=== PATIENT | male | born 1975 | race Caucasian/White ===

== ENCOUNTER 2018-09-24 11:40 | Inpatient (IN) ==
[2018-09-24] MEDS ORDERED: Ketorolac Inj 30 MG/ML (IVP) Vial IV.PUSH ONE (11:56)
[2018-09-24] MEDS ORDERED: diazePAM 5 MG Tablet PO ONE (12:00)
--- NOTE | 2018-09-24 12:00 | ED ---
HPI General Chief complaint: Back Pain/Injury Stated complaint: Back Pain Complaint Time Seen by Provider: 09/24/18 11:49 Source: patient Mode of arrival: ambulatory Limitations: no limitations History of Present Illness HPI narrative: 42yo M with no PMH presents to the ED with c/o bilateral lower back pain for 3 days. Said he was doing yard work for 5 hours and then started having lower back pain that night. Pain feels like spasms and is nonradiating. Also pain and spasm back of thighs bilaterally. Constant and worst with movement. Moderate in severity. +Dark urine. Tactile fever. +Nausea. Denies any trauma, fall, IVDA, hematuria, chest pain, sob, vomiting, abdominal pain, focal weakness or numbness. Has had similar pain before but not this bad. Related Data Home Medications Medication Instructions Recorded Confirmed No Known Home Medications 09/24/18 09/24/18 Allergies Allergy/AdvReac Type Severity Reaction Status Date / Time penicillin G Allergy Mild Rash, Verified 09/24/18 11:50 Localized Review of Systems ROS: all other systems reviewed are negative [facility] Social History Social History Substance History: Active Abuse Second Hand Smoke Exposure: Yes Smoking Status: Current every day smoker Tobacco Type: Cigarettes How Often Do You Have a Drink Containing Alcohol: 2 to 3 times a week Recent Travel in [facility] within the Last 8 Weeks: No Recent Out of Country Travel within the Last 8 Weeks: No Immunization History Tetanus Immunization: Unsure Exam Narrative Exam Narrative: GENERAL: 42yo M in moderate distress. SKIN: Focused skin assessment warm/dry. HEAD: Atraumatic. Normocephalic. EYES: Pupils equal and round. No scleral icterus. No injection or drainage. CARDIOVASCULAR: Tachycardic at 109bpm. No murmur appreciated. RESPIRATORY: No accessory muscle use. Clear to auscultation. Breath sounds equal bilaterally. GASTROINTESTINAL: Abdomen soft, non-tender, nondistended. No rebound tenderness or guarding. BACK: No midline ttp thoracic or lumbar spine. +TTP bilateral paraspinal lumbar muscles. MUSCULOSKELETAL: No obvious deformities. No clubbing. No cyanosis. No edema. NEUROLOGICAL: Awake and alert. No obvious cranial nerve deficits. Motor grossly within normal limits. Sensation equal bilaterally. Normal speech. PSYCHIATRIC: Appropriate mood and affect; insight and judgment normal. Course Initial Documented Vital Signs Temperature 97.7 F 09/24/18 11:43 Pulse Rate 113 H 11/22/18 11:43 Respiratory Rate 20 09/24/18 11:43 Blood Pressure 137/79 09/24/18 11:43 Pulse Oximetry 99 09/24/18 11:43 Last Documented Vital Signs Temperature 100.1 F H 09/25/18 16:00 Pulse Rate 119 H 09/25/18 16:00 Respiratory Rate 16 09/25/18 16:00 Blood Pressure 155/89 H 09/25/18 16:00 Pulse Oximetry 95 09/25/18 16:00 Critical Care Time Critical Care Time: Yes Total Critical Care Time: 45 Attestation: Aggregate critical care time was 45 minutes. Time to perform other separately billable procedures was not included in the critical care time. My time did not include minutes spent treating any other patients simultaneously or on activities that did not directly contribute to the patient's treatment. The services I provided to this patient were to treat and/or prevent clinically significant deterioration that could result in: cardiovascular collpase or . I provided critical care services requiring my management, as noted below: Chart data review, documentation time, medication orders and management, vital sign assessments/reviewing monitor data, ordering and reviewing lab tests, ordering and interpreting/reviewing x-rays and diagnostic studies, care of the patient and discussion of the patient with the admitting physicians. Medical Decision Making MDM Narrative Medical decision making narrative: 42yo M with lower back pain for three days, worsening pain. +Tactile fever and sweating. Labs reviewed, leukocytosis at 23.9. H/H normal. Pt initially denied IVDA but now said he used to do it. Said he has not done it for 18 months. Mild hyponatremia at 132. Creatinine normal. CPK normal. Pt was given valium and toradol initially but was still in a lot of pain. Pt then given morphine and said pain has improved but not much. Given that he has history of IVDA, intractable pain, will do MRI LS to r/ o paraspinal abscess. MRI LS showed epidural meningeal thickening in lumbar spine. Tiny pockets of fluid within the epidural space anterior to thecal sac at L3 and just below L5/S1. Small pocket of fluid also suspected in posterior epidural space at L2/L3. Pt given more pain medication and vancomycin. Pt said while he was at MRI, his left leg started feeling numb from thigh to his toes. Can feel sensation but decreased. No sensation left medial foot. Neurosurgery paged. Discussed case with Dr. Tubbs from neurosurgery and he recommended CT guided aspiraton by IR and said small epidural abscess is not surgical. Recommend admission to medicine. Discussed with Dr. Tyler and he said he will place order for CT guided aspiration and accepted pt to his service. Medical Screen Exam Complete: Yes Emergency Medical Condition: Yes Differential Diagnosis Differential Diagnosis: Rhabdomyolysis vs. dehydration vs. nephrolithiasis vs. pyelonephritis vs. musculoskeletal pain Lab Data Result diagrams: 09/25/18 08:29 09/25/18 08:29 Lab Results 09/24/18 09/24/18 09/24/18 Range/Units 12:00 12:00 12:00 WBC 23.9 H (4.0-11.0) th/mm3 RBC 4.50 (4.50-5.90) mil/mm3 Hgb 13.9 (13.0-17.0) gm/dL Hct 39.2 (39.0-51.0) % MCV 87.3 (80.0-100.0) fL MCH 31.0 (27.0-34.0) pg MCHC 35.5 (32.0-36.0) % RDW 13.8 (11.6-17.2) % Plt Count 200 (150-450) th/mm3 MPV 8.1 (7.0-11.0) fL Prelim Diff (Auto) Neut % (Auto) 91.9 H (16.0-70.0) % Lymph % (Auto) 4.3 L (9.0-44.0) % [place] % (Auto) 3.7 (0.0-8.0) % Eos % (Auto) 0.0 (0.0-4.0) % Baso % (Auto) 0.1 (0.0-2.0) % Neut # (Auto) 22.0 H (1.8-7.7) th/mm3 Lymph # (Auto) 1.0 (1.0-4.8) th/mm3 [place] # (Auto) 0.9 (0.0-0.9) th/mm3 Eos # (Auto) 0.0 (0.0-0.4) th/mm3 Baso # (Auto) 0.0 (0.0-0.2) th/mm3 WBC Differential . Seg Neuts % (Manual) (16-70) % Band Neuts % (Manual) (0-6) % Lymphocytes % (Manual) (9-44) % Monocytes % (Manual) (0-8) % Abs Neuts (Manual) (1.8-7.7) th/mm3 Differential Comment Auto diff final Toxic Granulation (None) Platelet Estimate (Normal) Platelet Morphology (Normal) RBC Morphology (Normal) Sodium 132 L (136-145) meq/L Potassium 3.9 (3.5-5.1) meq/L Chloride 97 L (98-107) meq/L Carbon Dioxide 26.9 (21.0-32.0) meq/L Anion Gap 8 (5-15) meq/L BUN 12 (7-18) mg/dL Creatinine 1.01 (0.60-1.30) mg/dL Estimated GFR 82 L (>89) mL/min Random Glucose 183 H (74-106) mg/dL Lactic Acid (0.4-2.0) mmol/L Calcium 8.2 L (8.5-10.1) mg/dL Total Creatine Kinase 73 (39-308) U/L Urine Color Yellow (Yellw/Straw) Urine Clarity Clear (Clear) Urine pH 6.0 (5.0-8.5) Ur Specific [place] 1.024 (1.002-1.035) Urine Protein Negative (Neg-Trace) mg/dL Urine Glucose (UA) 150 H (Negative) mg/dL Urine Ketones Negative (Negative) mg/dL Urine Occult Blood Negative (Negative) Urine Nitrate Negative (Negative) Urine Bilirubin Negative (Negative) Urine Urobilinogen 4 or greater (Less than 2) mg/dL Ur Leukocyte Esterase Negative (Negative) Urine RBC 1 (0-3) /hpf Urine WBC 4 (0-5) /hpf Ur Squamous Epith Cells 2 (0-5) /hpf Urine Mucus Few H (Occasional) /lpf Micro UA Comment Culture not ind Ur Microscopic Review Not Reportable Urine Culture Comments Culture not ind 09/24/18 09/25/18 09/25/18 Range/Units 15:15 08:29 08:29 WBC 25.4 H (4.0-11.0) th/mm3 RBC 4.58 (4.50-5.90) mil/mm3 Hgb 13.7 (13.0-17.0) gm/dL Hct 40.2 (39.0-51.0) % MCV 87.7 (80.0-100.0) fL MCH 29.9 (27.0-34.0) pg MCHC 34.1 (32.0-36.0) % RDW 13.8 (11.6-17.2) % Plt Count 225 (150-450) th/mm3 MPV 8.4 (7.0-11.0) fL Prelim Diff (Auto) Slide review pending Neut % (Auto) 88.8 H (16.0-70.0) % Lymph % (Auto) 4.3 L (9.0-44.0) % [place] % (Auto) 6.5 (0.0-8.0) % Eos % (Auto) 0.1 (0.0-4.0) % Baso % (Auto) 0.3 (0.0-2.0) % Neut # (Auto) 22.5 H (1.8-7.7) th/mm3 Lymph # (Auto) 1.1 (1.0-4.8) th/mm3 [place] # (Auto) 1.6 H (0.0-0.9) th/mm3 Eos # (Auto) 0.0 (0.0-0.4) th/mm3 Baso # (Auto) 0.1 (0.0-0.2) th/mm3 WBC Differential Manual diff final Seg Neuts % (Manual) 69 (16-70) % Band Neuts % (Manual) 22 H (0-6) % Lymphocytes % (Manual) 6 L (9-44) % Monocytes % (Manual) 3 (0-8) % Abs Neuts (Manual) 23.1 H (1.8-7.7) th/mm3 Differential Comment . Toxic Granulation 2+ H (None) Platelet Estimate Normal (Normal) Platelet Morphology Normal (Normal) RBC Morphology Normal (Normal) Sodium 131 L (136-145) meq/L Potassium 4.0 (3.5-5.1) meq/L Chloride 97 L (98-107) meq/L Carbon Dioxide 26.3 (21.0-32.0) meq/L Anion Gap 8 (5-15) meq/L BUN 12 (7-18) mg/dL Creatinine 1.02 (0.60-1.30) mg/dL Estimated GFR 81 L (>89) mL/min Random Glucose 122 H (74-106) mg/dL Lactic Acid 1.6 (0.4-2.0) mmol/L Calcium 8.4 L (8.5-10.1) mg/dL Total Creatine Kinase (39-308) U/L Urine Color (Yellw/Straw) Urine Clarity (Clear) Urine pH (5.0-8.5) Ur Specific [place] (1.002-1.035) Urine Protein (Neg-Trace) mg/dL Urine Glucose (UA) (Negative) mg/dL Urine Ketones (Negative) mg/dL Urine Occult Blood (Negative) Urine Nitrate (Negative) Urine Bilirubin (Negative) Urine Urobilinogen (Less than 2) mg/dL Ur Leukocyte Esterase (Negative) Urine RBC (0-3) /hpf Urine WBC (0-5) /hpf Ur Squamous Epith Cells (0-5) /hpf Urine Mucus (Occasional) /lpf Micro UA Comment Ur Microscopic Review Urine Culture Comments Imaging Data Radiologist's impression: Lumbar Spine MRI 09/24/18 13:31 CONCLUSION: 1. Long segment thickening, induration and enhancement of the meninges and epidural space of the lumbar spine with the most pronounced involvement being from L4/L5 through S1/S2, presumably infectious. Small pockets of fluid within the epidural space as described. The paraspinous soft tissues are edematous, posteriorly most conspicuous from L3/L4 through L5/S1 and anteriorly most conspicuous in the presacral region and at L5. No findings typical of osteomyelitis or discitis. 2. Degenerative disc changes at L4/L5 and L5/S1 are also seen. Discharge Plan Discharge Disposition Patient Disposition: 30 Still Patient Discharge Details Diagnosis: Epidural abscess Physicians Team ED Provider: Elizabeth Daugherty Primary Care Provider: Primary Care Physici,No Attending Provider: Glenn Cagle Other Providers: Araceli Cantor ; Elke Oliver ; Hieu Acosta ; Jose Henderson Status ED Status: Left Department Discharge Information Discharge Date/Time: 09/24/18 16:41
[2018-09-24] MEDS: Sod Chloride 0.9% Inj 1,000 ML IV.SIG SCH ×2 (12:12→12:46)
[2018-09-24 12:28] LABS: Baso % (Auto) 0.1 % (0.0-2.0); Hematocrit 39.2 % (39.0-51.0); Hemoglobin 13.9 gm/dL (13.0-17.0); Lymph % (Auto) 4.3 % (9.0-44.0); Mean Corpuscular HGB Conc 35.5 % (32.0-36.0); Mean Corpuscular Volume 87.3 fL (80.0-100.0); Mean Platelet Volume 8.1 fL (7.0-11.0); Mono # (Auto) 0.9 th/mm3 (0.0-0.9); Mono % (Auto) 3.7 % (0.0-8.0); Neut % (Auto) 91.9 % (16.0-70.0); Platelet Count 200 th/mm3 (150-450); Red Cell Distribution Width 13.8 % (11.6-17.2); White Blood Count 23.9 th/mm3 (4.0-11.0)
[2018-09-24] MEDS ORDERED: Morphine Inj 4 MG/ML Vial IV.PUSH ONE ×2 (12:32→13:47)
[2018-09-24 12:48] LABS: Calcium 8.2 mg/dL (8.5-10.1); Carbon Dioxide 26.9 meq/L (21.0-32.0); Potassium 3.9 meq/L (3.5-5.1)
[2018-09-24 13:50] LABS: Bilirubin,Urine Negative (Negative); Clarity,Urine Clear (Clear); Color,Urine Yellow (Yellw/Straw); Glucose,Urine (UA) 150 mg/dL (Negative); Leukocyte Esterase,Urine Negative (Negative); Mucus,Urine Few /lpf (Occasional); Nitrite,Urine Negative (Negative); Specific Gravity,Urine 1.024 (1.002-1.035); Squamous Epithelial Cell,Urine 2 /hpf (0-5); Urobilinogen,Urine 4 or Greater mg/dL (Less than 2)
[2018-09-24] MEDS ORDERED: Gadobutrol PF 10 MMOL/10 ML Vial (for RAD) IV.SIG ONE (14:40)
[2018-09-24] MEDS ORDERED: Vancomycin Inj 1,350 MG in Sodium Chlor 0.9% Inj 500 ML IV.SIG ONE (15:08)
--- NOTE | 2018-09-24 15:30 | MR ---
EXAM DATE: 09/24/2018 2:58 PM EST AGE/SEX: 42 years / Male INDICATIONS: . Low back pain. CLINICAL DATA: This is the patient's initial encounter. Patient reports that signs and symptoms have been present for 4 - 6 days and indicates a pain score of 8/10. MEDICAL/SURGICAL HISTORY: None. None. COMPARISON: No prior exams available for comparison. TECHNIQUE: Multiplanar, multisequence MRI examination of the lumbar spine was performed without and with 10 ml Gadavist (gadobutrol) contrast as a single exam dose. FINDINGS: Epidural meningeal thickening seen of the lumbar spine, essentially from T12/L1 through S1/S2 but mos t pronounced at L4/L5 through S1/S2. There is associated compression of the thecal sac that is severe at L4/L5 and L5/S1 and mild from T12/L1 through L3/L4. There is edema in the paraspinous musculature . There is also edema in the prespinous soft tissues, especially presacral and at the level of L5. Ti ny pockets of fluid are seen within the epidural space anterior to the thecal sac at L3 and just belo w L5/S1. A small pocket of fluid is also suspected in the posterior epidural space at L2/L3. No large fluid collections are demonstrated. No evidence of osteomyelitis or discitis. The L4/L5 disc is desiccated and has mild loss of height. There is a small, broad posterior disc prot rusion and mild bilateral facet osteoarthritis at this level. The L5/S1 disc is desiccated and has mild loss of height. There is a small, broad posterior disc prot rusion. Also a focal central and bilateral paracentral annular fissure. CONCLUSION: 1. Long segment thickening, induration and enhancement of the meninges and epidural space of the lum bar spine with the most pronounced involvement being from L4/L5 through S1/S2, presumably infectious. Small pockets of fluid within the epidural space as described. The paraspinous soft tissues are jc atous, posteriorly most conspicuous from L3/L4 through L5/S1 and anteriorly most conspicuous in the p resacral region and at L5. No findings typical of osteomyelitis or discitis. 2. Degenerative disc changes at L4/L5 and L5/S1 are also seen. Electronically signed by: Butch Baxter MD 09/24/2018 3:28 PM EST
[2018-09-24] MEDS ORDERED: Bisacodyl 10 MG Supp RECTAL PRN (16:07)
--- NOTE | 2018-09-24 16:11 | P.HP ---
History of Present Illness Service: Hospitalist Primary Care Physician: No Primary Care Physician Chief Complaint: Lower back pain History of Present Illness: Mr. villalba is a pleasant 42-year-old male with a remote history of IV drug use who presents to the emergency department on 09/24/2018 due to lower back pain with radiation to the right leg and numbness to the left leg. His pain started on 09/21/2018 in the evening. He had subjective fever and took Tylenol 2 controlled fever. He denies any changes in bowel or bladder habits. He used to do IV drug use (Dilaudid) but quit about 18 months ago. He denies any chest pain, shortness of breath. Upon arrival, WBC 23.9K, fever of 102.0 F , tachycardic with pulse rate 110, lactic acid 1.6. Past medical history: IV drug use last use 18 months ago. Past surgical history: No major surgeries in the past. Social history: Patient denies using tobacco or alcohol. He also denies any current illicit drug use. Family history: Mother 6 years ago from pancreatic cancer, COPD, CAD. Inpatient Certification: I certify that the inpatient services were ordered in accordance with Medicare regulations governing the order. This includes certification that hospital inpatient services are reasonable and necessary and in the case of services not specified as inpatient-only under 42 CFR 419.22(n), that they are appropriately provided as inpatient services in accordance to with the 2-midnight benchmark under 43 CFR 412.3(e) Estimated Total Length of Stay (Days): 3 Plans for Post Hospital Care: Home Review of Systems All other systems reviewed negative except as [facility] - History History Provided By: Patient - Medical History Medical History: Medical History (Last Reviewed 09/24/18 @ 17:34 by Martin Tyler DO) Male circumcision Patient denies medical problems - Tobacco History Second Hand Smoke Exposure: Yes Tobacco Use In Past 30 Days: Yes Smoking Status: Current every day smoker Tobacco Type: Cigarettes - Alcohol History How Often Do You Have a Drink Containing Alcohol: 2 to 3 times a week - Substance Use History Substance History: Active Abuse - Travel History Recent Travel in the [place] Within the Last 8 Weeks: No Recent Travel Out of the Country Within the Last 8 Weeks: No - Immunization History Tetanus Immunization: Unsure Medications and Allergies Active Medications: Active Medications Acetaminophen (Tylenol) 650 mg PO Q4H PRN PRN Reason: Headache, fever, pain 1-4 Al Hydroxide/Mg Hydroxide (Milk Of Magnesia Liq) 30 ml PO Q12H PRN PRN Reason: Mild Constipation Bisacodyl (Dulcolax Supp) 10 mg RECTAL DAILY PRN PRN Reason: SEVERE CONSITIPATION Vancomycin HCl 1,350 mg/ (Sodium Chloride) 513.5 mls @ 250 mls/hr IV.SIG ONCE ONE Stop: 09/24/18 17:11 Last Admin: 09/24/18 15:37 Dose: 250 mls/hr Lactulose (Lactulose Liq) 30 ml PO DAILY PRN PRN Reason: SEVERE CONSITIPATION Ondansetron HCl (Zofran Inj) 4 mg IV.PUSH Q6H PRN PRN Reason: NAUSEA OR VOMITING Sennosides (Senokot) 17.2 mg PO Q12H PRN PRN Reason: Moderate Constipation Allergies Allergy/AdvReac Type Severity Reaction Status Date / Time penicillin G Allergy Mild Rash, Verified 09/24/18 11:50 Localized Home Medications Medication Instructions Recorded Confirmed Type No Known Home Medications 09/24/18 09/24/18 History Exam Vital signs: Vital Signs 09/24/18 11:43 09/24/18 11:50 Temperature 97.7 F Pulse Rate 113 H 109 H Respiratory Rate 20 20 Blood Pressure 137/79 132/85 Pulse Oximetry 99 99 Intake & Output 09/23/18 09/24/18 09/24/18 18:59 06:59 18:59 Intake Total 1999 Balance 1999 Weight 90.718 kg Intake: IV 1999 NS Inj 1,000 ML @ 2000 mls/hr 1999 IV.SIG Q30M [facility] Rx#:[id number] Narrative: GENERAL: This is a well-nourished, well-developed patient, in no apparent distress. Mildly uncomfortable due to low back pain. SKIN: No rashes, ecchymoses or lesions. Warm and dry. HEAD: Atraumatic. Normocephalic. No temporal or scalp tenderness. EYES: Pupils equal round and reactive. No injection or drainage. ENT: Nose without bleeding, purulent drainage or septal hematoma. Airway patent. NECK: Trachea midline. No lymphadenopathy. Supple, nontender, no meningeal signs. CARDIOVASCULAR: Regular rate and rhythm without murmurs, gallops, or rubs. No JVD. RESPIRATORY: Clear to auscultation. Breath sounds equal bilaterally. No wheezes , rales, or rhonchi. GASTROINTESTINAL: Abdomen soft, non-tender, nondistended. No guarding. MUSCULOSKELETAL: Extremities without clubbing, cyanosis, or edema. Diminished sensation in the distal left lower ext. Pain on light palpation over lower back. NEUROLOGICAL: Awake and alert. Cranial nerves II through XII intact. No focal neurological deficits. Normal speech. Results - Labs CBC & Chem 7: 09/24/18 12:00 09/24/18 12:00 Labs: Laboratory Results - last 24 hr 09/24/18 09/24/18 09/24/18 12:00 12:00 12:00 WBC 23.9 H RBC 4.50 Hgb 13.9 Hct 39.2 MCV 87.3 MCH 31.0 MCHC 35.5 RDW 13.8 Plt Count 200 MPV 8.1 Neut % (Auto) 91.9 H Lymph % (Auto) 4.3 L [place] % (Auto) 3.7 Eos % (Auto) 0.0 Baso % (Auto) 0.1 Neut # (Auto) 22.0 H Lymph # (Auto) 1.0 [place] # (Auto) 0.9 Eos # (Auto) 0.0 Baso # (Auto) 0.0 WBC Differential . Differential Comment Auto diff final Sodium 132 L Potassium 3.9 Chloride 97 L Carbon Dioxide 26.9 Anion Gap 8 BUN 12 Creatinine 1.01 Estimated GFR 82 L Random Glucose 183 H Calcium 8.2 L Total Creatine Kinase 73 Urine Color Yellow Urine Clarity Clear Urine pH 6.0 Ur Specific [place] 1.024 Urine Protein Negative Urine Glucose (UA) 150 H Urine Ketones Negative Urine Occult Blood Negative Urine Nitrate Negative Urine Bilirubin Negative Urine Urobilinogen 4 or greater Ur Leukocyte Esterase Negative Urine RBC 1 Urine WBC 4 Ur Squamous Epith Cells 2 Urine Mucus Few H Micro UA Comment Culture not ind Ur Microscopic Review Not Reportable Urine Culture Comments Culture not ind - Imaging Impressions Lumbar Spine MRI 09/24/18 13:31 CONCLUSION: 1. Long segment thickening, induration and enhancement of the meninges and epidural space of the lumbar spine with the most pronounced involvement being from L4/L5 through S1/S2, presumably infectious. Small pockets of fluid within the epidural space as described. The paraspinous soft tissues are edematous, posteriorly most conspicuous from L3/L4 through L5/S1 and anteriorly most conspicuous in the presacral region and at L5. No findings typical of osteomyelitis or discitis. 2. Degenerative disc changes at L4/L5 and L5/S1 are also seen. Caprini VTE Risk Assessment Caprini VTE Risk Assessment: No/Low Risk (score <= 1) Caprini Risk Assessment Model: Point Value = 1 Point Value = 2 Point Value = 3 Point Value = 5 Age 41-60 Minor surgery BMI > 25 kg/m2 Swollen legs Varicose veins or History of unexplained or recurrent spontaneous Oral contraceptives or hormone replacement Sepsis (< 1 month) Serious lung disease, including pneumonia (< 1 month) Abnormal pulmonary function Acute myocardial infarction Congestive heart failure (< 1 month) History of inflammatory bowel disease Medical patient at bed rest Age 61-74 Arthroscopic surgery Major open surgery (> 45 min) Laparoscopic surgery (> 45 min) Malignancy Confined to bed (> 72 hours) Immobilizing plaster cast Central venous access Age >= 75 History of VTE Family history of VTE Factor V Leiden Prothrombin [id number] Lupus anticoagulant Anticardiolipin antibodies Elevated serum homocysteine Heparin-induced thrombocytopenia Other congenital or acquired thrombophilia Stroke (< 1 month) Elective arthroplasty Hip, pelvis, or leg fracture Acute spinal cord injury (< 1 month) Prophylaxis Regimen: Total Risk Factor Score Risk Level Prophylaxis Regimen 0-1 Low Early ambulation 2 Moderate Order ONE of the following: *Sequential Compression Device (SCD) *Heparin 5000 units SQ BID 3-4 Higher Order ONE of the following medications: *Heparin 5000 units SQ TID *Enoxaparin/Lovenox 40 mg SQ daily (WT < 150 kg, CrCl > 30 mL/min) *Enoxaparin/Lovenox 30 mg SQ daily (WT < 150 kg, CrCl > 10-29 mL/min) *Enoxaparin/Lovenox 30 mg SQ BID (WT < 150 kg, CrCl > 30 mL/min) AND/OR *Sequential Compression Device (SCD) 5 or more Highest Order ONE of the following medications: *Heparin 5000 units SQ TID (Preferred with Epidurals) *Enoxaparin/Lovenox 40 mg SQ daily (WT < 150 kg, CrCl > 30 mL/min) *Enoxaparin/Lovenox 30 mg SQ daily (WT < 150 kg, CrCl > 10-29 mL/min) *Enoxaparin/Lovenox 30 mg SQ BID (WT < 150 kg, CrCl > 30 mL/min) AND *Sequential Compression Device (SCD) Assessment and Plan - Plan Mr. Villalba is a pleasant 42-year-old male with a remote history of IV drug use who presents to the emergency department on 09/24/2018 due to a 3-day duration of lower back pain with radiation of pain to the right leg and numbness to the left leg. He had fever at home. Sepsis (WBC 23.9K, Tachycardic, suspected infection Lumbar spine epidural abscess). Lumbar spine epidural abscess Blood cultures pending. MRI shows evidence including fluid collection of possible infectious process. We will start patient on cefepime 2g Q8hrs and continue vancomycin. Vancomycin dosing per pharmacy protocol. Consult infectious disease Consulted interventional radiology for aspiration ED provider discussed with on-call neurosurgeon Dr. Tubbs. ED provider did mention to neurosurgeon regarding left leg numbness and right leg pain. Neurosurgery recommended interventional radiology consultation for aspiration. We will start Acetaminophen, Percocet for pain as well as Morphine for Breakthrough pain. History of IV drug use Patient denies using any IV drugs since he quit 18 months ago. Full code. SCDs.
[2018-09-24] MEDS: Acetaminophen 325 MG Tablet PO PRN ×2 (16:32→20:28)
[2018-09-24] MEDS ORDERED: Vancomycin Consult Pharmacy OTHER PRN (17:29)
[2018-09-24] MEDS: oxyCODONE/Acetaminophen 10/325 Tablet PO PRN (18:36)
[2018-09-24] MEDS: Morphine Inj 4 MG/ML Vial IV.PUSH PRN (21:34)
[2018-09-25] MEDS: oxyCODONE/Acetaminophen 10/325 Tablet PO PRN ×4 (00:29→19:53)
[2018-09-25] MEDS: Vancomycin Inj 1,250 MG in Sodium Chlor 0.9% Inj 250 ML IV.SIG SCH ×2 (03:39→16:30)
[2018-09-25] MEDS: Morphine Inj 4 MG/ML Vial IV.PUSH PRN ×3 (03:39→22:37)
[2018-09-25] MEDS: Acetaminophen 325 MG Tablet PO PRN (04:43)
[2018-09-25 08:58] LABS: Baso # (Auto) 0.1 th/mm3 (0.0-0.2); Baso % (Auto) 0.3 % (0.0-2.0); Eos % (Auto) 0.1 % (0.0-4.0); Hematocrit 40.2 % (39.0-51.0); Hemoglobin 13.7 gm/dL (13.0-17.0); Lymph # (Auto) 1.1 th/mm3 (1.0-4.8); Lymph % (Auto) 4.3 % (9.0-44.0); Mean Corpuscular HGB Conc 34.1 % (32.0-36.0); Mean Corpuscular Hemoglobin 29.9 pg (27.0-34.0); Mean Corpuscular Volume 87.7 fL (80.0-100.0); Mean Platelet Volume 8.4 fL (7.0-11.0); Mono # (Auto) 1.6 th/mm3 (0.0-0.9); Mono % (Auto) 6.5 % (0.0-8.0); Neut # (Auto) 22.5 th/mm3 (1.8-7.7); Neut % (Auto) 88.8 % (16.0-70.0); Platelet Count 225 th/mm3 (150-450); Red Blood Count 4.58 mil/mm3 (4.50-5.90); Red Cell Distribution Width 13.8 % (11.6-17.2); White Blood Count 25.4 th/mm3 (4.0-11.0)
[2018-09-25 09:26] LABS: Calcium 8.4 mg/dL (8.5-10.1); Carbon Dioxide 26.3 meq/L (21.0-32.0)
[2018-09-25 09:53] LABS: Lymphocytes 6 % (9-44); Monocytes 3 % (0-8); Platelet Estimate Normal (Normal); Platelet Morphology Normal (Normal); RBC Morphology Normal (Normal)
[2018-09-25 09:54] LABS: Toxic Granulation 2+
--- NOTE | 2018-09-25 10:47 | P.PN ---
Subjective Interval history: This is a pleasant 42 y/o male with remote History of IVDU, who came to Emergency room 09/24/18, due to lower back pain with radiation to the right leg and Numbness to the left leg, His pain started on in the evening. He had subjective fever and took Tylenol 2 controlled fever. He denies any changes in bowel or bladder habits. He used to do IV drug use (Dilaudid) but quit about 18 months ago. He denies any chest pain, shortness of breath. Upon arrival, WBC 23.9K, fever of 102.0 F, tachycardic with pulse rate 110, lactic acid 1.6. as per Doctor Nayeli Salazar he talked to Interventional running specialist and not recommended Anterior epidural space is usually avoided by IR, Small fluid collections are located in the anterior epidural space, ID specialist consulted, if still wants a sample of tissue will need Neurosurgery specialist consult, today discussed in am with Doctor Tyler states the patient will need a follow up and Formal consult with Neurosurgery he discussed with Doctor Tubbs . 09/25: Stable in his bedroom, continue pain medicine, followed by ID specialist due to sepsis, Lumbar epidural abscess Recommended to repeat Blood cultures, not possible for Interventional Radiology to perform any procedure, continue Empiric Vancomycin and Cefepime. no nausea, vomit or diarrhea. Physical Exam Vital signs: Vital Signs 09/24/18 11:43 09/24/18 11:50 09/24/18 16:26 Temperature 97.7 F 102.0 F H Pulse Rate 113 H 109 H 110 H Respiratory Rate 20 20 18 Blood Pressure 137/79 132/85 139/83 Pulse Oximetry 99 99 09/24/18 18:15 09/24/18 20:00 09/25/18 00:00 Temperature 98.5 F 102.1 F H 100.2 F H Pulse Rate 115 H 116 H 125 H Respiratory Rate 18 22 19 Blood Pressure 132/70 139/70 132/78 Pulse Oximetry 96 97 96 09/25/18 04:00 09/25/18 08:00 Temperature 100.3 F H 98.4 F Pulse Rate 104 H 91 H Respiratory Rate 18 18 Blood Pressure 133/80 128/80 Pulse Oximetry 95 95 Intake & Output 09/24/18 09/25/18 09/25/18 18:59 06:59 18:59 Intake Total 2513.5 / 2513.5 942.5 / 942.5 100 / 100 Output Total 300 / 300 Balance 2513.5 / 2513.5 642.5 / 642.5 100 / 100 Weight 78.1 kg 80 kg Intake: IV 2513.5 / 2513.5 462.5 / 462.5 100 / 100 Maxipime Inj 2,000 MG In NS Inj 200 / 200 100 / 100 100 ML @ 200 mls/hr IV.SIG Q8H [facility] Rx#:[id number] NS Inj 1,000 ML @ 2000 mls/hr 2000 / 2000 IV.SIG Q30M [facility] Rx#:[id number] Vancomycin Inj 1,250 MG In NS 262.5 / 262.5 Inj 250 ML @ 250 mls/hr IV.SIG Q12H [facility] Rx#:[id number] Vancomycin Inj 1,350 MG In NS 513.5 / 513.5 Inj 500 ML @ 250 mls/hr IV.SIG ONCE ONE Rx#:[id number] Oral 480 / 480 Output: Urine 300 / 300 Other: Weight On Admission 78.2 kg Narrative: GENERAL: Moderate distress due to pain. SKIN: No rashes, ecchymoses or lesions. Warm and dry. HEAD: Atraumatic. Normocephalic. No temporal or scalp tenderness. EYES: Pupils equal round and reactive. No injection or drainage. ENT: Nose without bleeding, purulent drainage or septal hematoma. Airway patent. NECK: Trachea midline. No lymphadenopathy. Supple, nontender, no meningeal signs. CARDIOVASCULAR: Regular rate and rhythm without murmurs, gallops, or rubs. No JVD. RESPIRATORY: Clear to auscultation. Breath sounds equal bilaterally. No wheezes , rales, or rhonchi. GASTROINTESTINAL: Abdomen soft, non-tender, nondistended. No guarding. MUSCULOSKELETAL: Extremities without clubbing, cyanosis, or edema. Diminished sensation in the distal left lower ext. Pain on light palpation over lower back. NEUROLOGICAL: Awake and alert. - Urinary Catheter Management Indwelling Urethral Catheter Cath placed during this visit: yes Reason for continuing: Acute urinary retention Insertion date: 09/25/18 Insertion time: 18:42 Results - Labs CBC & Chem 7: 09/25/18 08:29 11/25/18 05:43 Laboratory Results - last 24 hr 09/24/18 09/24/18 09/24/18 12:00 12:00 12:00 WBC 23.9 H RBC 4.50 Hgb 13.9 Hct 39.2 MCV 87.3 MCH 31.0 MCHC 35.5 RDW 13.8 Plt Count 200 MPV 8.1 Prelim Diff (Auto) Neut % (Auto) 91.9 H Lymph % (Auto) 4.3 L [place] % (Auto) 3.7 Eos % (Auto) 0.0 Baso % (Auto) 0.1 Neut # (Auto) 22.0 H Lymph # (Auto) 1.0 [place] # (Auto) 0.9 Eos # (Auto) 0.0 Baso # (Auto) 0.0 WBC Differential . Seg Neuts % (Manual) Band Neuts % (Manual) Lymphocytes % (Manual) Monocytes % (Manual) Abs Neuts (Manual) Differential Comment Auto diff final Toxic Granulation Platelet Estimate Platelet Morphology RBC Morphology Sodium 132 L Potassium 3.9 Chloride 97 L Carbon Dioxide 26.9 Anion Gap 8 BUN 12 Creatinine 1.01 Estimated GFR 82 L Random Glucose 183 H Lactic Acid Calcium 8.2 L Total Creatine Kinase 73 Urine Color Yellow Urine Clarity Clear Urine pH 6.0 Ur Specific [place] 1.024 Urine Protein Negative Urine Glucose (UA) 150 H Urine Ketones Negative Urine Occult Blood Negative Urine Nitrate Negative Urine Bilirubin Negative Urine Urobilinogen 4 or greater Ur Leukocyte Esterase Negative Urine RBC 1 Urine WBC 4 Ur Squamous Epith Cells 2 Urine Mucus Few H Micro UA Comment Culture not ind Ur Microscopic Review Not Reportable Urine Culture Comments Culture not ind 09/24/18 09/25/18 09/25/18 15:15 08:29 08:29 WBC 25.4 H RBC 4.58 Hgb 13.7 Hct 40.2 MCV 87.7 MCH 29.9 MCHC 34.1 RDW 13.8 Plt Count 225 MPV 8.4 Prelim Diff (Auto) Slide review pending Neut % (Auto) 88.8 H Lymph % (Auto) 4.3 L [place] % (Auto) 6.5 Eos % (Auto) 0.1 Baso % (Auto) 0.3 Neut # (Auto) 22.5 H Lymph # (Auto) 1.1 [place] # (Auto) 1.6 H Eos # (Auto) 0.0 Baso # (Auto) 0.1 WBC Differential Manual diff final Seg Neuts % (Manual) 69 Band Neuts % (Manual) 22 H Lymphocytes % (Manual) 6 L Monocytes % (Manual) 3 Abs Neuts (Manual) 23.1 H Differential Comment . Toxic Granulation 2+ H Platelet Estimate Normal Platelet Morphology Normal RBC Morphology Normal Sodium 131 L Potassium 4.0 Chloride 97 L Carbon Dioxide 26.3 Anion Gap 8 BUN 12 Creatinine 1.02 Estimated GFR 81 L Random Glucose 122 H Lactic Acid 1.6 Calcium 8.4 L Total Creatine Kinase Urine Color Urine Clarity Urine pH Ur Specific [place] Urine Protein Urine Glucose (UA) Urine Ketones Urine Occult Blood Urine Nitrate Urine Bilirubin Urine Urobilinogen Ur Leukocyte Esterase Urine RBC Urine WBC Ur Squamous Epith Cells Urine Mucus Micro UA Comment Ur Microscopic Review Urine Culture Comments - Imaging Impressions Lumbar Spine MRI 09/24/18 13:31 CONCLUSION: 1. Long segment thickening, induration and enhancement of the meninges and epidural space of the lumbar spine with the most pronounced involvement being from L4/L5 through S1/S2, presumably infectious. Small pockets of fluid within the epidural space as described. The paraspinous soft tissues are edematous, posteriorly most conspicuous from L3/L4 through L5/S1 and anteriorly most conspicuous in the presacral region and at L5. No findings typical of osteomyelitis or discitis. 2. Degenerative disc changes at L4/L5 and L5/S1 are also seen. - Procedures None Assessment and Plan - Plan Mr. Cook is a pleasant 42-year-old male with a remote history of IV drug use who presents to the emergency department on 09/24/2018 due to a 3-day duration of lower back pain with radiation of pain to the right leg and numbness to the left leg. He had fever at home. Sepsis (WBC 23.9K, Tachycardic, suspected infection Lumbar spine epidural abscess). Lumbar spine epidural abscess Blood cultures pending. MRI shows evidence including fluid collection of possible infectious process. We will start patient on cefepime 2g Q8hrs and continue vancomycin. Vancomycin dosing per pharmacy protocol. Discussed with Doctor Jose Henderson not considered for any intervention, asked for Interventional radiology reconsult but was discussed with ID specialist and not considered also for any probable intervention, will continue Empiric antibiotics and follow new blood cultures. History of IV drug use Patient denies using any IV drugs since he quit 18 months ago. Full code. SCDs. Code Status: Full Code. Discussed Condition With: Patient, Nurse, Neurosurgery specialist Doctor Santiago. Discharge Planning: Once cleared by specialists.
--- NOTE | 2018-09-25 12:29 | P.CONNS ---
History of Present Illness Primary Care Provider: No Primary Care Physician Chief Complaint: Lower back pain History of Present Illness: 42yoM with back pain with presumed infection L4 to S1 by MRI L-spine. H/o remoted IVDU 18 months ago prior to going to group home, not since that time. Severe back pain but neurologically intact. IR unable to access a sample. PMFSH - History History Provided By: Patient - Medical History Medical History: Medical History (Last Reviewed 09/24/18 @ 17:34 by Martin Tyler DO) Male circumcision Patient denies medical problems - Tobacco History Second Hand Smoke Exposure: Yes Tobacco Use In Past 30 Days: Yes Smoking Status: Current every day smoker Tobacco Type: Cigarettes - Alcohol History How Often Do You Have a Drink Containing Alcohol: 2 to 3 times a week - Substance Use History Substance History: Active Abuse - Substance Use Type Other Type: Dilaudid Status: Sustained Remission Route Used: By Mouth Reason for Use: Calm Down - Travel History Recent Travel in the [place] Within the Last 8 Weeks: No Recent Travel Out of the Country Within the Last 8 Weeks: No - Immunization History Tetanus Immunization: Unsure Hx Influenza Vaccine This Season: No Medications and Allergies Active Medications: Active Medications Acetaminophen (Tylenol) 650 mg PO Q4H PRN PRN Reason: Headache, fever, pain 1-4 Last Admin: 09/25/18 04:43 Dose: 650 mg Al Hydroxide/Mg Hydroxide (Milk Of Magnesia Liq) 30 ml PO Q12H PRN PRN Reason: Mild Constipation Bisacodyl (Dulcolax Supp) 10 mg RECTAL DAILY PRN PRN Reason: SEVERE CONSITIPATION Cefepime HCl 2,000 mg/ Sodium (Chloride) 100 mls @ 200 mls/hr IV.SIG Q8H [facility] Last Infusion: 09/25/18 10:13 Dose: Infused Vancomycin HCl 1,250 mg/ (Sodium Chloride) 262.5 mls @ 250 mls/hr IV.SIG Q12H [facility] Last Infusion: 09/25/18 04:45 Dose: Infused Lactulose (Lactulose Liq) 30 ml PO DAILY PRN PRN Reason: SEVERE CONSITIPATION Miscellaneous Information ([facility] Ordered Lab Info) 0 each OTHER ONCE ONE Stop: 09/26/18 03:46 Morphine Sulfate (Morphine Inj) 4 mg IV.PUSH Q4H PRN PRN Reason: BREAKTHROUGH PAIN Last Admin: 09/25/18 09:39 Dose: 4 mg Ondansetron HCl (Zofran Inj) 4 mg IV.PUSH Q6H PRN PRN Reason: NAUSEA OR VOMITING Oxycodone/Acetaminophen (Percocet 10/325 Mg) 1 tab PO Q6H PRN PRN Reason: Pain 5-10 Last Admin: 09/25/18 06:53 Dose: 1 tab Pharmacy Profile Note (Vancomycin Consult Pharmacy) 1 each OTHER UNSCH PRN PRN Reason: Pharmacy to dose Sennosides (Senokot) 17.2 mg PO Q12H PRN PRN Reason: Moderate Constipation Allergies Allergy/AdvReac Type Severity Reaction Status Date / Time penicillin G Allergy Mild Rash, Verified 09/24/18 11:50 Localized Home Medications Medication Instructions Recorded Confirmed Type No Known Home Medications 09/24/18 09/24/18 History Exam Vital signs: Vital Signs 09/24/18 16:26 09/24/18 18:15 09/24/18 20:00 Temperature 102.0 F H 98.5 F 102.1 F H Pulse Rate 110 H 115 H 116 H Respiratory Rate 18 18 22 Blood Pressure 139/83 132/70 139/70 Pulse Oximetry 96 97 09/25/18 00:00 09/25/18 04:00 09/25/18 08:00 Temperature 100.2 F H 100.3 F H 98.4 F Pulse Rate 125 H 104 H 91 H Respiratory Rate 19 18 18 Blood Pressure 132/78 133/80 128/80 Pulse Oximetry 96 95 95 Intake & Output 09/24/18 09/25/18 09/25/18 18:59 06:59 18:59 Intake Total 2513.5 / 2513.5 942.5 / 942.5 100 / 100 Output Total 300 / 300 Balance 2513.5 / 2513.5 642.5 / 642.5 100 / 100 Weight 78.1 kg 80 kg Intake: IV 2513.5 / 2513.5 462.5 / 462.5 100 / 100 Maxipime Inj 2,000 MG In NS Inj 200 / 200 100 / 100 100 ML @ 200 mls/hr IV.SIG Q8H [facility] Rx#:[id number] NS Inj 1,000 ML @ 2000 mls/hr 1999 / 2000 IV.SIG Q30M [facility] Rx#:[id number] Vancomycin Inj 1,250 MG In NS 262.5 / 262.5 Inj 250 ML @ 250 mls/hr IV.SIG Q12H [facility] [place] Rx#:[id number] Vancomycin Inj 1,350 MG In NS 513.5 / 513.5 Inj 500 ML @ 250 mls/hr IV.SIG ONCE ONE Rx#:[id number] Oral 480 / 480 Output: Urine 300 / 300 Other: Weight On Admission 78.2 kg Narrative: Painful A&O x 3 CN II-XII intact Motor 5/5 UE/LE Results - Laboratory Findings CBC and BMP: 09/25/18 08:29 09/25/18 08:29 Abnormal lab findings: Abnormal Labs 09/24/18 09/24/18 09/24/18 12:00 12:00 12:00 WBC 23.9 H Neut % (Auto) 91.9 H Lymph % (Auto) 4.3 L Neut # (Auto) 22.[address] [place] # (Auto) Band Neuts % (Manual) Lymphocytes % (Manual) Abs Neuts (Manual) Toxic Granulation Sodium 132 L Chloride 97 L Estimated GFR 82 L Random Glucose 183 H Calcium 8.2 L Urine Glucose (UA) 150 H Urine Mucus Few H 09/25/18 09/25/18 08:29 08:29 WBC 25.4 H Neut % (Auto) 88.8 H Lymph % (Auto) 4.3 L Neut # (Auto) 22.[address] [place] # (Auto) 1.6 H Band Neuts % (Manual) 22 H Lymphocytes % (Manual) 6 L Abs Neuts (Manual) 23.1 H Toxic Granulation 2+ H Sodium 131 L Chloride 97 L Estimated GFR 81 L Random Glucose 122 H Calcium 8.4 L Urine Glucose (UA) Urine Mucus - Diagnostic Findings Additional findings: MRI L-spine enhancement posterior L2-S1 Assessment and Plan - Plan Suspected epidural abscess, neurologically intact. Would not recommend surgery Would reconsult with IR as some of these collections are posterior epidural. ID for empiric treatment after blood cultures, urine cultures Pain control
--- NOTE | 2018-09-25 12:42 | P.CONID ---
History of Present Illness Service: Infectious disease Consult date: 09/25/18 Requesting Physician: Martin Tyler Reason for Consult: Evaluate patient with epidural abscess Primary Care Provider: No Primary Care Physician Chief Complaint: Lower back pain History of Present Illness: Patient seen and examined. Records reviewed. Patient is a 42-year-old male, presented to the hospital with severe low back pain. He was apparently doing yard work the day he started having back pain. The pain came on suddenly that he had to stop working. He laid down and since has not gotten out of bed much because of the severity of the pain. He would have pain radiating to both thighs, and currently he is complaining of some numbness in his left lower extremity. He has been constipated, although he is not really been eating much because of the severe pain. He has been having problem urinating and it takes a while for him to urinate. He is also been having fevers for 2 days prior to coming into the hospital. Patient denies any skin infection or any boils. He has not had any vomiting or diarrhea or any respiratory complaint. He has not had any teeth problem requiring any dentist attention. Patient has prior history of IV drug use, but he was incarcerated for about 18 months in [facility], and then was in [facility] for at least 2 months, and has been out on the streets for the last 2 months. He denies any smoking or snorting illicit drugs as well. 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 Since admission patient has had fevers. He had an MRI and he has abnormality in the lower thoracic and lumbar region. There is a fluid collection in the anterior epidural space. I spoke with radiologist and there is no window to access that epidural space. He has had 2 blood cultures that are negative so far. Urinalysis unremarkable. His WBC is elevated at 25,000. Infectious disease consultation has been requested to assist with evaluation and treatment. Review of Systems Constitutional: Reports anorexia, Reports chills, Reports fever(s), Reports night sweats, Denies headache(s) Eyes: Denies discharge, Denies dry eyes Ears, Nose, Mouth, and Throat: Denies dental pain, Denies difficulty swallowing , Denies nasal discharge, Denies pain with swallowing, Denies sore throat Cardiovascular: Denies chest pain, Denies leg swelling, Denies shortness of breath Respiratory: Denies chest congestion, Denies cough, Denies shortness of breath Gastrointestinal: Reports constipation, Reports nausea, Denies abdominal pain, Denies pain with swallowing, Denies vomiting Genitourinary: Reports difficulty urinating, Denies painful urination Musculoskeletal: Reports back pain, Reports muscle weakness Skin/Breast: Denies rash, Denies sores, Denies wounds, Denies yellowing of the skin Neurologic: Reports radiating pain, Reports tingling/numbness/burning sensations Psychiatric: Denies confusion PMF - History History Provided By: Patient - Medical History Medical History: Medical History (Last Reviewed 09/24/18 @ 17:34 by Martin Tyler DO) Male circumcision Patient denies medical problems - Tobacco History Second Hand Smoke Exposure: Yes Tobacco Use In Past 30 Days: Yes Smoking Status: Current every day smoker Tobacco Type: Cigarettes - Alcohol History How Often Do You Have a Drink Containing Alcohol: 2 to 3 times a week - Substance Use History Substance History: Active Abuse - Substance Use Type Other Type: Dilaudid Status: Sustained Remission Route Used: By Mouth Reason for Use: Calm Down - Travel History Recent Travel in the [place] Within the Last 8 Weeks: No Recent Travel Out of the Country Within the Last 8 Weeks: No - Immunization History Tetanus Immunization: Unsure Hx Influenza Vaccine This Season: No Medications and Allergies Active Medications: Active Medications Acetaminophen (Tylenol) 650 mg PO Q4H PRN PRN Reason: Headache, fever, pain 1-4 Last Admin: 09/25/18 04:43 Dose: 650 mg Al Hydroxide/Mg Hydroxide (Milk Of Magnesia Liq) 30 ml PO Q12H PRN PRN Reason: Mild Constipation Bisacodyl (Dulcolax Supp) 10 mg RECTAL DAILY PRN PRN Reason: SEVERE CONSITIPATION Cefepime HCl 2,000 mg/ Sodium (Chloride) 100 mls @ 200 mls/hr IV.SIG Q8H [facility] Last Infusion: 09/25/18 10:13 Dose: Infused Vancomycin HCl 1,250 mg/ (Sodium Chloride) 262.5 mls @ 250 mls/hr IV.SIG Q12H [facility] Last Infusion: 09/25/18 04:45 Dose: Infused Lactulose (Lactulose Liq) 30 ml PO DAILY PRN PRN Reason: SEVERE CONSITIPATION Miscellaneous Information ([facility] Ordered Lab Info) 0 each OTHER ONCE ONE Stop: 09/26/18 03:46 Morphine Sulfate (Morphine Inj) 4 mg IV.PUSH Q4H PRN PRN Reason: BREAKTHROUGH PAIN Last Admin: 09/25/18 09:39 Dose: 4 mg Ondansetron HCl (Zofran Inj) 4 mg IV.PUSH Q6H PRN PRN Reason: NAUSEA OR VOMITING Oxycodone/Acetaminophen (Percocet 10/325 Mg) 1 tab PO Q6H PRN PRN Reason: Pain 5-10 Last Admin: 09/25/18 06:53 Dose: 1 tab Pharmacy Profile Note (Vancomycin Consult Pharmacy) 1 each OTHER UNSCH PRN PRN Reason: Pharmacy to dose Sennosides (Senokot) 17.2 mg PO Q12H PRN PRN Reason: Moderate Constipation Allergies Allergy/AdvReac Type Severity Reaction Status Date / Time penicillin G Allergy Mild Rash, Verified 09/24/18 11:50 Localized Home Medications Medication Instructions Recorded Confirmed Type No Known Home Medications 09/24/18 09/24/18 History Exam Vital signs: Vital Signs 09/24/18 16:26 09/24/18 18:15 09/24/18 20:00 Temperature 102.0 F H 98.5 F 102.1 F H Pulse Rate 110 H 115 H 116 H Respiratory Rate 18 18 22 Blood Pressure 139/83 132/70 139/70 Pulse Oximetry 96 97 09/25/18 00:00 09/25/18 04:00 09/25/18 08:00 Temperature 100.2 F H 100.3 F H 98.4 F Pulse Rate 125 H 104 H 91 H Respiratory Rate 19 18 18 Blood Pressure 132/78 133/80 128/80 Pulse Oximetry 96 95 95 09/25/18 12:00 Temperature Pulse Rate 99 H Respiratory Rate Blood Pressure Pulse Oximetry Intake & Output 09/24/18 09/25/18 09/25/18 18:59 06:59 18:59 Intake Total 2513.5 / 2513.5 942.5 / 942.5 100 / 100 Output Total 300 / 300 Balance 2513.5 / 2513.5 642.5 / 642.5 100 / 100 Weight 78.1 kg 80 kg Intake: IV 2513.5 / 2513.5 462.5 / 462.5 100 / 100 Maxipime Inj 2,000 MG In NS Inj 200 / 200 100 / 100 100 ML @ 200 mls/hr IV.SIG Q8H [facility] Rx#:[id number] NS Inj 1,000 ML @ 2000 mls/hr 2000 / 2000 IV.SIG Q30M [facility] Rx#:[id number] Vancomycin Inj 1,250 MG In NS 262.5 / 262.5 Inj 250 ML @ 250 mls/hr IV.SIG Q12H [facility] Rx#:[id number] Vancomycin Inj 1,350 MG In NS 513.5 / 513.5 Inj 500 ML @ 250 mls/hr IV.SIG ONCE ONE Rx#:[id number] Oral 480 / 480 Output: Urine 300 / 300 Other: Weight On Admission 78.2 kg Narrative: Physical examination GENERAL: Patient is a well-nourished, well-developed male, awake and alert, not in respiratory distress. C/O back pain and BLE pain SKIN: Warm and dry. No generalized rash, no ecchymoses and no evidence of embolic lesions. HEAD: Atraumatic. Normocephalic. No temporal wasting, or tenderness. EYES: [place] conjunctiva. No petechia or hemorrhage. Pupils equal, round and reactive to light. Extraocular movements full and intact. No scleral icterus. No injection or drainage. EARS, NOSE AND THROAT: Nose without bleeding or purulent nasal discharge. No sinus tenderness. Mucous membranes pink and moist. No oral lesions noted. No exudate. No oral thrush. NECK: Trachea midline. Supple and not tender, no meningeal signs CARDIOVASCULAR: Regular rate and rhythm. No murmurs, rubs or gallops heard RESPIRATORY: Clear to auscultation. Breath sounds equal bilaterally. No rales , wheezing or rhonchi ABDOMEN: Soft, non-tender, nondistended. Bowel sounds present and normoactive. No guarding. No rebound. No organomegaly. EXTREMITIES: No clubbing, cyanosis, or edema. No joint effusion, has good ROM. No calf tenderness. Well perfused and warm. NEUROLOGICAL: Awake and alert. Cranial nerves grossly intact. Did not want to move much his LE due to pain; symmetrical strength in BUE PSYCHIATRIC: In distress due to severe back pain LINE: No evidence of infection Results - Labs CBC & Chem 7: 09/25/18 08:29 11/23/18 08:29 Labs: Laboratory Results - last 24 hr 09/24/18 09/24/18 09/24/18 12:00 12:00 12:00 WBC 23.9 H RBC 4.50 Hgb 13.9 Hct 39.2 MCV 87.3 MCH 31.0 MCHC 35.5 RDW 13.8 Plt Count 200 MPV 8.1 Prelim Diff (Auto) Neut % (Auto) 91.9 H Lymph % (Auto) 4.3 L [place] % (Auto) 3.7 Eos % (Auto) 0.0 Baso % (Auto) 0.1 Neut # (Auto) 22.0 H Lymph # (Auto) 1.0 [place] # (Auto) 0.9 Eos # (Auto) 0.0 Baso # (Auto) 0.0 WBC Differential . Seg Neuts % (Manual) Band Neuts % (Manual) Lymphocytes % (Manual) Monocytes % (Manual) Abs Neuts (Manual) Differential Comment Auto diff final Toxic Granulation Platelet Estimate Platelet Morphology RBC Morphology Sodium 132 L Potassium 3.9 Chloride 97 L Carbon Dioxide 26.9 Anion Gap 8 BUN 12 Creatinine 1.01 Estimated GFR 82 L Random Glucose 183 H Lactic Acid Calcium 8.2 L Total Creatine Kinase 73 Urine Color Yellow Urine Clarity Clear Urine pH 6.0 Ur Specific [place] 1.024 Urine Protein Negative Urine Glucose (UA) 150 H Urine Ketones Negative Urine Occult Blood Negative Urine Nitrate Negative Urine Bilirubin Negative Urine Urobilinogen 4 or greater Ur Leukocyte Esterase Negative Urine RBC 1 Urine WBC 4 Ur Squamous Epith Cells 2 Urine Mucus Few H Micro UA Comment Culture not ind Ur Microscopic Review Not Reportable Urine Culture Comments Culture not ind 09/24/18 09/25/18 09/25/18 15:15 08:29 08:29 WBC 25.4 H RBC 4.58 Hgb 13.7 Hct 40.2 MCV 87.7 MCH 29.9 MCHC 34.1 RDW 13.8 Plt Count 225 MPV 8.4 Prelim Diff (Auto) Slide review pending Neut % (Auto) 88.8 H Lymph % (Auto) 4.3 L [place] % (Auto) 6.5 Eos % (Auto) 0.1 Baso % (Auto) 0.3 Neut # (Auto) 22.5 H Lymph # (Auto) 1.1 [place] # (Auto) 1.6 H Eos # (Auto) 0.0 Baso # (Auto) 0.1 WBC Differential Manual diff final Seg Neuts % (Manual) 69 Band Neuts % (Manual) 22 H Lymphocytes % (Manual) 6 L Monocytes % (Manual) 3 Abs Neuts (Manual) 23.1 H Differential Comment . Toxic Granulation 2+ H Platelet Estimate Normal Platelet Morphology Normal RBC Morphology Normal Sodium 131 L Potassium 4.0 Chloride 97 L Carbon Dioxide 26.3 Anion Gap 8 BUN 12 Creatinine 1.02 Estimated GFR 81 L Random Glucose 122 H Lactic Acid 1.6 Calcium 8.4 L Total Creatine Kinase Urine Color Urine Clarity Urine pH Ur Specific [place] Urine Protein Urine Glucose (UA) Urine Ketones Urine Occult Blood Urine Nitrate Urine Bilirubin Urine Urobilinogen Ur Leukocyte Esterase Urine RBC Urine WBC Ur Squamous Epith Cells Urine Mucus Micro UA Comment Ur Microscopic Review Urine Culture Comments - Imaging Impressions Lumbar Spine MRI 09/24/18 13:31 CONCLUSION: 1. Long segment thickening, induration and enhancement of the meninges and epidural space of the lumbar spine with the most pronounced involvement being from L4/L5 through S1/S2, presumably infectious. Small pockets of fluid within the epidural space as described. The paraspinous soft tissues are edematous, posteriorly most conspicuous from L3/L4 through L5/S1 and anteriorly most conspicuous in the presacral region and at L5. No findings typical of osteomyelitis or discitis. 2. Degenerative disc changes at L4/L5 and L5/S1 are also seen. Assessment and Plan - Plan Impression Possible sepsis due to back infection Lumbar epidural abscess Hx IVDU, last use prob 20 months ago Recommendation Repeat BC Spoke with IR - no good window to access anterior epidural fluid collection Will repeat MRI next week and see if with any change in fluid collections Echo Baseline ESR and CRP Bladder scan - he is having diffculty urinating Continue empiric Abx: vanco and Cefepime Follow temps Monitor progress I will follow along with you Thank you for this consultation
--- NOTE | 2018-09-25 15:51 | ECHRPT ---
Indication: SEPSIS POSS ENDOCARDITIS CONCLUSIONS Normal left ventricular size. Wall thickness is normal. The left ventricular systolic function is normal with an estimated ejection fraction in the range of 55-60%. Trace mitral valve regurgitation. There is trace tricuspid valve regurgitation. The estimated pulmonary arterial pressure is 16mmHg. There is a small pericardial effusion present. The pericardial effusion is primarily located anteriorly. BP: / HR: Rhythm: Sinus MEASUREMENTS (Male / Female) Normal Values Technical Quality:Fair 2D ECHO LV Diastolic Diameter PLAX 5.3 cm 4.2 - 5.9 / 3.9 - 5.3 cm LV Systolic Diameter PLAX 3.9 cm IVS Diastolic Thickness 0.8 cm 0.6 - 1.0 / 0.6 - 0.9 cm LVPW Diastolic Thickness 0.8 cm 0.6 - 1.0 / 0.6 - 0.9 cm LV Relative Wall Thickness 0.3 RV Internal Dim ED PLAX 3.1 cm LVOT Diameter 2.0 cm Aortic Root Diameter 3.1 cm LA Systolic Diameter LX 3.3 cm 3.0 - 4.0 / 2.7 - 3.8 cm DOPPLER AV Peak Velocity 163.0 cm/s AV Peak Gradient 10.6 mmHg LVOT Peak Velocity 130.5 cm/s LVOT Peak Gradient 6.8 mmHg AV Area Cont Eq pk 2.5 cm Mitral E Point Velocity 93.2 cm/s Mitral A Point Velocity 85.7 cm/s Mitral E to A Ratio 1.1 LV E' Lateral Velocity 23.1 cm/s Mitral E to LV E' Lateral Ratio 4.0 LV E' Septal Velocity 10.9 cm/s Mitral E to LV E' Septal Ratio 8.6 TR Peak Velocity 124.0 cm/s TR Peak Gradient 6.2 mmHg Right Atrial Pressure 10.0 mmHg Pulmonary Artery Systolic Pressu 16.2 mmHg Right Ventricular Systolic Press 16.2 mmHg PV Peak Velocity 144.0 cm/s PV Peak Gradient 8.3 mmHg FINDINGS LEFT VENTRICLE Normal left ventricular size. Wall thickness is normal. The left ventricular systolic function is normal with an estimated ejection fraction in the range of 55-60%. RIGHT VENTRICLE Normal right ventricular size and systolic function. LEFT ATRIUM The left atrial size is normal. RIGHT ATRIUM The right atrial size is normal. ATRIAL SEPTUM Normal atrial septal thickness without atrial level shunting by limited color doppler interrogation. AORTA The aortic root and proximal ascending aorta are normal in size on limited imaging. MITRAL VALVE Trace mitral valve regurgitation. AORTIC VALVE Trileaflet aortic valve. No aortic valve stenosis or regurgitation. TRICUSPID VALVE There is trace tricuspid valve regurgitation. The estimated pulmonary arterial pressure is 16mmHg. PULMONARY VALVE No pulmonary valve regurgitation or stenosis. VESSELS The inferior vena cava is normal in size. PERICARDIUM There is a small pericardial effusion present. The pericardial effusion is primarily located anteriorly. Jaydon Lugo MD, FACC, [facility] (Electronically Signed) Final Date:25 September 2018 15:50
[2018-09-26] MEDS: oxyCODONE/Acetaminophen 10/325 Tablet PO PRN ×4 (01:27→21:17)
[2018-09-26] MEDS ORDERED: Pharmacy Ordered Lab Info OTHER ONE (03:45)
[2018-09-26 04:12] LABS: Vancomycin,Trough 4.1 mcg/mL (5.0-10.0)
[2018-09-26] MEDS: Morphine Inj 4 MG/ML Vial IV.PUSH PRN ×4 (04:23→23:44)
[2018-09-26] MEDS: Vancomycin Inj 1,250 MG in Sodium Chlor 0.9% Inj 250 ML IV.SIG SCH (04:24)
[2018-09-26] MEDS: Acetaminophen 325 MG Tablet PO PRN ×2 (05:12→16:44)
[2018-09-26] MEDS: Vancomycin Inj 1,500 MG in Sodium Chlor 0.9% Inj 500 ML IV.SIG SCH (16:36)
--- NOTE | 2018-09-26 17:13 | P.PN ---
Subjective Interval history: This is a pleasant 42 y/o male with remote History of IVDU, who came to Emergency room 09/24/18, due to lower back pain with radiation to the right leg and Numbness to the left leg, His pain started on in the evening. He had subjective fever and took Tylenol 2 controlled fever. He denies any changes in bowel or bladder habits. He used to do IV drug use (Dilaudid) but quit about 18 months ago. He denies any chest pain, shortness of breath. Upon arrival, WBC 23.9K, fever of 102.0 F, tachycardic with pulse rate 110, lactic acid 1.6. as per Doctor Nayeli Salazar he talked to Interventional aerotriangulation specialist and not recommended Anterior epidural space is usually avoided by IR, Small fluid collections are located in the anterior epidural space, ID specialist consulted, if still wants a sample of tissue will need Neurosurgery specialist consult, today discussed in am with Doctor Tyler states the patient will need a follow up and Formal consult with Neurosurgery he discussed with Doctor Tubbs . 09/25: Stable in his bedroom, continue pain medicine, followed by ID specialist due to sepsis, Lumbar epidural abscess Recommended to repeat Blood cultures, not possible for Interventional Radiology to perform any procedure, continue Empiric Vancomycin and Cefepime. 09/26: Seen in his bedroom, no new complaint, ID specialist removed Cefepime his blood culture growing MRSA probable Sepsis and Bacteremia secondary to MRSA, continue Vancomycin, No nausea vomit or diarrhea. Physical Exam Vital signs: Vital Signs 09/25/18 20:00 09/26/18 00:00 09/26/18 04:00 Temperature 99.3 F 99.5 F 100.7 F H Pulse Rate 96 H 101 H 102 H Respiratory Rate 22 20 20 Blood Pressure 121/74 155/95 H 125/78 Pulse Oximetry 95 98 98 09/26/18 08:00 09/26/18 12:00 09/26/18 16:00 Temperature 98.4 F 98.2 F 99.8 F H Pulse Rate 123 H 105 H 102 H Respiratory Rate 20 20 20 Blood Pressure 123/68 139/77 135/73 Pulse Oximetry 96 97 96 Intake & Output 09/25/18 09/26/18 09/26/18 18:59 06:59 18:59 Intake Total 362.5 / 362.5 1162.5 / 1162.5 100 / 100 Output Total 3000 / 3000 Balance 362.5 / 362.5 -1837.5 / -1837.5 100 / 100 Weight 79.8 kg Intake: IV 362.5 / 362.5 462.5 / 462.5 100 / 100 Maxipime Inj 2,000 MG In NS Inj 100 / 100 200 / 200 100 / 100 100 ML @ 200 mls/hr IV.SIG Q8H [facility] Rx#:[id number] Vancomycin Inj 1,250 MG In NS 262.5 / 262.5 262.5 / 262.5 Inj 250 ML @ 250 mls/hr IV.SIG Q12H [facility] Rx#:[id number] Oral 700 / 700 Output: Urine Amount (Catheter) 3000 / 3000 Indwelling Urethral Catheter 3000 / 3000 Other: Date of Last Bowel Movement 09/25/18 09/25/18 Narrative: GENERAL: Moderate distress due to pain. SKIN: No rashes, ecchymoses or lesions. Warm and dry. HEAD: Atraumatic. Normocephalic. No temporal or scalp tenderness. EYES: Pupils equal round and reactive. No injection or drainage. ENT: Nose without bleeding, purulent drainage or septal hematoma. Airway patent. NECK: Trachea midline. No lymphadenopathy. Supple, nontender, no meningeal signs. CARDIOVASCULAR: Regular rate and rhythm without murmurs, gallops, or rubs. No JVD. RESPIRATORY: Clear to auscultation. Breath sounds equal bilaterally. No wheezes , rales, or rhonchi. GASTROINTESTINAL: Abdomen soft, non-tender, nondistended. No guarding. MUSCULOSKELETAL: Extremities without clubbing, cyanosis, or edema. Diminished sensation in the distal left lower extremity. NEUROLOGICAL: Awake and alert. - Urinary Catheter Management Indwelling Urethral Catheter Cath placed during this visit: yes Reason for continuing: Acute urinary retention Insertion date: 09/25/18 Insertion time: 18:42 Results - Labs CBC & Chem 7: 09/25/18 08:29 09/27/18 05:43 Laboratory Results - last 24 hr 09/26/18 09/26/18 03:29 03:29 ESR 85 H Creatinine 0.80 C-Reactive Protein 24.40 H Vancomycin Trough 4.1 L Microbiology 09/24/18 15:10 Blood - Peripheral Aerobic Blood Culture - Preliminary S. aureus MRSA 09/24/18 15:10 Blood - Peripheral Anaerobic Blood Culture - Preliminary S. aureus MRSA 09/24/18 15:15 Blood - Peripheral Aerobic Blood Culture - Preliminary S. aureus MRSA 09/24/18 15:15 Blood - Peripheral Anaerobic Blood Culture - Preliminary S. aureus MRSA 09/25/18 13:10 Blood - Peripheral Aerobic Blood Culture - Preliminary gram positive cocci 09/25/18 13:10 Blood - Peripheral Anaerobic Blood Culture - Preliminary gram positive cocci 09/25/18 13:15 Blood - Peripheral Aerobic Blood Culture - Preliminary gram positive cocci 09/25/18 13:15 Blood - Peripheral Anaerobic Blood Culture - Preliminary gram positive cocci - Imaging Lumbar Spine MRI 09/24/18 13:31 CONCLUSION: 1. Long segment thickening, induration and enhancement of the meninges and epidural space of the lumbar spine with the most pronounced involvement being from L4/L5 through S1/S2, presumably infectious. Small pockets of fluid within the epidural space as described. The paraspinous soft tissues are edematous, posteriorly most conspicuous from L3/L4 through L5/S1 and anteriorly most conspicuous in the presacral region and at L5. No findings typical of osteomyelitis or discitis. 2. Degenerative disc changes at L4/L5 and L5/S1 are also seen. - Procedures None Assessment and Plan - Plan Mr. Cook is a pleasant 42-year-old male with a remote history of IV drug use who presents to the emergency department on 09/24/2018 due to a 3-day duration of lower back pain with radiation of pain to the right leg and numbness to the left leg. He had fever at home. Sepsis (WBC 23.9K, Tachycardic, suspected infection Lumbar spine epidural abscess). Lumbar spine epidural abscess Blood cultures pending. MRI shows evidence including fluid collection of possible infectious process. We will start patient on cefepime 2g Q8hrs and continue vancomycin. Vancomycin dosing per pharmacy protocol. 09/25: Discussed with Doctor Jose Henderson not considered for any intervention, asked for Interventional radiology reconsult but was discussed with ID specialist and not considered also for any probable intervention, will continue Empiric antibiotics and follow new blood cultures. -- 09/26: found positive Bacteremia secondary to MRSA on Vancomycin removed Cefepime, to repeat blood cultures tomorrow History of IV drug use Patient denies using any IV drugs since he quit 18 months ago. Full code. SCDs. Code Status: Full code. Discussed Condition With: patient and Nurse. Discharge Planning: Once cleared by specialists
--- NOTE | 2018-09-26 18:52 | P.PNID ---
Subjective Remarks: ID COVERAGE. Patient is complaining of pain going down the back of his legs. He notes chills. He notes sweats. All blood culture bottles 09/06/22 and 09/06/23 have MRSA. Afebrile. Patient is a 42-year-old male, presented to the hospital with severe low back pain. Infectious disease consultation has been requested to assist with evaluation and treatment. Allergies/Adverse Reactions: Allergies penicillin G Allergy (Mild, Verified 09/24/18 11:50) Rash, Localized pt states he doesnt know but has always been told that as a kid Objective Vital Signs 09/25/18 20:00 09/26/18 00:00 09/26/18 04:00 Temperature 99.3 F 99.5 F 100.7 F H Pulse Rate 96 H 101 H 102 H Respiratory Rate 22 20 20 Blood Pressure 121/74 155/95 H 125/78 Pulse Oximetry 95 98 98 09/26/18 08:00 09/26/18 12:00 09/26/18 16:00 Temperature 98.4 F 98.2 F 99.8 F H Pulse Rate 123 H 102 H 96 H Respiratory Rate 20 20 20 Blood Pressure 123/68 139/77 135/73 Pulse Oximetry 96 97 96 Intake & Output 09/25/18 09/26/18 09/26/18 18:59 06:59 18:59 Intake Total 362.5 / 362.5 1162.5 / 1162.5 1275 / 1275 Output Total 3000 / 3000 1999 / 1999 Balance 362.5 / 362.5 -1837.5 / -1837.5 -725 / -725 Weight 79.8 kg Intake: IV 362.5 / 362.5 462.5 / 462.5 715 / 715 Maxipime Inj 2,000 MG In NS Inj 100 / 100 200 / 200 200 / 200 100 ML @ 200 mls/hr IV.SIG Q8H [facility] Rx#:[id number] Vancomycin Inj 1,250 MG In NS 262.5 / 262.5 262.5 / 262.5 Inj 250 ML @ 250 mls/hr IV.SIG Q12H [facility] Rx#:[id number] Vancomycin Inj 1,500 MG In NS 515 / 515 Inj 500 ML @ 250 mls/hr IV.SIG Q12H [facility] Rx#:[id number] Oral 700 / 700 560 / 560 Output: Urine 1999 / 1999 Urine Amount (Catheter) 3000 / 3000 Indwelling Urethral Catheter 3000 / 3000 Other: Date of Last Bowel Movement 09/25/18 09/25/18 # Bowel Movements 1 09/24/18 15:10 Blood - Peripheral Aerobic Blood Culture - Preliminary S. aureus MRSA 09/24/18 15:10 Blood - Peripheral Anaerobic Blood Culture - Preliminary S. aureus MRSA 09/24/18 15:15 Blood - Peripheral Aerobic Blood Culture - Preliminary S. aureus MRSA 09/24/18 15:15 Blood - Peripheral Anaerobic Blood Culture - Preliminary S. aureus MRSA 09/25/18 13:10 Blood - Peripheral Aerobic Blood Culture - Preliminary gram positive cocci 09/25/18 13:10 Blood - Peripheral Anaerobic Blood Culture - Preliminary gram positive cocci 09/25/18 13:15 Blood - Peripheral Aerobic Blood Culture - Preliminary gram positive cocci 09/25/18 13:15 Blood - Peripheral Anaerobic Blood Culture - Preliminary gram positive cocci Lab - Hematology Results 09/25/18 09/26/18 08:29 03:29 WBC 25.4 H RBC 4.58 Hgb 13.7 Hct 40.2 MCV 87.7 MCH 29.9 MCHC 34.1 RDW 13.8 Plt Count 225 MPV 8.4 Prelim Diff (Auto) Slide review pending Neut % (Auto) 88.8 H Lymph % (Auto) 4.3 L Walsh % (Auto) 6.5 Eos % (Auto) 0.1 Baso % (Auto) 0.3 Neut # (Auto) 22.5 H Lymph # (Auto) 1.1 Walsh # (Auto) 1.6 H Eos # (Auto) 0.0 Baso # (Auto) 0.1 WBC Differential Manual diff final Seg Neuts % (Manual) 69 Band Neuts % (Manual) 22 H Lymphocytes % (Manual) 6 L Monocytes % (Manual) 3 Abs Neuts (Manual) 23.1 H Differential Comment . Toxic Granulation 2+ H Platelet Estimate Normal Platelet Morphology Normal RBC Morphology Normal ESR 85 H Lab - Chemistry Results 09/25/18 09/26/18 08:29 03:29 Sodium 131 L Potassium 4.0 Chloride 97 L Carbon Dioxide 26.3 Anion Gap 8 BUN 12 Creatinine 1.02 0.80 Estimated GFR 81 L Random Glucose 122 H Calcium 8.4 L C-Reactive Protein 24.40 H Imaging: ITS Impressions Lumbar Spine MRI 09/24/18 13:31 CONCLUSION: 1. Long segment thickening, induration and enhancement of the meninges and epidural space of the lumbar spine with the most pronounced involvement being from L4/L5 through S1/S2, presumably infectious. Small pockets of fluid within the epidural space as described. The paraspinous soft tissues are edematous, posteriorly most conspicuous from L3/L4 through L5/S1 and anteriorly most conspicuous in the presacral region and at L5. No findings typical of osteomyelitis or discitis. 2. Degenerative disc changes at L4/L5 and L5/S1 are also seen. Physical Exam: GENERAL: Alert and oriented, no acute distress. HEENT: Pupils reactive to light. Extraocular movements intact. No icterus. NECK: Supple without adenopathy. No swelling. LUNGS: Clear to auscultation. HEART: Regular S1 and S2. No murmurs. ABDOMEN: Bowel sounds present, soft, nontender. EXTREMITIES: No clubbing or cyanosis or edema. SKIN: No rash. NEUROLOGIC: Nonfocal. PSYCH: Calm and cooperative. Assessment and Plan - Plan Impression Possible sepsis due to back infection. MRSA. Lumbar epidural abscess Hx IVDU, last use prob 20 months ago Recommendation Continue vancomycin. Repeat blood cultures tomorrow. Discontinue cefepime. Follow temps Monitor progress
[2018-09-27] MEDS: Vancomycin Inj 1,500 MG in Sodium Chlor 0.9% Inj 500 ML IV.SIG SCH ×2 (03:07→15:04)
[2018-09-27] MEDS: oxyCODONE/Acetaminophen 10/325 Tablet PO PRN ×4 (03:07→21:15)
[2018-09-27] MEDS: Morphine Inj 4 MG/ML Vial IV.PUSH PRN ×4 (05:47→18:05)
[2018-09-27 06:45] LABS: Glomerular Filtration Rate Greater Than 89 mL/min (>89)
[2018-09-27] MEDS: Gabapentin 100 MG Capsule PO SCH ×2 (13:58→18:05)
--- NOTE | 2018-09-27 17:10 | P.PN ---
Subjective Interval history: This is a pleasant 42 y/o male with remote History of IVDU, who came to Emergency room 09/24/18, due to lower back pain with radiation to the right leg and Numbness to the left leg, His pain started on in the evening. He had subjective fever and took Tylenol 2 controlled fever. He denies any changes in bowel or bladder habits. He used to do IV drug use (Dilaudid) but quit about 18 months ago. He denies any chest pain, shortness of breath. Upon arrival, WBC 23.9K, fever of 102.0 F, tachycardic with pulse rate 110, lactic acid 1.6. as per Doctor Nayeli Salazar he talked to Interventional collective bargaining specialist and not recommended Anterior epidural space is usually avoided by IR, Small fluid collections are located in the anterior epidural space, ID specialist consulted, if still wants a sample of tissue will need Neurosurgery specialist consult, today discussed in am with Doctor Tyler states the patient will need a follow up and Formal consult with Neurosurgery he discussed with Doctor Tubbs . 09/25: Stable in his bedroom, continue pain medicine, followed by ID specialist due to sepsis, Lumbar epidural abscess Recommended to repeat Blood cultures, not possible for Interventional Radiology to perform any procedure, continue Empiric Vancomycin and Cefepime. 09/26: Seen in his bedroom, no new complaint, ID specialist removed Cefepime his blood culture growing MRSA probable Sepsis and Bacteremia secondary to MRSA, continue Vancomycin. 09/27: Discussed with nurse, no new issues, no nausea, vomit or diarrhea, continue present care. Physical Exam Vital signs: Vital Signs 09/26/18 20:00 09/27/18 00:00 09/27/18 04:00 Temperature 99.4 F 100.2 F H 99.9 F H Pulse Rate 93 H 105 H 94 H Respiratory Rate 18 18 18 Blood Pressure 148/84 H 188/87 H 133/66 Pulse Oximetry 96 96 92 L 09/27/18 08:00 09/27/18 10:18 09/27/18 10:32 Temperature 98.6 F Pulse Rate 86 Respiratory Rate 18 18 18 Blood Pressure 144/80 H Pulse Oximetry 98 09/27/18 12:00 09/27/18 14:10 Temperature 98.7 F Pulse Rate 109 H Respiratory Rate 18 18 Blood Pressure 141/73 H Pulse Oximetry 96 Intake & Output 09/26/18 09/27/18 09/27/18 18:59 06:59 18:59 Intake Total 1275 / 1275 1315 / 1315 Output Total 1999 / 2199 Balance -725 / -725 -885 / -885 Intake: IV 715 / 715 515 / 515 Maxipime Inj 2,000 MG In NS Inj 200 / 200 100 ML @ 200 mls/hr IV.SIG Q8H [facility] Rx#:[id number] Vancomycin Inj 1,500 MG In NS 515 / 515 515 / 515 Inj 500 ML @ 250 mls/hr IV.SIG Q12H [facility] Rx#:[id number] Oral 560 / 560 800 / 800 Output: Urine 1999 / 2199 Other: # Voids 3 Date of Last Bowel Movement 09/25/18 09/26/18 09/25/18 # Bowel Movements 1 Narrative: GENERAL: No acute distress. SKIN: No rashes, ecchymoses or lesions. Warm and dry. HEAD: Atraumatic. Normocephalic. No temporal or scalp tenderness. EYES: Pupils equal round and reactive. No injection or drainage. NECK: Trachea midline. No lymphadenopathy. Supple, nontender, no meningeal signs. CARDIOVASCULAR: Regular rate and rhythm without murmurs, gallops, or rubs. No JVD. RESPIRATORY: Clear to auscultation. Breath sounds equal bilaterally. No wheezes , rales, or rhonchi. GASTROINTESTINAL: Abdomen soft, non-tender, nondistended. No guarding. MUSCULOSKELETAL: Extremities without clubbing, cyanosis, or edema. NEUROLOGICAL: Awake and alert. - Urinary Catheter Management Indwelling Urethral Catheter Cath placed during this visit: yes Reason for continuing: Acute urinary retention Insertion date: 09/25/18 Insertion time: 18:42 Results - Labs CBC & Chem 7: 09/25/18 08:29 09/27/18 05:43 Laboratory Results - last 24 hr 09/27/18 05:43 Creatinine 0.73 Estimated GFR Greater than 89 Microbiology 09/25/18 13:10 Blood - Peripheral Aerobic Blood Culture - Final S. aureus MRSA 09/25/18 13:10 Blood - Peripheral Anaerobic Blood Culture - Final S. aureus MRSA 09/25/18 13:15 Blood - Peripheral Aerobic Blood Culture - Final S. aureus MRSA 09/25/18 13:15 Blood - Peripheral Anaerobic Blood Culture - Final S. aureus MRSA 09/24/18 15:10 Blood - Peripheral Aerobic Blood Culture - Final S. aureus MRSA 09/24/18 15:10 Blood - Peripheral Anaerobic Blood Culture - Final S. aureus MRSA 09/24/18 15:15 Blood - Peripheral Aerobic Blood Culture - Final S. aureus MRSA 09/24/18 15:15 Blood - Peripheral Anaerobic Blood Culture - Final S. aureus MRSA - Imaging Lumbar Spine MRI 09/24/18 13:31 CONCLUSION: 1. Long segment thickening, induration and enhancement of the meninges and epidural space of the lumbar spine with the most pronounced involvement being from L4/L5 through S1/S2, presumably infectious. Small pockets of fluid within the epidural space as described. The paraspinous soft tissues are edematous, posteriorly most conspicuous from L3/L4 through L5/S1 and anteriorly most conspicuous in the presacral region and at L5. No findings typical of osteomyelitis or discitis. 2. Degenerative disc changes at L4/L5 and L5/S1 are also seen. - Procedures None Assessment and Plan - Plan Mr. Cook is a pleasant 42-year-old male with a remote history of IV drug use who presents to the emergency department on 09/24/2018 due to a 3-day duration of lower back pain with radiation of pain to the right leg and numbness to the left leg. He had fever at home. Sepsis (WBC 23.9K, Tachycardic, suspected infection Lumbar spine epidural abscess). Lumbar spine epidural abscess Blood cultures pending. MRI shows evidence including fluid collection of possible infectious process. We will start patient on cefepime 2g Q8hrs and continue vancomycin. Vancomycin dosing per pharmacy protocol. 09/25: Discussed with Doctor Jose Henderson not considered for any intervention, asked for Interventional radiology reconsult but was discussed with ID specialist and not considered also for any probable intervention, will continue Empiric antibiotics and follow new blood cultures. -- 09/26: found positive Bacteremia secondary to MRSA on Vancomycin removed Cefepime, to repeat blood cultures tomorrow History of IV drug use Patient denies using any IV drugs since he quit 18 months ago. Full code. SCDs. No changes to anterior assessment. Code Status: Full code. Discussed Condition With: Patient and Nurse. Discharge Planning: Once cleared by specialist
[2018-09-28] MEDS: Morphine Inj 4 MG/ML Vial IV.PUSH PRN ×4 (00:15→18:35)
[2018-09-28] MEDS ORDERED: Pharmacy Ordered Lab Info OTHER ONE (03:45)
[2018-09-28] MEDS: oxyCODONE/Acetaminophen 10/325 Tablet PO PRN ×4 (03:46→22:04)
[2018-09-28 04:56] LABS: Glomerular Filtration Rate Greater Than 89 mL/min (>89); Vancomycin,Trough 4.4 mcg/mL (5.0-10.0)
[2018-09-28] MEDS: Vancomycin Inj 1,500 MG in Sodium Chlor 0.9% Inj 500 ML IV.SIG SCH (05:06)
[2018-09-28] MEDS: Gabapentin 100 MG Capsule PO SCH ×3 (08:04→17:13)
[2018-09-28 08:13] LABS: Anion Gap 9 meq/L (5-15); Blood Urea Nitrogen 9 mg/dL (7-18); Calcium 7.9 mg/dL (8.5-10.1); Carbon Dioxide 27.3 meq/L (21.0-32.0); Chloride 98 meq/L (98-107); Glomerular Filtration Rate Greater Than 89 mL/min (>89); Glucose,Random 109 mg/dL (74-106); Potassium 3.5 meq/L (3.5-5.1); Sodium 134 meq/L (136-145)
[2018-09-28] MEDS ORDERED: Vancomycin Inj 1,250 MG in Sodium Chlor 0.9% Inj 250 ML IV.SIG SCH (13:00)
--- NOTE | 2018-09-28 13:42 | P.PNID ---
Subjective Remarks: Patient is a 42-year-old male, presented to the hospital with severe low back pain. He was apparently doing yard work the day he started having back pain. The pain came on suddenly that he had to stop working. He laid down and since has not gotten out of bed much because of the severity of the pain. He would have pain radiating to both thighs, and currently he is complaining of some numbness in his left lower extremity. He has been constipated, although he is not really been eating much because of the severe pain. He has been having problem urinating and it takes a while for him to urinate. He is also been having fevers for 2 days prior to coming into the hospital. Patient denies any skin infection or any boils. He has not had any vomiting or diarrhea or any respiratory complaint. He has not had any teeth problem requiring any dentist attention. Patient has prior history of IV drug use, but he was incarcerated for about 18 months in long term, and then was in senior care for at least 2 months, and has been out on the streets for the last 2 months. He denies any smoking or snorting illicit drugs as well. 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 Since admission patient has had fevers. He had an MRI and he has abnormality in the lower thoracic and lumbar region. There is a fluid collection in the anterior epidural space. I spoke with radiologist and there is no window to access that epidural space. He has had 2 blood cultures that are negative so far. Urinalysis unremarkable. His WBC is elevated at 25,000. Infectious disease consultation has been requested to assist with evaluation and treatment. Notes reviewed Still with fevers All BC with MRSA Had urinary retention - has ortiz - patient states he has had retention after he had circumcision about 6 months ago; he was told that he has a narrow urethra C/O back pain and numbness in BLE - no change ABle to stand up short periods, not long due to pain in back Antibiotics: Vancomycin Allergies/Adverse Reactions: Allergies penicillin G Allergy (Mild, Verified 09/24/18 11:50) Rash, Localized pt states he doesnt know but has always been told that as a kid Objective Vital Signs 09/27/18 14:10 09/27/18 16:00 09/27/18 20:00 Temperature 101.6 F H 100.2 F H Pulse Rate 98 H 95 H Respiratory Rate 18 18 18 Blood Pressure 137/77 145/82 H Pulse Oximetry 97 100 09/28/18 00:00 09/28/18 04:00 09/28/18 08:00 Temperature 98.9 F 98.1 F 99.6 F Pulse Rate 96 H 102 H 86 Respiratory Rate 17 18 17 Blood Pressure 143/80 H 146/84 H 141/70 H Pulse Oximetry 96 94 L 94 L 09/28/18 11:59 09/28/18 12:00 Temperature 98.7 F Pulse Rate 78 Respiratory Rate 17 Blood Pressure 135/75 Pulse Oximetry 94 L 98 Intake & Output 09/27/18 09/28/18 09/28/18 18:59 06:59 18:59 Intake Total 515 / 515 1300 / 1300 515 / 515 Output Total 1500 / 1500 400 / 400 Balance -985 / -985 900 / 900 515 / 515 Weight 81.2 kg Intake: IV 515 / 515 515 / 515 Vancomycin Inj 1,500 MG In NS 515 / 515 515 / 515 Inj 500 ML @ 250 mls/hr IV.SIG Q12H [facility] Rx#:[id number] Oral 1300 / 1300 Output: Urine 1500 / 1500 400 / 400 Other: Date of Last Bowel Movement 09/25/18 09/27/18 05:43 Blood - Peripheral Aerobic Blood Culture - Preliminary gram positive cocci 09/27/18 05:43 Blood - Peripheral Anaerobic Blood Culture - Preliminary No growth in 1 day 09/27/18 05:48 Blood - Peripheral Aerobic Blood Culture - Preliminary gram positive cocci 09/27/18 05:48 Blood - Peripheral Anaerobic Blood Culture - Preliminary No growth in 1 day 09/25/18 13:10 Blood - Peripheral Aerobic Blood Culture - Final S. aureus MRSA 09/25/18 13:10 Blood - Peripheral Anaerobic Blood Culture - Final S. aureus MRSA 09/25/18 13:15 Blood - Peripheral Aerobic Blood Culture - Final S. aureus MRSA 09/25/18 13:15 Blood - Peripheral Anaerobic Blood Culture - Final S. aureus MRSA 09/24/18 15:10 Blood - Peripheral Aerobic Blood Culture - Final S. aureus MRSA 09/24/18 15:10 Blood - Peripheral Anaerobic Blood Culture - Final S. aureus MRSA 09/24/18 15:15 Blood - Peripheral Aerobic Blood Culture - Final S. aureus MRSA 09/24/18 15:15 Blood - Peripheral Anaerobic Blood Culture - Final S. aureus MRSA Lab - Chemistry Results 09/27/18 09/28/18 09/28/18 05:43 04:18 06:45 Sodium 134 L Potassium 3.5 Chloride 98 Carbon Dioxide 27.3 Anion Gap 9 BUN 9 Creatinine 0.73 0.61 0.64 Estimated GFR Greater than 89 Greater than 89 Greater than 89 Random Glucose 109 H Calcium 7.9 L Imaging: ITS Impressions Lumbar Spine MRI 09/24/18 13:31 CONCLUSION: 1. Long segment thickening, induration and enhancement of the meninges and epidural space of the lumbar spine with the most pronounced involvement being from L4/L5 through S1/S2, presumably infectious. Small pockets of fluid within the epidural space as described. The paraspinous soft tissues are edematous, posteriorly most conspicuous from L3/L4 through L5/S1 and anteriorly most conspicuous in the presacral region and at L5. No findings typical of osteomyelitis or discitis. 2. Degenerative disc changes at L4/L5 and L5/S1 are also seen. Physical Exam: GENERAL: awake and alert, not in respiratory distress. SKIN: Warm and dry. No generalized rash, no ecchymoses and no evidence of embolic lesions. HEAD: Atraumatic. Normocephalic. No temporal wasting, or tenderness. EYES: [place] conjunctiva. No petechia or hemorrhage. Pupils equal, round and reactive to light. Extraocular movements full and intact. No scleral icterus. No injection or drainage. EARS, NOSE AND THROAT: Nose without bleeding or purulent nasal discharge. No sinus tenderness. Mucous membranes pink and moist. No oral lesions noted. No exudate. No oral thrush. NECK: Trachea midline. Supple and not tender, no meningeal signs CARDIOVASCULAR: Regular rate and rhythm. No murmurs, rubs or gallops heard RESPIRATORY: Clear to auscultation. Breath sounds equal bilaterally. No rales , wheezing or rhonchi ABDOMEN: Soft, non-tender, nondistended. Bowel sounds present and normoactive. No guarding. No rebound. No organomegaly. EXTREMITIES: No clubbing, cyanosis, or edema. No joint effusion, has good ROM. No calf tenderness. Well perfused and warm. NEUROLOGICAL: Awake and alert. Cranial nerves grossly intact. Able to move both LE, symmetrical PSYCHIATRIC: In distress due to severe back pain LINE: No evidence of infection Assessment and Plan - Plan Impression Possible sepsis due to back infection. MRSA. High grade MRSA sepsis - Vanco CLAUDINE 2 Lumbar epidural abscess Hx IVDU, last use prob 20 months ago Recommendation Repeat BC Will change to Cubicin to help sterilize blood CT A/P May need repeat lumbar spine MRI Consult cardiology for MAT Follow temps Follow C/S Monitor progress Explained plan to the patient
[2018-09-28] MEDS ORDERED: Diatrizoate Meglum/Diatrizoate Sod Liq 9 ML UDC PO ONE (14:00)
[2018-09-28] MEDS ORDERED: DAPTOmycin Inj 650 MG in Sodium Chlor 0.9% Inj 100 ML IV.SIG SCH (14:00)
[2018-09-28] MEDS: DAPTOmycin Inj 650 MG in Sodium Chlor 0.9% Inj 100 ML IV.SIG SCH (15:56)
[2018-09-28] MEDS: Acetaminophen 325 MG Tablet PO PRN (15:57)
[2018-09-28] MEDS ORDERED: Glycerin Adult 2 GM Supp RECTAL ONE ×2 (16:35→20:00)
--- NOTE | 2018-09-28 16:35 | P.PN ---
Subjective Interval history: This is a pleasant 42 y/o male with remote History of IVDU, who came to Emergency room 09/24/18, due to lower back pain with radiation to the right leg and Numbness to the left leg, His pain started on in the evening. He had subjective fever and took Tylenol 2 controlled fever. He denies any changes in bowel or bladder habits. He used to do IV drug use (Dilaudid) but quit about 18 months ago. He denies any chest pain, shortness of breath. Upon arrival, WBC 23.9K, fever of 102.0 F, tachycardic with pulse rate 110, lactic acid 1.6. as per Doctor Nayeli Salazar he talked to Interventional sales development specialist and not recommended Anterior epidural space is usually avoided by IR, Small fluid collections are located in the anterior epidural space, ID specialist consulted, if still wants a sample of tissue will need Neurosurgery specialist consult, today discussed in am with Doctor Tyler states the patient will need a follow up and Formal consult with Neurosurgery he discussed with Doctor Tubbs . 09/25: Stable in his bedroom, continue pain medicine, followed by ID specialist due to sepsis, Lumbar epidural abscess Recommended to repeat Blood cultures, not possible for Interventional Radiology to perform any procedure, continue Empiric Vancomycin and Cefepime. 09/26: Seen in his bedroom, no new complaint, ID specialist removed Cefepime his blood culture growing MRSA probable Sepsis and Bacteremia secondary to MRSA, continue Vancomycin. 09/27: Discussed with nurse, no new issues, no nausea, vomit or diarrhea, continue present care. Possible sepsis due to back infection. MRSA. 09/28: Discussed with nurse Miss Bazzi, no nausea, vomit or diarrhea but has Constipation, will give lactulose and glycerine suppository, also Fleet enema as needed, he has High grade MRSA sepsis, to repeat Blood cultures, changed to Cubicin to help sterilize blood, may need to repeat Lumbar MRI, consult Cardiology for MAT. Physical Exam Vital signs: Vital Signs 09/27/18 20:00 09/28/18 00:00 09/28/18 04:00 Temperature 100.2 F H 98.9 F 98.1 F Pulse Rate 95 H 96 H 102 H Respiratory Rate 18 17 18 Blood Pressure 145/82 H 143/80 H 146/84 H Pulse Oximetry 100 96 94 L 09/28/18 08:00 09/28/18 11:59 09/28/18 12:00 Temperature 99.6 F 98.7 F Pulse Rate 86 78 Respiratory Rate 17 17 Blood Pressure 141/70 H 135/75 Pulse Oximetry 94 L 94 L 98 09/28/18 15:11 Temperature Pulse Rate Respiratory Rate Blood Pressure Pulse Oximetry 97 Intake & Output 09/27/18 09/28/18 09/28/18 18:59 06:59 18:59 Intake Total 515 / 515 1300 / 1300 777.5 / 777.5 Output Total 1500 / 1500 400 / 400 Balance -985 / -985 900 / 900 777.5 / 777.5 Weight 81.2 kg Intake: IV 515 / 515 777.5 / 777.5 Vancomycin Inj 1,250 MG In NS 262.5 / 262.5 Inj 250 ML @ 250 mls/hr IV.SIG Q8H [facility] Rx#:[id number] Vancomycin Inj 1,500 MG In NS 515 / 515 515 / 515 Inj 500 ML @ 250 mls/hr IV.SIG Q12H [facility] Rx#:[id number] Oral 1300 / 1300 Output: Urine 1500 / 1500 400 / 400 Other: Date of Last Bowel Movement 09/25/18 Narrative: GENERAL: No acute distress. SKIN: No rashes, ecchymoses or lesions. Warm and dry. HEAD: Atraumatic. Normocephalic. No temporal or scalp tenderness. EYES: Pupils equal round and reactive. No injection or drainage. NECK: Trachea midline. No lymphadenopathy. Supple, nontender, no meningeal signs. CARDIOVASCULAR: Regular rate and rhythm without murmurs, gallops, or rubs. No JVD. RESPIRATORY: Clear to auscultation. Breath sounds equal bilaterally. No wheezes , rales, or rhonchi. GASTROINTESTINAL: Abdomen soft, non-tender, nondistended. No guarding. MUSCULOSKELETAL: Extremities without clubbing, cyanosis, or edema. NEUROLOGICAL: Awake and alert. - Urinary Catheter Management Indwelling Urethral Catheter Cath placed during this visit: yes Reason for continuing: Chronic Urinary Retention Insertion date: 09/25/18 Insertion time: 18:42 Results - Labs CBC & Chem 7: 09/25/18 08:29 09/28/18 06:45 Laboratory Results - last 24 hr 09/28/18 09/28/18 09/28/18 04:18 06:45 14:57 Sodium 134 L Potassium 3.5 Chloride 98 Carbon Dioxide 27.3 Anion Gap 9 BUN 9 Creatinine 0.61 0.64 Estimated GFR Greater than 89 Greater than 89 Random Glucose 109 H Calcium 7.9 L Total Creatine Kinase 32 L Vancomycin Trough 4.4 L Microbiology 09/27/18 05:43 Blood - Peripheral Aerobic Blood Culture - Preliminary gram positive cocci 09/27/18 05:43 Blood - Peripheral Anaerobic Blood Culture - Preliminary No growth in 1 day 09/27/18 05:48 Blood - Peripheral Aerobic Blood Culture - Preliminary gram positive cocci 09/27/18 05:48 Blood - Peripheral Anaerobic Blood Culture - Preliminary No growth in 1 day - Imaging Lumbar Spine MRI 09/24/18 13:31 CONCLUSION: 1. Long segment thickening, induration and enhancement of the meninges and epidural space of the lumbar spine with the most pronounced involvement being from L4/L5 through S1/S2, presumably infectious. Small pockets of fluid within the epidural space as described. The paraspinous soft tissues are edematous, posteriorly most conspicuous from L3/L4 through L5/S1 and anteriorly most conspicuous in the presacral region and at L5. No findings typical of osteomyelitis or discitis. 2. Degenerative disc changes at L4/L5 and L5/S1 are also seen. - Procedures None Assessment and Plan - Plan Mr. Cook is a pleasant 42-year-old male with a remote history of IV drug use who presents to the emergency department on 09/24/2018 due to a 3-day duration of lower back pain with radiation of pain to the right leg and numbness to the left leg. He had fever at home. Sepsis (WBC 23.9K, Tachycardic, suspected infection Lumbar spine epidural abscess). Lumbar spine epidural abscess Blood cultures pending. MRI shows evidence including fluid collection of possible infectious process. We will start patient on cefepime 2g Q8hrs and continue vancomycin. Vancomycin dosing per pharmacy protocol. 09/25: Discussed with Doctor Jose Henderson not considered for any intervention, asked for Interventional radiology reconsult but was discussed with ID specialist and not considered also for any probable intervention, will continue Empiric antibiotics and follow new blood cultures. -- 09/26: found positive Bacteremia secondary to MRSA on Vancomycin removed Cefepime, to repeat blood cultures tomorrow --09/28: Has Constipation, will give lactulose and glycerine suppository, also Fleet enema as needed, he has High grade MRSA sepsis, to repeat Blood cultures, changed to Cubicin to help sterilize blood , may need to repeat Lumbar MRI, consult Cardiology for MAT. History of IV drug use Patient denies using any IV drugs since he quit 18 months ago. Full code. SCDs. Code Status: Full code. Discussed Condition With: Patient and Nurse Miss Bazzi Discharge Planning: Once cleared by specialist
[2018-09-28] MEDS ORDERED: Sod Phosphate/Sod Biphosphate (Adult) Enema 133 ML Bottle RECTAL ONE ×2 (19:00→20:00)
--- NOTE | 2018-09-28 20:02 | CT ---
EXAM DATE: 09/28/2018 6:31 PM EST AGE/SEX: 42 years / Male INDICATIONS: Diffuse abdomen pain. Evalaute for abscess. CLINICAL DATA: This is the patient's initial encounter. Patient reports that signs and symptoms have been present for 1 day and indicates a pain score of 8/10. MEDICAL/SURGICAL HISTORY: None. None. ORAL CONTRAST: Prescribed oral contrast ingested. RADIATION DOSE: 11.56 CTDI (mGy) COMPARISON: No prior exams available for comparison. TECHNIQUE: Multiple contiguous axial images were obtained through the abdomen and pelvis following b olus infusion of 96 ml Omnipaque 350 (iohexol) nonionic water-soluble contrast as a single exam dos e. Prescribed oral contrast ingested. Using automated exposure control and adjustment of the mA and/ or kV according to patient size, radiation dose was kept as low as reasonably achievable to obtain op timal diagnostic quality images. DICOM format image data is available electronically for review and comparison. FINDINGS: Lower Lungs: The visualized lower lungs are clear. Liver: The liver has a homogeneous density without space-occupying lesion. There is no dilation of th e biliary tree. Minimal fluid in the abdomen. Spleen: Homogeneous density with enlargement. There are some varices in the left upper quadrant. Pancreas: Unremarkable without mass or calcification. Kidneys: Normal in size and shape. No evidence of mass or hydronephrosis. Adrenal Glands: Unremarkable. Aorta: The aorta and proximal iliac vessels are grossly unremarkable without aneurysmal dilation. Bowel/Mesentery: Mild wall thickening involving small bowel loops. The cecum and sigmoid colon have a normal configuration. Appendix appears normal. Abdominal Wall: Intact. Retroperitoneum: No evidence of adenopathy in the retrocrural, para-aortic, or deep pelvic regions. Bladder: There does appear to be wall thickening with adjacent inflammatory changes. Reproductive Organs: No abnormal masses or calcifications seen. Prominent inflammatory changes with stranding of the fat/musculature within the pelvis Inguinal: The inguinal region is unremarkable without evidence of adenopathy. Bony Structures: Unremarkable. CONCLUSION: 1. Extensive stranding within the pelvis noted within the peritoneal fat and adjacent structures inc luding musculature could be anasarca or other inflammatory/infectious etiology. No abnormal fluid col lection or abscess. 2. There does appear to be wall thickening and inflammation surrounding the urinary bladder. Cystiti s should be excluded. 3. Splenomegaly. 4. Trace ascites. Electronically signed by: Lux Mcdonald MD 09/28/2018 8:01 PM EST
--- NOTE | 2018-09-29 00:16 | MB ---
cc: Samuel Rushing DO DATE: 09/28/2018 REASON FOR CONSULTATION: Bacteremia, consideration of MAT. HISTORY OF PRESENT ILLNESS: Aleks Villalba is a pleasant 42-year-old male who presented to [facility] Emergency Room due to low back pain. He was out doing yard work and he started having back pain. The pain came on suddenly and he had to stop working. Since the pain started, he was not getting out of bed due to the severity of pain. The pain radiates into both thighs and questionable numbness of his left lower extremity. Because of this, he came into the emergency room. Apparently, he has been having fevers for 2 days prior to coming into the hospital. While here, he was seen by infectious disease and multiple blood cultures have come back as MRSA. Echocardiogram was done and showed no significant lesions and a normal ejection fraction. I was asked to see him for consideration of transesophageal echocardiogram. He has not had any teeth problem requiring dentist attention. He does have a history of IV drug abuse, but he was incarcerated for about 18 months and so at that time, he had since stopped using drugs as well as tobacco. Before this, he was using Dilaudid as his primary drug and sharing needles with others. He states that while in [facility], he believes he was tested for HIV and hepatitis and these were negative. PAST MEDICAL HISTORY: 1. Tobacco abuse. 2. History of IV drug abuse with the last time being 18 months ago. Previously used Dilaudid and shared needles. PAST SURGICAL HISTORY: Denies. ALLERGIES: PENICILLIN. MEDICATIONS: Denies. FAMILY HISTORY: Mother 6 years ago from pancreatic cancer. SOCIAL HISTORY: Previous IV drug abuse with the last time being 18 months ago for which he used Dilaudid and shared needles with others. He quit smoking and drinking 18 months ago. REVIEW OF SYSTEMS: Fourteen systems were reviewed including osteopathic. Pertinent positives and negatives above, otherwise negative. PHYSICAL EXAMINATION: VITAL SIGNS: Temperature 98.7, heart rate 78, blood pressure 135/75, respirations 17, pulse oximetry 98% on room air. GENERAL: The patient appears well, no acute distress. Alert, awake and oriented x3. HEENT: Extraocular muscles intact. Mucous membranes moist. NECK: Supple. No JVD at 45 degrees. No carotid bruits heard bilaterally. Carotid upstroke is brisk in nature. HEART: Regular rate and rhythm. Positive first and second heart sounds with no noted murmurs, gallops or rubs. LUNGS: Clear to auscultation bilaterally. No wheezes, rales or rhonchi. ABDOMEN: Soft, nontender, nondistended. No organomegaly noted. EXTREMITIES: Show no clubbing, cyanosis or edema. He does have pain with moving of his left lower extremity. SKIN: Warm, dry and intact. OSTEOPATHIC: No kyphoscoliosis or lordosis. LABORATORY DATA: Hemoglobin 13.7, hematocrit 40.2, platelets 225. Potassium 3.5, BUN 9, creatinine 0.64. IMPRESSIONS: 1. Sepsis. 2. Bacteremia with methicillin-resistant Staphylococcus aureus. 3. Possible lumbar epidural abscess. 4. History of IV drug abuse, for which he quit 18 months ago. Previously used Dilaudid and shared needles with others. RECOMMENDATIONS: 1. Mr. Villalba has multiple blood cultures positive for MRSA, as well as a lumbar epidural abscess. 2. He is high risk for endocarditis. Review of echocardiogram shows no vegetations noted. 3. Overall, I agree that he should undergo a transesophageal echocardiogram to rule out possible endocarditis. 4. Risks, benefits, and alternatives were explained to him and he consented to such. 5. He will be n.p.o. after midnight with a plan for tomorrow morning. 6. Further recommendations will be made after transesophageal echocardiogram. Thank you for allowing me to see Aleks villalba. If there are any questions, please do not hesitate to call. DO CHRISTINE Shell/vita , 11:52 PM , 12:03 AM
[2018-09-29] MEDS: Morphine Inj 4 MG/ML Vial IV.PUSH PRN ×5 (00:39→20:32)
[2018-09-29] MEDS: Acetaminophen 325 MG Tablet PO PRN ×2 (00:45→20:32)
[2018-09-29] MEDS: oxyCODONE/Acetaminophen 10/325 Tablet PO PRN ×5 (04:00→22:26)
[2018-09-29 07:41] LABS: Glomerular Filtration Rate Greater Than 89 mL/min (>89)
[2018-09-29] MEDS ORDERED: fentaNYL Citrate Inj 100 MCG/2 ML Ampul ONE (08:36)
[2018-09-29] MEDS: Gabapentin 100 MG Capsule PO SCH (09:57)
--- NOTE | 2018-09-29 11:39 | P.PNIM ---
Subjective Interval history: The patient was saying that his pain was very positional. He has been trying to ambulate but it hurts too much at times. He has been having bowel movements. He said the Neurontin was not helping. He had his procedure done earlier today. Discussed with nursing. Physical Exam Vital signs: Vital Signs 09/28/18 11:59 09/28/18 12:00 09/28/18 15:11 Temperature 98.7 F Pulse Rate 78 Respiratory Rate 17 Blood Pressure 135/75 Pulse Oximetry 94 L 98 97 09/28/18 16:00 09/28/18 17:37 09/28/18 20:00 Temperature 100.8 F H 99.8 F H Pulse Rate 93 H 100 H 93 H Respiratory Rate 18 18 Blood Pressure 147/81 H 141/86 H Pulse Oximetry 98 98 09/29/18 00:00 09/29/18 04:00 09/29/18 08:00 Temperature 100.2 F H 99.2 F 98.5 F Pulse Rate 92 H 86 81 Respiratory Rate 20 18 16 Blood Pressure 131/82 136/84 130/84 Pulse Oximetry 98 96 94 L Intake & Output 09/28/18 09/29/18 09/29/18 18:59 06:59 18:59 Intake Total 1837.5 / 1837.5 1040 / 1040 Output Total 850 / 850 1250 / 1250 Balance 987.5 / 987.5 -210 / -210 Weight 81.9 kg Intake: IV 877.5 / 877.5 Cubicin Inj 650 MG In NS Inj 100 / 100 100 ML @ 200 mls/hr IV.SIG Q24H [facility] Rx#:[id number] Vancomycin Inj 1,250 MG In NS 262.5 / 262.5 Inj 250 ML @ 250 mls/hr IV.SIG Q8H [facility] Rx#:[id number] Vancomycin Inj 1,500 MG In NS 515 / 515 Inj 500 ML @ 250 mls/hr IV.SIG Q12H [facility] Rx#:[id number] Oral 960 / 960 1040 / 1040 Output: Urine 850 / 850 1250 / 1250 Other: Date of Last Bowel Movement 09/28/18 09/28/18 # Bowel Movements 0 1 Narrative: GENERAL: No acute distress. SKIN: No rashes, ecchymoses or lesions. Warm and dry. HEAD: Atraumatic. Normocephalic. No temporal or scalp tenderness. EYES: Pupils equal round and reactive. No injection or drainage. NECK: Trachea midline. No lymphadenopathy. Supple, nontender, no meningeal signs. CARDIOVASCULAR: Regular rate and rhythm without murmurs, gallops, or rubs. No JVD. RESPIRATORY: Clear to auscultation. Breath sounds equal bilaterally. No wheezes , rales, or rhonchi. GASTROINTESTINAL: Abdomen soft, non-tender, nondistended. No guarding. MUSCULOSKELETAL: Extremities without clubbing, cyanosis, or edema. NEUROLOGICAL: Awake and alert. - Urinary Catheter Management Indwelling Urethral Catheter Cath placed during this visit: yes Reason for continuing: Chronic Urinary Retention Insertion date: 09/25/18 Insertion time: 18:42 Results - Labs CBC & Chem 7: 09/25/18 08:29 09/29/18 05:36 Laboratory Results - last 24 hr 09/28/18 09/29/18 14:57 05:36 Creatinine 0.64 Estimated GFR Greater than 89 Total Creatine Kinase 32 L Microbiology 09/28/18 14:57 Blood - Peripheral Aerobic Blood Culture - Preliminary No growth in 1 day 09/28/18 14:57 Blood - Peripheral Anaerobic Blood Culture - Preliminary No growth in 1 day 09/27/18 05:43 Blood - Peripheral Aerobic Blood Culture - Preliminary gram positive cocci 09/27/18 05:43 Blood - Peripheral Anaerobic Blood Culture - Preliminary No growth in 2 days 09/27/18 05:48 Blood - Peripheral Aerobic Blood Culture - Preliminary gram positive cocci 09/27/18 05:48 Blood - Peripheral Anaerobic Blood Culture - Preliminary No growth in 2 days - Imaging Impressions Abdomen/Pelvis CT 09/28/18 00:00 CONCLUSION: 1. Extensive stranding within the pelvis noted within the peritoneal fat and adjacent structures including musculature could be anasarca or other inflammatory/infectious etiology. No abnormal fluid collection or abscess. 2. There does appear to be wall thickening and inflammation surrounding the urinary bladder. Cystitis should be excluded. 3. Splenomegaly. 4. Trace ascites. - Procedures None Assessment and Plan - Plan Sepsis (WBC 23.9K, tachycardic, suspected infection lumbar spine epidural abscess) Mr. Cook is a pleasant 42-year-old male with a remote history of IV drug use who presents to the emergency department on 09/24/2018 due to a 3-day duration of lower back pain with radiation of pain to the right leg and numbness to the left leg. He had fever at home. MRI shows evidence including fluid collection of possible infectious process. Discussed with NS, IR and ID, no intervention recommended. Found positive bacteremia secondary to MRSA. S/p MAT 09/29, negative for vegetation. -antibiotics changed to Cubicin per ID. -pain control with a bowel regimen. -PT eval. History of IV drug use Patient denies using any IV drugs since he quit 18 months ago. -cessation instruction. PPx: SCDs
[2018-09-29] MEDS: Gabapentin 300 MG Capsule PO SCH ×2 (12:16→18:24)
[2018-09-29] MEDS: Senna/Docusate Sodium 8.6/50 MG Tablet PO SCH ×2 (12:16→20:32)
[2018-09-29] MEDS ORDERED: Pharmacy Ordered Lab Info OTHER ONE (12:45)
[2018-09-29] MEDS: DAPTOmycin Inj 650 MG in Sodium Chlor 0.9% Inj 100 ML IV.SIG SCH (16:29)
[2018-09-29] MEDS: Petrolatum 49%/Zinc Oxide 15% Barrier Oint 120 GM Tube TOPICAL SCH (18:23)
--- NOTE | 2018-09-29 22:17 | P.PNCA ---
Subjective Interval history: No events overnight MAT done today, no vegetation noted Medications and Allergies Active Medications: Active Medications Acetaminophen (Tylenol) 650 mg PO Q4H PRN PRN Reason: Headache, fever, pain 1-4 Last Admin: 09/29/18 20:32 Dose: 650 mg Al Hydroxide/Mg Hydroxide (Milk Of Magnesia Liq) 30 ml PO Q12H PRN PRN Reason: Mild Constipation Bisacodyl (Dulcolax Supp) 10 mg RECTAL DAILY PRN PRN Reason: SEVERE CONSITIPATION Last Admin: 09/26/18 11:40 Dose: 10 mg Gabapentin (Neurontin) 300 mg PO TID [facility] Last Admin: 09/29/18 18:24 Dose: 300 mg Daptomycin 650 mg/ Sodium (Chloride) 100 mls @ 200 mls/hr IV.SIG Q24H [facility] Last Infusion: 09/29/18 17:00 Dose: Infused Lactulose (Lactulose Liq) 30 ml PO DAILY PRN PRN Reason: SEVERE CONSITIPATION Last Admin: 09/26/18 01:27 Dose: 30 ml Morphine Sulfate (Morphine Inj) 4 mg IV.PUSH Q4H PRN PRN Reason: BREAKTHROUGH PAIN Last Admin: 09/29/18 20:32 Dose: 4 mg Ondansetron HCl (Zofran Inj) 4 mg IV.PUSH Q6H PRN PRN Reason: NAUSEA OR VOMITING Oxycodone/Acetaminophen (Percocet 10/325 Mg) 1 tab PO Q4H PRN PRN Reason: Pain 5-10 Last Admin: 09/29/18 18:24 Dose: 1 tab Petrolatum/Zinc Oxide (Sensi-Care Protective Barrier Oint) 1 applicatio TOPICAL DAILY [facility] Last Admin: 09/29/18 18:23 Dose: 1 applicatio Senna/Docusate Sodium (Jacqui-Colace) 1 tab PO BID [facility] Last Admin: 09/29/18 20:32 Dose: 1 tab Sennosides (Senokot) 17.2 mg PO Q12H PRN PRN Reason: Moderate Constipation Allergies Allergy/AdvReac Type Severity Reaction Status Date / Time penicillin G Allergy Mild Rash, Verified 09/24/18 11:50 Localized Home Medications Medication Instructions Recorded Confirmed Type No Known Home Medications 09/24/18 09/24/18 History Physical Exam Vital signs: Vital Signs 09/29/18 00:00 11/27/18 04:00 09/29/18 08:00 Temperature 100.2 F H 99.2 F 98.5 F Pulse Rate 92 H 86 81 Respiratory Rate 20 18 16 Blood Pressure 131/82 136/84 130/84 Pulse Oximetry 98 96 94 L 09/29/18 12:00 09/29/18 16:00 09/29/18 20:00 Temperature 98.9 F 99.1 F 100.3 F H Pulse Rate 82 80 96 H Respiratory Rate 18 18 17 Blood Pressure 144/82 H 141/75 H 146/80 H Pulse Oximetry 96 97 93 L Intake & Output 09/29/18 09/29/18 09/30/18 06:59 18:59 06:59 Intake Total 1040 / 1040 1060 / 1060 Output Total 1250 / 1250 1900 / 1900 Balance -210 / -210 -840 / -840 Weight 81.9 kg Intake: IV 100 / 100 Cubicin Inj 650 MG In NS Inj 100 / 100 100 ML @ 200 mls/hr IV.SIG Q24H [facility] Rx#:[id number] Oral 1040 / 1040 960 / 960 Output: Urine 1250 / 1250 1900 / 1900 Other: Date of Last Bowel Movement 09/28/18 09/28/18 # Bowel Movements 1 0 Narrative: GENERAL: No acute distress. SKIN: No rashes, ecchymoses or lesions. Warm and dry. HEAD: Atraumatic. Normocephalic. No temporal or scalp tenderness. EYES: Pupils equal round and reactive. No injection or drainage. NECK: Trachea midline. No lymphadenopathy. Supple, nontender, no meningeal signs. CARDIOVASCULAR: Regular rate and rhythm without murmurs, gallops, or rubs. No JVD. RESPIRATORY: Clear to auscultation. Breath sounds equal bilaterally. No wheezes , rales, or rhonchi. GASTROINTESTINAL: Abdomen soft, non-tender, nondistended. No guarding. MUSCULOSKELETAL: Extremities without clubbing, cyanosis, or edema. NEUROLOGICAL: Awake and alert. - Urinary Catheter Management Indwelling Urethral Catheter Cath placed during this visit: yes Reason for continuing: Chronic Urinary Retention Insertion date: 09/25/18 Insertion time: 18:42 Results 09/25/18 08:29 09/29/18 05:36 Comprehensive Metabolic Panel 11/26/18 11/26/18 11/27/18 Range/Units 04:18 06:45 05:36 Sodium 134 L (136-145) meq/L Potassium 3.5 (3.5-5.1) meq/L Chloride 98 (98-107) meq/L Carbon Dioxide 27.3 (21.0-32.0) meq/L BUN 9 (7-18) mg/dL Creatinine 0.61 0.64 0.64 (0.60-1.30) mg/dL Calcium 7.9 L (8.5-10.1) mg/dL Intake and Output 09/29/18 09/29/18 09/29/18 06:59 14:59 22:59 Intake Total 1040 / 1040 1060 / 1060 Output Total 1250 / 1250 1900 / 1900 Balance -210 / -210 -840 / -840 Intake: IV 100 / 100 Cubicin Inj 650 MG In NS Inj 100 / 100 100 ML @ 200 mls/hr IV.SIG Q24H [facility] Rx#:[id number] Oral 1040 / 1040 960 / 960 Output: Urine 1250 / 1250 1900 / 1900 Other: Date of Last Bowel Movement 09/28/18 09/28/18 # Bowel Movements 1 0 Weight 81.9 kg - Imaging and Cardiology Imaging: Impressions Abdomen/Pelvis CT 09/28/18 00:00 CONCLUSION: 1. Extensive stranding within the pelvis noted within the peritoneal fat and adjacent structures including musculature could be anasarca or other inflammatory/infectious etiology. No abnormal fluid collection or abscess. 2. There does appear to be wall thickening and inflammation surrounding the urinary bladder. Cystitis should be excluded. 3. Splenomegaly. 4. Trace ascites. Assessment and Plan - Assessment (1) Bacteremia Code(s): R78.81 - Bacteremia Status: Acute (2) History of intravenous drug use in remission Code(s): Z87.898 - Personal history of other specified conditions Status: Acute (3) Epidural abscess Code(s): G06.2 - Extradural and subdural abscess, unspecified Status: Acute - Plan 1) Epidural abscess 2) MAT showing no vegetation 3) No further cardiovascular work up Will see PRN, call with questions
[2018-09-30] MEDS: Morphine Inj 4 MG/ML Vial IV.PUSH PRN ×4 (00:32→12:39)
[2018-09-30] MEDS: oxyCODONE/Acetaminophen 10/325 Tablet PO PRN ×6 (02:28→23:51)
[2018-09-30 08:08] LABS: Baso % (Auto) 0.1 % (0.0-2.0); Eos # (Auto) 0.3 th/mm3 (0.0-0.4); Eos % (Auto) 1.1 % (0.0-4.0); Hematocrit 36.4 % (39.0-51.0); Hemoglobin 12.1 gm/dL (13.0-17.0); Lymph # (Auto) 2.7 th/mm3 (1.0-4.8); Lymph % (Auto) 9.9 % (9.0-44.0); Mean Corpuscular HGB Conc 33.3 % (32.0-36.0); Mean Corpuscular Volume 87.1 fL (80.0-100.0); Mono % (Auto) 7.2 % (0.0-8.0); Neut # (Auto) 22.1 th/mm3 (1.8-7.7); Neut % (Auto) 81.7 % (16.0-70.0); Platelet Count 338 th/mm3 (150-450); Red Blood Count 4.17 mil/mm3 (4.50-5.90); Red Cell Distribution Width 14.2 % (11.6-17.2); White Blood Count 27.1 th/mm3 (4.0-11.0)
[2018-09-30] MEDS: Senna/Docusate Sodium 8.6/50 MG Tablet PO SCH ×2 (08:34→20:57)
[2018-09-30] MEDS: Gabapentin 300 MG Capsule PO SCH ×3 (08:34→18:42)
[2018-09-30 08:38] LABS: Anion Gap 6 meq/L (5-15); Blood Urea Nitrogen 12 mg/dL (7-18); Carbon Dioxide 27.6 meq/L (21.0-32.0); Chloride 96 meq/L (98-107); Glomerular Filtration Rate Greater Than 89 mL/min (>89); Glucose,Random 112 mg/dL (74-106); Potassium 4.2 meq/L (3.5-5.1); Sodium 130 meq/L (136-145)
[2018-09-30] MEDS: Petrolatum 49%/Zinc Oxide 15% Barrier Oint 120 GM Tube TOPICAL SCH (08:54)
[2018-09-30 08:57] LABS: Eosinophils 4 % (0-4); Metamyelocytes 3 % (0-1); Monocytes 9 % (0-8); Myelocytes 4 % (0-0)
[2018-09-30 08:58] LABS: Lymphocytes 11 % (9-44); Platelet Estimate Normal (Normal); Platelet Morphology Normal (Normal); Toxic Granulation 1+; Toxic Vacuolation Present
[2018-09-30] MEDS: Hydrocortisone Acetate 25 MG Supp RECTAL SCH ×2 (13:12→20:58)
--- NOTE | 2018-09-30 13:44 | P.PNIM ---
Subjective Interval history: The patient was resting in bed. He said he has been constipated. He says he has been passing gas. He is complaining of a large hemorrhoid. He says he is going to try the suppository soon. He says he was able to work with physical therapy. Discussed with nursing and infectious disease. Physical Exam Vital signs: Vital Signs 09/29/18 16:00 09/29/18 20:00 09/30/18 00:00 Temperature 99.1 F 100.3 F H 99.0 F Pulse Rate 80 96 H 98 H Respiratory Rate 18 17 19 Blood Pressure 141/75 H 146/80 H 147/79 H Pulse Oximetry 97 93 L 95 09/30/18 04:00 09/30/18 08:00 09/30/18 12:00 Temperature 98.7 F 98.5 F 98.7 F Pulse Rate 79 90 89 Respiratory Rate 18 18 18 Blood Pressure 134/81 120/75 129/77 Pulse Oximetry 97 98 99 Intake & Output 09/29/18 09/30/18 09/30/18 18:59 06:59 18:59 Intake Total 1060 / 1060 1200 / 1200 Output Total 1900 / 1900 1800 / 1800 250 / 250 Balance -840 / -840 -600 / -600 -250 / -250 Weight 89.4 kg Intake: IV 100 / 100 Cubicin Inj 650 MG In NS Inj 100 / 100 100 ML @ 200 mls/hr IV.SIG Q24H [facility] Rx#:[id number] Oral 960 / 960 1200 / 1200 Output: Urine 1900 / 1900 1800 / 1800 250 / 250 Other: # Voids 3 1 Date of Last Bowel Movement 09/28/18 09/28/18 09/28/18 # Bowel Movements 0 Narrative: GENERAL: No acute distress. SKIN: No rashes, ecchymoses or lesions. Warm and dry. HEAD: Atraumatic. Normocephalic. No temporal or scalp tenderness. EYES: Pupils equal round and reactive. No injection or drainage. NECK: Trachea midline. No lymphadenopathy. Supple, nontender, no meningeal signs. CARDIOVASCULAR: Regular rate and rhythm without murmurs, gallops, or rubs. No JVD. RESPIRATORY: Clear to auscultation. Breath sounds equal bilaterally. No wheezes , rales, or rhonchi. GASTROINTESTINAL: Abdomen soft, non-tender, nondistended. No guarding. Decreased bowel sounds. MUSCULOSKELETAL: Extremities without clubbing, cyanosis, or edema. NEUROLOGICAL: Awake and alert. - Urinary Catheter Management Indwelling Urethral Catheter Cath placed during this visit: yes, but has since been removed by the nurse Reason for continuing: Acute urinary retention Insertion date: 09/25/18 Insertion time: 18:42 Removal date: 09/29/18 Removal time: 22:30 Results - Labs CBC & Chem 7: 09/30/18 07:39 09/30/18 07:39 Laboratory Results - last 24 hr 09/30/18 09/30/18 07:39 07:39 WBC 27.1 H RBC 4.17 L Hgb 12.1 L Hct 36.4 L MCV 87.1 MCH 29.0 MCHC 33.3 RDW 14.2 Plt Count 338 D MPV 7.0 Prelim Diff (Auto) Slide review pending Neut % (Auto) 81.7 H Lymph % (Auto) 9.9 [place] % (Auto) 7.2 Eos % (Auto) 1.1 Baso % (Auto) 0.1 Neut # (Auto) 22.1 H Lymph # (Auto) 2.7 [place] # (Auto) 2.0 H Eos # (Auto) 0.3 Baso # (Auto) 0.0 WBC Differential Manual diff final Seg Neuts % (Manual) 58 Band Neuts % (Manual) 11 H Lymphocytes % (Manual) 11 Monocytes % (Manual) 9 H Eosinophils % (Manual) 4 Metamyelocytes % (Man) 3 H Myelocytes % (Man) 4 H Abs Neuts (Manual) 20.6 H Differential Comment . Toxic Granulation 1+ H Toxic Vacuolation Present H Platelet Estimate Normal Platelet Morphology Normal Sodium 130 L Potassium 4.2 Chloride 96 L Carbon Dioxide 27.6 Anion Gap 6 BUN 12 Creatinine 0.68 Estimated GFR Greater than 89 Random Glucose 112 H Calcium 8.0 L Magnesium 2.0 Microbiology 09/29/18 05:36 Blood - Peripheral Aerobic Blood Culture - Preliminary No growth in 1 day 09/29/18 05:36 Blood - Peripheral Anaerobic Blood Culture - Preliminary No growth in 1 day 09/28/18 14:57 Blood - Peripheral Aerobic Blood Culture - Preliminary No growth in 2 days 09/28/18 14:57 Blood - Peripheral Anaerobic Blood Culture - Preliminary No growth in 2 days 09/27/18 05:43 Blood - Peripheral Aerobic Blood Culture - Final S. aureus MRSA 09/27/18 05:43 Blood - Peripheral Anaerobic Blood Culture - Preliminary No growth in 3 days 09/27/18 05:48 Blood - Peripheral Aerobic Blood Culture - Final S. aureus MRSA 09/27/18 05:48 Blood - Peripheral Anaerobic Blood Culture - Preliminary No growth in 3 days - Procedures None Assessment and Plan - Plan Sepsis (WBC 23.9K, tachycardic, suspected infection lumbar spine epidural abscess) Mr. Cook is a pleasant 42-year-old male with a remote history of IV drug use who presents to the emergency department on 09/24/2018 due to a 3-day duration of lower back pain with radiation of pain to the right leg and numbness to the left leg. He had fever at home. MRI shows evidence including fluid collection of possible infectious process. Discussed with NS, IR and ID, no intervention recommended. Found positive bacteremia secondary to MRSA. S/p MTA 09/29, negative for vegetation. -antibiotics changed to Cubicin per ID. Consider repeat imaging. -pain control with a bowel regimen. -PT working with pt. Constipation On a bowel regimen. -Fleets enema ordered. Hemorrhoids Acute. -hydrocortisone supp ordered. History of IV drug use Patient denies using any IV drugs since he quit 18 months ago. -cessation instruction. Dysuria The pt had his Vogel removed and has been straining while urinating. -check a UA. PPx: Agnes
[2018-09-30 15:28] LABS: Clarity,Urine Clear (Clear); Color,Urine Yellow (Yellw/Straw); Glucose,Urine (UA) Negative (Negative); Specific Gravity,Urine 1.009 (1.002-1.035)
[2018-09-30 15:29] LABS: Amorphous Sediment,Urine Rare /hpf; Bilirubin,Urine Negative (Negative); Leukocyte Esterase,Urine Negative (Negative); Nitrite,Urine Negative (Negative); Squamous Epithelial Cell,Urine <1 /hpf (0-5); Urobilinogen,Urine 4 or Greater mg/dL (Less than 2)
[2018-09-30] MEDS: DAPTOmycin Inj 650 MG in Sodium Chlor 0.9% Inj 100 ML IV.SIG SCH (16:12)
--- NOTE | 2018-09-30 16:44 | P.PNCA ---
Subjective Interval history: No events overnight No complications from MAT Medications and Allergies Active Medications: Active Medications Acetaminophen (Tylenol) 650 mg PO Q4H PRN PRN Reason: Headache, fever, pain 1-4 Last Admin: 09/29/18 20:32 Dose: 650 mg Al Hydroxide/Mg Hydroxide (Milk Of Magnesia Liq) 30 ml PO Q12H PRN PRN Reason: Mild Constipation Bisacodyl (Dulcolax Supp) 10 mg RECTAL DAILY PRN PRN Reason: SEVERE CONSITIPATION Last Admin: 09/26/18 11:40 Dose: 10 mg Gabapentin (Neurontin) 300 mg PO TID [facility] Last Admin: 09/30/18 12:39 Dose: 300 mg Hydrocortisone Acetate (Hemorrhoidal Hc Supp) 25 mg RECTAL BID [facility] Last Admin: 09/30/18 13:12 Dose: 25 mg Daptomycin 650 mg/ Sodium (Chloride) 100 mls @ 200 mls/hr IV.SIG Q24H [facility] Last Admin: 09/30/18 16:12 Dose: 100 mls/hr Lactulose (Lactulose Liq) 30 ml PO DAILY PRN PRN Reason: SEVERE CONSITIPATION Last Admin: 09/26/18 01:27 Dose: 30 ml Morphine Sulfate (Morphine Inj) 2 mg IV.PUSH Q6H PRN PRN Reason: BREAKTHROUGH PAIN Ondansetron HCl (Zofran Inj) 4 mg IV.PUSH Q6H PRN PRN Reason: NAUSEA OR VOMITING Oxycodone/Acetaminophen (Percocet 10/325 Mg) 1 tab PO Q4H PRN PRN Reason: Pain 5-10 Last Admin: 09/30/18 14:39 Dose: 1 tab Petrolatum/Zinc Oxide (Sensi-Care Protective Barrier Oint) 1 applicatio TOPICAL DAILY [facility] Last Admin: 09/30/18 08:54 Dose: 1 applicatio Senna/Docusate Sodium (Jacqui-Colace) 1 tab PO BID [facility] Last Admin: 09/30/18 08:34 Dose: 1 tab Sennosides (Senokot) 17.2 mg PO Q12H PRN PRN Reason: Moderate Constipation Allergies Allergy/AdvReac Type Severity Reaction Status Date / Time penicillin G Allergy Mild Rash, Verified 09/24/18 11:50 Localized Home Medications Medication Instructions Recorded Confirmed Type No Known Home Medications 09/24/18 09/24/18 History Physical Exam Vital signs: Vital Signs 09/29/18 20:00 09/30/18 00:00 09/30/18 04:00 Temperature 100.3 F H 99.0 F 98.7 F Pulse Rate 96 H 98 H 79 Respiratory Rate 17 19 18 Blood Pressure 146/80 H 147/79 H 134/81 Pulse Oximetry 93 L 95 97 09/30/18 08:00 09/30/18 12:00 09/30/18 16:00 Temperature 98.5 F 98.7 F Pulse Rate 90 89 Respiratory Rate 18 18 Blood Pressure 120/75 129/77 Pulse Oximetry 98 99 98 Intake & Output 09/29/18 09/30/18 09/30/18 18:59 06:59 18:59 Intake Total 1060 / 1060 1200 / 1200 Output Total 1900 / 1900 1800 / 1800 250 / 250 Balance -840 / -840 -600 / -600 -250 / -250 Weight 89.4 kg Intake: IV 100 / 100 Cubicin Inj 650 MG In NS Inj 100 / 100 100 ML @ 200 mls/hr IV.SIG Q24H [facility] Rx#:[id number] Oral 960 / 960 1200 / 1200 Output: Urine 1900 / 1900 1800 / 1800 250 / 250 Other: # Voids 3 1 Date of Last Bowel Movement 09/28/18 09/28/18 09/28/18 # Bowel Movements 0 Narrative: GENERAL: No acute distress. SKIN: No rashes, ecchymoses or lesions. Warm and dry. HEAD: Atraumatic. Normocephalic. No temporal or scalp tenderness. EYES: Pupils equal round and reactive. No injection or drainage. NECK: Trachea midline. No lymphadenopathy. Supple, nontender, no meningeal signs. CARDIOVASCULAR: Regular rate and rhythm without murmurs, gallops, or rubs. No JVD. RESPIRATORY: Clear to auscultation. Breath sounds equal bilaterally. No wheezes , rales, or rhonchi. GASTROINTESTINAL: Abdomen soft, non-tender, nondistended. No guarding. Decreased bowel sounds. MUSCULOSKELETAL: Extremities without clubbing, cyanosis, or edema. NEUROLOGICAL: Awake and alert. - Urinary Catheter Management Indwelling Urethral Catheter Cath placed during this visit: yes, but has since been removed by the nurse Reason for continuing: Acute urinary retention Insertion date: 09/25/18 Insertion time: 18:42 Removal date: 09/29/18 Removal time: 22:30 Results 09/30/18 07:39 09/30/18 07:39 CBC 09/30/18 Range/Units 07:39 WBC 27.1 H (4.0-11.0) th/mm3 RBC 4.17 L (4.50-5.90) mil/mm3 Hgb 12.1 L (13.0-17.0) gm/dL Hct 36.4 L (39.0-51.0) % Plt Count 338 D (150-450) th/mm3 Neut # (Auto) 22.1 H (1.8-7.7) th/mm3 Lymph # (Auto) 2.7 (1.0-4.8) th/mm3 [place] # (Auto) 2.0 H (0.0-0.9) th/mm3 Eos # (Auto) 0.3 (0.0-0.4) th/mm3 Baso # (Auto) 0.0 (0.0-0.2) th/mm3 Comprehensive Metabolic Panel 09/29/18 09/30/18 Range/Units 05:36 07:39 Sodium 130 L (136-145) meq/L Potassium 4.2 (3.5-5.1) meq/L Chloride 96 L (98-107) meq/L Carbon Dioxide 27.6 (21.0-32.0) meq/L BUN 12 (7-18) mg/dL Creatinine 0.64 0.68 (0.60-1.30) mg/dL Calcium 8.0 L (8.5-10.1) mg/dL Intake and Output 09/30/18 09/30/18 09/30/18 06:59 14:59 22:59 Intake Total 1200 / 1200 Output Total 1800 / 1800 250 / 250 Balance -600 / -600 -250 / -250 Intake: Oral 1200 / 1200 Output: Urine 1800 / 1800 250 / 250 Other: # Voids 3 1 Date of Last Bowel Movement 09/28/18 Weight 89.4 kg - Imaging and Cardiology Imaging: Impressions Abdomen/Pelvis CT 09/28/18 00:00 CONCLUSION: 1. Extensive stranding within the pelvis noted within the peritoneal fat and adjacent structures including musculature could be anasarca or other inflammatory/infectious etiology. No abnormal fluid collection or abscess. 2. There does appear to be wall thickening and inflammation surrounding the urinary bladder. Cystitis should be excluded. 3. Splenomegaly. 4. Trace ascites. Assessment and Plan - Assessment (1) Bacteremia Code(s): R78.81 - Bacteremia Status: Acute (2) History of intravenous drug use in remission Code(s): Z87.898 - Personal history of other specified conditions Status: Acute (3) Epidural abscess Code(s): G06.2 - Extradural and subdural abscess, unspecified Status: Acute - Plan 1) Epidural abscess 2) MAT showing no vegetation Reviewed again, concern for area along tricuspid valve, but does not appear to independent movement, most likely not vegetation 3) No further cardiovascular work up Will see PRN, call with questions
[2018-09-30] MEDS: Morphine Sulfate Inj 2 MG/ML Vial IV.PUSH PRN ×2 (16:45→21:46)
[2018-09-30] MEDS: Acetaminophen 325 MG Tablet PO PRN (20:57)
[2018-10-01] MEDS: Morphine Sulfate Inj 2 MG/ML Vial IV.PUSH PRN ×4 (03:27→21:30)
[2018-10-01] MEDS: oxyCODONE/Acetaminophen 10/325 Tablet PO PRN ×5 (05:14→22:38)
[2018-10-01] MEDS: Senna/Docusate Sodium 8.6/50 MG Tablet PO SCH ×2 (09:17→20:12)
[2018-10-01] MEDS: Gabapentin 300 MG Capsule PO SCH ×3 (09:17→17:51)
[2018-10-01] MEDS: Petrolatum 49%/Zinc Oxide 15% Barrier Oint 120 GM Tube TOPICAL SCH (09:20)
[2018-10-01] MEDS: Hydrocortisone Acetate 25 MG Supp RECTAL SCH ×2 (09:20→20:13)
[2018-10-01] MEDS: DAPTOmycin Inj 650 MG in Sodium Chlor 0.9% Inj 100 ML IV.SIG SCH (15:38)
--- NOTE | 2018-10-01 15:54 | P.PNIM ---
Subjective Interval history: The patient said that he has been constipated before. He is very concerned that he might have a process going on and would like to have a further workup. He states his hemorrhoid is still bothersome. He says that he has some discomfort when he urinates but he is urinating well. Discussed with nursing. Physical Exam Vital signs: Vital Signs 09/30/18 16:00 09/30/18 20:00 10/01/18 00:00 Temperature 99 F 100 F H 98.1 F Pulse Rate 107 H 100 H 82 Respiratory Rate 18 17 16 Blood Pressure 119/70 143/77 H 129/68 Pulse Oximetry 97 96 95 10/01/18 03:11 10/01/18 04:00 10/01/18 08:00 Temperature 99.2 F 97.8 F Pulse Rate 100 H 86 81 Respiratory Rate 18 18 Blood Pressure 117/74 144/91 H Pulse Oximetry 98 97 10/01/18 12:00 Temperature 98.2 F Pulse Rate 98 H Respiratory Rate 18 Blood Pressure 140/87 Pulse Oximetry 97 Intake & Output 09/30/18 10/01/18 10/01/18 18:59 06:59 18:59 Intake Total 300 / 300 2059 Output Total 1100 / 1100 2440 / 2440 Balance -800 / -800 -380 / -380 Weight 89.1 kg Intake: IV 100 / 100 Cubicin Inj 650 MG In NS Inj 100 / 100 100 ML @ 200 mls/hr IV.SIG Q24H [facility] Rx#:[id number] Oral 200 / 200 2059 Output: Urine 1100 / 1100 2440 / 2440 Other: # Voids 1 3 Date of Last Bowel Movement 09/28/18 # Bowel Movements 1 Narrative: GENERAL: No acute distress. SKIN: No rashes, ecchymoses or lesions. Warm and dry. HEAD: Atraumatic. Normocephalic. No temporal or scalp tenderness. EYES: Pupils equal round and reactive. No injection or drainage. NECK: Trachea midline. No lymphadenopathy. Supple, nontender, no meningeal signs. CARDIOVASCULAR: Regular rate and rhythm without murmurs, gallops, or rubs. No JVD. RESPIRATORY: Clear to auscultation. Breath sounds equal bilaterally. No wheezes , rales, or rhonchi. GASTROINTESTINAL: Abdomen soft, non-tender, nondistended. No guarding. Decreased bowel sounds. MUSCULOSKELETAL: Extremities without clubbing, cyanosis, or edema. NEUROLOGICAL: Awake and alert. - Urinary Catheter Management Indwelling Urethral Catheter Cath placed during this visit: yes, but has since been removed by the nurse Reason for continuing: Acute urinary retention Insertion date: 09/25/18 Insertion time: 18:42 Removal date: 09/29/18 Removal time: 22:30 Results - Labs CBC & Chem 7: 09/30/18 07:39 09/30/18 07:39 Microbiology 09/29/18 05:36 Blood - Peripheral Aerobic Blood Culture - Preliminary No growth in 2 days 09/29/18 05:36 Blood - Peripheral Anaerobic Blood Culture - Preliminary No growth in 2 days 09/28/18 14:57 Blood - Peripheral Aerobic Blood Culture - Preliminary gram positive cocci 09/28/18 14:57 Blood - Peripheral Anaerobic Blood Culture - Preliminary No growth in 3 days 09/27/18 05:43 Blood - Peripheral Aerobic Blood Culture - Final S. aureus MRSA 09/27/18 05:43 Blood - Peripheral Anaerobic Blood Culture - Preliminary No growth in 4 days 09/27/18 05:48 Blood - Peripheral Aerobic Blood Culture - Final S. aureus MRSA 09/27/18 05:48 Blood - Peripheral Anaerobic Blood Culture - Preliminary No growth in 4 days - Procedures None Assessment and Plan - Plan Sepsis (WBC 23.9K, tachycardic, suspected infection lumbar spine epidural abscess) Mr. Cook is a pleasant 42-year-old male with a remote history of IV drug use who presents to the emergency department on 09/24/2018 due to a 3-day duration of lower back pain with radiation of pain to the right leg and numbness to the left leg. He had fever at home. MRI shows evidence including fluid collection of possible infectious process. Discussed with NS, IR and ID, no intervention recommended. Found positive bacteremia secondary to MRSA. S/p MAT 09/29, negative for vegetation. Repeat blood culture positive. -antibiotics changed to Cubicin per ID. Consider repeat imaging. -pain control with a bowel regimen. -PT working with pt. -follow CBC and culture data. Constipation/Hemorrhoids Ongoing. CT with small bowel thickening. -continue bowel regimen. -hydrocortisone suppositories. -GI consult requested. History of IV drug use Patient denies using any IV drugs since he quit 18 months ago. -cessation instruction. Dysuria The pt had his Vogel removed and has been straining while urinating. CT indicative of possible cystitis. UA negative. -monitor. PPx: SCDs
[2018-10-02] MEDS: oxyCODONE/Acetaminophen 10/325 Tablet PO PRN ×5 (02:44→19:22)
[2018-10-02] MEDS: Morphine Sulfate Inj 2 MG/ML Vial IV.PUSH PRN ×5 (04:01→23:40)
--- NOTE | 2018-10-02 07:58 | P.PNID ---
Subjective Remarks: Patient is a 42-year-old male, presented to the hospital with severe low back pain. He was apparently doing yard work the day he started having back pain. The pain came on suddenly that he had to stop working. He laid down and since has not gotten out of bed much because of the severity of the pain. He would have pain radiating to both thighs, and currently he is complaining of some numbness in his left lower extremity. He has been constipated, although he is not really been eating much because of the severe pain. He has been having problem urinating and it takes a while for him to urinate. He is also been having fevers for 2 days prior to coming into the hospital. Patient denies any skin infection or any boils. He has not had any vomiting or diarrhea or any respiratory complaint. He has not had any teeth problem requiring any dentist attention. Patient has prior history of IV drug use, but he was incarcerated for about 18 months in intermediate, and then was in nursing home for at least 2 months, and has been out on the streets for the last 2 months. He denies any smoking or snorting illicit drugs as well. 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 Since admission patient has had fevers. He had an MRI and he has abnormality in the lower thoracic and lumbar region. There is a fluid collection in the anterior epidural space. I spoke with radiologist and there is no window to access that epidural space. He has had 2 blood cultures that are negative so far. Urinalysis unremarkable. His WBC is elevated at 25,000. Infectious disease consultation has been requested to assist with evaluation and treatment. Notes reviewed Temsp better D/W RN Good UO overnight States he still has to push Doing some PT Still with numbness BLE All BC with MRSA, last (+) BC 09/28 C/O back pain and numbness in BLE - no change Constipated WBC remains elevated MAT negative Antibiotics: Cubicin Allergies/Adverse Reactions: Allergies penicillin G Allergy (Mild, Verified 09/24/18 11:50) Rash, Localized pt states he doesnt know but has always been told that as a kid Objective Vital Signs 10/01/18 08:00 10/01/18 12:00 10/01/18 16:00 Temperature 97.8 F 98.2 F 98 F Pulse Rate 81 82 80 Respiratory Rate 18 18 18 Blood Pressure 144/91 H 140/87 129/88 Pulse Oximetry 97 97 99 10/01/18 20:00 10/02/18 00:00 10/02/18 04:00 Temperature 98.5 F 98 F 98 F Pulse Rate 93 H 99 H 92 H Respiratory Rate 18 16 15 Blood Pressure 121/79 118/82 134/90 Pulse Oximetry 99 99 99 Intake & Output 10/01/18 10/02/18 10/02/18 18:59 06:59 18:59 Intake Total 1060 / 1060 480 / 480 Output Total 3000 / 3000 Balance -1940 / -1940 480 / 480 Weight 87.4 kg Intake: IV 100 / 100 Cubicin Inj 650 MG In NS Inj 100 / 100 100 ML @ 200 mls/hr IV.SIG Q24H [facility] Rx#:[id number] Oral 960 / 960 480 / 480 Output: Urine 3000 / 3000 Other: # Voids 2 # Bowel Movements 0 09/29/18 05:36 Blood - Peripheral Aerobic Blood Culture - Preliminary No growth in 2 days 09/29/18 05:36 Blood - Peripheral Anaerobic Blood Culture - Preliminary No growth in 2 days 09/28/18 14:57 Blood - Peripheral Aerobic Blood Culture - Preliminary gram positive cocci 09/28/18 14:57 Blood - Peripheral Anaerobic Blood Culture - Preliminary No growth in 3 days 09/27/18 05:43 Blood - Peripheral Aerobic Blood Culture - Final S. aureus MRSA 09/27/18 05:43 Blood - Peripheral Anaerobic Blood Culture - Preliminary No growth in 4 days 09/27/18 05:48 Blood - Peripheral Aerobic Blood Culture - Final S. aureus MRSA 09/27/18 05:48 Blood - Peripheral Anaerobic Blood Culture - Preliminary No growth in 4 days Lab - Hematology Results 09/30/18 07:39 WBC 27.1 H RBC 4.17 L Hgb 12.1 L Hct 36.4 L MCV 87.1 MCH 29.0 MCHC 33.3 RDW 14.2 Plt Count 338 D MPV 7.0 Prelim Diff (Auto) Slide review pending Neut % (Auto) 81.7 H Lymph % (Auto) 9.9 [place] % (Auto) 7.2 Eos % (Auto) 1.1 Baso % (Auto) 0.1 Neut # (Auto) 22.1 H Lymph # (Auto) 2.7 [place] # (Auto) 2.0 H Eos # (Auto) 0.3 Baso # (Auto) 0.0 WBC Differential Manual diff final Seg Neuts % (Manual) 58 Band Neuts % (Manual) 11 H Lymphocytes % (Manual) 11 Monocytes % (Manual) 9 H Eosinophils % (Manual) 4 Metamyelocytes % (Man) 3 H Myelocytes % (Man) 4 H Abs Neuts (Manual) 20.6 H Differential Comment . Toxic Granulation 1+ H Toxic Vacuolation Present H Platelet Estimate Normal Platelet Morphology Normal Lab - Chemistry Results 09/30/18 07:39 Sodium 130 L Potassium 4.2 Chloride 96 L Carbon Dioxide 27.6 Anion Gap 6 BUN 12 Creatinine 0.68 Estimated GFR Greater than 89 Random Glucose 112 H Calcium 8.0 L Magnesium 2.0 Imaging: ITS Impressions Lumbar Spine MRI 09/24/18 13:31 CONCLUSION: 1. Long segment thickening, induration and enhancement of the meninges and epidural space of the lumbar spine with the most pronounced involvement being from L4/L5 through S1/S2, presumably infectious. Small pockets of fluid within the epidural space as described. The paraspinous soft tissues are edematous, posteriorly most conspicuous from L3/L4 through L5/S1 and anteriorly most conspicuous in the presacral region and at L5. No findings typical of osteomyelitis or discitis. 2. Degenerative disc changes at L4/L5 and L5/S1 are also seen. Abdomen/Pelvis CT 09/28/18 00:00 CONCLUSION: 1. Extensive stranding within the pelvis noted within the peritoneal fat and adjacent structures including musculature could be anasarca or other inflammatory/infectious etiology. No abnormal fluid collection or abscess. 2. There does appear to be wall thickening and inflammation surrounding the urinary bladder. Cystitis should be excluded. 3. Splenomegaly. 4. Trace ascites. Physical Exam: GENERAL: awake and alert, NAD SKIN: Warm and dry. No generalized rash, no ecchymoses and no evidence of embolic lesions. HEAD: Atraumatic. Normocephalic. No temporal wasting, or tenderness. EYES: [place] conjunctiva. No petechia or hemorrhage. No scleral icterus. No injection or drainage. EARS, NOSE AND THROAT: Mucous membranes pink and moist. No oral lesions noted. No exudate. No oral thrush. NECK: Trachea midline. Supple and not tender, no meningeal signs CARDIOVASCULAR: Regular rate and rhythm. No murmurs, rubs or gallops heard RESPIRATORY: Clear to auscultation. Breath sounds equal bilaterally. No rales , wheezing or rhonchi ABDOMEN: Soft, non-tender, nondistended. Bowel sounds present and normoactive. No guarding. No rebound. No organomegaly. EXTREMITIES: No clubbing, cyanosis, or edema. No joint effusion, has good ROM. No calf tenderness. NEUROLOGICAL: Awake and alert. Cranial nerves grossly intact. Able to move both LE, symmetrical PSYCHIATRIC: In distress due to severe back pain LINE: No evidence of infection Assessment and Plan - Plan Impression Possible sepsis due to back infection. MRSA. High grade MRSA sepsis - Vanco CLAUDINE 2 Lumbar epidural abscess Hx IVDU, last use prob 20 months ago Recommendation Repeat BC Continue Cubicin to help sterilize blood - follow CPK Repeat CBC Repeat lumbar MRI Follow temps Follow C/S Monitor progress Check PVR Explained plan to the patient D/W RAZ
[2018-10-02] MEDS: Hydrocortisone Acetate 25 MG Supp RECTAL SCH ×2 (10:07→21:07)
[2018-10-02] MEDS: Senna/Docusate Sodium 8.6/50 MG Tablet PO SCH ×2 (10:07→21:07)
[2018-10-02] MEDS: Gabapentin 300 MG Capsule PO SCH ×3 (10:07→18:18)
[2018-10-02] MEDS: Petrolatum 49%/Zinc Oxide 15% Barrier Oint 120 GM Tube TOPICAL SCH (10:25)
--- NOTE | 2018-10-02 11:11 | P.CONGI ---
History of Present Illness Consult date: 10/02/18 Consult reason: Bowel loop thickening with severe constipation Family history of colon cancer Patient requesting GI workup Chief complaint: Epidural abcess History of Present Illness: Patient is a 42-year-old male who presented to [facility] with complaint of lower back pain for 1 week. Patient also endorses generalized weakness. Diagnosed with abscess on spine with positive MRSA. Our service has been consulted to evaluate patient for chronic constipation-family history of colon cancer. Patient denies ever having had EGD or colonoscopy in the past. States he has not had a bowel movement for 8 days. Prior to admission patient states that he experiences chronic constipation. At times he states he tries to disimpact self. States while he was in senior living in 2017 he experienced duration of 14 days with no bowel movement. He was given 3 bottles of mag citrate which were it was effective. Patient currently says that he is passing gas, denies any abdominal pain or nausea vomiting. Patient denies any difficulty swallowing or heartburn. He does endorse a 20 pound weight loss over the last 4-5 months. Patient denies any use of tobacco or alcohol products. Only past surgery includes circumcision and patient denies any relevant medical history. Patient requesting both EGD and colonoscopy for evaluation. <Suzette Pepe - Last Filed: 10/02/18 11:11> PMFSH - History History Provided By: Patient - Medical History Medical History: Medical History (Last Reviewed 10/01/18 @ 08:41 by Maris Paez) History of MRSA infection Onset Date: ~09/24/18 Male circumcision Patient denies medical problems - Tobacco History Second Hand Smoke Exposure: Yes Tobacco Use In Past 30 Days: Yes Smoking Status: Current every day smoker Tobacco Type: Cigarettes - Alcohol History How Often Do You Have a Drink Containing Alcohol: 2 to 3 times a week - Substance Use History Substance History: Active Abuse - Substance Use Type Other Type: Dilaudid Status: Sustained Remission Route Used: By Mouth Reason for Use: Calm Down - Travel History Recent Travel in the [place] Within the Last 8 Weeks: No Recent Travel Out of the Country Within the Last 8 Weeks: No - Immunization History Tetanus Immunization: Unsure Hx Influenza Vaccine This Season: No <Suzette Pepe - Last Filed: 10/02/18 11:11> - Medical History Medical History: Medical History (Last Reviewed 10/01/18 @ 08:41 by Maris Paez) History of MRSA infection Onset Date: ~09/24/18 Male circumcision Patient denies medical problems <Hari Marin - Last Filed: 10/02/18 12:12> Medications and Allergies Active Medications: Active Medications Acetaminophen (Tylenol) 650 mg PO Q4H PRN PRN Reason: Headache, fever, pain 1-4 Last Admin: 09/30/18 20:57 Dose: 650 mg Al Hydroxide/Mg Hydroxide (Milk Of Magnesia Liq) 30 ml PO Q12H PRN PRN Reason: Mild Constipation Bisacodyl (Dulcolax Supp) 10 mg RECTAL DAILY PRN PRN Reason: SEVERE CONSITIPATION Last Admin: 09/26/18 11:40 Dose: 10 mg Gabapentin (Neurontin) 300 mg PO TID [facility] Last Admin: 10/02/18 10:07 Dose: 300 mg Hydrocortisone Acetate (Hemorrhoidal Hc Supp) 25 mg RECTAL BID [facility] Last Admin: 10/02/18 10:07 Dose: 25 mg Daptomycin 650 mg/ Sodium (Chloride) 100 mls @ 200 mls/hr IV.SIG Q24H [facility] Last Infusion: 10/01/18 17:01 Dose: Infused Lactulose (Lactulose Liq) 30 ml PO DAILY PRN PRN Reason: SEVERE CONSITIPATION Last Admin: 09/26/18 01:27 Dose: 30 ml Morphine Sulfate (Morphine Inj) 2 mg IV.PUSH Q6H PRN PRN Reason: BREAKTHROUGH PAIN Last Admin: 10/02/18 10:07 Dose: 2 mg Ondansetron HCl (Zofran Inj) 4 mg IV.PUSH Q6H PRN PRN Reason: NAUSEA OR VOMITING Oxycodone/Acetaminophen (Percocet 10/325 Mg) 1 tab PO Q4H PRN PRN Reason: Pain 5-10 Last Admin: 10/02/18 06:39 Dose: 1 tab Petrolatum/Zinc Oxide (Sensi-Care Protective Barrier Oint) 1 applicatio TOPICAL DAILY [facility] Last Admin: 10/02/18 10:25 Dose: 1 applicatio Senna/Docusate Sodium (Jacqui-Colace) 1 tab PO BID [facility] Last Admin: 10/02/18 10:07 Dose: 1 tab Sennosides (Senokot) 17.2 mg PO Q12H PRN PRN Reason: Moderate Constipation <PepeSuzette - Last Filed: 10/02/18 11:11> Active Medications: Active Medications Acetaminophen (Tylenol) 650 mg PO Q4H PRN PRN Reason: Headache, fever, pain 1-4 Last Admin: 09/30/18 20:57 Dose: 650 mg Al Hydroxide/Mg Hydroxide (Milk Of Magnesia Liq) 30 ml PO Q12H PRN PRN Reason: Mild Constipation Bisacodyl (Dulcolax Supp) 10 mg RECTAL DAILY PRN PRN Reason: SEVERE CONSITIPATION Last Admin: 09/26/18 11:40 Dose: 10 mg Gabapentin (Neurontin) 300 mg PO TID [facility] Last Admin: 10/02/18 10:07 Dose: 300 mg Hydrocortisone Acetate (Hemorrhoidal Hc Supp) 25 mg RECTAL BID [facility] Last Admin: 10/02/18 10:07 Dose: 25 mg Daptomycin 650 mg/ Sodium (Chloride) 100 mls @ 200 mls/hr IV.SIG Q24H [facility] Last Infusion: 10/01/18 17:01 Dose: Infused Lactulose (Lactulose Liq) 30 ml PO DAILY PRN PRN Reason: SEVERE CONSITIPATION Last Admin: 09/26/18 01:27 Dose: 30 ml Morphine Sulfate (Morphine Inj) 2 mg IV.PUSH Q6H PRN PRN Reason: BREAKTHROUGH PAIN Last Admin: 10/02/18 10:07 Dose: 2 mg Ondansetron HCl (Zofran Inj) 4 mg IV.PUSH Q6H PRN PRN Reason: NAUSEA OR VOMITING Oxycodone/Acetaminophen (Percocet 10/325 Mg) 1 tab PO Q4H PRN PRN Reason: Pain 5-10 Last Admin: 10/02/18 10:54 Dose: 1 tab Petrolatum/Zinc Oxide (Sensi-Care Protective Barrier Oint) 1 applicatio TOPICAL DAILY [facility] Last Admin: 10/02/18 10:25 Dose: 1 applicatio Polyethylene Glycol/Electrolytes (Colyte Liq) 4,000 ml PO ONCE ONE Stop: 10/02/18 16:01 Senna/Docusate Sodium (Jacqui-Colace) 1 tab PO BID [facility] Last Admin: 10/02/18 10:07 Dose: 1 tab Sennosides (Senokot) 17.2 mg PO Q12H PRN PRN Reason: Moderate Constipation <Hari Marin A - Last Filed: 10/02/18 12:12> Allergies Allergy/AdvReac Type Severity Reaction Status Date / Time penicillin G Allergy Mild Rash, Verified 09/24/18 11:50 Localized Home Medications Medication Instructions Recorded Confirmed Type No Known Home Medications 09/24/18 09/24/18 History Exam Vital signs: Vital Signs 10/01/18 12:00 10/01/18 16:00 10/01/18 20:00 Temperature 98.2 F 98 F 98.5 F Pulse Rate 82 80 93 H Respiratory Rate 18 18 18 Blood Pressure 140/87 129/88 121/79 Pulse Oximetry 97 99 99 10/02/18 00:00 10/02/18 04:00 10/02/18 08:00 Temperature 98 F 98 F 97.5 F L Pulse Rate 99 H 92 H 80 Respiratory Rate 16 15 14 Blood Pressure 118/82 134/90 140/80 Pulse Oximetry 99 99 96 Intake & Output 10/01/18 10/02/18 10/02/18 18:59 06:59 18:59 Intake Total 1060 / 1060 480 / 480 Output Total 3000 / 3000 400 / 400 Balance -1940 / -1940 480 / 480 -400 / -400 Weight 87.4 kg Intake: IV 100 / 100 Cubicin Inj 650 MG In NS Inj 100 / 100 100 ML @ 200 mls/hr IV.SIG Q24H [facility] Rx#:[id number] Oral 960 / 960 480 / 480 Output: Urine 3000 / 3000 400 / 400 Other: # Voids 2 # Bowel Movements 0 - Constitutional no acute distress - Routine HEENT Exam Head: Present: normocephalic - Routine Respiratory Exam Present: CTA bilaterally. Absent: accessory muscle use - Routine Cardiovascular Exam Present: RRR - Routine Abdominal Exam Present: soft, normoactive bowel sounds. Absent: tenderness, distended, guarding, firm - Routine Extremities Exam Present: pulses intact. Absent: edema - Routine Skin Exam Present: dry, warm - Routine Neurological Exam Present: alert <Pepe,Suzette - Last Filed: 10/02/18 11:11> Vital signs: Vital Signs 10/01/18 16:00 10/01/18 20:00 10/02/18 00:00 Temperature 98 F 98.5 F 98 F Pulse Rate 80 93 H 99 H Respiratory Rate 18 18 16 Blood Pressure 129/88 121/79 118/82 Pulse Oximetry 99 99 99 10/02/18 04:00 10/02/18 08:00 10/02/18 11:07 Temperature 98 F 97.5 F L 98.2 F Pulse Rate 92 H 80 99 H Respiratory Rate 15 14 14 Blood Pressure 134/90 140/80 133/83 Pulse Oximetry 99 96 Intake & Output 10/01/18 10/02/18 10/02/18 18:59 06:59 18:59 Intake Total 1060 / 1060 480 / 480 Output Total 3000 / 3000 600 / 600 Balance -1940 / -1940 480 / 480 -600 / -600 Weight 87.4 kg Intake: IV 100 / 100 Cubicin Inj 650 MG In NS Inj 100 / 100 100 ML @ 200 mls/hr IV.SIG Q24H [facility] Rx#:[id number] Oral 960 / 960 480 / 480 Output: Urine 3000 / 3000 600 / 600 Other: # Voids 2 # Bowel Movements 0 <Hari Marin - Last Filed: 10/02/18 12:12> Results - Labs CBC & Chem 7: 09/30/18 07:39 09/30/18 07:39 <Suzette Pepe - Last Filed: 10/02/18 11:11> - Labs CBC & Chem 7: 09/30/18 07:39 09/30/18 07:39 <Hari Marin A - Last Filed: 10/02/18 12:12> Assessment and Plan (1) Constipation Status: Acute Code(s): K59.00 - Constipation, unspecified - Plan Patient is a 42-year-old male who presented to [facility] with complaint of lower back pain for 1 week. Patient also endorses generalized weakness. Diagnosed with abscess on spine with positive MRSA. Our service has been consulted to evaluate patient for chronic constipation-family history of colon cancer. Patient denies ever having had EGD or colonoscopy in the past. States he has not had a bowel movement for 8 days. Prior to admission patient states that he experiences chronic constipation. At times he states he tries to disimpact self. States while he was in senior living in 2017 he experienced duration of 14 days with no bowel movement. He was given 3 bottles of mag citrate which were it was effective. Patient currently says that he is passing gas, denies any abdominal pain or nausea vomiting. Patient denies any difficulty swallowing or heartburn. He does endorse a 20 pound weight loss over the last 4-5 months. Patient denies any use of tobacco or alcohol products. Only past surgery includes circumcision and patient denies any relevant medical history. Patient requesting both EGD and colonoscopy for evaluation. Constipation Patient endorses family history of colon cancer with unintended 20 pound weight loss over the last 4-5 months. 09/30/2018 hemoglobin 12.1 hematocrit 36.4 platelet count 338 09/28/2018 CT abdomen and pelvis-- 1. Extensive stranding within the pelvis noted within the peritoneal fat and adjacent structures including musculature could be anasarca or other inflammatory/infectious etiology. No abnormal fluid collection or abscess. 2. There does appear to be wall thickening and inflammation surrounding the urinary bladder. Cystitis should be excluded. 3. Splenomegaly. 4. Trace ascites. Plan -Clear liquid diet today -N.p.o. after midnight -Obtain consent for EGD colonoscopy -BinhYTELY prep -Continue bowel regimen -Supportive care -Further recommendations to follow based on patient status and findings This patient has been seen by myself and Dr. Marin and this note is written on his behalf - Attending Attestation Dr. Marin <Suzette Pepe - Last Filed: 10/02/18 11:11> (1) Constipation Status: Acute Code(s): K59.00 - Constipation, unspecified - Attending Attestation Seen and examined, plan as above. Will proceed with EGD and Colonoscopy in AM. Further recommendations to follow. Thank you for the consult. <Hari Marin - Last Filed: 10/02/18 12:12>
--- NOTE | 2018-10-02 12:56 | P.PNIM ---
Subjective Interval history: The patient said he is going for a colonoscopy tomorrow. He said he still has not had a bowel movement. He requested increased frequency of pain medication. He said he has a history of addiction to opiates but he is in control at this time. He says he thinks his hemorrhoid is better. Physical Exam Vital signs: Vital Signs 10/01/18 16:00 10/01/18 20:00 10/02/18 00:00 Temperature 98 F 98.5 F 98 F Pulse Rate 80 93 H 99 H Respiratory Rate 18 18 16 Blood Pressure 129/88 121/79 118/82 Pulse Oximetry 99 99 99 10/02/18 04:00 10/02/18 08:00 10/02/18 11:07 Temperature 98 F 97.5 F L 98.2 F Pulse Rate 92 H 80 99 H Respiratory Rate 15 14 14 Blood Pressure 134/90 140/80 133/83 Pulse Oximetry 99 96 10/02/18 12:00 Temperature Pulse Rate 82 Respiratory Rate Blood Pressure Pulse Oximetry Intake & Output 10/01/18 10/02/18 10/02/18 18:59 06:59 18:59 Intake Total 1060 / 1060 480 / 480 Output Total 3000 / 3000 600 / 600 Balance -1940 / -1940 480 / 480 -600 / -600 Weight 87.4 kg Intake: IV 100 / 100 Cubicin Inj 650 MG In NS Inj 100 / 100 100 ML @ 200 mls/hr IV.SIG Q24H [facility] Rx#:[id number] Oral 960 / 960 480 / 480 Output: Urine 3000 / 3000 600 / 600 Other: # Voids 2 # Bowel Movements 0 Narrative: GENERAL: No acute distress. SKIN: No rashes, ecchymoses or lesions. Warm and dry. HEAD: Atraumatic. Normocephalic. No temporal or scalp tenderness. EYES: Pupils equal round and reactive. No injection or drainage. NECK: Trachea midline. No lymphadenopathy. Supple, nontender, no meningeal signs. CARDIOVASCULAR: Regular rate and rhythm without murmurs, gallops, or rubs. No JVD. RESPIRATORY: Clear to auscultation. Breath sounds equal bilaterally. No wheezes , rales, or rhonchi. GASTROINTESTINAL: Abdomen soft, non-tender, nondistended. No guarding. Decreased bowel sounds. MUSCULOSKELETAL: Extremities without clubbing, cyanosis, or edema. NEUROLOGICAL: Awake and alert. - Urinary Catheter Management Indwelling Urethral Catheter Cath placed during this visit: yes, but has since been removed by the nurse Reason for continuing: Acute urinary retention Insertion date: 09/25/18 Insertion time: 18:42 Removal date: 09/29/18 Removal time: 22:30 Results - Labs CBC & Chem 7: 09/30/18 07:39 09/30/18 07:39 Microbiology 09/29/18 05:36 Blood - Peripheral Aerobic Blood Culture - Preliminary No growth in 3 days 09/29/18 05:36 Blood - Peripheral Anaerobic Blood Culture - Preliminary No growth in 3 days 09/28/18 14:57 Blood - Peripheral Aerobic Blood Culture - Final S. aureus MRSA 09/28/18 14:57 Blood - Peripheral Anaerobic Blood Culture - Preliminary No growth in 4 days 09/27/18 05:43 Blood - Peripheral Aerobic Blood Culture - Final S. aureus MRSA 09/27/18 05:43 Blood - Peripheral Anaerobic Blood Culture - Final No growth in 5 days 09/27/18 05:48 Blood - Peripheral Aerobic Blood Culture - Final S. aureus MRSA 09/27/18 05:48 Blood - Peripheral Anaerobic Blood Culture - Final No growth in 5 days - Procedures None Assessment and Plan - Plan Sepsis (WBC 23.9K, tachycardic, suspected infection lumbar spine epidural abscess) Mr. Cook is a pleasant 42-year-old male with a remote history of IV drug use who presents to the emergency department on 09/24/2018 due to a 3-day duration of lower back pain with radiation of pain to the right leg and numbness to the left leg. He had fever at home. MRI shows evidence including fluid collection of possible infectious process. Discussed with NS, IR and ID, no intervention recommended. Found positive bacteremia secondary to MRSA. S/p MAT 09/29, negative for vegetation. Repeat blood culture positive. -antibiotics changed to Cubicin per ID. -Repeat MRI of the lumbar spine is pending. -pain control with a bowel regimen. -PT working with pt. -follow CBC and culture data. Constipation/Hemorrhoids/Weight loss Ongoing. CT with small bowel thickening. Has had weight loss. GI consult appreciated. -continue bowel regimen. -hydrocortisone suppositories. -EGD/colonoscopy 10/03. History of IV drug use Patient denies using any IV drugs since he quit 18 months ago. -cessation instruction. Dysuria The pt had his Vogel removed and has been straining while urinating. CT indicative of possible cystitis. UA negative. -monitor. PPx: SCDs Discharge Planning: Needs IV antibiotics, GI work-up.
[2018-10-02] MEDS ORDERED: Gadobutrol PF 10 MMOL/10 ML Vial (for RAD) IV.SIG ONE (15:16)
--- NOTE | 2018-10-02 15:41 | MR ---
EXAM DATE: 10/02/2018 3:18 PM EST AGE/SEX: 42 years / Male INDICATIONS: Abscess. Back pain. CLINICAL DATA: This is the patient's subsequent encounter. Patient reports that signs and symptoms h ave been present for 1 week and indicates a pain score of 4/10. MEDICAL/SURGICAL HISTORY: None. None. COMPARISON: [facility] [place] W & W/O CONTRAST, 09/24/2018. . TECHNIQUE: Multiplanar, multisequence MRI examination of the lumbar spine was performed without and with 8 ml Gadavist (gadobutrol) contrast as a single exam dose. FINDINGS: The most caudal-appearing lumbar vertebra is numbered as L5. There is induration, edema, a nd enhancement seen in the posterior left paraspinous region extending from the L4-S1 level. There do es appear to be multiple small abscesses in the soft tissues and the left paraspinous region. Area of induration and inflammatory change with increased enhancement extends over a 5.5 cm length and measu res 2.8 cm in AP dimension 2.4 cm in transverse dimension. There are spurs be prominent epidural enhancement at the L5 level. There appears to be a area of foca l fluid/abscess in the anterior epidural space extending over 1.8 cm in length, measuring 0.6 cm in t ransverse dimension and 0.3 cm in AP dimension. Vertebra: Homogeneous signal. Normal alignment. Conus: Normal level and configuration. Post Contrast: No abnormal areas of contrast enhancement are seen. T12-L1: The thecal sac has a normal diameter. No evidence of disc bulge or protrusion. The neural foramina are patent bilaterally. L1-L2: The thecal sac has a normal diameter. No evidence of disc bulge or protrusion. The neural foramina are patent bilaterally. L2-L3: The thecal sac has a normal diameter. No evidence of disc bulge or protrusion. The neural foramina are patent bilaterally. L3-L4: The thecal sac has a normal diameter. No evidence of disc bulge or protrusion. The neural foramina are patent bilaterally. L4-L5: There is decreased height and decreased signal at the disc. There is a mild central disc pro trusion. There is focal increased signal posterior disc margin likely related to an annular tear. The se changes cause a minimal impression on the anterior aspect of the thecal sac. These be CSF around t he nerve roots. The neural foramina are patent. L5-S1: There is increased signal and enhancement at the inferior aspect of L5 and the superior aspe ct of the sacrum. This consistent with inflammatory change. Infection could be contributing to this a ppearance. There is a central disc protrusion. The posterior left lateral disc margin at the lateral recess region is not seen likely from an aortic tear. Infection causing a defect at the posterior dis c margin could've this appearance. The patient does have increased signal and enhancement in the epid ural space at the L5 and S1 levels. These changes cause severe stenosis at the L4-5 and S1 levels. Th e epidural enhancement does extend to the neural foraminal regions being more prominent on the left. Again noted is the suspected abscess within the posterior lateral left paraspinous region in the erec tor spinae muscles. CONCLUSION: 1. Increased signal and enhancement within the epidural space at the L4-L5 through the upper sacrum level concerning for inflammatory change. There is a focal fluid collection the anterior epidural spa ce at the L5 level concerning for an epidural abscess. There is also abnormal signal in the posterior inferior aspect of the L5 vertebral body and the superior aspect of the sacrum concerning for inflam matory/infectious change. There is a defect in the posterior left lateral aspect of the disc at the L 5-S1 level which could be secondary to infection. There is severe narrowing of the thecal sac at this level. 2. Left paraspinous inflammatory change and small abscesses in the left erector spinae musculature e xtending from the L4-S1 levels. 3. Mild central disc protrusion at the L4-L5 level. Electronically signed by: Butch Gallardo MD 10/02/2018 3:40 PM EST
[2018-10-02] MEDS ORDERED: PEG 3350/E-Lyte Soln 4000 ML Bottle PO ONE (16:00)
[2018-10-02] MEDS: DAPTOmycin Inj 650 MG in Sodium Chlor 0.9% Inj 100 ML IV.SIG SCH (16:10)
--- NOTE | 2018-10-02 16:54 | P.CONNS ---
History of Present Illness Primary Care Provider: No Primary Care Physician Chief Complaint: Lower back pain History of Present Illness: f/u after repeat MRI 42yoM admitted one week ago with MRSA blood cultures, back pain, and leg numbness. Has been ambulatory but describes numbness down his legs. Voiding with PVR <120. Working with PT but painful. Repeat MRI today showing spinal stenosis L4/5/S1 with epidural abscess. Due for colonoscopy tomorrow. PMFSH - History History Provided By: Patient - Medical History Medical History: Medical History (Last Reviewed 10/01/18 @ 08:41 by Maris Paez) History of MRSA infection Onset Date: ~09/24/18 Male circumcision Patient denies medical problems - Tobacco History Second Hand Smoke Exposure: Yes Tobacco Use In Past 30 Days: Yes Smoking Status: Current every day smoker Tobacco Type: Cigarettes - Alcohol History How Often Do You Have a Drink Containing Alcohol: 2 to 3 times a week - Substance Use History Substance History: Active Abuse - Substance Use Type Other Type: Dilaudid Status: Sustained Remission Route Used: By Mouth Reason for Use: Calm Down - Travel History Recent Travel in the [place] Within the Last 8 Weeks: No Recent Travel Out of the Country Within the Last 8 Weeks: No - Immunization History Tetanus Immunization: Unsure Hx Influenza Vaccine This Season: No Medications and Allergies Active Medications: Active Medications Acetaminophen (Tylenol) 650 mg PO Q4H PRN PRN Reason: Headache, fever, pain 1-4 Last Admin: 09/30/18 20:57 Dose: 650 mg Al Hydroxide/Mg Hydroxide (Milk Of Magnesia Liq) 30 ml PO Q12H PRN PRN Reason: Mild Constipation Bisacodyl (Dulcolax Supp) 10 mg RECTAL DAILY PRN PRN Reason: SEVERE CONSITIPATION Last Admin: 09/26/18 11:40 Dose: 10 mg Gabapentin (Neurontin) 300 mg PO TID [facility] Last Admin: 10/02/18 12:50 Dose: 300 mg Hydrocortisone Acetate (Hemorrhoidal Hc Supp) 25 mg RECTAL BID [facility] Last Admin: 10/02/18 10:07 Dose: 25 mg Daptomycin 650 mg/ Sodium (Chloride) 100 mls @ 200 mls/hr IV.SIG Q24H [facility] Last Admin: 10/02/18 16:10 Dose: 100 mls/hr Lactulose (Lactulose Liq) 30 ml PO DAILY PRN PRN Reason: SEVERE CONSITIPATION Last Admin: 09/26/18 01:27 Dose: 30 ml Morphine Sulfate (Morphine Inj) 2 mg IV.PUSH Q4H PRN PRN Reason: BREAKTHROUGH PAIN Last Admin: 10/02/18 14:21 Dose: 2 mg Ondansetron HCl (Zofran Inj) 4 mg IV.PUSH Q6H PRN PRN Reason: NAUSEA OR VOMITING Oxycodone/Acetaminophen (Percocet 10/325 Mg) 1 tab PO Q4H PRN PRN Reason: Pain 5-10 Last Admin: 10/02/18 15:34 Dose: 1 tab Petrolatum/Zinc Oxide (Sensi-Care Protective Barrier Oint) 1 applicatio TOPICAL DAILY [facility] Last Admin: 10/02/18 10:25 Dose: 1 applicatio Senna/Docusate Sodium (Jacqui-Colace) 1 tab PO BID [facility] Last Admin: 10/02/18 10:07 Dose: 1 tab Sennosides (Senokot) 17.2 mg PO Q12H PRN PRN Reason: Moderate Constipation Allergies Allergy/AdvReac Type Severity Reaction Status Date / Time penicillin G Allergy Mild Rash, Verified 09/24/18 11:50 Localized Home Medications Medication Instructions Recorded Confirmed Type No Known Home Medications 09/24/18 09/24/18 History Exam Vital signs: Vital Signs 10/01/18 20:00 10/02/18 00:00 10/02/18 04:00 Temperature 98.5 F 98 F 98 F Pulse Rate 93 H 99 H 92 H Respiratory Rate 18 16 15 Blood Pressure 121/79 118/82 134/90 Pulse Oximetry 99 99 99 10/02/18 08:00 10/02/18 11:07 10/02/18 12:00 Temperature 97.5 F L 98.2 F 98.6 F Pulse Rate 80 99 H 105 H Respiratory Rate 14 14 20 Blood Pressure 140/80 133/83 120/88 Pulse Oximetry 96 97 10/02/18 16:00 Temperature Pulse Rate 86 Respiratory Rate Blood Pressure Pulse Oximetry Intake & Output 10/01/18 10/02/18 10/02/18 18:59 06:59 18:59 Intake Total 1060 / 1060 480 / 480 Output Total 3000 / 3000 600 / 600 Balance -1940 / -1940 480 / 480 -600 / -600 Weight 87.4 kg Intake: IV 100 / 100 Cubicin Inj 650 MG In NS Inj 100 / 100 100 ML @ 200 mls/hr IV.SIG Q24H [facility] Rx#:[id number] Oral 960 / 960 480 / 480 Output: Urine 3000 / 3000 600 / 600 Other: # Voids 2 # Bowel Movements 0 Narrative: Painful A&O x 3 CN II-XII intact Motor 5/5 UE/LE. Tests again to full strength today. Patchy altered sensation stable Results - Laboratory Findings CBC and BMP: 09/30/18 07:39 09/30/18 07:39 Abnormal lab findings: Abnormal Labs 09/24/18 09/24/18 09/24/18 12:00 12:00 12:00 WBC 23.9 H RBC Hgb Hct Neut % (Auto) 91.9 H Lymph % (Auto) 4.3 L Neut # (Auto) 22.0 H Mclean # (Auto) Band Neuts % (Manual) Lymphocytes % (Manual) Monocytes % (Manual) Metamyelocytes % (Man) Myelocytes % (Man) Abs Neuts (Manual) Toxic Granulation Toxic Vacuolation ESR Sodium 132 L Chloride 97 L Estimated GFR 82 L Random Glucose 183 H Calcium 8.2 L Total Creatine Kinase C-Reactive Protein Urine Glucose (UA) 150 H Amorphous Sediment Urine Mucus Few H Vancomycin Trough 09/25/18 09/25/18 09/26/18 08:29 08:29 03:29 WBC 25.4 H RBC Hgb Hct Neut % (Auto) 88.8 H Lymph % (Auto) 4.3 L Neut # (Auto) 22.5 H Mclean # (Auto) 1.6 H Band Neuts % (Manual) 22 H Lymphocytes % (Manual) 6 L Monocytes % (Manual) Metamyelocytes % (Man) Myelocytes % (Man) Abs Neuts (Manual) 23.1 H Toxic Granulation 2+ H Toxic Vacuolation ESR Sodium 131 L Chloride 97 L Estimated GFR 81 L Random Glucose 122 H Calcium 8.4 L Total Creatine Kinase C-Reactive Protein 24.40 H Urine Glucose (UA) Amorphous Sediment Urine Mucus Vancomycin Trough 4.1 L 09/26/18 09/28/18 09/28/18 03:29 04:18 06:45 WBC RBC Hgb Hct Neut % (Auto) Lymph % (Auto) Neut # (Auto) Mclean # (Auto) Band Neuts % (Manual) Lymphocytes % (Manual) Monocytes % (Manual) Metamyelocytes % (Man) Myelocytes % (Man) Abs Neuts (Manual) Toxic Granulation Toxic Vacuolation ESR 85 H Sodium 134 L Chloride Estimated GFR Random Glucose 109 H Calcium 7.9 L Total Creatine Kinase C-Reactive Protein Urine Glucose (UA) Amorphous Sediment Urine Mucus Vancomycin Trough 4.4 L 09/28/18 09/30/18 09/30/18 14:57 07:39 07:39 WBC 27.1 H RBC 4.17 L Hgb 12.1 L Hct 36.4 L Neut % (Auto) 81.7 H Lymph % (Auto) Neut # (Auto) 22.1 H Mclean # (Auto) 2.0 H Band Neuts % (Manual) 11 H Lymphocytes % (Manual) Monocytes % (Manual) 9 H Metamyelocytes % (Man) 3 H Myelocytes % (Man) 4 H Abs Neuts (Manual) 20.6 H Toxic Granulation 1+ H Toxic Vacuolation Present H ESR Sodium 130 L Chloride 96 L Estimated GFR Random Glucose 112 H Calcium 8.0 L Total Creatine Kinase 32 L C-Reactive Protein Urine Glucose (UA) Amorphous Sediment Urine Mucus Vancomycin Trough 09/30/18 14:40 WBC RBC Hgb Hct Neut % (Auto) Lymph % (Auto) Neut # (Auto) Mclean # (Auto) Band Neuts % (Manual) Lymphocytes % (Manual) Monocytes % (Manual) Metamyelocytes % (Man) Myelocytes % (Man) Abs Neuts (Manual) Toxic Granulation Toxic Vacuolation ESR Sodium Chloride Estimated GFR Random Glucose Calcium Total Creatine Kinase C-Reactive Protein Urine Glucose (UA) Amorphous Sediment Rare H Urine Mucus Vancomycin Trough Assessment and Plan - Plan Suspected epidural abscess, neurologically intact. 10/02 D/w previously w/ ID and IR. He has positive blood cultures and is being treated for MRSA sepsis. He has good neurologic strength and is able to ambulate and void. I discussed the role and purpose of surgery with him and it appears to me he is clinically stable to slightly improved since admission. Will continue to follow.
[2018-10-03] MEDS: oxyCODONE/Acetaminophen 10/325 Tablet PO PRN ×5 (01:45→20:40)
[2018-10-03] MEDS: Morphine Sulfate Inj 2 MG/ML Vial IV.PUSH PRN ×5 (03:38→22:29)
[2018-10-03] MEDS: Gabapentin 300 MG Capsule PO SCH ×3 (08:26→18:35)
[2018-10-03] MEDS: Senna/Docusate Sodium 8.6/50 MG Tablet PO SCH ×2 (08:26→20:40)
[2018-10-03] MEDS: Petrolatum 49%/Zinc Oxide 15% Barrier Oint 120 GM Tube TOPICAL SCH (08:27)
[2018-10-03] MEDS: Hydrocortisone Acetate 25 MG Supp RECTAL SCH ×2 (08:28→20:41)
[2018-10-03 10:41] LABS: Baso % (Auto) 0.2 % (0.0-2.0); Eos # (Auto) 0.2 th/mm3 (0.0-0.4); Eos % (Auto) 0.8 % (0.0-4.0); Hematocrit 39.5 % (39.0-51.0); Hemoglobin 13.6 gm/dL (13.0-17.0); Lymph % (Auto) 15.1 % (9.0-44.0); Mean Corpuscular HGB Conc 34.3 % (32.0-36.0); Mean Corpuscular Hemoglobin 29.8 pg (27.0-34.0); Mean Corpuscular Volume 86.8 fL (80.0-100.0); Mean Platelet Volume 6.8 fL (7.0-11.0); Mono # (Auto) 1.2 th/mm3 (0.0-0.9); Mono % (Auto) 6.2 % (0.0-8.0); Neut # (Auto) 15.5 th/mm3 (1.8-7.7); Neut % (Auto) 77.7 % (16.0-70.0); Platelet Count 468 th/mm3 (150-450); Red Blood Count 4.55 mil/mm3 (4.50-5.90); Red Cell Distribution Width 14.3 % (11.6-17.2)
[2018-10-03 11:03] LABS: Alanine Aminotransferase 113 U/L (12-78); Albumin 2.3 g/dL (3.4-5.0); Anion Gap 6 meq/L (5-15); Aspartate Aminotransferase 65 U/L (15-37); Blood Urea Nitrogen 15 mg/dL (7-18); Calcium 8.5 mg/dL (8.5-10.1); Carbon Dioxide 29.2 meq/L (21.0-32.0); Chloride 97 meq/L (98-107); Glomerular Filtration Rate Greater Than 89 mL/min (>89); Glucose,Random 84 mg/dL (74-106); Sodium 132 meq/L (136-145)
[2018-10-03 11:06] LABS: Alkaline Phosphatase 127 U/L (45-117); Total Protein 8.7 g/dL (6.4-8.2)
[2018-10-03 11:18] LABS: Eosinophils 1 % (0-4); Lymphocytes 10 % (9-44); Metamyelocytes 3 % (0-1); Monocytes 2 % (0-8); Toxic Granulation 2+
[2018-10-03 11:19] LABS: Platelet Morphology Normal (Normal)
[2018-10-03 11:26] LABS: Creatine Kinase 18 U/L (39-308)
[2018-10-03] MEDS ORDERED: Lidocaine PF 1% Inj 5 ML Syringe OTHER ONE (12:14)
--- NOTE | 2018-10-03 12:49 | GIPROC ---
[facility] [address] [facility]. [facility] [place], [address] COLONOSCOPY PROCEDURE REPORT EXAM DATE: 10/03/2018 PATIENT NAME: Aleks Cook MR #: [id number] BIRTHDATE: 1975 ENDOSCOPIST: Hari Marin MD ORDER #: [id number] MACHINE SPRING FORMER: Yoly Abdi and Mendy Mendez STATUS: inpatient INDICATIONS: The patient is a 42 yr old male here for a colonoscopy due to constipation PROCEDURE PERFORMED: Sigmoidoscopy, diagnostic MEDICATIONS: Per Anesthesia and None. PREP QUALITY: inadequate PREP TYPE:Magnesium Citrate ESTIMATED BLOOD LOSS: None CONSENT: The patient understands the risks and benefits of the procedure and understands that these risks include, but are not limited to: sedation, allergic reaction, infection, perforation and/or bleeding. Alternative means of evaluation and treatment include, among others: physical exam, x-rays, and/or surgical intervention. The patient elects to proceed with this endoscopic procedure. medical equipment was checked for proper function. Hand hygiene and appropriate measures for infection prevention was taken. After the risks, benefits and alternatives of the procedure were thoroughly explained, Informed consent was verified, confirmed and timeout was successfully executed by the treatment team. A digital exam revealed no abnormalities of the rectum The Pentax EC-3490Li endoscope was introduced through the anus and advanced to the sigmoid colon. The instrument was then slowly withdrawn as the colon was fully examined. COLON FINDINGS: A significant amount of stool was present in the sigmoid colon. Large external hemorrhoids were found. Retroflexion was not performed The scope was then completely withdrawn from the patient and the procedure terminated. PROCEDURE WITHDRAWAL TIME:8minutes ADVERSE EVENTS: There were no complications. IMPRESSIONS: 1. Significant amount of stool was present in the sigmoid colon 2. Large external hemorrhoids 3. Retroflexion was not performed 4. Revealed no abnormalities of the rectum RECOMMENDATIONS: Repaet Colonoscopy with better bowel prep. RECALL: Return 2 days Colonoscopy Hari Marin MD eSigned: Hari Marin MD 10/03/2018 12:49 PM cc:
[2018-10-03] MEDS ORDERED: fentaNYL Citrate Inj 100 MCG/2 ML Ampul ONE (12:50)
--- NOTE | 2018-10-03 12:52 | GIPROC ---
[facility] [address] [facility]. [facility], [address] EGD PROCEDURE REPORT EXAM DATE: 10/03/2018 PATIENT NAME: Aleks Cook MR #: [id number] BIRTHDATE: 1975 ATTENDING: Hari Marin MD ORDER #: [id number] FIELD CHECKER: Yoly Abdi and Mendy Mendez STATUS: inpatient INDICATIONS: The patient is a 42 yr old male here for an EGD due to epigastric abdominal pain PROCEDURE PERFORMED: EGD w/ biopsy MEDICATIONS: Per Anesthesia and None. TOPICAL ANESTHETIC: CONSENT: The patient understands the risks and benefits of the procedure and understands that these risks include, but are not limited to: sedation, allergic reaction, infection, perforation and/or bleeding. Alternative means of evaluation and treatment include, among others: physical exam, x-rays, and/or surgical intervention. The patient elects to proceed with this endoscopic procedure. medical equipment was checked for proper function. Hand hygiene and appropriate measures for infection prevention was taken. After the risks, benefits and alternatives of the procedure were thoroughly explained, Informed consent was verified, confirmed and timeout was successfully executed by the treatment team. The patient was anesthetized with topical anesthesia and the EC-3490Li (Pedi C) endoscope was introduced through the mouth and advanced to the second portion of the duodenum. Retroflexion was performed and was normal The gastroscope was then slowly withdrawn and removed. ESOPHAGUS: A medium sized hiatal hernia was noted. STOMACH: There was mild gastritis in the gastric antrum. Multiple biopsies were performed using cold forceps. Sample sent for histology. DUODENUM: A large non-bleeding non-bleeding, round, deep and clean-based ulcer was found in the duodenal bulb. ADVERSE EVENTS: There were no complications. IMPRESSIONS: 1. Medium sized hiatal hernia 2. There was mild gastritis in the gastric antrum; multiple biopsies were performed 3. Large non-bleeding ulcer was found in the duodenal bulb 4. Retroflexion was performed and was normal RECOMMENDATIONS: 1. Await biopsy results. Biopsy results will not be ready for 7-10 days. If you don't hear from us in two weeks, call our office for biopsy results. 2. Continue PPI PATIENT CONDITION: stable DISPOSITION: Observation REPEAT EXAM: NONE Hari Marin MD eSigned: Hari Marin MD 10/03/2018 12:52 PM cc: PATIENT NAME: Aleks Cook MR#: [id number]
--- NOTE | 2018-10-03 15:08 | P.PNIM ---
Subjective Interval history: Follow-up sepsis, suspected infection of lumbar spine with epidural abscess, MRSA with blood cultures, constipation, hemorrhoids, IVDU, dysuria. Patient seen and examined laying in bed, just came back from EGD/colonoscopy discussed preparation for procedure and to comply with medication treatment. Discussed repeat procedure on Friday for colonoscopy due to incomplete preparation. Patient denies any abdominal pain at this time, denies any nausea or vomiting. Patient denies any headache or dizziness, denies any chest pain or shortness of breath, denies any fever or chills. Nurse denies any acute concerns overnight. Physical Exam Vital signs: Vital Signs 10/02/18 16:00 10/02/18 20:00 10/03/18 00:00 Temperature 98.3 F 98.4 F 98 F Pulse Rate 99 H 100 H 98 H Respiratory Rate 20 16 15 Blood Pressure 133/88 122/79 135/75 Pulse Oximetry 96 100 96 10/03/18 04:00 10/03/18 08:00 10/03/18 12:05 Temperature 98.9 F 98 F 98.5 F Pulse Rate 89 85 84 Respiratory Rate 15 18 16 Blood Pressure 135/78 131/80 102/64 Pulse Oximetry 94 L 98 96 10/03/18 12:45 10/03/18 13:00 10/03/18 13:05 Temperature 97.7 F 98.5 F Pulse Rate 91 H 85 84 Respiratory Rate 16 16 16 Blood Pressure 103/60 104/58 L 102/64 Pulse Oximetry 100 98 96 10/03/18 13:10 Temperature Pulse Rate Respiratory Rate Blood Pressure Pulse Oximetry 96 Intake & Output 10/02/18 10/03/18 10/03/18 18:59 06:59 18:59 Intake Total 1060 / 1060 240 / 240 500 / 500 Output Total 2300 / 2300 900 / 900 Balance -1240 / -1240 -660 / -660 500 / 500 Weight 87.1 kg Intake: IV 100 / 100 Cubicin Inj 650 MG In NS Inj 100 / 100 100 ML @ 200 mls/hr IV.SIG Q24H [facility] Rx#:[id number] Oral 960 / 960 240 / 240 Anesthesia Amount 500 / 500 Output: Urine 2300 / 2300 900 / 900 Other: Date of Last Bowel Movement 09/28/18 10/03/18 Narrative: GENERAL: Well-developed, well-nourished, male in no apparent distress SKIN: Warm and dry. HEAD: Atraumatic. Normocephalic. EYES: Pupils equal and round. No scleral icterus. No injection or drainage. ENT: No nasal bleeding or discharge. Mucous membranes pink and moist. NECK: Trachea midline. No JVD. CARDIOVASCULAR: Regular rate and rhythm. RESPIRATORY: No accessory muscle use. Clear to auscultation. Breath sounds equal bilaterally. GASTROINTESTINAL: Abdomen soft, non-tender, nondistended. Hepatic and splenic margins not palpable. MUSCULOSKELETAL: Extremities without clubbing, cyanosis, or edema. No obvious deformities. NEUROLOGICAL: Awake and alert. No obvious cranial nerve deficits. Motor grossly within normal limits. Generalized weakness moving all 4 extremities normal speech. PSYCHIATRIC: Appropriate mood and affect; insight and judgment normal. - Urinary Catheter Management Indwelling Urethral Catheter Cath placed during this visit: yes, but has since been removed by the nurse Reason for continuing: Acute urinary retention Insertion date: 09/25/18 Insertion time: 18:42 Removal date: 09/29/18 Removal time: 22:30 Results - Labs CBC & Chem 7: 10/03/18 10:05 10/03/18 10:05 Laboratory Results - last 24 hr 10/03/18 10/03/18 10:05 10:05 WBC 20.0 H RBC 4.55 Hgb 13.6 Hct 39.5 MCV 86.8 MCH 29.8 MCHC 34.3 RDW 14.3 Plt Count 468 H D MPV 6.8 L Prelim Diff (Auto) Slide review pending Neut % (Auto) 77.7 H Lymph % (Auto) 15.1 Barnes % (Auto) 6.2 Eos % (Auto) 0.8 Baso % (Auto) 0.2 Neut # (Auto) 15.5 H Lymph # (Auto) 3.0 Barnes # (Auto) 1.2 H Eos # (Auto) 0.2 Baso # (Auto) 0.0 WBC Differential Manual diff final Seg Neuts % (Manual) 74 H Band Neuts % (Manual) 10 H Lymphocytes % (Manual) 10 Monocytes % (Manual) 2 Eosinophils % (Manual) 1 Metamyelocytes % (Man) 3 H Abs Neuts (Manual) 17.4 H Differential Comment . Toxic Granulation 2+ H Platelet Estimate High H Platelet Morphology Normal Sodium 132 L Potassium 4.0 Chloride 97 L Carbon Dioxide 29.2 Anion Gap 6 BUN 15 Creatinine 0.69 Estimated GFR Greater than 89 Random Glucose 84 Calcium 8.5 Total Bilirubin 0.5 Direct Bilirubin 0.1 Indirect Bilirubin 0.4 AST 65 H ALT 113 H Alkaline Phosphatase 127 H Total Creatine Kinase 18 L Total Protein 8.7 H Albumin 2.3 L Microbiology 10/02/18 10:54 Blood - Peripheral Aerobic Blood Culture - Preliminary No growth in 1 day 10/02/18 10:54 Blood - Peripheral Anaerobic Blood Culture - Preliminary No growth in 1 day 09/29/18 05:36 Blood - Peripheral Aerobic Blood Culture - Preliminary No growth in 4 days 09/29/18 05:36 Blood - Peripheral Anaerobic Blood Culture - Preliminary No growth in 4 days 09/28/18 14:57 Blood - Peripheral Aerobic Blood Culture - Final S. aureus MRSA 09/28/18 14:57 Blood - Peripheral Anaerobic Blood Culture - Final No growth in 5 days 09/27/18 05:43 Blood - Peripheral Aerobic Blood Culture - Final S. aureus MRSA 09/27/18 05:43 Blood - Peripheral Anaerobic Blood Culture - Final No growth in 5 days 09/27/18 05:48 Blood - Peripheral Aerobic Blood Culture - Final S. aureus MRSA 09/27/18 05:48 Blood - Peripheral Anaerobic Blood Culture - Final No growth in 5 days - Imaging Impressions Lumbar Spine MRI 10/02/18 00:00 CONCLUSION: 1. Increased signal and enhancement within the epidural space at the L4-L5 through the upper sacrum level concerning for inflammatory change. There is a focal fluid collection the anterior epidural space at the L5 level concerning for an epidural abscess. There is also abnormal signal in the posterior inferior aspect of the L5 vertebral body and the superior aspect of the sacrum concerning for inflammatory/infectious change. There is a defect in the posterior left lateral aspect of the disc at the L5-S1 level which could be secondary to infection. There is severe narrowing of the thecal sac at this level. 2. Left paraspinous inflammatory change and small abscesses in the left erector spinae musculature extending from the L4-S1 levels. 3. Mild central disc protrusion at the L4-L5 level. - Procedures None Assessment and Plan - Plan Mr. Cook is a pleasant 42-year-old male with a remote history of IV drug use who presents to the emergency department on 09/24/2018 due to a 3-day duration of lower back pain with radiation of pain to the right leg and numbness to the left leg. He had fever at home. MRI shows evidence including fluid collection of possible infectious process. Discussed with NS, IR and ID, no intervention recommended. Found positive bacteremia secondary to MRSA. S/p MAT 09/29, negative for vegetation. Repeat blood culture positive. Sepsis Bacteremia with MRSA Suspected lumbar epidural abscess, MRSA History of IVDU -antibiotics changed to Cubicin per ID. -Repeat MRI of the lumbar spine is pending. -pain control with a bowel regimen. -PT working with pt. -follow CBC and culture and sensitivity -MAT: No vegetation Constipation/Hemorrhoids/Weight loss Bowel loop with thickening, with severe constipation Family history of colon cancer Ongoing. CT with small bowel thickening. Has had weight loss. GI consult appreciated. -continue bowel regimen. -hydrocortisone suppositories. -EGD:gastritis -Colonoscopy: Will be due on Friday unable to visualize due to poor prep History of IV drug use Patient denies using any IV drugs since he quit 18 months ago. -Counsed patient on IV drug use cessation cessation Dysuria The pt had his Vogel removed and has been straining while urinating. -CT indicative of possible cystitis - UA negative -monitor signs and symptoms PPx: SCDs Code Status: Full code Discussed Condition With: Patient and nurse, MDR Discharge Planning: Plan for colonoscopy on Friday
[2018-10-03] MEDS: DAPTOmycin Inj 650 MG in Sodium Chlor 0.9% Inj 100 ML IV.SIG SCH (15:49)
[2018-10-04] MEDS: oxyCODONE/Acetaminophen 10/325 Tablet PO PRN ×6 (00:49→20:28)
[2018-10-04] MEDS: Morphine Sulfate Inj 2 MG/ML Vial IV.PUSH PRN ×6 (02:41→22:11)
[2018-10-04] MEDS: Gabapentin 300 MG Capsule PO SCH ×3 (08:37→18:19)
[2018-10-04] MEDS: Hydrocortisone Acetate 25 MG Supp RECTAL SCH ×2 (08:37→20:29)
[2018-10-04] MEDS: Senna/Docusate Sodium 8.6/50 MG Tablet PO SCH ×2 (08:37→20:28)
[2018-10-04] MEDS: Petrolatum 49%/Zinc Oxide 15% Barrier Oint 120 GM Tube TOPICAL SCH (08:38)
--- NOTE | 2018-10-04 12:02 | P.PNNS ---
Subjective Interval history: ambulating, voiding, pain manageable Physical Exam Vital signs: Vital Signs 10/03/18 12:05 10/03/18 12:45 10/03/18 13:00 Temperature 98.5 F 97.7 F Pulse Rate 84 91 H 85 Respiratory Rate 16 16 16 Blood Pressure 102/64 103/60 104/58 L Pulse Oximetry 96 100 98 10/03/18 13:05 10/03/18 13:10 10/03/18 16:00 Temperature 98.5 F 98.5 F Pulse Rate 84 108 H Respiratory Rate 16 18 Blood Pressure 102/64 144/81 H Pulse Oximetry 96 96 96 10/03/18 20:00 10/04/18 00:00 10/04/18 04:00 Temperature 98.4 F 98.9 F 98.8 F Pulse Rate 108 H 106 H 100 H Respiratory Rate 16 16 16 Blood Pressure 134/76 112/60 129/85 Pulse Oximetry 97 97 98 10/04/18 08:00 Temperature 97.7 F Pulse Rate 93 H Respiratory Rate 16 Blood Pressure 127/79 Pulse Oximetry 96 Intake & Output 10/03/18 10/04/18 10/04/18 18:59 06:59 18:59 Intake Total 1880 / 1880 Output Total 1300 / 1300 600 / 600 Balance 580 / 580 -600 / -600 Weight 83.2 kg Intake: IV 100 / 100 Cubicin Inj 650 MG In NS Inj 100 / 100 100 ML @ 200 mls/hr IV.SIG Q24H [facility] Rx#:[id number] Oral 1280 / 1280 Anesthesia Amount 500 / 500 Output: Urine 1300 / 1300 600 / 600 Other: Date of Last Bowel Movement 10/03/18 10/03/18 - Urinary Catheter Management Indwelling Urethral Catheter Cath placed during this visit: yes, but has since been removed by the nurse Reason for continuing: Acute urinary retention Insertion date: 09/25/18 Insertion time: 18:42 Removal date: 09/29/18 Removal time: 22:30 Assessment and Plan - Plan Suspected epidural abscess, neurologically intact. 10/02 D/w previously w/ ID and IR. He has positive blood cultures and is being treated for MRSA sepsis. He has good neurologic strength and is able to ambulate and void. I discussed the role and purpose of surgery with him and it appears to me he is clinically stable to slightly improved since admission. Will continue to follow. 10/04 continues to ambulate and void-- gi planning colonoscopy tomorrow-- not surgical candidate at this time and it appears abx are working
[2018-10-04] MEDS ORDERED: Magnesium Citrate Liq 300 ML Bottle PO ONE (12:43)
--- NOTE | 2018-10-04 15:29 | P.PNIM ---
Subjective Interval history: Follow-up sepsis, suspected infection of lumbar spine with epidural abscess, MRSA with blood cultures, constipation, hemorrhoids, IVDU, dysuria. Patient seen and examined, laying in bed, stated feeling better, eating/ drinking her meals, on liquid diet. Patient stated sleeping better last night. Patient denies any headache or dizziness, denies any chest pain or shortness of breath, denies any abdominal pain, nausea, vomiting, diarrhea or constipation. Patient denies any fever or chills. Discussed colonoscopy for tomorrow. Discussed compliance in taking the preparation for procedure to be able to view the colon. Patient agreed and verbalized understanding. Nurse denies any acute concern overnight Physical Exam Vital signs: Vital Signs 10/03/18 16:00 10/03/18 20:00 10/04/18 00:00 Temperature 98.5 F 98.4 F 98.9 F Pulse Rate 108 H 108 H 106 H Respiratory Rate 18 16 16 Blood Pressure 144/81 H 134/76 112/60 Pulse Oximetry 96 97 97 10/04/18 04:00 10/04/18 08:00 10/04/18 12:00 Temperature 98.8 F 97.7 F 97.8 F Pulse Rate 100 H 93 H 86 Respiratory Rate 16 16 18 Blood Pressure 129/85 127/79 129/79 Pulse Oximetry 98 96 96 Intake & Output 10/03/18 10/04/18 10/04/18 18:59 06:59 18:59 Intake Total 1880 / 1880 Output Total 1300 / 1300 600 / 600 Balance 580 / 580 -600 / -600 Weight 83.2 kg Intake: IV 100 / 100 Cubicin Inj 650 MG In NS Inj 100 / 100 100 ML @ 200 mls/hr IV.SIG Q24H [facility] Rx#:[id number] Oral 1280 / 1280 Anesthesia Amount 500 / 500 Output: Urine 1300 / 1300 600 / 600 Other: Date of Last Bowel Movement 10/03/18 10/03/18 Narrative: GENERAL: Well-developed, well-nourished, male in no apparent distress SKIN: Warm and dry. HEAD: Atraumatic. Normocephalic. EYES: Pupils equal and round. No scleral icterus. No injection or drainage. ENT: No nasal bleeding or discharge. Mucous membranes pink and moist. NECK: Trachea midline. No JVD. CARDIOVASCULAR: Regular rate and rhythm. RESPIRATORY: No accessory muscle use. Clear to auscultation. Breath sounds equal bilaterally. GASTROINTESTINAL: Abdomen soft, non-tender, nondistended. Hepatic and splenic margins not palpable. MUSCULOSKELETAL: Extremities without clubbing, cyanosis, or edema. No obvious deformities. NEUROLOGICAL: Awake and alert. No obvious cranial nerve deficits. Motor grossly within normal limits. Generalized weakness moving all 4 extremities normal speech. PSYCHIATRIC: Appropriate mood and affect; insight and judgment normal. - Urinary Catheter Management Indwelling Urethral Catheter Cath placed during this visit: yes, but has since been removed by the nurse Reason for continuing: Acute urinary retention Insertion date: 09/25/18 Insertion time: 18:42 Removal date: 09/29/18 Removal time: 22:30 Results - Labs CBC & Chem 7: 10/03/18 10:05 10/03/18 10:05 Microbiology 10/03/18 10:05 Blood - Peripheral Aerobic Blood Culture - Preliminary No growth in 1 day 10/03/18 10:05 Blood - Peripheral Anaerobic Blood Culture - Preliminary No growth in 1 day 10/02/18 10:54 Blood - Peripheral Aerobic Blood Culture - Preliminary No growth in 2 days 10/02/18 10:54 Blood - Peripheral Anaerobic Blood Culture - Preliminary No growth in 2 days 09/29/18 05:36 Blood - Peripheral Aerobic Blood Culture - Final No growth in 5 days 09/29/18 05:36 Blood - Peripheral Anaerobic Blood Culture - Final No growth in 5 days 09/28/18 14:57 Blood - Peripheral Aerobic Blood Culture - Final S. aureus MRSA 09/28/18 14:57 Blood - Peripheral Anaerobic Blood Culture - Final No growth in 5 days - Procedures None Assessment and Plan - Assessment (1) Epidural abscess Code(s): G06.2 - Extradural and subdural abscess, unspecified Status: Acute (2) Bacteremia Code(s): R78.81 - Bacteremia Status: Acute (3) History of intravenous drug use in remission Code(s): Z87.898 - Personal history of other specified conditions Status: Acute (4) Constipation Code(s): K59.00 - Constipation, unspecified Status: Acute - Plan Mr. Cook is a pleasant 42-year-old male with a remote history of IV drug use who presents to the emergency department on 09/24/2018 due to a 3-day duration of lower back pain with radiation of pain to the right leg and numbness to the left leg. He had fever at home. MRI shows evidence including fluid collection of possible infectious process. Discussed with NS, IR and ID, no intervention recommended. Found positive bacteremia secondary to MRSA. S/p MAT 09/29, negative for vegetation. Repeat blood culture positive. Sepsis Bacteremia with MRSA Suspected lumbar epidural abscess, MRSA History of IVDU -antibiotics changed to Cubicin per ID. -Repeat MRI of the lumbar spine is pending. -pain control with a bowel regimen. -PT working with pt. -WBC trending down, 20.0 on 10/03/18, follow CBC -Blood culture no growth in 1 day 10/03/18, S aureus MRSA on 09/28/18 -MAT: No vegetation -No fever or chills Constipation/Hemorrhoids/Weight loss Bowel loop with thickening, with severe constipation Family history of colon cancer Ongoing. CT with small bowel thickening. Has had weight loss. GI consult appreciated. -continue bowel regimen. -hydrocortisone suppositories. -s/p EGD:gastritis -Colonoscopy on Friday unable to visualize due to poor prep, n.p.o. after midnight Friday night History of IV drug use Patient denies using any IV drugs since he quit 18 months ago. -Counseled patient on IV drug use cessation cessation Dysuria The pt had his Vogel removed and has been straining while urinating. -CT indicative of possible cystitis - UA negative, culture not indicated -monitor signs and symptoms, improving Transaminitis -Likely related to IVDU, alcohol use -Check for hepatitis profile -Monitor liver function PPx: SCDs Code Status: Full code Discussed Condition With: Patient and nurse Discharge Planning: Plan for colonoscopy on Friday
[2018-10-04] MEDS: DAPTOmycin Inj 650 MG in Sodium Chlor 0.9% Inj 100 ML IV.SIG SCH (16:48)
[2018-10-05] MEDS: oxyCODONE/Acetaminophen 10/325 Tablet PO PRN ×6 (00:28→23:56)
[2018-10-05] MEDS: Morphine Sulfate Inj 2 MG/ML Vial IV.PUSH PRN ×5 (02:34→22:00)
[2018-10-05 07:33] LABS: Baso % (Auto) 0.4 % (0.0-2.0); Eos # (Auto) 0.1 th/mm3 (0.0-0.4); Eos % (Auto) 1.2 % (0.0-4.0); Hematocrit 37.2 % (39.0-51.0); Hemoglobin 12.8 gm/dL (13.0-17.0); Lymph # (Auto) 2.5 th/mm3 (1.0-4.8); Lymph % (Auto) 20.4 % (9.0-44.0); Mean Corpuscular HGB Conc 34.3 % (32.0-36.0); Mean Corpuscular Hemoglobin 29.8 pg (27.0-34.0); Mean Platelet Volume 6.8 fL (7.0-11.0); Mono % (Auto) 8.4 % (0.0-8.0); Neut # (Auto) 8.5 th/mm3 (1.8-7.7); Neut % (Auto) 69.6 % (16.0-70.0); Platelet Count 459 th/mm3 (150-450); Red Blood Count 4.28 mil/mm3 (4.50-5.90); Red Cell Distribution Width 13.7 % (11.6-17.2); White Blood Count 12.2 th/mm3 (4.0-11.0)
[2018-10-05 08:03] LABS: Alanine Aminotransferase 125 U/L (12-78); Albumin 2.3 g/dL (3.4-5.0); Anion Gap 5 meq/L (5-15); Aspartate Aminotransferase 80 U/L (15-37); Blood Urea Nitrogen 10 mg/dL (7-18); Calcium 8.4 mg/dL (8.5-10.1); Carbon Dioxide 27.7 meq/L (21.0-32.0); Chloride 102 meq/L (98-107); Glomerular Filtration Rate Greater Than 89 mL/min (>89); Glucose,Random 89 mg/dL (74-106); Potassium 3.9 meq/L (3.5-5.1); Sodium 135 meq/L (136-145)
[2018-10-05 08:05] LABS: Alkaline Phosphatase 113 U/L (45-117)
[2018-10-05] MEDS: Gabapentin 300 MG Capsule PO SCH ×3 (08:29→18:00)
[2018-10-05] MEDS: Hydrocortisone Acetate 25 MG Supp RECTAL SCH ×2 (08:29→19:59)
[2018-10-05] MEDS: Petrolatum 49%/Zinc Oxide 15% Barrier Oint 120 GM Tube TOPICAL SCH (08:29)
[2018-10-05] MEDS: Senna/Docusate Sodium 8.6/50 MG Tablet PO SCH ×2 (08:29→20:00)
[2018-10-05 08:50] LABS: Hepatitits B Surface Antigen Nonreactive (Nonreactive)
[2018-10-05 09:18] LABS: Hepatitis A IgM Antibody Nonreactive (Nonreactive)
[2018-10-05] MEDS ORDERED: Chlorhexidine Gluconate 2% 1 Pack (2 Cloths) TOPICAL SCH (12:34)
[2018-10-05] MEDS ORDERED: Metoprolol Tartrate 25 MG Tablet PO SCH (12:34)
[2018-10-05] MEDS ORDERED: Sodium Chlor 0.9% Inj 500 ML IV.SIG SCH (13:00)
[2018-10-05] MEDS ORDERED: fentaNYL Citrate Inj 100 MCG/2 ML Ampul ONE (15:39)
--- NOTE | 2018-10-05 15:44 | GIPROC ---
[facility] [address] [facility], [id number] COLONOSCOPY PROCEDURE REPORT EXAM DATE: 10/05/2018 PATIENT NAME: Aleks Cook MR #: [id number] BIRTHDATE: 1975 ENDOSCOPIST: Ervin Hi MD ORDER #: [id number] OUTREACH EDUCATOR: Kit English and Eliza Cameron STATUS: inpatient INDICATIONS: The patient is a 42 yr old male here for a colonoscopy due to change in bowel habits and patient's immediate family history of colon cancer PROCEDURE PERFORMED: Colonoscopy, diagnostic MEDICATIONS: Per Anesthesia and None. PREP QUALITY: poor ESTIMATED BLOOD LOSS: None CONSENT: The patient understands the risks and benefits of the procedure and understands that these risks include, but are not limited to: sedation, allergic reaction, infection, perforation and/or bleeding. Alternative means of evaluation and treatment include, among others: physical exam, x-rays, and/or surgical intervention. The patient elects to proceed with this endoscopic procedure. medical equipment was checked for proper function. Hand hygiene and appropriate measures for infection prevention was taken. After the risks, benefits and alternatives of the procedure were thoroughly explained, Informed consent was verified, confirmed and timeout was successfully executed by the treatment team. A digital exam was performed and revealed no abnormalities of the rectum The New [id number] (Std Gastro) endoscope was introduced through the anus and advanced to the cecum, which was identified by both the appendix and ileocecal valve. The instrument was then slowly withdrawn as the colon was fully examined. COLON FINDINGS: Solid stools in left colon. The colon mucosa was otherwise normal. Retroflexion was not performed The scope was then completely withdrawn from the patient and the procedure terminated. PROCEDURE WITHDRAWAL TIME:5minutes ADVERSE EVENTS: There were no complications. IMPRESSIONS: 1. Solid stools in left colon 2. The colon mucosa was otherwise normal 3. Retroflexion was not performed 4. Was performed 5. Revealed no abnormalities of the rectum RECOMMENDATIONS: Repat colonoscopy in AM with reprep RECALL: Return 1 day Colonoscopy Ervin Hi MD eSigned: Ervin Hi MD 10/05/2018 3:44 PM cc:
[2018-10-05] MEDS: DAPTOmycin Inj 650 MG in Sodium Chlor 0.9% Inj 100 ML IV.SIG SCH (16:11)
--- NOTE | 2018-10-05 16:48 | P.PNIM ---
Subjective Interval history: Follow-up sepsis, suspected infection of lumbar spine with epidural abscess, MRSA with blood cultures, constipation, hemorrhoids, IVDU, dysuria. Patient seen and examined laying in bed, just came back from colonoscopy complaining states that he is so hungry and wants regular food. Discussed patient stable another colonoscopy in the morning due to failed preparation patient stated if they want to do a colonoscopy then they have to wait. She he said he wants to eat and he wants real food. Stated that he did not have food for 3 days. Patient denies any headache or dizziness, denies any chest pain or shortness of breath, denies any abdominal pain, nausea, vomiting, diarrhea or constipation. Patient denies any fever or chills. Nurse requested diet for patient, complaint patient hungry coming back from procedure. Physical Exam Vital signs: Vital Signs 10/04/18 20:00 10/05/18 00:00 10/05/18 04:00 Temperature 98 F 97.9 F 98.6 F Pulse Rate 87 87 94 H Respiratory Rate 17 17 17 Blood Pressure 115/68 118/71 113/62 Pulse Oximetry 96 98 98 10/05/18 08:00 10/05/18 12:00 10/05/18 16:05 Temperature 98.4 F 98.4 F 98.2 F Pulse Rate 82 91 H 95 H Respiratory Rate 18 18 18 Blood Pressure 136/81 147/89 H 107/63 Pulse Oximetry 98 98 98 Intake & Output 10/04/18 10/05/18 10/05/18 18:59 06:59 18:59 Intake Total 2059 / 2059 300 / 300 Output Total 1900 / 1900 Balance 160 / 160 300 / 300 Intake: IV 100 / 100 Cubicin Inj 650 MG In NS Inj 100 / 100 100 ML @ 200 mls/hr IV.SIG Q24H [facility] Rx#:[id number] Oral 1959 Anesthesia Amount 300 / 300 Output: Urine 1900 / 1900 Other: Date of Last Bowel Movement 10/03/18 # Bowel Movements 1 Narrative: GENERAL: Well-developed, well-nourished, male in no apparent distress SKIN: Warm and dry. HEAD: Atraumatic. Normocephalic. EYES: Pupils equal and round. No scleral icterus. No injection or drainage. ENT: No nasal bleeding or discharge. Mucous membranes pink and moist. NECK: Trachea midline. No JVD. CARDIOVASCULAR: Regular rate and rhythm. RESPIRATORY: No accessory muscle use. Clear to auscultation. Breath sounds equal bilaterally. GASTROINTESTINAL: Abdomen soft, non-tender, nondistended. Hepatic and splenic margins not palpable. MUSCULOSKELETAL: Extremities without clubbing, cyanosis, or edema. No obvious deformities. NEUROLOGICAL: Awake and alert. No obvious cranial nerve deficits. Motor grossly within normal limits. Generalized weakness moving all 4 extremities normal speech. PSYCHIATRIC: Appropriate mood and affect; insight and judgment normal. - Urinary Catheter Management Indwelling Urethral Catheter Cath placed during this visit: yes, but has since been removed by the nurse Reason for continuing: Acute urinary retention Insertion date: 09/25/18 Insertion time: 18:42 Removal date: 09/29/18 Removal time: 22:30 Results - Labs CBC & Chem 7: 10/05/18 06:50 10/05/18 06:50 Laboratory Results - last 24 hr 10/05/18 10/05/18 10/05/18 06:50 06:50 06:50 WBC 12.2 H RBC 4.28 L Hgb 12.8 L Hct 37.2 L MCV 87.0 MCH 29.8 MCHC 34.3 RDW 13.7 Plt Count 459 H MPV 6.8 L Neut % (Auto) 69.6 Lymph % (Auto) 20.4 [place] % (Auto) 8.4 H Eos % (Auto) 1.2 Baso % (Auto) 0.4 Neut # (Auto) 8.5 H Lymph # (Auto) 2.5 [place] # (Auto) 1.0 H Eos # (Auto) 0.1 Baso # (Auto) 0.0 WBC Differential . Differential Comment Auto diff final Sodium 135 L Potassium 3.9 Chloride 102 Carbon Dioxide 27.7 Anion Gap 5 BUN 10 Creatinine 0.68 Estimated GFR Greater than 89 Random Glucose 89 Calcium 8.4 L Total Bilirubin 0.5 AST 80 H ALT 125 H Alkaline Phosphatase 113 Total Protein 8.0 D Albumin 2.3 L Hepatitis A IgM Ab Nonreactive Hep Bs Antigen Nonreactive Hep B Core IgM Ab Nonreactive Hep C IgG Ab Reactive H Microbiology 10/03/18 10:05 Blood - Peripheral Aerobic Blood Culture - Preliminary No growth in 2 days 10/03/18 10:05 Blood - Peripheral Anaerobic Blood Culture - Preliminary No growth in 2 days 10/02/18 10:54 Blood - Peripheral Aerobic Blood Culture - Preliminary No growth in 3 days 10/02/18 10:54 Blood - Peripheral Anaerobic Blood Culture - Preliminary No growth in 3 days - Procedures None Assessment and Plan - Assessment (1) Epidural abscess Code(s): G06.2 - Extradural and subdural abscess, unspecified Status: Acute (2) Bacteremia Code(s): R78.81 - Bacteremia Status: Acute (3) History of intravenous drug use in remission Code(s): Z87.898 - Personal history of other specified conditions Status: Acute (4) Constipation Code(s): K59.00 - Constipation, unspecified Status: Acute - Plan Mr. Cook is a pleasant 42-year-old male with a remote history of IV drug use who presents to the emergency department on 09/24/2018 due to a 3-day duration of lower back pain with radiation of pain to the right leg and numbness to the left leg. He had fever at home. MRI shows evidence including fluid collection of possible infectious process. Discussed with NS, IR and ID, no intervention recommended. Found positive bacteremia secondary to MRSA. S/p MAT 09/29, negative for vegetation. Repeat blood culture positive. Sepsis Bacteremia with MRSA Suspected lumbar epidural abscess, MRSA History of IVDU -ID following, appreciate recommendation -Continue Cubicin per ID recommendation -Repeat MRI of the lumbar spine is pending. -pain control with a bowel regimen. -PT working with pt. -WBC trending down, 20.0 on 10/03/18, follow CBC -Blood culture 10/03/18-no growth in 2 days , S aureus MRSA on 09/28/18 -MAT: No vegetation -No fever or chills Constipation/Hemorrhoids/Weight loss Bowel loop with thickening, with severe constipation Family history of colon cancer Ongoing. CT with small bowel thickening. Has had weight loss. GI consult appreciated. -continue bowel regimen. -hydrocortisone suppositories. -s/p EGD:gastritis -Colonoscopy failed again due to solid stools in the left colon. GI recommended to repeat colonoscopy in a.m. with re-prep. Patient did refuse to have liquid diet tonight for another procedure patient stated wants regular food and in if needs to have another procedure will need to wait another day. History of IV drug use Patient denies using any IV drugs since he quit 18 months ago. -Counseled patient on IV drug use cessation cessation Dysuria The pt had his Vogel removed and has been straining while urinating. -CT indicative of possible cystitis - UA negative, culture not indicated -monitor signs and symptoms, improving Transaminitis -Likely related to IVDU, alcohol use -Check for hepatitis profile -Monitor liver function PPx: SCDs Code Status: Full code Discussed Condition With: Patient and nurse Discharge Planning: Plan for colonoscopy on Friday
[2018-10-06] MEDS: Morphine Sulfate Inj 2 MG/ML Vial IV.PUSH PRN ×6 (01:56→22:03)
[2018-10-06] MEDS: oxyCODONE/Acetaminophen 10/325 Tablet PO PRN ×5 (03:53→20:33)
[2018-10-06] MEDS: Senna/Docusate Sodium 8.6/50 MG Tablet PO SCH ×2 (08:02→20:19)
[2018-10-06] MEDS: Gabapentin 300 MG Capsule PO SCH ×3 (08:03→17:56)
[2018-10-06] MEDS: Petrolatum 49%/Zinc Oxide 15% Barrier Oint 120 GM Tube TOPICAL SCH (08:03)
[2018-10-06] MEDS: Hydrocortisone Acetate 25 MG Supp RECTAL SCH ×2 (08:03→20:19)
--- NOTE | 2018-10-06 12:55 | P.PNID ---
Subjective Remarks: Patient is a 42-year-old male, presented to the hospital with severe low back pain. He was apparently doing yard work the day he started having back pain. The pain came on suddenly that he had to stop working. He laid down and since has not gotten out of bed much because of the severity of the pain. He would have pain radiating to both thighs, and currently he is complaining of some numbness in his left lower extremity. He has been constipated, although he is not really been eating much because of the severe pain. He has been having problem urinating and it takes a while for him to urinate. He is also been having fevers for 2 days prior to coming into the hospital. Patient denies any skin infection or any boils. He has not had any vomiting or diarrhea or any respiratory complaint. He has not had any teeth problem requiring any dentist attention. Patient has prior history of IV drug use, but he was incarcerated for about 18 months in care home, and then was in [facility] for at least 2 months, and has been out on the streets for the last 2 months. He denies any smoking or snorting illicit drugs as well. 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 Since admission patient has had fevers. He had an MRI and he has abnormality in the lower thoracic and lumbar region. There is a fluid collection in the anterior epidural space. I spoke with radiologist and there is no window to access that epidural space. He has had 2 blood cultures that are negative so far. Urinalysis unremarkable. His WBC is elevated at 25,000. Infectious disease consultation has been requested to assist with evaluation and treatment. Notes reviewed Temps ok Last (+) BC 09/28 Had colonoscopy yesterday - not a good prep Good UO overnight Neurosurgery notes reviewed - medical Rx - felt patient clinically better Doing some PT WBC remains elevated MAT negative Antibiotics: Cubicin Allergies/Adverse Reactions: Allergies penicillin G Allergy (Mild, Verified 09/24/18 11:50) Rash, Localized pt states he doesnt know but has always been told that as a kid Objective Vital Signs 10/05/18 16:00 10/05/18 16:05 10/05/18 20:00 Temperature 97.9 F 98.2 F 98.2 F Pulse Rate 94 H 95 H 106 H Respiratory Rate 18 Blood Pressure 134/83 107/63 126/65 Pulse Oximetry 94 L 98 95 10/06/18 00:00 10/06/18 04:00 10/06/18 08:00 Temperature 98.3 F 97.7 F 97.9 F Pulse Rate 112 H 90 90 Respiratory Rate 19 16 16 Blood Pressure 119/59 L 134/67 126/77 Pulse Oximetry 93 L 95 97 10/06/18 11:48 Temperature Pulse Rate 98 H Respiratory Rate Blood Pressure Pulse Oximetry Intake & Output 10/05/18 10/06/18 10/06/18 18:59 06:59 18:59 Intake Total 880 / 880 400 / 400 Output Total 1000 / 1000 Balance -120 / -120 400 / 400 Weight 82.3 kg Intake: IV 100 / 100 Cubicin Inj 650 MG In NS Inj 100 / 100 100 ML @ 200 mls/hr IV.SIG Q24H [facility] Rx#:[id number] Oral 480 / 480 400 / 400 Anesthesia Amount 300 / 300 Output: Urine 1000 / 1000 Other: # Voids 3 Date of Last Bowel Movement 10/04/18 10/03/18 10:05 Blood - Peripheral Aerobic Blood Culture - Preliminary No growth in 3 days 10/03/18 10:05 Blood - Peripheral Anaerobic Blood Culture - Preliminary No growth in 3 days 10/02/18 10:54 Blood - Peripheral Aerobic Blood Culture - Preliminary No growth in 4 days 10/02/18 10:54 Blood - Peripheral Anaerobic Blood Culture - Preliminary No growth in 4 days 09/29/18 05:36 Blood - Peripheral Aerobic Blood Culture - Final No growth in 5 days 09/29/18 05:36 Blood - Peripheral Anaerobic Blood Culture - Final No growth in 5 days 09/28/18 14:57 Blood - Peripheral Aerobic Blood Culture - Final S. aureus MRSA 09/28/18 14:57 Blood - Peripheral Anaerobic Blood Culture - Final No growth in 5 days Lab - Hematology Results 10/05/18 06:50 WBC 12.2 H RBC 4.28 L Hgb 12.8 L Hct 37.2 L MCV 87.0 MCH 29.8 MCHC 34.3 RDW 13.7 Plt Count 459 H MPV 6.8 L Neut % (Auto) 69.6 Lymph % (Auto) 20.4 [place] % (Auto) 8.4 H Eos % (Auto) 1.2 Baso % (Auto) 0.4 Neut # (Auto) 8.5 H Lymph # (Auto) 2.5 [place] # (Auto) 1.0 H Eos # (Auto) 0.1 Baso # (Auto) 0.0 WBC Differential . Differential Comment Auto diff final Lab - Chemistry Results 10/05/18 06:50 Sodium 135 L Potassium 3.9 Chloride 102 Carbon Dioxide 27.7 Anion Gap 5 BUN 10 Creatinine 0.68 Estimated GFR Greater than 89 Random Glucose 89 Calcium 8.4 L Total Bilirubin 0.5 AST 80 H ALT 125 H Alkaline Phosphatase 113 Total Protein 8.0 D Albumin 2.3 L Imaging: ITS Impressions Abdomen/Pelvis CT 09/28/18 00:00 CONCLUSION: 1. Extensive stranding within the pelvis noted within the peritoneal fat and adjacent structures including musculature could be anasarca or other inflammatory/infectious etiology. No abnormal fluid collection or abscess. 2. There does appear to be wall thickening and inflammation surrounding the urinary bladder. Cystitis should be excluded. 3. Splenomegaly. 4. Trace ascites. Lumbar Spine MRI 10/02/18 00:00 CONCLUSION: 1. Increased signal and enhancement within the epidural space at the L4-L5 through the upper sacrum level concerning for inflammatory change. There is a focal fluid collection the anterior epidural space at the L5 level concerning for an epidural abscess. There is also abnormal signal in the posterior inferior aspect of the L5 vertebral body and the superior aspect of the sacrum concerning for inflammatory/infectious change. There is a defect in the posterior left lateral aspect of the disc at the L5-S1 level which could be secondary to infection. There is severe narrowing of the thecal sac at this level. 2. Left paraspinous inflammatory change and small abscesses in the left erector spinae musculature extending from the L4-S1 levels. 3. Mild central disc protrusion at the L4-L5 level. Physical Exam: GENERAL: awake and alert, NAD SKIN: Warm and dry. No generalized rash, no ecchymoses and no evidence of embolic lesions.. EYES: [place] conjunctiva. No petechia or hemorrhage. No scleral icterus. No injection or drainage. EARS, NOSE AND THROAT: Mucous membranes pink and moist. No oral lesions noted. No exudate. No oral thrush. NECK: Trachea midline. Supple and not tender, no meningeal signs CARDIOVASCULAR: Regular rate and rhythm. No murmurs, rubs or gallops heard RESPIRATORY: Clear to auscultation. Breath sounds equal bilaterally. No rales , wheezing or rhonchi ABDOMEN: Soft, non-tender, nondistended. Bowel sounds present and normoactive. No guarding. No rebound. No organomegaly. EXTREMITIES: No clubbing, cyanosis, or edema. No joint effusion, has good ROM. No calf tenderness. NEUROLOGICAL: Awake and alert. Cranial nerves grossly intact. Able to move both LE, symmetrical PSYCHIATRIC: In distress due to severe back pain LINE: No evidence of infection Assessment and Plan - Plan Impression MRSA sepsis due to back infection. MRSA. High grade MRSA sepsis - Vanco CALUDINE 2 Lumbar epidural abscess Hx IVDU, last use prob 20 months ago Recommendation Follow repeat BC Continue Cubicin to help sterilize blood - follow CPK Follow CBC Follow temps Monitor progress
[2018-10-06] MEDS: DAPTOmycin Inj 650 MG in Sodium Chlor 0.9% Inj 100 ML IV.SIG SCH (16:04)
--- NOTE | 2018-10-06 18:48 | P.PNIM ---
Subjective Interval history: c/o lower back pain. also concerned about whether he will be able to go back to work, his work involves heavy lifting. Physical Exam Vital signs: Last Vital Signs Temp 98.1 F 10/06/18 16:00 Pulse 96 H 10/06/18 16:00 Resp 20 10/06/18 16:00 BP 122/75 10/06/18 16:00 Pulse Ox 98 10/06/18 16:00 Intake & Output 10/04/18 10/05/18 10/06/18 10/07/18 06:59 06:59 06:59 06:59 Intake Total 1880 / 1880 2060 / 2060 1280 / 1280 820 / 820 Output Total 1900 / 1900 1900 / 1900 1000 / 1000 Balance -20 / -20 160 / 160 280 / 280 820 / 820 Weight 83.2 kg 82.3 kg Narrative: GENERAL: Well-developed, well-nourished, male in no apparent distress SKIN: Warm and dry. HEAD: Atraumatic. Normocephalic. EYES: Pupils equal and round. No scleral icterus. No injection or drainage. ENT: No nasal bleeding or discharge. Mucous membranes pink and moist. NECK: Trachea midline. No JVD. CARDIOVASCULAR: Regular rate and rhythm. RESPIRATORY: No accessory muscle use. Clear to auscultation. Breath sounds equal bilaterally. GASTROINTESTINAL: Abdomen soft, non-tender, nondistended. Hepatic and splenic margins not palpable. MUSCULOSKELETAL: Extremities without clubbing, cyanosis, or edema. No obvious deformities. NEUROLOGICAL: Awake and alert. No obvious cranial nerve deficits. Motor grossly within normal limits. Generalized weakness moving all 4 extremities normal speech. PSYCHIATRIC: Appropriate mood and affect; insight and judgment normal. Urinary Catheter Management Indwelling Urethral Catheter: Cath placed during this visit: yes, but has since been removed by the nurse Insertion date: 09/25/18 Insertion time: 18:42 Removal date: 09/29/18 Removal time: 22:30 Results Labs CBC & Chem 7: 10/05/18 06:50 10/05/18 06:50 Labs: Microbiology 10/03/18 10:05 Blood - Peripheral Aerobic Blood Culture - Preliminary No growth in 3 days 10/03/18 10:05 Blood - Peripheral Anaerobic Blood Culture - Preliminary No growth in 3 days 10/02/18 10:54 Blood - Peripheral Aerobic Blood Culture - Preliminary No growth in 4 days 10/02/18 10:54 Blood - Peripheral Anaerobic Blood Culture - Preliminary No growth in 4 days Procedures Procedures: None Assessment and Plan (1) Epidural abscess: Code(s): G06.2 - Extradural and subdural abscess, unspecified Status: Acute (2) Bacteremia: Code(s): R78.81 - Bacteremia Status: Acute (3) History of intravenous drug use in remission: Code(s): Z87.898 - Personal history of other specified conditions Status: Acute (4) Constipation: Code(s): K59.00 - Constipation, unspecified Status: Acute Plan 42-year-old male with a remote history of IV drug use who presents to the emergency department on 09/24/2018 due to a 3-day duration of lower back pain with radiation of pain to the right leg and numbness to the left leg. He had fever at home. MRI shows evidence including fluid collection of possible infectious process. Discussed with NS, IR and ID, no intervention recommended. Found positive bacteremia secondary to MRSA. S/p MAT 09/29, negative for vegetation. 1.Sepsis secondary to MRSA Bacteremia with suspected lumbar epidural abscess blood culture +ve for MRSA on 09/28/18,Blood culture 10/03/18-no growth to date. MAT: No vegetation -Repeat MRI of the lumbar spine is pending. leucocytosis trending down 20-->12 -- continue on IV Daptomycin(Cubicin) -pain control with a bowel regimen. -PT working with pt. 2. Constipation/Hemorrhoids/Weight loss Family history of colon cancer CT with small bowel thickening.with severe constipation -continue bowel regimen. -hydrocortisone suppositories. -s/p EGD:gastritis -Colonoscopy failed again due to solid stools in the left colon. GI recommended to repeat colonoscopy 3.History of IV drug use Patient denies using any IV drugs since he quit 18 months ago. -Counseled patient on IV drug use cessation cessation 4.Dysuria The pt had his Vogel removed and has been straining while urinating. -CT indicative of possible cystitis - UA negative, culture not indicated -monitor signs and symptoms, improving Transaminitis -Likely related to IVDU, alcohol use - hepatitis profile--A/B negative, HEP C antibody +ve, can check RNA. -Monitor LFTs. PPx: SCDs Code Status: Full code Progress Note: Quality VTE Deep Vein Thrombosis/Pulmonary Embolism Present on Admission: No _ (1) Constipation Qualifiers: Constipation type:
[2018-10-07] MEDS: oxyCODONE/Acetaminophen 10/325 Tablet PO PRN ×6 (01:57→22:26)
[2018-10-07] MEDS: Morphine Sulfate Inj 2 MG/ML Vial IV.PUSH PRN ×5 (04:30→21:21)
[2018-10-07 04:57] LABS: Baso # (Auto) 0.1 th/mm3 (0.0-0.2); Baso % (Auto) 0.8 % (0.0-2.0); Eos # (Auto) 0.1 th/mm3 (0.0-0.4); Eos % (Auto) 0.9 % (0.0-4.0); Hematocrit 38.2 % (39.0-51.0); Hemoglobin 13.1 gm/dL (13.0-17.0); Lymph # (Auto) 2.9 th/mm3 (1.0-4.8); Lymph % (Auto) 25.2 % (9.0-44.0); Mean Corpuscular HGB Conc 34.3 % (32.0-36.0); Mean Corpuscular Hemoglobin 29.6 pg (27.0-34.0); Mean Corpuscular Volume 86.2 fL (80.0-100.0); Mean Platelet Volume 6.6 fL (7.0-11.0); Mono % (Auto) 8.5 % (0.0-8.0); Neut # (Auto) 7.4 th/mm3 (1.8-7.7); Neut % (Auto) 64.6 % (16.0-70.0); Platelet Count 519 th/mm3 (150-450); Red Blood Count 4.43 mil/mm3 (4.50-5.90); Red Cell Distribution Width 13.6 % (11.6-17.2); White Blood Count 11.5 th/mm3 (4.0-11.0)
[2018-10-07] MEDS: Gabapentin 300 MG Capsule PO SCH ×3 (09:01→17:14)
[2018-10-07] MEDS: Hydrocortisone Acetate 25 MG Supp RECTAL SCH ×2 (09:01→21:21)
[2018-10-07] MEDS: Senna/Docusate Sodium 8.6/50 MG Tablet PO SCH ×2 (09:01→21:20)
[2018-10-07] MEDS: Petrolatum 49%/Zinc Oxide 15% Barrier Oint 120 GM Tube TOPICAL SCH (11:31)
--- NOTE | 2018-10-07 11:58 | P.PNIM ---
Subjective Interval history: no new complaints. concerned that he is on a cardiac diet. also asking about when he will be discharged. Physical Exam Vital signs: Last Vital Signs Temp 98.5 F 10/07/18 08:00 Pulse 101 H 10/07/18 08:00 Resp 16 10/07/18 08:00 BP 128/70 10/07/18 08:00 Pulse Ox 97 10/07/18 08:00 Intake & Output 10/05/18 10/06/18 10/07/18 10/08/18 06:59 06:59 06:59 06:59 Intake Total 2060 / 2060 1280 / 1280 2540 / 2540 Output Total 1900 / 1900 1000 / 1000 400 / 400 Balance 160 / 160 280 / 280 2140 / 2140 Weight 82.3 kg 82.3 kg Narrative: GENERAL: Well-developed, well-nourished, male in no apparent distress SKIN: Warm and dry. HEENT: not pale,anicteric. NECK: No JVD. CARDIOVASCULAR: Regular rate and rhythm. RESPIRATORY: No accessory muscle use. Clear to auscultation. Breath sounds equal bilaterally. GASTROINTESTINAL: Abdomen soft, non-tender, nondistended. no organomegaly. MUSCULOSKELETAL: Extremities without clubbing, cyanosis, or edema. No obvious deformities. NEUROLOGICAL: Awake and alert. No obvious cranial nerve deficits. Motor grossly within normal limits. Generalized weakness moving all 4 extremities normal speech. PSYCHIATRIC: Appropriate mood and affect; insight and judgment normal. Urinary Catheter Management Indwelling Urethral Catheter: Cath placed during this visit: yes, but has since been removed by the nurse Insertion date: 09/25/18 Insertion time: 18:42 Removal date: 09/29/18 Removal time: 22:30 Results Labs CBC & Chem 7: 10/08/18 10:54 10/05/18 06:50 Labs: Microbiology 10/03/18 10:05 Blood - Peripheral Aerobic Blood Culture - Preliminary No growth in 4 days 10/03/18 10:05 Blood - Peripheral Anaerobic Blood Culture - Preliminary No growth in 4 days 10/02/18 10:54 Blood - Peripheral Aerobic Blood Culture - Final No growth in 5 days 10/02/18 10:54 Blood - Peripheral Anaerobic Blood Culture - Final No growth in 5 days Procedures Procedures: None Assessment and Plan (1) Epidural abscess: Code(s): G06.2 - Extradural and subdural abscess, unspecified Status: Acute (2) Bacteremia: Code(s): R78.81 - Bacteremia Status: Acute (3) History of intravenous drug use in remission: Code(s): Z87.898 - Personal history of other specified conditions Status: Acute (4) Constipation: Code(s): K59.00 - Constipation, unspecified Status: Acute Plan 42-year-old male with a remote history of IV drug use who presents to the emergency department on 09/24/2018 due to a 3-day duration of lower back pain with radiation of pain to the right leg and numbness to the left leg. He had fever at home. MRI shows evidence including fluid collection of possible infectious process. Discussed with NS, IR and ID, no intervention recommended. Found positive bacteremia secondary to MRSA. S/p MAT 09/29, negative for vegetation. 1.Sepsis secondary to MRSA Bacteremia with suspected lumbar epidural abscess blood culture +ve for MRSA on 09/28/18,Blood culture 10/03/18-no growth to date. MAT: No vegetation -Repeat MRI of the lumbar spine is pending. leucocytosis trending down 20-->11.5 -- continue on IV Daptomycin(Cubicin) -pain control with a bowel regimen. -PT working with pt. 2. Constipation/Hemorrhoids/Weight loss Family history of colon cancer CT with small bowel thickening.with severe constipation -continue bowel regimen. -hydrocortisone suppositories. -s/p EGD:gastritis -Colonoscopy failed again due to solid stools in the left colon. GI recommended to repeat colonoscopy 3.History of IV drug use Patient denies using any IV drugs since he quit 18 months ago. -Counseled patient on IV drug use cessation cessation 4.Dysuria The pt had his Vogel removed and has been straining while urinating. -CT indicative of possible cystitis - UA negative, culture not indicated -monitor signs and symptoms, improving Transaminitis - hepatitis profile--A/B negative, HEP C antibody +ve, can check RNA. -Monitor LFTs. PPx: SCDs Code Status: Full code regular diet. Progress Note: Quality VTE Deep Vein Thrombosis/Pulmonary Embolism Present on Admission: No _ (1) Constipation Qualifiers: Constipation type:
[2018-10-07] MEDS: DAPTOmycin Inj 650 MG in Sodium Chlor 0.9% Inj 100 ML IV.SIG SCH (17:14)
[2018-10-08] MEDS: Ibuprofen 600 MG Tablet PO PRN ×2 (01:35→22:19)
[2018-10-08] MEDS: Morphine Sulfate Inj 2 MG/ML Vial IV.PUSH PRN ×6 (01:36→22:19)
[2018-10-08] MEDS: oxyCODONE/Acetaminophen 10/325 Tablet PO PRN ×5 (03:17→19:37)
[2018-10-08] MEDS: Hydrocortisone Acetate 25 MG Supp RECTAL SCH ×2 (09:50→20:31)
[2018-10-08] MEDS: Gabapentin 300 MG Capsule PO SCH ×3 (09:50→17:36)
[2018-10-08] MEDS: Senna/Docusate Sodium 8.6/50 MG Tablet PO SCH ×2 (09:50→20:31)
[2018-10-08] MEDS: Petrolatum 49%/Zinc Oxide 15% Barrier Oint 120 GM Tube TOPICAL SCH (11:00)
[2018-10-08 11:06] LABS: Baso # (Auto) 0.1 th/mm3 (0.0-0.2); Eos # (Auto) 0.1 th/mm3 (0.0-0.4); Eos % (Auto) 1.1 % (0.0-4.0); Hematocrit 37.1 % (39.0-51.0); Hemoglobin 12.8 gm/dL (13.0-17.0); Lymph # (Auto) 2.4 th/mm3 (1.0-4.8); Lymph % (Auto) 29.6 % (9.0-44.0); Mean Corpuscular HGB Conc 34.7 % (32.0-36.0); Mean Corpuscular Volume 86.5 fL (80.0-100.0); Mean Platelet Volume 6.5 fL (7.0-11.0); Mono # (Auto) 0.8 th/mm3 (0.0-0.9); Mono % (Auto) 9.8 % (0.0-8.0); Neut # (Auto) 4.8 th/mm3 (1.8-7.7); Neut % (Auto) 58.5 % (16.0-70.0); Platelet Count 536 th/mm3 (150-450); Red Blood Count 4.29 mil/mm3 (4.50-5.90); Red Cell Distribution Width 13.6 % (11.6-17.2); White Blood Count 8.1 th/mm3 (4.0-11.0)
[2018-10-08] MEDS: DAPTOmycin Inj 650 MG in Sodium Chlor 0.9% Inj 100 ML IV.SIG SCH (16:44)
--- NOTE | 2018-10-08 17:16 | P.PNIM ---
Subjective Interval history: no new complaints Physical Exam Vital signs: Last Vital Signs Temp 97.9 F 10/08/18 12:00 Pulse 104 H 10/08/18 12:00 Resp 18 10/08/18 12:00 BP 125/83 10/08/18 12:00 Pulse Ox 98 10/08/18 12:00 Intake & Output 10/06/18 10/07/18 10/08/18 10/09/18 06:59 06:59 06:59 06:59 Intake Total 1280 / 1280 2540 / 2540 3700 / 3700 Output Total 1000 / 1000 400 / 400 Balance 280 / 280 2140 / 2140 3700 / 3700 Weight 82.3 kg 82.3 kg 82.9 kg Narrative: GENERAL: Well-developed, well-nourished, male in no apparent distress SKIN: Warm and dry. HEENT: not pale,anicteric. NECK: No JVD. CARDIOVASCULAR: Regular rate and rhythm. RESPIRATORY: No accessory muscle use. Clear to auscultation. Breath sounds equal bilaterally. GASTROINTESTINAL: Abdomen soft, non-tender, nondistended. no organomegaly. MUSCULOSKELETAL: Extremities without clubbing, cyanosis, or edema. No obvious deformities. NEUROLOGICAL: Awake and alert. No obvious cranial nerve deficits. Motor grossly within normal limits. Generalized weakness moving all 4 extremities normal speech. PSYCHIATRIC: Appropriate mood and affect; insight and judgment normal. Urinary Catheter Management Indwelling Urethral Catheter: Cath placed during this visit: yes, but has since been removed by the nurse Insertion date: 09/25/18 Insertion time: 18:42 Removal date: 09/29/18 Removal time: 22:30 Results Labs CBC & Chem 7: 10/09/18 10:14 10/09/18 04:15 Labs: Microbiology 10/03/18 10:05 Blood - Peripheral Aerobic Blood Culture - Final No growth in 5 days 10/03/18 10:05 Blood - Peripheral Anaerobic Blood Culture - Final No growth in 5 days Procedures Procedures: None Assessment and Plan (1) Epidural abscess: Code(s): G06.2 - Extradural and subdural abscess, unspecified Status: Acute (2) Bacteremia: Code(s): R78.81 - Bacteremia Status: Acute (3) History of intravenous drug use in remission: Code(s): Z87.898 - Personal history of other specified conditions Status: Acute (4) Constipation: Code(s): K59.00 - Constipation, unspecified Status: Acute Plan 42-year-old male with a remote history of IV drug use who presents to the emergency department on 09/24/2018 due to a 3-day duration of lower back pain with radiation of pain to the right leg and numbness to the left leg. He had fever at home. MRI shows evidence including fluid collection of possible infectious process. Discussed with NS, IR and ID, no intervention recommended. Found positive bacteremia secondary to MRSA. S/p MAT 09/29, negative for vegetation. 1.Sepsis secondary to MRSA Bacteremia with suspected lumbar epidural abscess blood culture +ve for MRSA on 09/28/18,Blood culture 10/03/18-no growth to date. MAT: No vegetation -Repeat MRI of the lumbar spine is pending. leucocytosis trending down 20-->11.5 -- continue on IV Daptomycin(Cubicin) -pain control with a bowel regimen. -PT working with pt. 2. Constipation/Hemorrhoids/Weight loss Family history of colon cancer CT with small bowel thickening.with severe constipation -continue bowel regimen. -hydrocortisone suppositories. -s/p EGD:gastritis -Colonoscopy failed again due to solid stools in the left colon. GI recommended to repeat colonoscopy 3.History of IV drug use Patient denies using any IV drugs since he quit 18 months ago. -Counseled patient on IV drug use cessation cessation 4.Dysuria The pt had his Vogel removed and has been straining while urinating. -CT indicative of possible cystitis - UA negative, culture not indicated -monitor signs and symptoms, improving Transaminitis - hepatitis profile--A/B negative, HEP C antibody +ve, can check RNA. -Monitor LFTs. PPx: SCDs Code Status: Full code regular diet. Progress Note: Quality VTE Deep Vein Thrombosis/Pulmonary Embolism Present on Admission: No _ (1) Constipation Qualifiers: Constipation type:
[2018-10-08] MEDS ORDERED: Metoprolol Tartrate 25 MG Tablet PO ONE (20:14)
[2018-10-09] MEDS: oxyCODONE/Acetaminophen 10/325 Tablet PO PRN ×6 (00:42→21:53)
[2018-10-09] MEDS: Morphine Sulfate Inj 2 MG/ML Vial IV.PUSH PRN ×5 (02:45→19:39)
[2018-10-09 07:34] LABS: Anion Gap 7 meq/L (5-15); Blood Urea Nitrogen 21 mg/dL (7-18); Carbon Dioxide 30.3 meq/L (21.0-32.0); Chloride 96 meq/L (98-107); Glomerular Filtration Rate Greater Than 89 mL/min (>89); Glucose,Random 87 mg/dL (74-106); Potassium 4.1 meq/L (3.5-5.1); Sodium 133 meq/L (136-145)
[2018-10-09] MEDS: Senna/Docusate Sodium 8.6/50 MG Tablet PO SCH ×2 (09:04→21:53)
[2018-10-09] MEDS: Hydrocortisone Acetate 25 MG Supp RECTAL SCH ×2 (09:04→21:54)
[2018-10-09] MEDS: Gabapentin 300 MG Capsule PO SCH ×3 (09:04→17:37)
[2018-10-09] MEDS: Petrolatum 49%/Zinc Oxide 15% Barrier Oint 120 GM Tube TOPICAL SCH (09:05)
[2018-10-09 10:45] LABS: Baso # (Auto) 0.1 th/mm3 (0.0-0.2); Baso % (Auto) 0.7 % (0.0-2.0); Eos # (Auto) 0.1 th/mm3 (0.0-0.4); Eos % (Auto) 0.8 % (0.0-4.0); Hematocrit 40.1 % (39.0-51.0); Hemoglobin 13.9 gm/dL (13.0-17.0); Lymph # (Auto) 2.3 th/mm3 (1.0-4.8); Lymph % (Auto) 28.1 % (9.0-44.0); Mean Corpuscular HGB Conc 34.6 % (32.0-36.0); Mean Corpuscular Hemoglobin 30.3 pg (27.0-34.0); Mean Corpuscular Volume 87.6 fL (80.0-100.0); Mean Platelet Volume 6.5 fL (7.0-11.0); Mono # (Auto) 0.7 th/mm3 (0.0-0.9); Mono % (Auto) 8.9 % (0.0-8.0); Neut # (Auto) 5.1 th/mm3 (1.8-7.7); Neut % (Auto) 61.5 % (16.0-70.0); Platelet Count 549 th/mm3 (150-450); Red Blood Count 4.57 mil/mm3 (4.50-5.90); Red Cell Distribution Width 14.4 % (11.6-17.2); White Blood Count 8.4 th/mm3 (4.0-11.0)
--- NOTE | 2018-10-09 14:22 | P.PNID ---
Subjective Remarks: Patient is a 42-year-old male, presented to the hospital with severe low back pain. He was apparently doing yard work the day he started having back pain. The pain came on suddenly that he had to stop working. He laid down and since has not gotten out of bed much because of the severity of the pain. He would have pain radiating to both thighs, and currently he is complaining of some numbness in his left lower extremity. He has been constipated, although he is not really been eating much because of the severe pain. He has been having problem urinating and it takes a while for him to urinate. He is also been having fevers for 2 days prior to coming into the hospital. Patient denies any skin infection or any boils. He has not had any vomiting or diarrhea or any respiratory complaint. He has not had any teeth problem requiring any dentist attention. Patient has prior history of IV drug use, but he was incarcerated for about 18 months in detention, and then was in [facility] for at least 2 months, and has been out on the streets for the last 2 months. He denies any smoking or snorting illicit drugs as well. 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 Since admission patient has had fevers. He had an MRI and he has abnormality in the lower thoracic and lumbar region. There is a fluid collection in the anterior epidural space. I spoke with radiologist and there is no window to access that epidural space. He has had 2 blood cultures that are negative so far. Urinalysis unremarkable. His WBC is elevated at 25,000. Infectious disease consultation has been requested to assist with evaluation and treatment. Notes reviewed Temps ok Last (+) BC 09/28 Clinically seems stable WBC down to normal Antibiotics: Cubicin Allergies/Adverse Reactions: Allergies penicillin G Allergy (Mild, Verified 09/24/18 11:50) Rash, Localized pt states he doesnt know but has always been told that as a kid Objective Vital Signs 10/08/18 16:00 10/08/18 19:00 10/08/18 20:00 Temperature 98.3 F 98.5 F Pulse Rate 103 H 181 H 137 H Respiratory Rate 18 20 Blood Pressure 114/63 139/81 Pulse Oximetry 98 97 10/08/18 23:55 10/09/18 00:00 10/09/18 04:00 Temperature 98.2 F 98.1 F Pulse Rate 105 H 91 H 100 H Respiratory Rate 20 20 Blood Pressure 124/80 121/70 Pulse Oximetry 97 10/09/18 08:00 10/09/18 12:00 Temperature 98 F 98 F Pulse Rate 99 H 110 H Respiratory Rate 18 20 Blood Pressure 126/79 127/82 Pulse Oximetry 98 98 Intake & Output 10/08/18 10/09/18 10/09/18 18:59 06:59 18:59 Intake Total 1540 / 1540 380 / 380 Balance 1540 / 1540 380 / 380 Weight 77.9 kg Intake: IV 100 / 100 Cubicin Inj 650 MG In NS Inj 100 / 100 100 ML @ 200 mls/hr IV.SIG Q24H [facility] Rx#:[id number] Oral 1440 / 1440 380 / 380 Other: # Voids 6 Date of Last Bowel Movement 10/08/18 # Bowel Movements 2 1 10/03/18 10:05 Blood - Peripheral Aerobic Blood Culture - Final No growth in 5 days 10/03/18 10:05 Blood - Peripheral Anaerobic Blood Culture - Final No growth in 5 days 10/02/18 10:54 Blood - Peripheral Aerobic Blood Culture - Final No growth in 5 days 10/02/18 10:54 Blood - Peripheral Anaerobic Blood Culture - Final No growth in 5 days Lab - Hematology Results 10/08/18 10/09/18 10:54 10:14 WBC 8.1 8.4 RBC 4.29 L 4.57 Hgb 12.8 L 13.9 Hct 37.1 L 40.1 MCV 86.5 87.6 MCH 30.0 30.3 MCHC 34.7 34.6 RDW 13.6 14.4 Plt Count 536 H 549 H MPV 6.5 L 6.5 L Neut % (Auto) 58.5 61.5 Lymph % (Auto) 29.6 28.1 [place] % (Auto) 9.8 H 8.9 H Eos % (Auto) 1.1 0.8 Baso % (Auto) 1.0 0.7 Neut # (Auto) 4.8 5.1 Lymph # (Auto) 2.4 2.3 [place] # (Auto) 0.8 0.7 Eos # (Auto) 0.1 0.1 Baso # (Auto) 0.1 0.1 WBC Differential . . Differential Comment Auto diff final Auto diff final Lab - Chemistry Results 10/09/18 04:15 Sodium 133 L Potassium 4.1 Chloride 96 L Carbon Dioxide 30.3 Anion Gap 7 BUN 21 H Creatinine 0.89 Estimated GFR Greater than 89 Random Glucose 87 Calcium 9.0 Imaging: ITS Impressions Abdomen/Pelvis CT 09/28/18 00:00 CONCLUSION: 1. Extensive stranding within the pelvis noted within the peritoneal fat and adjacent structures including musculature could be anasarca or other inflammatory/infectious etiology. No abnormal fluid collection or abscess. 2. There does appear to be wall thickening and inflammation surrounding the urinary bladder. Cystitis should be excluded. 3. Splenomegaly. 4. Trace ascites. Lumbar Spine MRI 10/02/18 00:00 CONCLUSION: 1. Increased signal and enhancement within the epidural space at the L4-L5 through the upper sacrum level concerning for inflammatory change. There is a focal fluid collection the anterior epidural space at the L5 level concerning for an epidural abscess. There is also abnormal signal in the posterior inferior aspect of the L5 vertebral body and the superior aspect of the sacrum concerning for inflammatory/infectious change. There is a defect in the posterior left lateral aspect of the disc at the L5-S1 level which could be secondary to infection. There is severe narrowing of the thecal sac at this level. 2. Left paraspinous inflammatory change and small abscesses in the left erector spinae musculature extending from the L4-S1 levels. 3. Mild central disc protrusion at the L4-L5 level. Physical Exam: GENERAL: awake and alert, NAD SKIN: Warm and dry. No generalized rash, no ecchymoses and no evidence of embolic lesions.. EYES: [place] conjunctiva. No petechia or hemorrhage. No scleral icterus. No injection or drainage. EARS, NOSE AND THROAT: Mucous membranes pink and moist. No oral lesions noted. No exudate. No oral thrush. NECK: Trachea midline. Supple and not tender, no meningeal signs CARDIOVASCULAR: Regular rate and rhythm. No murmurs, rubs or gallops heard RESPIRATORY: Clear to auscultation. Breath sounds equal bilaterally. No rales , wheezing or rhonchi ABDOMEN: Soft, non-tender, nondistended. Bowel sounds present and normoactive. No guarding. No rebound. No organomegaly. EXTREMITIES: No clubbing, cyanosis, or edema. No joint effusion, has good ROM. No calf tenderness. NEUROLOGICAL: Awake and alert. Cranial nerves grossly intact. Able to move both LE, symmetrical PSYCHIATRIC: In distress due to severe back pain LINE: No evidence of infection Assessment and Plan - Plan Impression MRSA sepsis due to back infection. MRSA. High grade MRSA sepsis - Vanco CLAUDINE 2 Lumbar epidural abscess Hx IVDU, last use prob 20 months ago Recommendation Follow repeat BC Continue Cubicin to help sterilize blood - follow CPK Follow CPK Follow temps Monitor progress
[2018-10-09] MEDS: DAPTOmycin Inj 650 MG in Sodium Chlor 0.9% Inj 100 ML IV.SIG SCH (15:32)
--- NOTE | 2018-10-09 17:15 | P.PNIM ---
Subjective Interval history: feeling better,pain is better controlled. Physical Exam Vital signs: Last Vital Signs Temp 98 F 10/09/18 16:00 Pulse 74 10/09/18 16:00 Resp 18 10/09/18 16:00 BP 127/79 10/09/18 16:00 Pulse Ox 98 10/09/18 16:00 Intake & Output 10/07/18 10/08/18 10/09/18 10/10/18 06:59 06:59 06:59 06:59 Intake Total 2540 / 2540 3700 / 3700 1920 / 1920 100 / 100 Output Total 400 / 400 Balance 2140 / 2140 3700 / 3700 1920 / 1920 100 / 100 Weight 82.3 kg 82.9 kg 77.9 kg Narrative: GENERAL: Well-developed, well-nourished, male in no apparent distress SKIN: Warm and dry. HEENT: not pale,anicteric. NECK: No JVD. CARDIOVASCULAR: Regular rate and rhythm. RESPIRATORY: No accessory muscle use. Clear to auscultation. Breath sounds equal bilaterally. GASTROINTESTINAL: Abdomen soft, non-tender, nondistended. no organomegaly. MUSCULOSKELETAL: Extremities without clubbing, cyanosis, or edema. No obvious deformities. NEUROLOGICAL: Awake and alert. No obvious cranial nerve deficits. Motor grossly within normal limits. Generalized weakness moving all 4 extremities normal speech. PSYCHIATRIC: Appropriate mood and affect; insight and judgment normal. Urinary Catheter Management Indwelling Urethral Catheter: Cath placed during this visit: yes, but has since been removed by the nurse Insertion date: 09/25/18 Insertion time: 18:42 Removal date: 09/29/18 Removal time: 22:30 Results Labs CBC & Chem 7: 10/09/18 10:14 10/09/18 04:15 Procedures Procedures: None Assessment and Plan (1) Epidural abscess: Code(s): G06.2 - Extradural and subdural abscess, unspecified Status: Acute (2) Bacteremia: Code(s): R78.81 - Bacteremia Status: Acute (3) History of intravenous drug use in remission: Code(s): Z87.898 - Personal history of other specified conditions Status: Acute (4) Constipation: Code(s): K59.00 - Constipation, unspecified Status: Acute Plan 42-year-old male with a remote history of IV drug use who presents to the emergency department on 09/24/2018 due to a 3-day duration of lower back pain with radiation of pain to the right leg and numbness to the left leg. He had fever at home. MRI shows evidence including fluid collection of possible infectious process. Discussed with NS, IR and ID, no intervention recommended. Found positive bacteremia secondary to MRSA. S/p MAT 09/29, negative for vegetation. 1.Sepsis secondary to MRSA Bacteremia with suspected lumbar epidural abscess blood culture +ve for MRSA on 09/28/18,Blood culture 10/03/18-no growth to date. MAT: No vegetation leucocytosis trending down 20-->8.4 -- continue on IV Daptomycin(Cubicin) -pain control with a bowel regimen. -PT working with pt. 2. Constipation/Hemorrhoids/Weight loss Family history of colon cancer CT with small bowel thickening.with severe constipation -continue bowel regimen. -hydrocortisone suppositories. -s/p EGD:gastritis -Colonoscopy failed again due to solid stools in the left colon. GI recommended to repeat colonoscopy 3.History of IV drug use Patient denies using any IV drugs since he quit 18 months ago. -Counseled patient on IV drug use cessation cessation 4.Dysuria The pt had his Vogel removed and has been straining while urinating. -CT indicative of possible cystitis - UA negative, culture not indicated -monitor signs and symptoms, improving Transaminitis - hepatitis profile--A/B negative, HEP C antibody +ve, can check RNA. -Monitor LFTs. PPx: SCDs Code Status: Full code regular diet. Progress Note: Quality VTE Deep Vein Thrombosis/Pulmonary Embolism Present on Admission: No _ (1) Constipation Qualifiers: Constipation type:
[2018-10-10] MEDS: Morphine Sulfate Inj 2 MG/ML Vial IV.PUSH PRN ×5 (00:34→22:27)
[2018-10-10] MEDS: oxyCODONE/Acetaminophen 10/325 Tablet PO PRN ×4 (06:02→20:21)
[2018-10-10] MEDS: Gabapentin 300 MG Capsule PO SCH ×4 (08:38→22:29)
[2018-10-10] MEDS: Senna/Docusate Sodium 8.6/50 MG Tablet PO SCH ×2 (08:39→20:21)
[2018-10-10] MEDS: Hydrocortisone Acetate 25 MG Supp RECTAL SCH ×2 (08:40→20:21)
[2018-10-10] MEDS: Petrolatum 49%/Zinc Oxide 15% Barrier Oint 120 GM Tube TOPICAL SCH (08:41)
[2018-10-10] MEDS: Ibuprofen 600 MG Tablet PO PRN (08:55)
--- NOTE | 2018-10-10 14:39 | P.PNIM ---
Subjective Interval history: c/o back pain and stiffness. yesterday he walked in the hallway for the first time. Physical Exam Vital signs: Last Vital Signs Temp 98.0 F 10/10/18 12:00 Pulse 129 H 10/10/18 12:00 Resp 16 10/10/18 12:00 BP 135/86 10/10/18 12:00 Pulse Ox 99 10/10/18 12:00 Intake & Output 10/08/18 10/09/18 10/10/18 10/11/18 06:59 06:59 06:59 06:59 Intake Total 3700 / 3700 1920 / 1920 3000 / 3000 Output Total 1200 / 1200 Balance 3700 / 3700 1920 / 1920 1800 / 1800 Weight 82.9 kg 77.9 kg 77.7 kg Narrative: GENERAL: Well-developed, well-nourished, male in no apparent distress SKIN: Warm and dry. HEENT: not pale,anicteric. NECK: No JVD. CARDIOVASCULAR: Regular rate and rhythm. RESPIRATORY: No accessory muscle use. Clear to auscultation. Breath sounds equal bilaterally. GASTROINTESTINAL: Abdomen soft, non-tender, nondistended. no organomegaly. MUSCULOSKELETAL: Extremities without clubbing, cyanosis, or edema. No obvious deformities. NEUROLOGICAL: Awake and alert. No obvious cranial nerve deficits. Motor grossly within normal limits. Generalized weakness moving all 4 extremities normal speech. PSYCHIATRIC: Appropriate mood and affect; insight and judgment normal. Urinary Catheter Management Indwelling Urethral Catheter: Cath placed during this visit: yes, but has since been removed by the nurse Insertion date: 09/25/18 Insertion time: 18:42 Removal date: 09/29/18 Removal time: 22:30 Results Labs CBC & Chem 7: 10/09/18 10:14 10/09/18 04:15 Procedures Procedures: None Assessment and Plan (1) Epidural abscess: Code(s): G06.2 - Extradural and subdural abscess, unspecified Status: Acute (2) Bacteremia: Code(s): R78.81 - Bacteremia Status: Acute (3) History of intravenous drug use in remission: Code(s): Z87.898 - Personal history of other specified conditions Status: Acute (4) Constipation: Code(s): K59.00 - Constipation, unspecified Status: Acute Plan 42-year-old male with a remote history of IV drug use who presents to the emergency department on 09/24/2018 due to a 3-day duration of lower back pain with radiation of pain to the right leg and numbness to the left leg. He had fever at home. MRI shows evidence including fluid collection of possible infectious process. Discussed with NS, IR and ID, no intervention recommended. Found positive bacteremia secondary to MRSA. S/p MAT 09/29, negative for vegetation. 1.Sepsis secondary to MRSA Bacteremia with suspected lumbar epidural abscess blood culture +ve for MRSA on 09/28/18,Blood culture 10/03/18-no growth to date. MAT: No vegetation leucocytosis trending down 20-->8.4 -continue on IV Daptomycin(Cubicin) -pain control with a bowel regimen. Add Flexeril for muscle spasm. -PT working with pt.He ambulated on the hallway yesterday. 2. Constipation/Hemorrhoids/Weight loss Family history of colon cancer CT with small bowel thickening.with severe constipation -continue bowel regimen. -hydrocortisone suppositories. -s/p EGD:gastritis -Colonoscopy failed again due to solid stools in the left colon. GI recommended to repeat colonoscopy 3.History of IV drug use Patient denies using any IV drugs since he quit 18 months ago. -Counseled patient on IV drug use cessation cessation 4.Dysuria The pt had his Vogel removed and has been straining while urinating.--resolved. -CT indicative of possible cystitis - UA negative, culture not indicated -monitor signs and symptoms, improving Transaminitis - hepatitis profile--A/B negative, HEP C antibody +ve, can check RNA. -Monitor LFTs. PPx: SCDs Code Status: Full code regular diet. Progress Note: Quality VTE Deep Vein Thrombosis/Pulmonary Embolism Present on Admission: No _ (1) Constipation Qualifiers: Constipation type:
[2018-10-10] MEDS: DAPTOmycin Inj 650 MG in Sodium Chlor 0.9% Inj 100 ML IV.SIG SCH (16:01)
[2018-10-10] MEDS: Acetaminophen 325 MG Tablet PO PRN (22:31)
[2018-10-11] MEDS: oxyCODONE/Acetaminophen 10/325 Tablet PO PRN ×3 (04:15→13:30)
[2018-10-11] MEDS: Morphine Sulfate Inj 2 MG/ML Vial IV.PUSH PRN ×4 (06:33→20:12)
[2018-10-11] MEDS: Gabapentin 300 MG Capsule PO SCH ×3 (06:34→22:47)
[2018-10-11] MEDS: Senna/Docusate Sodium 8.6/50 MG Tablet PO SCH ×2 (08:45→20:13)
[2018-10-11] MEDS: Petrolatum 49%/Zinc Oxide 15% Barrier Oint 120 GM Tube TOPICAL SCH (08:46)
[2018-10-11] MEDS: Hydrocortisone Acetate 25 MG Supp RECTAL SCH ×2 (08:46→20:13)
--- NOTE | 2018-10-11 13:28 | P.PNIM ---
Subjective Interval history: says his pain has worsened since he walked with PT/OT 2 days ago. Now it increases when he walks. he feels constipated. Physical Exam Vital signs: Last Vital Signs Temp 98.1 F 10/11/18 08:00 Pulse 86 10/11/18 08:00 Resp 16 10/11/18 08:00 BP 116/74 10/11/18 08:00 Pulse Ox 99 10/11/18 08:00 Intake & Output 10/09/18 10/10/18 10/11/18 10/12/18 06:59 06:59 06:59 06:59 Intake Total 1920 / 1920 3000 / 3000 1420 / 1420 Output Total 1200 / 1200 Balance 1920 / 1920 1800 / 1800 1420 / 1420 Weight 77.9 kg 77.7 kg 81.3 kg Narrative: GENERAL: Well-developed, well-nourished, male in no apparent distress SKIN: Warm and dry. HEENT: not pale,anicteric. NECK: No JVD. CARDIOVASCULAR: Regular rate and rhythm. RESPIRATORY: No accessory muscle use. Clear to auscultation. Breath sounds equal bilaterally. GASTROINTESTINAL: Abdomen soft, non-tender, nondistended. no organomegaly. MUSCULOSKELETAL: Extremities without clubbing, cyanosis, or edema. No obvious deformities. NEUROLOGICAL: Awake and alert. No obvious cranial nerve deficits. Motor grossly within normal limits. Generalized weakness moving all 4 extremities normal speech. PSYCHIATRIC: Appropriate mood and affect; insight and judgment normal. Urinary Catheter Management Indwelling Urethral Catheter: Cath placed during this visit: yes, but has since been removed by the nurse Insertion date: 09/25/18 Insertion time: 18:42 Removal date: 09/29/18 Removal time: 22:30 Results Labs CBC & Chem 7: 10/09/18 10:14 10/09/18 04:15 Procedures Procedures: None Assessment and Plan (1) Epidural abscess: Code(s): G06.2 - Extradural and subdural abscess, unspecified Status: Acute (2) Bacteremia: Code(s): R78.81 - Bacteremia Status: Acute (3) History of intravenous drug use in remission: Code(s): Z87.898 - Personal history of other specified conditions Status: Acute (4) Constipation: Code(s): K59.00 - Constipation, unspecified Status: Acute Plan 42-year-old male with a remote history of IV drug use who presents to the emergency department on 09/24/2018 due to a 3-day duration of lower back pain with radiation of pain to the right leg and numbness to the left leg. He had fever at home. MRI shows evidence including fluid collection of possible infectious process. Discussed with NS, IR and ID, no intervention recommended. Found positive bacteremia secondary to MRSA. S/p MAT 09/29, negative for vegetation. 1.Sepsis secondary to MRSA Bacteremia with suspected lumbar epidural abscess blood culture +ve for MRSA on 09/28/18,Blood culture 10/03/18-no growth to date. MAT: No vegetation leucocytosis trending down 20-->8.4 -continue on IV Daptomycin(Cubicin) -pain control currently Percocet 10/325 q4h, IV Morphine increased to 4mg for breakthrough pain -- with a bowel regimen. -continue Flexeril for muscle spasm. -ordered LSO brace. -PT working with pt. 2. Constipation/Hemorrhoids/Weight loss Family history of colon cancer CT with small bowel thickening.with severe constipation -continue bowel regimen. -hydrocortisone suppositories. -s/p EGD:gastritis -Colonoscopy failed again due to solid stools in the left colon. GI recommended to repeat colonoscopy 3.History of IV drug use Patient denies using any IV drugs since he quit 18 months ago. -Counseled patient on IV drug use cessation cessation 4.Dysuria The pt had his Vogel removed and has been straining while urinating.--resolved. -CT indicative of possible cystitis - UA negative, culture not indicated -monitor signs and symptoms, improving Transaminitis - hepatitis profile--A/B negative, HEP C antibody +ve, can check RNA. -Monitor LFTs. PPx: SCDs Code Status: Full code regular diet. Progress Note: Quality VTE Deep Vein Thrombosis/Pulmonary Embolism Present on Admission: No _ (1) Constipation Qualifiers: Constipation type:
[2018-10-11] MEDS: oxyCODONE/Acetaminophen 10/325 Tablet PO SCH ×3 (13:45→22:47)
[2018-10-11] MEDS: DAPTOmycin Inj 650 MG in Sodium Chlor 0.9% Inj 100 ML IV.SIG SCH (16:05)
[2018-10-11] MEDS: Ibuprofen 600 MG Tablet PO PRN (22:46)
[2018-10-12] MEDS: Morphine Sulfate Inj 2 MG/ML Vial IV.PUSH PRN ×6 (00:39→23:55)
[2018-10-12] MEDS: oxyCODONE/Acetaminophen 10/325 Tablet PO SCH ×6 (02:51→22:23)
[2018-10-12] MEDS: Gabapentin 300 MG Capsule PO SCH ×3 (06:51→22:25)
[2018-10-12] MEDS: Senna/Docusate Sodium 8.6/50 MG Tablet PO SCH ×2 (09:32→22:24)
[2018-10-12] MEDS: Petrolatum 49%/Zinc Oxide 15% Barrier Oint 120 GM Tube TOPICAL SCH (09:32)
[2018-10-12] MEDS: Hydrocortisone Acetate 25 MG Supp RECTAL SCH ×2 (09:32→22:24)
--- NOTE | 2018-10-12 15:36 | P.PNIM ---
Physical Exam Vital signs: Last Vital Signs Temp 97.8 F 10/12/18 12:00 Pulse 106 H 10/12/18 12:00 Resp 16 10/12/18 12:00 BP 118/71 10/12/18 12:00 Pulse Ox 99 10/12/18 12:00 Intake & Output 10/10/18 10/11/18 10/12/18 10/13/18 06:59 06:59 06:59 06:59 Intake Total 3000 / 3000 1420 / 1420 1440 / 1440 Output Total 1200 / 1200 1500 / 1500 Balance 1800 / 1800 1420 / 1420 -60 / -60 Weight 77.7 kg 81.3 kg 81.8 kg Narrative: GENERAL: Well-developed, well-nourished, male in no apparent distress SKIN: Warm and dry. HEENT: not pale,anicteric. NECK: No JVD. CARDIOVASCULAR: Regular rate and rhythm. RESPIRATORY: No accessory muscle use. Clear to auscultation. Breath sounds equal bilaterally. GASTROINTESTINAL: Abdomen soft, non-tender, nondistended. no organomegaly. MUSCULOSKELETAL: Extremities without clubbing, cyanosis, or edema. No obvious deformities. NEUROLOGICAL: Awake and alert. No obvious cranial nerve deficits. Motor grossly within normal limits. Generalized weakness moving all 4 extremities normal speech. PSYCHIATRIC: Appropriate mood and affect; insight and judgment normal. Urinary Catheter Management Indwelling Urethral Catheter: Cath placed during this visit: yes, but has since been removed by the nurse Insertion date: 09/25/18 Insertion time: 18:42 Removal date: 09/29/18 Removal time: 22:30 Results Labs CBC & Chem 7: 10/09/18 10:14 10/09/18 04:15 Procedures Procedures: None Assessment and Plan (1) Epidural abscess: Code(s): G06.2 - Extradural and subdural abscess, unspecified Status: Acute (2) Bacteremia: Code(s): R78.81 - Bacteremia Status: Acute (3) History of intravenous drug use in remission: Code(s): Z87.898 - Personal history of other specified conditions Status: Acute (4) Constipation: Code(s): K59.00 - Constipation, unspecified Status: Acute Plan 42-year-old male with a remote history of IV drug use who presents to the emergency department on 09/24/2018 due to a 3-day duration of lower back pain with radiation of pain to the right leg and numbness to the left leg. He had fever at home. MRI shows evidence including fluid collection of possible infectious process. Discussed with NS, IR and ID, no intervention recommended. Found positive bacteremia secondary to MRSA. S/p MAT 09/29, negative for vegetation. 1.Sepsis secondary to MRSA Bacteremia with suspected lumbar epidural abscess blood culture +ve for MRSA on 09/28/18,Blood culture 10/03/18-no growth to date. MAT: No vegetation leucocytosis trending down 20-->8.4 -continue on IV Daptomycin(Cubicin) -pain control currently Percocet 10/325 q4h, IV Morphine increased to 4mg for breakthrough pain -- with a bowel regimen. -continue Flexeril for muscle spasm. -ordered LSO brace. -PT working with pt. 2. Constipation/Hemorrhoids/Weight loss Family history of colon cancer CT with small bowel thickening.with severe constipation -continue bowel regimen. -hydrocortisone suppositories. -s/p EGD:gastritis -Colonoscopy failed again due to solid stools in the left colon. GI recommended to repeat colonoscopy 3.History of IV drug use Patient denies using any IV drugs since he quit 18 months ago. -Counseled patient on IV drug use cessation cessation 4.Dysuria The pt had his Vogel removed and has been straining while urinating.--resolved. -CT indicative of possible cystitis - UA negative, culture not indicated -monitor signs and symptoms, improving Transaminitis - hepatitis profile--A/B negative, HEP C antibody +ve, can check RNA. -Monitor LFTs. PPx: SCDs Code Status: Full code regular diet. Progress Note: Quality VTE Deep Vein Thrombosis/Pulmonary Embolism Present on Admission: No _ (1) Constipation Qualifiers: Constipation type:
[2018-10-12] MEDS: DAPTOmycin Inj 650 MG in Sodium Chlor 0.9% Inj 100 ML IV.SIG SCH (16:27)
[2018-10-12] MEDS: Ibuprofen 600 MG Tablet PO PRN (23:54)
[2018-10-13] MEDS: oxyCODONE/Acetaminophen 10/325 Tablet PO SCH ×6 (02:01→22:25)
[2018-10-13] MEDS: Morphine Sulfate Inj 2 MG/ML Vial IV.PUSH PRN ×5 (04:10→20:36)
[2018-10-13] MEDS: Gabapentin 300 MG Capsule PO SCH ×3 (06:19→22:25)
[2018-10-13] MEDS: Senna/Docusate Sodium 8.6/50 MG Tablet PO SCH ×2 (08:04→20:35)
[2018-10-13] MEDS: Hydrocortisone Acetate 25 MG Supp RECTAL SCH ×2 (08:05→20:35)
[2018-10-13] MEDS: Petrolatum 49%/Zinc Oxide 15% Barrier Oint 120 GM Tube TOPICAL SCH (08:06)
[2018-10-13] MEDS: DAPTOmycin Inj 650 MG in Sodium Chlor 0.9% Inj 100 ML IV.SIG SCH (15:29)
--- NOTE | 2018-10-13 19:02 | P.PNIM ---
Subjective Interval history: Patient laying down in bed. He complains of some lower back pain. Otherwise no other complaints. Physical Exam Vital signs: Vital Signs 10/12/18 20:00 10/13/18 00:00 10/13/18 04:00 Temperature 98.2 F 98.5 F 97.4 F L Pulse Rate 106 H 109 H 83 Respiratory Rate 18 18 18 Blood Pressure 109/63 117/64 103/64 Pulse Oximetry 97 98 98 10/13/18 08:00 10/13/18 12:00 Temperature 97.4 F L 97.8 F Pulse Rate 77 100 H Respiratory Rate 16 16 Blood Pressure 111/61 110/61 Pulse Oximetry 96 97 Intake & Output 10/12/18 10/13/18 10/13/18 18:59 06:59 18:59 Intake Total 1060 / 1060 0 / 0 100 / 100 Output Total 600 / 600 Balance 460 / 460 0 / 0 100 / 100 Weight 82 kg Intake: IV 100 / 100 100 / 100 Cubicin Inj 650 MG In NS Inj 100 / 100 100 / 100 100 ML @ 200 mls/hr IV.SIG Q24H [facility] Rx#:[id number] Oral 960 / 960 0 / 0 Output: Urine 600 / 600 Other: # Voids 4 # Bowel Movements 0 0 Narrative: General patient complains of lower back pain. HEENT extraocular movements are intact, clear oropharyngeal mucosa, no JVD Cardiovascular S1-S2 audible, RRR, no murmurs rubs or gallops Respiratory clear to auscultation bilaterally Abdomen soft, nontender, nondistended, normal bowel sounds Extremities no edema. Neuro cranial nerves II through XII intact - Urinary Catheter Management Indwelling Urethral Catheter Cath placed during this visit: yes, but has since been removed by the nurse Reason for continuing: Acute urinary retention Insertion date: 09/25/18 Insertion time: 18:42 Removal date: 09/29/18 Removal time: 22:30 Results - Labs CBC & Chem 7: 10/09/18 10:14 10/09/18 04:15 - Procedures None Assessment and Plan - Assessment (1) Epidural abscess Code(s): G06.2 - Extradural and subdural abscess, unspecified Status: Acute (2) Bacteremia Code(s): R78.81 - Bacteremia Status: Acute (3) History of intravenous drug use in remission Code(s): Z87.898 - Personal history of other specified conditions Status: Acute (4) Constipation Code(s): K59.00 - Constipation, unspecified Status: Acute - Plan This patient is a 42-year-old male with a history of IV drug use who presented to the emergency department on 09/24/2018 due to a 3-day duration of lower back pain with radiation to the right lower extremity and numbness of the left leg. He was found to be febrile during the hospitalization. MRI of the spine showed fluid collection in the lumbar spine. Patient was also found to have MRSA bacteremia. MAT on 09/29/2018 was done which did not show any evidence of vegetations. 1. Sepsis secondary to MRSA bacteremia with suspected lumbar epidural abscess. Patient was febrile on admission. Blood cultures positive for MRSA. MAT showed no vegetation. Infectious disease following the patient. Neurosurgery, interventional radiology did not recommend any surgical intervention. Patient is on IV daptomycin. Continue pain control with Percocet, IV morphine for breakthrough pain. Flexeril for muscle spasm. Continue physical therapy. We will follow up the recommendations from infectious disease. 2. History of IV drug use Patient denies any recent history of IV drug use. Patient was counseled on the dangers of IV drug use. 3. Constipation/hemorrhoids/weight loss Patient with family history significant for colon cancer Status post EGD which showed gastritis. Colonoscopy was failed due to poor prep and stool in the left colon. GI recommended repeat colonoscopy. DVT prophylaxis, patient is currently on SCDs. Patient is ambulatory.
[2018-10-14] MEDS: Morphine Sulfate Inj 2 MG/ML Vial IV.PUSH PRN ×5 (01:09→21:44)
[2018-10-14] MEDS: oxyCODONE/Acetaminophen 10/325 Tablet PO SCH ×6 (02:13→23:56)
[2018-10-14] MEDS: Gabapentin 300 MG Capsule PO SCH ×3 (06:21→22:50)
[2018-10-14] MEDS: Hydrocortisone Acetate 25 MG Supp RECTAL SCH ×2 (08:29→21:48)
[2018-10-14] MEDS: Senna/Docusate Sodium 8.6/50 MG Tablet PO SCH ×2 (08:29→21:48)
[2018-10-14] MEDS: Petrolatum 49%/Zinc Oxide 15% Barrier Oint 120 GM Tube TOPICAL SCH (08:33)
--- NOTE | 2018-10-14 11:27 | P.PNIM ---
Subjective Interval history: Patient complains of lower back pain. Otherwise he does not have any other complaints. Physical Exam Vital signs: Vital Signs 10/13/18 12:00 10/13/18 16:00 10/13/18 20:00 Temperature 97.8 F 98.2 F 98 F Pulse Rate 100 H 97 H 125 H Respiratory Rate 16 18 19 Blood Pressure 110/61 125/75 136/79 Pulse Oximetry 97 97 97 10/14/18 00:00 10/14/18 04:00 10/14/18 08:00 Temperature 99.4 F 98.4 F 97.8 F Pulse Rate 112 H 110 H 93 H Respiratory Rate 18 19 14 Blood Pressure 123/64 122/58 L 112/62 Pulse Oximetry 96 94 L 94 L Intake & Output 10/13/18 10/14/18 10/14/18 18:59 06:59 18:59 Intake Total 1060 / 1060 600 / 600 Balance 1060 / 1060 600 / 600 Weight 80.3 kg Intake: IV 100 / 100 Cubicin Inj 650 MG In NS Inj 100 / 100 100 ML @ 200 mls/hr IV.SIG Q24H [facility] Rx#:[id number] Oral 960 / 960 600 / 600 Other: # Voids 4 # Urine Diapers 7 # Bowel Movements 0 Narrative: General patient complains of lower back pain on and off throughout the day. HEENT extraocular movements are intact, clear oropharyngeal mucosa, no JVD Cardiovascular S1-S2 audible, RRR, no murmurs rubs or gallops Respiratory clear to auscultation bilaterally Abdomen soft, nontender, nondistended, normal bowel sounds Extremities no edema. Neuro cranial nerves II through XII intact - Urinary Catheter Management Indwelling Urethral Catheter Cath placed during this visit: yes, but has since been removed by the nurse Reason for continuing: Acute urinary retention Insertion date: 09/25/18 Insertion time: 18:42 Removal date: 09/29/18 Removal time: 22:30 Results - Labs CBC & Chem 7: 10/09/18 10:14 10/09/18 04:15 - Procedures None Assessment and Plan - Assessment (1) Epidural abscess Code(s): G06.2 - Extradural and subdural abscess, unspecified Status: Acute (2) Bacteremia Code(s): R78.81 - Bacteremia Status: Acute (3) History of intravenous drug use in remission Code(s): Z87.898 - Personal history of other specified conditions Status: Acute (4) Constipation Code(s): K59.00 - Constipation, unspecified Status: Acute - Plan This patient is a 42-year-old male with a history of IV drug use who presented to the emergency department on 09/24/2018 due to a 3-day duration of lower back pain with radiation to the right lower extremity and numbness of the left leg. He was found to be febrile during the hospitalization. MRI of the spine showed fluid collection in the lumbar spine. Patient was also found to have MRSA bacteremia. MAT on 09/29/2018 was done which did not show any evidence of vegetations. 1. Sepsis secondary to MRSA bacteremia with suspected lumbar epidural abscess. No change in the patient's current care of plan. Continue IV daptomycin. Patient afebrile overnight. Blood cultures positive for MRSA. MAT showed no vegetation. Infectious disease following the patient. Neurosurgery, interventional radiology did not recommend any surgical intervention. Patient is on IV daptomycin. Continue pain control with Percocet, IV morphine for breakthrough pain. Flexeril for muscle spasm. Continue physical therapy. We will follow up the recommendations from infectious disease. 2. History of IV drug use Patient denies any recent history of IV drug use. Patient was counseled on the dangers of IV drug use. 3. Constipation/hemorrhoids/weight loss Patient with family history significant for colon cancer Status post EGD which showed gastritis. Colonoscopy was failed due to poor prep and stool in the left colon. GI recommended repeat colonoscopy. DVT prophylaxis, patient is currently on SCDs. Patient is ambulatory.
[2018-10-14] MEDS: DAPTOmycin Inj 650 MG in Sodium Chlor 0.9% Inj 100 ML IV.SIG SCH (15:37)
[2018-10-15] MEDS: oxyCODONE/Acetaminophen 10/325 Tablet PO SCH ×6 (03:47→22:26)
[2018-10-15] MEDS: Morphine Sulfate Inj 2 MG/ML Vial IV.PUSH PRN ×3 (05:28→19:52)
[2018-10-15] MEDS: Gabapentin 300 MG Capsule PO SCH ×3 (06:55→22:26)
[2018-10-15] MEDS: Hydrocortisone Acetate 25 MG Supp RECTAL SCH ×2 (09:57→20:00)
[2018-10-15] MEDS: Senna/Docusate Sodium 8.6/50 MG Tablet PO SCH ×2 (09:57→20:00)
[2018-10-15] MEDS: Petrolatum 49%/Zinc Oxide 15% Barrier Oint 120 GM Tube TOPICAL SCH (09:58)
--- NOTE | 2018-10-15 15:52 | P.PNIM ---
Subjective Interval history: Patient complains of lower back pain. He says the pain is well tolerated with current pain medication regimen. Physical Exam Vital signs: Vital Signs 10/14/18 16:00 10/14/18 20:00 10/15/18 00:00 Temperature 98.2 F 99.5 F 98.6 F Pulse Rate 113 H 120 H 109 H Respiratory Rate 20 17 18 Blood Pressure 134/82 131/77 111/65 Pulse Oximetry 97 98 95 10/15/18 04:00 10/15/18 08:00 Temperature 98.2 F 98 F Pulse Rate 98 H 96 H Respiratory Rate 19 16 Blood Pressure 111/70 102/67 Pulse Oximetry 98 95 Intake & Output 10/14/18 10/15/18 10/15/18 18:59 06:59 18:59 Intake Total 100 / 100 620 / 620 Output Total 1000 / 1000 Balance 100 / 100 -380 / -380 Weight 81.1 kg Intake: IV 100 / 100 Cubicin Inj 650 MG In NS Inj 100 / 100 100 ML @ 200 mls/hr IV.SIG Q24H [facility] Rx#:[id number] Oral 620 / 620 Output: Urine 1000 / 1000 Other: # Voids 2 Narrative: General patient complains of lower back pain on and off throughout the day. Pain is well controlled with current pain medication regimen. HEENT extraocular movements are intact, clear oropharyngeal mucosa, no JVD Cardiovascular S1-S2 audible, RRR, no murmurs rubs or gallops Respiratory clear to auscultation bilaterally Abdomen soft, nontender, nondistended, normal bowel sounds Extremities no edema. Neuro cranial nerves II through XII intact - Urinary Catheter Management Indwelling Urethral Catheter Cath placed during this visit: yes, but has since been removed by the nurse Reason for continuing: Acute urinary retention Insertion date: 09/25/18 Insertion time: 18:42 Removal date: 09/29/18 Removal time: 22:30 Results - Labs CBC & Chem 7: 10/09/18 10:14 10/09/18 04:15 - Procedures None Assessment and Plan - Assessment (1) Epidural abscess Code(s): G06.2 - Extradural and subdural abscess, unspecified Status: Acute (2) Bacteremia Code(s): R78.81 - Bacteremia Status: Acute (3) History of intravenous drug use in remission Code(s): Z87.898 - Personal history of other specified conditions Status: Acute (4) Constipation Code(s): K59.00 - Constipation, unspecified Status: Acute - Plan This patient is a 42-year-old male with a history of IV drug use who presented to the emergency department on 09/24/2018 due to a 3-day duration of lower back pain with radiation to the right lower extremity and numbness of the left leg. He was found to be febrile during the hospitalization. MRI of the spine showed fluid collection in the lumbar spine. Patient was also found to have MRSA bacteremia. MAT on 09/29/2018 was done which did not show any evidence of vegetations. 1. Sepsis secondary to MRSA bacteremia with suspected lumbar epidural abscess. No change in the patient's current care of plan. Continue IV daptomycin. CPK ordered. We will follow-up with infectious disease regarding the recommendations. Patient afebrile overnight. Blood cultures positive for MRSA. MAT showed no vegetation. Neurosurgery, interventional radiology did not recommend any surgical intervention. Patient is on IV daptomycin. Continue pain control with Percocet, IV morphine for breakthrough pain. Flexeril for muscle spasm. Continue physical therapy. We will follow up the recommendations from infectious disease. 2. History of IV drug use Patient denies any recent history of IV drug use. Patient was counseled on the dangers of IV drug use. 3. Constipation/hemorrhoids/weight loss Patient with family history significant for colon cancer Status post EGD which showed gastritis. Colonoscopy was failed due to poor prep and stool in the left colon. GI recommended repeat colonoscopy. DVT prophylaxis, patient is currently on SCDs. Patient is ambulatory.
[2018-10-15] MEDS: DAPTOmycin Inj 650 MG in Sodium Chlor 0.9% Inj 100 ML IV.SIG SCH (17:07)
[2018-10-16] MEDS: oxyCODONE/Acetaminophen 10/325 Tablet PO SCH ×6 (02:40→21:14)
[2018-10-16] MEDS: Morphine Sulfate Inj 2 MG/ML Vial IV.PUSH PRN ×3 (04:07→19:53)
[2018-10-16] MEDS: Gabapentin 300 MG Capsule PO SCH ×3 (06:26→23:09)
[2018-10-16] MEDS: Petrolatum 49%/Zinc Oxide 15% Barrier Oint 120 GM Tube TOPICAL SCH (08:44)
[2018-10-16] MEDS: Hydrocortisone Acetate 25 MG Supp RECTAL SCH ×2 (08:44→23:04)
[2018-10-16] MEDS: Senna/Docusate Sodium 8.6/50 MG Tablet PO SCH ×2 (08:44→23:04)
--- NOTE | 2018-10-16 15:32 | P.PNIM ---
Subjective Interval history: Patient complains of lower back pain. He says he is now having difficulty with ambulating. Physical Exam Vital signs: Vital Signs 10/15/18 16:00 10/15/18 20:00 10/16/18 00:00 Temperature 99.8 F H 98.1 F 98.6 F Pulse Rate 114 H 113 H 102 H Respiratory Rate 18 18 18 Blood Pressure 103/56 L 125/78 117/69 Pulse Oximetry 97 97 97 10/16/18 04:00 10/16/18 08:00 10/16/18 12:00 Temperature 98.4 F 97.7 F 98.1 F Pulse Rate 110 H 93 H 103 H Respiratory Rate 17 16 17 Blood Pressure 118/72 102/72 107/75 Pulse Oximetry 98 97 98 Intake & Output 10/15/18 10/16/18 10/16/18 18:59 06:59 18:59 Intake Total 820 / 820 960 / 960 Output Total 1400 / 1400 Balance 820 / 820 -440 / -440 Weight 83 kg Intake: IV 100 / 100 Cubicin Inj 650 MG In NS Inj 100 / 100 100 ML @ 200 mls/hr IV.SIG Q24H [facility] Rx#:[id number] Oral 720 / 720 960 / 960 Output: Urine 1400 / 1400 Other: # Voids 3 # Bowel Movements 0 Narrative: General patient complains of lower back pain on and off throughout the day. Pain is well controlled with current pain medication regimen. HEENT extraocular movements are intact, clear oropharyngeal mucosa, no JVD Cardiovascular S1-S2 audible, RRR, no murmurs rubs or gallops Respiratory clear to auscultation bilaterally Abdomen soft, nontender, nondistended, normal bowel sounds Extremities no edema. Neuro cranial nerves II through XII intact - Urinary Catheter Management Indwelling Urethral Catheter Cath placed during this visit: yes, but has since been removed by the nurse Reason for continuing: Acute urinary retention Insertion date: 09/25/18 Insertion time: 18:42 Removal date: 09/29/18 Removal time: 22:30 Results - Labs CBC & Chem 7: 10/09/18 10:14 10/09/18 04:15 Laboratory Results - last 24 hr 10/15/18 16:36 Total Creatine Kinase 35 L - Procedures None Assessment and Plan - Assessment (1) Epidural abscess Code(s): G06.2 - Extradural and subdural abscess, unspecified Status: Acute (2) Bacteremia Code(s): R78.81 - Bacteremia Status: Acute (3) History of intravenous drug use in remission Code(s): Z87.898 - Personal history of other specified conditions Status: Acute (4) Constipation Code(s): K59.00 - Constipation, unspecified Status: Acute - Plan This patient is a 42-year-old male with a history of IV drug use who presented to the emergency department on 09/24/2018 due to a 3-day duration of lower back pain with radiation to the right lower extremity and numbness of the left leg. He was found to be febrile during the hospitalization. MRI of the spine showed fluid collection in the lumbar spine. Patient was also found to have MRSA bacteremia. MAT on 09/29/2018 was done which did not show any evidence of vegetations. 1. Sepsis secondary to MRSA bacteremia 09/28/18 with suspected lumbar epidural abscess. Afebrile overnight. Patient complains of lower back pain and is now having difficulty ambulating due to the pain. He says he still has some shooting pains going down to his lower extremities. No bladder or stool incontinence. Will have neurosurgery and infectious disease reevaluate the patient. Continue IV daptomycin. We will follow-up with the recommendations. Patient afebrile overnight. Blood cultures positive for MRSA. MAT showed no vegetation. Neurosurgery, interventional radiology did not recommend any surgical intervention. Patient is on IV daptomycin. Continue pain control with Percocet, IV morphine for breakthrough pain. Flexeril for muscle spasm. Continue physical therapy. We will follow up the recommendations from infectious disease. 2. History of IV drug use Patient denies any recent history of IV drug use. Patient was counseled on the dangers of IV drug use. 3. Constipation/hemorrhoids/weight loss Patient with family history significant for colon cancer Status post EGD which showed gastritis. Colonoscopy was failed due to poor prep and stool in the left colon. GI recommended repeat colonoscopy. DVT prophylaxis, patient is currently on SCDs. Patient is ambulatory.
[2018-10-16] MEDS: Sod Chloride 0.9% Inj 1,000 ML IV.CONT SCH (16:15)
[2018-10-16] MEDS: DAPTOmycin Inj 650 MG in Sodium Chlor 0.9% Inj 100 ML IV.SIG SCH (16:15)
--- NOTE | 2018-10-16 18:49 | P.CONNS ---
History of Present Illness Service: Neurosurgery Consult date: 10/16/18 Requesting Physician: Anu Coates Reason for Consult: Low back pain, epidural abscess Primary Care Provider: No Primary Care Physician Chief Complaint: Lower back pain History of Present Illness: Re-evaluate for low back pain I was asked by Dr. Coates to see and evaluate this pleasant 42-year-old male with a remote history of IV drug use who presents to the emergency department on 09/24/2018 due to low back pain with radiation to the right leg and numbness to the left leg. His pain started on 09/21/2018 . He had subjective fever and took Tylenol 2 controlled fever. He denies any changes in bowel or bladder habits. He used to do IV drug use (Dilaudid) but quit about 18 months ago. The patient has been ambulatory but describes numbness down his legs. Working with PT but painful. He has been followed by my partner Dr. Jose Henderson in Neurosurgical consultation until 10/04/18. Repeat MRI on 10/02, showed spinal stenosis L4/5/S1 with increased enhancement of the epidural abscess as well as a component in the paraspinal muscles when compared to L-spine MRI of 09/24.He has been on Daptomycin with pain well- controlled until today. As such, we have been re-consulted to worsening LBP with radicular symptoms. Review of Systems All other systems reviewed negative except as stated in HPI PMFSH - History History Provided By: Patient - Medical History Medical History: Medical History (Last Reviewed 10/09/18 @ 08:29 by [employer]) History of MRSA infection Onset Date: ~09/24/18 Male circumcision Patient denies medical problems - Tobacco History Second Hand Smoke Exposure: Yes Tobacco Use In Past 30 Days: Yes Smoking Status: Current every day smoker Tobacco Type: Cigarettes - Alcohol History How Often Do You Have a Drink Containing Alcohol: 2 to 3 times a week - Substance Use History Substance History: Active Abuse - Substance Use Type Other Type: Dilaudid Status: Sustained Remission Route Used: By Mouth Reason for Use: Calm Down - Travel History Recent Travel in the [place] Within the Last 8 Weeks: No Recent Travel Out of the Country Within the Last 8 Weeks: No - Immunization History Tetanus Immunization: Unsure Hx Influenza Vaccine This Season: No Medications and Allergies Active Medications: Active Medications Acetaminophen (Tylenol) 650 mg PO Q4H PRN PRN Reason: Headache, fever, pain 1-4 Last Admin: 10/10/18 22:31 Dose: 650 mg Al Hydroxide/Mg Hydroxide (Milk Of Magnesia Liq) 30 ml PO Q12H PRN PRN Reason: Mild Constipation Last Admin: 10/11/18 10:55 Dose: 30 ml Bisacodyl (Dulcolax Supp) 10 mg RECTAL DAILY PRN PRN Reason: SEVERE CONSITIPATION Last Admin: 09/26/18 11:40 Dose: 10 mg Cyclobenzaprine HCl (Flexeril) 10 mg PO Q8HR [facility] Last Admin: 10/16/18 14:17 Dose: 10 mg Gabapentin (Neurontin) 300 mg PO Q8H [facility] Last Admin: 10/16/18 14:20 Dose: 300 mg Hydrocortisone Acetate (Hemorrhoidal Hc Supp) 25 mg RECTAL BID [facility] Last Admin: 10/16/18 08:44 Dose: 25 mg Daptomycin 650 mg/ Sodium (Chloride) 100 mls @ 200 mls/hr IV.SIG Q24H [facility] Last Admin: 10/16/18 16:15 Dose: 200 mls/hr Sodium Chloride (Ns Inj) 1,000 mls @ 100 mls/hr IV.CONT .Q10H [facility] Last Admin: 10/16/18 16:15 Dose: 100 mls/hr Ibuprofen (Motrin) 600 mg PO Q8H PRN PRN Reason: Acute Pain Last Admin: 10/12/18 23:54 Dose: 600 mg Lactulose (Lactulose Liq) 30 ml PO DAILY PRN PRN Reason: SEVERE CONSITIPATION Last Admin: 10/10/18 22:29 Dose: 30 ml Miscellaneous (Pill Splitter) 1 each OTHER [facility] Morphine Sulfate (Morphine Inj) 4 mg IV.PUSH Q6H PRN PRN Reason: BREAKTHROUGH PAIN Last Admin: 10/16/18 12:05 Dose: 4 mg Ondansetron HCl (Zofran Inj) 4 mg IV.PUSH Q6H PRN PRN Reason: NAUSEA OR VOMITING Oxycodone/Acetaminophen (Percocet 10/325 Mg) 1 tab PO Q4H [facility] Last Admin: 10/16/18 17:52 Dose: 1 tab Petrolatum/Zinc Oxide (Sensi-Care Protective Barrier Oint) 1 applicatio TOPICAL DAILY [facility] Last Admin: 10/16/18 08:44 Dose: Not Given Senna/Docusate Sodium (Jacqui-Colace) 2 tab PO BID [facility] Last Admin: 10/16/18 08:44 Dose: 2 tab Sennosides (Senokot) 17.2 mg PO Q12H PRN PRN Reason: Moderate Constipation Allergies Allergy/AdvReac Type Severity Reaction Status Date / Time penicillin G Allergy Mild Rash, Verified 09/24/18 11:50 Localized Home Medications Medication Instructions Recorded Confirmed Type No Known Home Medications 09/24/18 09/24/18 History Exam Vital signs: Vital Signs 10/15/18 20:00 10/16/18 00:00 10/16/18 04:00 Temperature 98.1 F 98.6 F 98.4 F Pulse Rate 113 H 102 H 110 H Respiratory Rate 18 18 17 Blood Pressure 125/78 117/69 118/72 Pulse Oximetry 97 97 98 10/16/18 08:00 10/16/18 12:00 10/16/18 16:00 Temperature 97.7 F 98.1 F 99.2 F Pulse Rate 93 H 103 H 105 H Respiratory Rate 16 17 17 Blood Pressure 102/72 107/75 125/73 Pulse Oximetry 97 98 96 Intake & Output 10/15/18 10/16/18 10/16/18 18:59 06:59 18:59 Intake Total 820 / 820 960 / 960 Output Total 1400 / 1400 Balance 820 / 820 -440 / -440 Weight 83 kg Intake: IV 100 / 100 Cubicin Inj 650 MG In NS Inj 100 / 100 100 ML @ 200 mls/hr IV.SIG Q24H [facility] Rx#:[id number] Oral 720 / 720 960 / 960 Output: Urine 1400 / 1400 Other: # Voids 3 # Bowel Movements 0 - Constitutional no acute distress, thin, cooperative - Routine HEENT Exam Head: Present: normocephalic, atraumatic Eye: Present: EOMI, PERRL, normal accommodation ENT: Present: mucous membranes moist, oropharynx clear - Routine Neck Exam Present: supple, full ROM, trachea midline - Routine Respiratory Exam Present: CTA bilaterally - Routine Cardiovascular Exam Present: RRR - Routine Abdominal Exam Present: soft, normoactive bowel sounds - Routine Extremities Exam Comments: Negative clubbing, cyanosis or edema - Routine Neurological Exam MS: AAOx3 Speech: fluent CNII-XII intact Motor: 5/5, R=L, negative drift Sensory: decreased LT, decreased PP along left 4/5distribution Cerebellum: WNL Gait:Not tested DTR's 2+ bilateral and symmetric + SLR on the left to 20 degrees - Routine Psychiatric Exam Present: normal affect, cooperative, good judgment Results - Laboratory Findings CBC and BMP: 10/09/18 10:14 10/09/18 04:15 Abnormal lab findings: Abnormal Labs 09/24/18 09/24/18 09/24/18 12:00 12:00 12:00 WBC 23.9 H RBC Hgb Hct Plt Count MPV Neut % (Auto) 91.9 H Lymph % (Auto) 4.3 L Orange % (Auto) Neut # (Auto) 22.0 H Orange # (Auto) Seg Neuts % (Manual) Band Neuts % (Manual) Lymphocytes % (Manual) Monocytes % (Manual) Metamyelocytes % (Man) Myelocytes % (Man) Abs Neuts (Manual) Toxic Granulation Toxic Vacuolation Platelet Estimate ESR Sodium 132 L Chloride 97 L BUN Estimated GFR 82 L Random Glucose 183 H Calcium 8.2 L AST ALT Alkaline Phosphatase Total Creatine Kinase C-Reactive Protein Total Protein Albumin Urine Glucose (UA) 150 H Amorphous Sediment Urine Mucus Few H Vancomycin Trough Hep C IgG Ab 09/25/18 09/25/18 09/26/18 08:29 08:29 03:29 WBC 25.4 H RBC Hgb Hct Plt Count MPV Neut % (Auto) 88.8 H Lymph % (Auto) 4.3 L Orange % (Auto) Neut # (Auto) 22.5 H Orange # (Auto) 1.6 H Seg Neuts % (Manual) Band Neuts % (Manual) 22 H Lymphocytes % (Manual) 6 L Monocytes % (Manual) Metamyelocytes % (Man) Myelocytes % (Man) Abs Neuts (Manual) 23.1 H Toxic Granulation 2+ H Toxic Vacuolation Platelet Estimate ESR Sodium 131 L Chloride 97 L BUN Estimated GFR 81 L Random Glucose 122 H Calcium 8.4 L AST ALT Alkaline Phosphatase Total Creatine Kinase C-Reactive Protein 24.40 H Total Protein Albumin Urine Glucose (UA) Amorphous Sediment Urine Mucus Vancomycin Trough 4.1 L Hep C IgG Ab 09/26/18 09/28/18 09/28/18 03:29 04:18 06:45 WBC RBC Hgb Hct Plt Count MPV Neut % (Auto) Lymph % (Auto) Orange % (Auto) Neut # (Auto) Orange # (Auto) Seg Neuts % (Manual) Band Neuts % (Manual) Lymphocytes % (Manual) Monocytes % (Manual) Metamyelocytes % (Man) Myelocytes % (Man) Abs Neuts (Manual) Toxic Granulation Toxic Vacuolation Platelet Estimate ESR 85 H Sodium 134 L Chloride BUN Estimated GFR Random Glucose 109 H Calcium 7.9 L AST ALT Alkaline Phosphatase Total Creatine Kinase C-Reactive Protein Total Protein Albumin Urine Glucose (UA) Amorphous Sediment Urine Mucus Vancomycin Trough 4.4 L Hep C IgG Ab 09/28/18 09/30/18 09/30/18 14:57 07:39 07:39 WBC 27.1 H RBC 4.17 L Hgb 12.1 L Hct 36.4 L Plt Count MPV Neut % (Auto) 81.7 H Lymph % (Auto) Orange % (Auto) Neut # (Auto) 22.1 H Orange # (Auto) 2.0 H Seg Neuts % (Manual) Band Neuts % (Manual) 11 H Lymphocytes % (Manual) Monocytes % (Manual) 9 H Metamyelocytes % (Man) 3 H Myelocytes % (Man) 4 H Abs Neuts (Manual) 20.6 H Toxic Granulation 1+ H Toxic Vacuolation Present H Platelet Estimate ESR Sodium 130 L Chloride 96 L BUN Estimated GFR Random Glucose 112 H Calcium 8.0 L AST ALT Alkaline Phosphatase Total Creatine Kinase 32 L C-Reactive Protein Total Protein Albumin Urine Glucose (UA) Amorphous Sediment Urine Mucus Vancomycin Trough Hep C IgG Ab 09/30/18 10/03/18 10/03/18 14:40 10:05 10:05 WBC 20.0 H RBC Hgb Hct Plt Count 468 H D MPV 6.8 L Neut % (Auto) 77.7 H Lymph % (Auto) Orange % (Auto) Neut # (Auto) 15.5 H Orange # (Auto) 1.2 H Seg Neuts % (Manual) 74 H Band Neuts % (Manual) 10 H Lymphocytes % (Manual) Monocytes % (Manual) Metamyelocytes % (Man) 3 H Myelocytes % (Man) Abs Neuts (Manual) 17.4 H Toxic Granulation 2+ H Toxic Vacuolation Platelet Estimate High H ESR Sodium 132 L Chloride 97 L BUN Estimated GFR Random Glucose Calcium AST 65 H ALT 113 H Alkaline Phosphatase 127 H Total Creatine Kinase 18 L C-Reactive Protein Total Protein 8.7 H Albumin 2.3 L Urine Glucose (UA) Amorphous Sediment Rare H Urine Mucus Vancomycin Trough Hep C IgG Ab 10/05/18 10/05/18 10/05/18 06:50 06:50 06:50 WBC 12.2 H RBC 4.28 L Hgb 12.8 L Hct 37.2 L Plt Count 459 H MPV 6.8 L Neut % (Auto) Lymph % (Auto) Orange % (Auto) 8.4 H Neut # (Auto) 8.5 H Orange # (Auto) 1.0 H Seg Neuts % (Manual) Band Neuts % (Manual) Lymphocytes % (Manual) Monocytes % (Manual) Metamyelocytes % (Man) Myelocytes % (Man) Abs Neuts (Manual) Toxic Granulation Toxic Vacuolation Platelet Estimate ESR Sodium 135 L Chloride BUN Estimated GFR Random Glucose Calcium 8.4 L AST 80 H ALT 125 H Alkaline Phosphatase Total Creatine Kinase C-Reactive Protein Total Protein Albumin 2.3 L Urine Glucose (UA) Amorphous Sediment Urine Mucus Vancomycin Trough Hep C IgG Ab Reactive H 10/07/18 10/08/18 10/09/18 04:45 10:54 04:15 WBC 11.5 H RBC 4.43 L 4.29 L Hgb 12.8 L Hct 38.2 L 37.1 L Plt Count 519 H 536 H MPV 6.6 L 6.5 L Neut % (Auto) Lymph % (Auto) Orange % (Auto) 8.5 H 9.8 H Neut # (Auto) Orange # (Auto) 1.0 H Seg Neuts % (Manual) Band Neuts % (Manual) Lymphocytes % (Manual) Monocytes % (Manual) Metamyelocytes % (Man) Myelocytes % (Man) Abs Neuts (Manual) Toxic Granulation Toxic Vacuolation Platelet Estimate ESR Sodium 133 L Chloride 96 L BUN 21 H Estimated GFR Random Glucose Calcium AST ALT Alkaline Phosphatase Total Creatine Kinase C-Reactive Protein Total Protein Albumin Urine Glucose (UA) Amorphous Sediment Urine Mucus Vancomycin Trough Hep C IgG Ab 10/09/18 10/10/18 10/15/18 10:14 06:17 16:36 WBC RBC Hgb Hct Plt Count 549 H MPV 6.5 L Neut % (Auto) Lymph % (Auto) Orange % (Auto) 8.9 H Neut # (Auto) Orange # (Auto) Seg Neuts % (Manual) Band Neuts % (Manual) Lymphocytes % (Manual) Monocytes % (Manual) Metamyelocytes % (Man) Myelocytes % (Man) Abs Neuts (Manual) Toxic Granulation Toxic Vacuolation Platelet Estimate ESR Sodium Chloride BUN Estimated GFR Random Glucose Calcium AST ALT Alkaline Phosphatase Total Creatine Kinase 25 L 35 L C-Reactive Protein Total Protein Albumin Urine Glucose (UA) Amorphous Sediment Urine Mucus Vancomycin Trough Hep C IgG Ab 10/15/18 16:36 WBC RBC Hgb Hct Plt Count MPV Neut % (Auto) Lymph % (Auto) Orange % (Auto) Neut # (Auto) Orange # (Auto) Seg Neuts % (Manual) Band Neuts % (Manual) Lymphocytes % (Manual) Monocytes % (Manual) Metamyelocytes % (Man) Myelocytes % (Man) Abs Neuts (Manual) Toxic Granulation Toxic Vacuolation Platelet Estimate ESR Sodium Chloride BUN Estimated GFR Random Glucose Calcium AST ALT Alkaline Phosphatase Total Creatine Kinase C-Reactive Protein 7.70 H Total Protein Albumin Urine Glucose (UA) Amorphous Sediment Urine Mucus Vancomycin Trough Hep C IgG Ab Assessment and Plan - Plan 42 yo male with new onset of increased LBP with radiation to right buttocks and numbness on the left along L4/5. Last seen by my partner Dr. Henderson on: 10/04 continues to ambulate and void-- gi planning colonoscopy tomorrow-- not surgical candidate at this time and it appears abx are working 10/16 Patient relates that over the past two days he has a worsening back pain associated with radiation to the right buttocks. Would obtain a new L-spine MRI as it has been several weeks since his last one and he has new symptoms. Would also follow with ESR and CRP to evaluate progress of Abx. cont. Abx., cont. present management Will follow
[2018-10-16] MEDS ORDERED: Gadobutrol PF 10 MMOL/10 ML Vial (for RAD) IV.SIG ONE (21:51)
--- NOTE | 2018-10-16 22:10 | MR ---
EXAM DATE: 10/16/2018 9:56 PM EST AGE/SEX: 42 years / Male INDICATIONS: Abscess. CLINICAL DATA: This is the patient's initial encounter. Patient reports that signs and symptoms have been present for 2 weeks and indicates a pain score of 5/10. MEDICAL/SURGICAL HISTORY: None. None. COMPARISON: [facility] [place], MR LUMBAR SPINE W & W/O CONTRAST, 10/02/2018. . TECHNIQUE: Multiplanar, multisequence MRI examination of the lumbar spine was performed without and with 8 ml Gadavist (gadobutrol) contrast as a single exam dose. FINDINGS: The most caudal-appearing lumbar vertebra is numbered as L5. . No significant compression deformitie s, spondylolisis, or spondylolesthesis is seen. There is focal fluid collection somewhat septated and lobular on the left side at the level of L5-S1 extends for approximately 3 cm in clinical dimension, smaller since the prior study at which time it measured 5.5 cm. L1-L2: No appreciable compromise to the thecal sac, or the exiting nerve roots is seen. The neural foramina and lateral recesses are patent bilaterally. L2-L3: No appreciable compromise to the thecal sac, or the exiting nerve roots is seen. The neural foramina and lateral recesses are patent bilaterally. L3-L4: No appreciable compromise to the thecal sac, or the exiting nerve roots is seen. The neural foramina and lateral recesses are patent bilaterally. Slight facet arthrosis is seen bilaterally. L4-L5: There is slight overall thecal sac stenosis due to central disc/osteophyte complex and hypert rophic changes. Slight to moderate facet hypertrophy is seen bilaterally. L5-S1: There are degenerative changes in the discs and facets. There is an area of fluid collection in the anterior epidural space at this site with collapsed nerve roots dorsally. There is diffuse en hancement of the epidural space projections from the superior margins of L5 superior endplate althoug h it down to mid body of S1 extending for 4.7 cm in cranial caudal dimension. Possibility of epidural abscess at this site causing mass effect and significant thecal sac stenosis particularly towards th e upper S1 endplate should be entertained.There is slight area of nondescript edema involving L5 and S1 with enhancement of parts of the disc at this level. The enhancement of the disc was not present o n the prior examination findings are highly suspicious for discitis with irregularity of the endplate L5-S1 and early osteomyelitis of the adjacent L5 and S1 vertebrae possibly extending down all the wa y to S2. . CONCLUSION: 1. Findings are characteristic of discitis with epidural abscess epicentered at L5-S1 which has prog ressed since the prior examination and size of the epidural abscess is larger causing significant the abdulkadir sac stenosis and compromise to the nerve roots which are clumped and compressed dorsally.The para spinous fluid collection on the left side within the soft tissues however appears smaller. There is a lso osteomyelitis of the adjacent L5 and S1 vertebrae extending all the way down to mid body of S2. 2. Slight overall thecal sac stenosis L4-5. Electronically signed by: Tyler Ho MD Board Certified Radiologist 10/16/2018 10:09 PM EST
[2018-10-17] MEDS: Morphine Sulfate Inj 2 MG/ML Vial IV.PUSH PRN ×2 (01:31→08:20)
[2018-10-17] MEDS: oxyCODONE/Acetaminophen 10/325 Tablet PO SCH ×6 (03:04→22:07)
[2018-10-17] MEDS: Gabapentin 300 MG Capsule PO SCH ×3 (06:35→22:07)
[2018-10-17] MEDS: Sod Chloride 0.9% Inj 1,000 ML IV.CONT SCH ×3 (06:37→17:27)
--- NOTE | 2018-10-17 08:13 | P.PNID ---
Subjective Remarks: Patient is a 42-year-old male, presented to the hospital with severe low back pain. He was apparently doing yard work the day he started having back pain. The pain came on suddenly that he had to stop working. He laid down and since has not gotten out of bed much because of the severity of the pain. He would have pain radiating to both thighs, and currently he is complaining of some numbness in his left lower extremity. He has been constipated, although he is not really been eating much because of the severe pain. He has been having problem urinating and it takes a while for him to urinate. He is also been having fevers for 2 days prior to coming into the hospital. Patient denies any skin infection or any boils. He has not had any vomiting or diarrhea or any respiratory complaint. He has not had any teeth problem requiring any dentist attention. Patient has prior history of IV drug use, but he was incarcerated for about 18 months in [facility], and then was in [facility] for at least 2 months, and has been out on the streets for the last 2 months. He denies any smoking or snorting illicit drugs as well. 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 Since admission patient has had fevers. He had an MRI and he has abnormality in the lower thoracic and lumbar region. There is a fluid collection in the anterior epidural space. I spoke with radiologist and there is no window to access that epidural space. He has had 2 blood cultures that are negative so far. Urinalysis unremarkable. His WBC is elevated at 25,000. Infectious disease consultation has been requested to assist with evaluation and treatment. Notes reviewed Spoke with Dr Coates yesterday Patient has been doing well up until several days, he started having increased back pain, increased numbness whole LLE and crampy pain L buttocks Repeat lumbar spine showed progression of epidural abscess Temps ok Last (+) BC 09/28 Clinically seems stable WBC down to normal Antibiotics: Cubicin Allergies/Adverse Reactions: Allergies penicillin G Allergy (Mild, Verified 09/24/18 11:50) Rash, Localized pt states he doesnt know but has always been told that as a kid Objective Vital Signs 10/16/18 12:00 10/16/18 16:00 10/16/18 20:00 Temperature 98.1 F 99.2 F 97.8 F Pulse Rate 103 H 105 H 98 H Respiratory Rate 17 17 16 Blood Pressure 107/75 125/73 118/74 Pulse Oximetry 98 96 97 10/17/18 00:00 10/17/18 01:35 10/17/18 04:00 Temperature 98 F 98 F Pulse Rate 94 H 96 H Respiratory Rate 16 18 16 Blood Pressure 122/72 119/74 Pulse Oximetry 96 97 10/17/18 06:42 Temperature Pulse Rate 99 H Respiratory Rate 20 Blood Pressure 113/65 Pulse Oximetry 94 L Intake & Output 10/16/18 10/17/18 10/17/18 18:59 06:59 18:59 Intake Total 1060 / 1060 1500 / 1500 Output Total 1250 / 1250 1500 / 1500 Balance -190 / -190 0 / 0 Weight 83.1 kg Intake: IV 100 / 100 1500 / 1500 NS Inj 1,000 ML @ 100 mls/hr IV 1500 / 1500 .CONT .Q10H [facility] Rx#:[id number] Cubicin Inj 650 MG In NS Inj 100 / 100 100 ML @ 200 mls/hr IV.SIG Q24H [facility] Rx#:[id number] Oral 960 / 960 Output: Urine 1250 / 1250 1500 / 1500 Other: # Bowel Movements 0 Lab - Chemistry Results 10/15/18 10/15/18 16:36 16:36 Total Creatine Kinase 35 L C-Reactive Protein 7.70 H Imaging: ITS Impressions Abdomen/Pelvis CT 09/28/18 00:00 CONCLUSION: 1. Extensive stranding within the pelvis noted within the peritoneal fat and adjacent structures including musculature could be anasarca or other inflammatory/infectious etiology. No abnormal fluid collection or abscess. 2. There does appear to be wall thickening and inflammation surrounding the urinary bladder. Cystitis should be excluded. 3. Splenomegaly. 4. Trace ascites. Lumbar Spine MRI 10/16/18 00:00 CONCLUSION: 1. Findings are characteristic of discitis with epidural abscess epicentered at L5-S1 which has progressed since the prior examination and size of the epidural abscess is larger causing significant thecal sac stenosis and compromise to the nerve roots which are clumped and compressed dorsally.The paraspinous fluid collection on the left side within the soft tissues however appears smaller. There is also osteomyelitis of the adjacent L5 and S1 vertebrae extending all the way down to mid body of S2. 2. Slight overall thecal sac stenosis L4-5. Physical Exam: GENERAL: awake and alert, NAD SKIN: Warm and dry. No generalized rash.. EYES: [place] conjunctiva. No petechia or hemorrhage. No scleral icterus. No injection or drainage. EARS, NOSE AND THROAT: Mucous membranes pink and moist. No oral lesions noted. No exudate. No oral thrush. NECK: Trachea midline. Supple and not tender, no meningeal signs CARDIOVASCULAR: Regular rate and rhythm. No murmurs, rubs or gallops heard RESPIRATORY: Clear to auscultation. Breath sounds equal bilaterally. No rales , wheezing or rhonchi ABDOMEN: Soft, non-tender, nondistended. Bowel sounds present and normoactive. No guarding. No rebound. No organomegaly. EXTREMITIES: No clubbing, cyanosis, or edema. No joint effusion, has good ROM. No calf tenderness. NEUROLOGICAL: Awake and alert. Cranial nerves grossly intact. Able to move both LE, symmetrical. Tenderness in lower back PSYCHIATRIC: Cooperative LINE: No evidence of infection Assessment and Plan - Plan Impression MRSA sepsis due to back infection. MRSA. High grade MRSA sepsis - Vanco CLAUDINE 2 Lumbar epidural abscess Hx IVDU, last use prob 20 months ago Recommendation Continue Cubicin to help sterilize blood - follow CPK Repeat labs today - CBC, CMP Add Rifampin Neurosurgery following Follow temps Monitor progress
[2018-10-17] MEDS: Senna/Docusate Sodium 8.6/50 MG Tablet PO SCH ×2 (08:19→20:17)
[2018-10-17] MEDS: Petrolatum 49%/Zinc Oxide 15% Barrier Oint 120 GM Tube TOPICAL SCH (08:20)
[2018-10-17] MEDS: Hydrocortisone Acetate 25 MG Supp RECTAL SCH ×2 (08:20→20:17)
[2018-10-17 10:29] LABS: Baso % (Auto) 0.6 % (0.0-2.0); Eos # (Auto) 0.2 th/mm3 (0.0-0.4); Hematocrit 37.6 % (39.0-51.0); Hemoglobin 12.6 gm/dL (13.0-17.0); Lymph # (Auto) 2.8 th/mm3 (1.0-4.8); Lymph % (Auto) 35.6 % (9.0-44.0); Mean Corpuscular HGB Conc 33.5 % (32.0-36.0); Mean Corpuscular Hemoglobin 29.4 pg (27.0-34.0); Mean Corpuscular Volume 87.8 fL (80.0-100.0); Mean Platelet Volume 6.9 fL (7.0-11.0); Mono # (Auto) 0.8 th/mm3 (0.0-0.9); Mono % (Auto) 10.2 % (0.0-8.0); Neut # (Auto) 4.1 th/mm3 (1.8-7.7); Neut % (Auto) 51.6 % (16.0-70.0); Platelet Count 356 th/mm3 (150-450); Red Blood Count 4.28 mil/mm3 (4.50-5.90); Red Cell Distribution Width 13.9 % (11.6-17.2); White Blood Count 7.9 th/mm3 (4.0-11.0)
[2018-10-17 11:00] LABS: Anion Gap 5 meq/L (5-15); Blood Urea Nitrogen 14 mg/dL (7-18); Carbon Dioxide 32.1 meq/L (21.0-32.0); Chloride 98 meq/L (98-107); Glomerular Filtration Rate Greater Than 89 mL/min (>89); Glucose,Random 92 mg/dL (74-106); Magnesium 2.2 mg/dL (1.5-2.5); Potassium 3.9 meq/L (3.5-5.1); Sodium 135 meq/L (136-145)
[2018-10-17 11:01] LABS: Albumin 2.5 g/dL (3.4-5.0); Anion Gap 5 meq/L (5-15); Aspartate Aminotransferase 162 U/L (15-37); Blood Urea Nitrogen 14 mg/dL (7-18); Calcium 9.1 mg/dL (8.5-10.1); Carbon Dioxide 31.7 meq/L (21.0-32.0); Chloride 98 meq/L (98-107); Glomerular Filtration Rate Greater Than 89 mL/min (>89); Glucose,Random 91 mg/dL (74-106); Sodium 135 meq/L (136-145)
[2018-10-17 11:02] LABS: Alanine Aminotransferase 323 U/L (12-78)
[2018-10-17 11:04] LABS: Alkaline Phosphatase 184 U/L (45-117); Creatine Kinase 33 U/L (39-308); Total Protein 9.3 g/dL (6.4-8.2)
--- NOTE | 2018-10-17 11:52 | P.PNNS ---
Subjective Interval history: 10/16 I was asked by Dr. Coates to see and evaluate this pleasant 42-year-old male with a remote history of IV drug use who presents to the emergency department on 09/24/2018 due to low back pain with radiation to the left leg and numbness to the left leg. His pain started on 09/21/2018 . He had subjective fever and took Tylenol 2 controlled fever. He denies any changes in bowel or bladder habits. He used to do IV drug use (Dilaudid) but quit about 18 months ago. The patient has been ambulatory but describes numbness down his legs. Working with PT but painful. He has been followed by my partner Dr. Jose Henderson in Neurosurgical consultation until 10/04/18. Repeat MRI on 10/02, showed spinal stenosis L4/5/S1 with increased enhancement of the epidural abscess as well as a component in the paraspinal muscles when compared to L-spine MRI of 09/24.He has been on Daptomycin with pain well- controlled until today. As such, we have been re-consulted to worsening LBP with radicular symptoms. A repeat CT from yesterday shows increased enhancement of soft tissue as well as the actual epidural abscess. Physical Exam Vital signs: Vital Signs 10/16/18 12:00 10/16/18 16:00 10/16/18 20:00 Temperature 98.1 F 99.2 F 97.8 F Pulse Rate 103 H 105 H 98 H Respiratory Rate 17 17 16 Blood Pressure 107/75 125/73 118/74 Pulse Oximetry 98 96 97 10/17/18 00:00 10/17/18 01:35 10/17/18 04:00 Temperature 98 F 98 F Pulse Rate 94 H 96 H Respiratory Rate 16 18 16 Blood Pressure 122/72 119/74 Pulse Oximetry 96 97 10/17/18 06:42 10/17/18 08:00 Temperature 98.1 F Pulse Rate 99 H 97 H Respiratory Rate 20 20 Blood Pressure 113/65 110/68 Pulse Oximetry 94 L 98 Intake & Output 10/16/18 10/17/18 10/17/18 18:59 06:59 18:59 Intake Total 1060 / 1060 1500 / 1500 Output Total 1250 / 1250 1500 / 1500 Balance -190 / -190 0 / 0 Weight 83.1 kg Intake: IV 100 / 100 1500 / 1500 NS Inj 1,000 ML @ 100 mls/hr IV 1500 / 1500 .CONT .Q10H [facility] Rx#:[id number] Cubicin Inj 650 MG In NS Inj 100 / 100 100 ML @ 200 mls/hr IV.SIG Q24H [facility] Rx#:[id number] Oral 960 / 960 Output: Urine 1250 / 1250 1500 / 1500 Other: Date of Last Bowel Movement 10/11/18 # Bowel Movements 0 - Constitutional mild distress Comments: Discomfort due to low back and left leg pain - Routine HEENT Exam Head: Present: normocephalic, atraumatic Eye: Present: EOMI, PERRL ENT: Present: mucous membranes moist, oropharynx clear, external ear normal, TM' s clear bilaterally - Routine Neck Exam Present: supple, full ROM, normal carotid upstroke, trachea midline - Routine Respiratory Exam Present: CTA bilaterally - Routine Cardiovascular Exam Present: RRR - Routine Abdominal Exam Present: soft, normoactive bowel sounds - Routine Back/Spine/Pelvis Exam Back/Spine: Present: paraspinal tenderness, abnormal straight leg raise Comments: + SLR on the left to 30 degrees. - Routine Skin Exam Present: intact - Routine Neurological Exam MS: AAOx3 Speech: fluent CNII-XII intact Motor: 5/5, R=L, negative drift Sensory: decreased LT, decreased PP along left 4/5distribution Cerebellum: WNL Gait:Not tested DTR's 2+ bilateral and symmetric + SLR on the left to 30 degrees - Detailed Neurological Exam: Coma Scale Eye Opening: Spontaneous Verbal Response: Oriented Motor Response: Obey commands [place] Coma Scale Total: 15 - Routine Psychiatric Exam Present: normal affect, cooperative - Urinary Catheter Management Indwelling Urethral Catheter Cath placed during this visit: yes, but has since been removed by the nurse Reason for continuing: Acute urinary retention Insertion date: 09/25/18 Insertion time: 18:42 Removal date: 09/29/18 Removal time: 22:30 Assessment and Plan - Plan 42 yo male with new onset of increased LBP with radiation to right buttocks and numbness on the left along L4/5. Last seen by my partner Dr. Henderson on: 10/04 continues to ambulate and void-- gi planning colonoscopy tomorrow-- not surgical candidate at this time and it appears abx are working 10/16 Patient relates that over the past two days he has a worsening back pain associated with radiation to the left buttocks. 10/17 L-spine MRI shows some slight progressionm of the epidural abscess but significant pocket in the paraspinal muscles.. ESR and CRP remain elevated. Consider repeat cultures, off of ABx x 24 hrs as well as a CT-guided needle biopsy of the epidural abscess. No indication for Neurosurgical intervention at this time Will follow
--- NOTE | 2018-10-17 13:22 | P.PNIM ---
Subjective Interval history: Patient complains of lower back pain. He says he is now having difficulty with ambulating due to the pain. Physical Exam Vital signs: Vital Signs 10/16/18 16:00 10/16/18 20:00 10/17/18 00:00 Temperature 99.2 F 97.8 F 98 F Pulse Rate 105 H 98 H 94 H Respiratory Rate 17 16 16 Blood Pressure 125/73 118/74 122/72 Pulse Oximetry 96 97 96 10/17/18 01:35 10/17/18 04:00 10/17/18 06:42 Temperature 98 F Pulse Rate 96 H 99 H Respiratory Rate 18 16 20 Blood Pressure 119/74 113/65 Pulse Oximetry 97 94 L 10/17/18 08:00 Temperature 98.1 F Pulse Rate 97 H Respiratory Rate 20 Blood Pressure 110/68 Pulse Oximetry 98 Intake & Output 10/16/18 10/17/18 10/17/18 18:59 06:59 18:59 Intake Total 1060 / 1060 1500 / 1500 Output Total 1250 / 1250 1500 / 1500 Balance -190 / -190 0 / 0 Weight 83.1 kg Intake: IV 100 / 100 1500 / 1500 NS Inj 1,000 ML @ 100 mls/hr IV 1500 / 1500 .CONT .Q10H [facility] Rx#:[id number] Cubicin Inj 650 MG In NS Inj 100 / 100 100 ML @ 200 mls/hr IV.SIG Q24H [facility] Rx#:[id number] Oral 960 / 960 Output: Urine 1250 / 1250 1500 / 1500 Other: Date of Last Bowel Movement 10/11/18 # Bowel Movements 0 Narrative: General patient complains of lower back pain on and off throughout the day. He says that he is not having difficulty ambulating due to pain. HEENT extraocular movements are intact, clear oropharyngeal mucosa, no JVD Cardiovascular S1-S2 audible, RRR, no murmurs rubs or gallops Respiratory clear to auscultation bilaterally Abdomen soft, nontender, nondistended, normal bowel sounds Extremities no edema. Neuro cranial nerves II through XII intact - Urinary Catheter Management Indwelling Urethral Catheter Cath placed during this visit: yes, but has since been removed by the nurse Reason for continuing: Acute urinary retention Insertion date: 09/25/18 Insertion time: 18:42 Removal date: 09/29/18 Removal time: 22:30 Results - Labs CBC & Chem 7: 10/17/18 09:57 10/17/18 09:57 Laboratory Results - last 24 hr 10/15/18 10/17/18 10/17/18 16:36 09:51 09:57 WBC 7.9 RBC 4.28 L Hgb 12.6 L Hct 37.6 L MCV 87.8 MCH 29.4 MCHC 33.5 RDW 13.9 Plt Count 356 D MPV 6.9 L Neut % (Auto) 51.6 Lymph % (Auto) 35.6 [place] % (Auto) 10.2 H Eos % (Auto) 2.0 Baso % (Auto) 0.6 Neut # (Auto) 4.1 Lymph # (Auto) 2.8 [place] # (Auto) 0.8 Eos # (Auto) 0.2 Baso # (Auto) 0.0 WBC Differential . Differential Comment Auto diff final Sodium 135 L Potassium 3.9 Chloride 98 Carbon Dioxide 32.1 H Anion Gap 5 BUN 14 Creatinine 0.81 Estimated GFR Greater than 89 Random Glucose 92 Calcium 9.0 Magnesium 2.2 Total Bilirubin AST ALT Alkaline Phosphatase Total Creatine Kinase C-Reactive Protein 7.70 H Total Protein Albumin 10/17/18 09:57 WBC RBC Hgb Hct MCV MCH MCHC RDW Plt Count MPV Neut % (Auto) Lymph % (Auto) [place] % (Auto) Eos % (Auto) Baso % (Auto) Neut # (Auto) Lymph # (Auto) [place] # (Auto) Eos # (Auto) Baso # (Auto) WBC Differential Differential Comment Sodium 135 L Potassium 4.0 Chloride 98 Carbon Dioxide 31.7 Anion Gap 5 BUN 14 Creatinine 0.85 Estimated GFR Greater than 89 Random Glucose 91 Calcium 9.1 Magnesium Total Bilirubin 0.5 AST 162 H ALT 323 H Alkaline Phosphatase 184 H Total Creatine Kinase 33 L C-Reactive Protein Total Protein 9.3 H Albumin 2.5 L - Imaging Impressions Lumbar Spine MRI 10/16/18 00:00 CONCLUSION: 1. Findings are characteristic of discitis with epidural abscess epicentered at L5-S1 which has progressed since the prior examination and size of the epidural abscess is larger causing significant thecal sac stenosis and compromise to the nerve roots which are clumped and compressed dorsally.The paraspinous fluid collection on the left side within the soft tissues however appears smaller. There is also osteomyelitis of the adjacent L5 and S1 vertebrae extending all the way down to mid body of S2. 2. Slight overall thecal sac stenosis L4-5. - Procedures None Assessment and Plan - Assessment (1) Epidural abscess Code(s): G06.2 - Extradural and subdural abscess, unspecified Status: Acute (2) Bacteremia Code(s): R78.81 - Bacteremia Status: Acute (3) History of intravenous drug use in remission Code(s): Z87.898 - Personal history of other specified conditions Status: Acute (4) Constipation Code(s): K59.00 - Constipation, unspecified Status: Acute - Plan This patient is a 42-year-old male with a history of IV drug use who presented to the emergency department on 09/24/2018 due to a 3-day duration of lower back pain with radiation to the right lower extremity and numbness of the left leg. He was found to be febrile during the hospitalization. MRI of the spine showed fluid collection in the lumbar spine. Patient was also found to have MRSA bacteremia. MAT on 09/29/2018 was done which did not show any evidence of vegetations. 1. Sepsis secondary to MRSA bacteremia 09/28/18 with lumbar epidural abscess. Afebrile overnight. Patient was complaining of lower back pain yesterday with some radiation down his right lower extremity. He said he was having difficulty ambulating. No difficulty voiding. Repeat lumbar MRI shows that the epidural abscess has increased in size. Neurosurgery was consulted however they not recommended neurosurgical intervention at this point. Interventional radiology will be consulted to evaluate the patient for possible drainage of the epidural abscess. Continue IV antibiotics. Rifampin was added to the patient's medication regimen by infectious disease.] Continue pain control. CRP does show improvement over the past few weeks. Blood cultures positive for MRSA, repeat blood cultures are negative. MAT showed no vegetation. Continue pain control with Percocet, IV morphine for breakthrough pain. Flexeril for muscle spasm. Continue physical therapy. 2. History of IV drug use Patient denies any recent history of IV drug use. Patient was counseled on the dangers of IV drug use. 3. Constipation/hemorrhoids/weight loss Patient with family history significant for colon cancer Status post EGD which showed gastritis. Colonoscopy was failed due to poor prep and stool in the left colon. GI recommended repeat colonoscopy. DVT prophylaxis, patient is currently on SCDs. Patient is ambulatory.
[2018-10-17] MEDS: DAPTOmycin Inj 650 MG in Sodium Chlor 0.9% Inj 100 ML IV.SIG SCH (15:46)
[2018-10-17] MEDS: Morphine Inj 4 MG/ML Vial IV.PUSH PRN ×2 (15:47→20:15)
[2018-10-18] MEDS: Morphine Inj 4 MG/ML Vial IV.PUSH PRN ×6 (00:08→20:05)
[2018-10-18] MEDS: oxyCODONE/Acetaminophen 10/325 Tablet PO SCH ×6 (02:23→21:59)
[2018-10-18] MEDS: Sod Chloride 0.9% Inj 1,000 ML IV.CONT SCH ×5 (02:24→23:10)
[2018-10-18] MEDS: Gabapentin 300 MG Capsule PO SCH ×3 (06:04→21:59)
[2018-10-18] MEDS: Senna/Docusate Sodium 8.6/50 MG Tablet PO SCH ×2 (08:08→20:05)
[2018-10-18] MEDS: Hydrocortisone Acetate 25 MG Supp RECTAL SCH ×2 (08:08→20:05)
[2018-10-18] MEDS: Petrolatum 49%/Zinc Oxide 15% Barrier Oint 120 GM Tube TOPICAL SCH (08:09)
--- NOTE | 2018-10-18 12:51 | P.PNNS ---
Subjective Interval history: The patient has remained stable overnight. He still complaining of numbness and weakness in his left lower extremity with back spasms. Physical Exam Vital signs: Vital Signs 10/17/18 16:00 10/17/18 20:00 10/18/18 00:00 Temperature 98.9 F 98.1 F 99.6 F Pulse Rate 102 H 111 H 109 H Respiratory Rate 20 20 20 Blood Pressure 109/66 123/73 128/66 Pulse Oximetry 99 97 96 10/18/18 04:00 10/18/18 08:00 Temperature 98.0 F 97.8 F Pulse Rate 97 H 90 Respiratory Rate 20 20 Blood Pressure 134/72 124/81 Pulse Oximetry 97 98 Intake & Output 10/17/18 10/18/18 10/18/18 18:59 06:59 18:59 Intake Total 1820 / 1820 1380 / 1380 Output Total 1999 / 1999 600 / 600 1050 / 1050 Balance -180 / -180 780 / 780 -1050 / -1050 Weight 85.4 kg Intake: IV 1100 / 1100 900 / 900 NS Inj 1,000 ML @ 100 mls/hr IV 1000 / 1000 900 / 900 .CONT .Q10H [facility] Rx#:[id number] Cubicin Inj 650 MG In NS Inj 100 / 100 100 ML @ 200 mls/hr IV.SIG Q24H [facility] Rx#:[id number] Oral 720 / 720 480 / 480 Output: Urine 1999 600 / 600 1050 / 1050 Other: Date of Last Bowel Movement 10/11/18 - Routine Neurological Exam The patient is lying in bed as I enter the room. He is in no acute distress. He is alone. Mental status testing finds him to be awake and alert. He is oriented by 3. Cognitive function is grossly intact. His speech is fluent. Cranial nerve testing 2 through 12 is grossly intact. There is 4+/5+ weakness of all muscle groups of his left lower extremity. There is diminished light touch in his left lower extremity compared to the right. He is continent and states that he has not been out of bed nor ambulated. - Urinary Catheter Management Indwelling Urethral Catheter Cath placed during this visit: yes, but has since been removed by the nurse Reason for continuing: Acute urinary retention Insertion date: 09/25/18 Insertion time: 18:42 Removal date: 09/29/18 Removal time: 22:30 Assessment and Plan - Plan 42 yo male with new onset of increased LBP with radiation to right buttocks and numbness on the left along L4/5. Last seen by my partner Dr. Henderson on: 10/04 continues to ambulate and void-- gi planning colonoscopy tomorrow-- not surgical candidate at this time and it appears abx are working 10/16 Patient relates that over the past two days he has a worsening back pain associated with radiation to the left buttocks. 10/17 L-spine MRI shows some slight progressionm of the epidural abscess but significant pocket in the paraspinal muscles.. ESR and CRP remain elevated. Consider repeat cultures, off of ABx x 24 hrs as well as a CT-guided needle biopsy of the epidural abscess. No indication for Neurosurgical intervention at this time Will follow 10/18/2018 The patient has remained clinically stable. I believe a CT-guided needle aspiration biopsy has been ordered of the lumbosacral spine which is pending. Depending on the results we will determine the appropriate further diagnostic and therapeutic approach. Currently a conservative neurosurgical approach is warranted. Neurosurgery will follow.
--- NOTE | 2018-10-18 14:39 | P.PNIM ---
Subjective Interval history: Patient complains of back pain. No other complaints from him this afternoon. Physical Exam Vital signs: Vital Signs 10/17/18 16:00 10/17/18 20:00 10/18/18 00:00 Temperature 98.9 F 98.1 F 99.6 F Pulse Rate 102 H 111 H 109 H Respiratory Rate 20 20 20 Blood Pressure 109/66 123/73 128/66 Pulse Oximetry 99 97 96 10/18/18 04:00 10/18/18 08:00 Temperature 98.0 F 97.8 F Pulse Rate 97 H 90 Respiratory Rate 20 20 Blood Pressure 134/72 124/81 Pulse Oximetry 97 98 Intake & Output 10/17/18 10/18/18 10/18/18 18:59 06:59 18:59 Intake Total 1820 / 1820 1380 / 1380 1000 / 1000 Output Total 2000 / 2000 600 / 600 1050 / 1050 Balance -180 / -180 780 / 780 -50 / -50 Weight 85.4 kg Intake: IV 1100 / 1100 900 / 900 1000 / 1000 NS Inj 1,000 ML @ 100 mls/hr IV 1000 / 1000 900 / 900 1000 / 1000 .CONT .Q10H [facility] Rx#:[id number] Cubicin Inj 650 MG In NS Inj 100 / 100 100 ML @ 200 mls/hr IV.SIG Q24H [facility] Rx#:[id number] Oral 720 / 720 480 / 480 Output: Urine 2000 / 2000 600 / 600 1050 / 1050 Other: Date of Last Bowel Movement 10/11/18 Narrative: General patient complains of lower back pain on and off throughout the day. He says that he is not having difficulty ambulating due to pain. HEENT extraocular movements are intact, clear oropharyngeal mucosa, no JVD Cardiovascular S1-S2 audible, RRR, no murmurs rubs or gallops Respiratory clear to auscultation bilaterally Abdomen soft, nontender, nondistended, normal bowel sounds Extremities no edema. Neuro moves all 4 exts, sensation intact b/l, no difficulty voiding - Urinary Catheter Management Indwelling Urethral Catheter Cath placed during this visit: yes, but has since been removed by the nurse Reason for continuing: Acute urinary retention Insertion date: 09/25/18 Insertion time: 18:42 Removal date: 09/29/18 Removal time: 22:30 Results - Labs CBC & Chem 7: 10/17/18 09:57 10/17/18 09:57 - Procedures None Assessment and Plan - Assessment (1) Epidural abscess Code(s): G06.2 - Extradural and subdural abscess, unspecified Status: Acute (2) Bacteremia Code(s): R78.81 - Bacteremia Status: Acute (3) History of intravenous drug use in remission Code(s): Z87.898 - Personal history of other specified conditions Status: Acute (4) Constipation Code(s): K59.00 - Constipation, unspecified Status: Acute - Plan This patient is a 42-year-old male with a history of IV drug use who presented to the emergency department on 09/24/2018 due to a 3-day duration of lower back pain with radiation to the right lower extremity and numbness of the left leg. He was found to be febrile during the hospitalization. MRI of the spine showed fluid collection in the lumbar spine. Patient was also found to have MRSA bacteremia. MAT on 09/29/2018 was done which did not show any evidence of vegetations. 1. Sepsis secondary to MRSA bacteremia 09/28/18 with lumbar epidural abscess. Afebrile overnight. Patient was complaining of lower back pain yesterday with some radiation down his right lower extremity. He said he was having difficulty ambulating because of the pain. No difficulty voiding. Repeat lumbar MRI shows that the epidural abscess has increased in size. Neurosurgery was consulted however they not recommended neurosurgical intervention at this point. IR consulted, will follow up with their recommendations. Continue IV antibiotics. Rifampin was added to the patient's medication regimen by infectious disease. Continue pain control. CRP does show improvement over the past few weeks. Blood cultures positive for MRSA, repeat blood cultures are negative. AMT showed no vegetation. Continue pain control with Percocet, IV morphine for breakthrough pain. Flexeril for muscle spasm. Continue physical therapy. 2. History of IV drug use Patient denies any recent history of IV drug use. Patient was counseled on the dangers of IV drug use. 3. Constipation/hemorrhoids/weight loss Patient with family history significant for colon cancer Status post EGD which showed gastritis. Colonoscopy was failed due to poor prep and stool in the left colon. GI recommended repeat colonoscopy. DVT prophylaxis, patient is currently on SCDs. Patient is ambulatory.
[2018-10-18] MEDS: DAPTOmycin Inj 650 MG in Sodium Chlor 0.9% Inj 100 ML IV.SIG SCH (15:14)
[2018-10-18] MEDS ORDERED: Magnesium Citrate Liq 300 ML Bottle PO ONE (15:21)
[2018-10-19] MEDS: Morphine Inj 4 MG/ML Vial IV.PUSH PRN ×6 (00:11→20:43)
[2018-10-19] MEDS: oxyCODONE/Acetaminophen 10/325 Tablet PO SCH ×6 (02:12→21:59)
[2018-10-19] MEDS: Gabapentin 300 MG Capsule PO SCH ×3 (06:01→21:59)
[2018-10-19] MEDS: Sod Chloride 0.9% Inj 1,000 ML IV.CONT SCH ×3 (06:02→15:17)
[2018-10-19] MEDS: Senna/Docusate Sodium 8.6/50 MG Tablet PO SCH ×2 (08:24→20:42)
[2018-10-19] MEDS: Hydrocortisone Acetate 25 MG Supp RECTAL SCH ×2 (08:25→20:42)
[2018-10-19] MEDS: Petrolatum 49%/Zinc Oxide 15% Barrier Oint 120 GM Tube TOPICAL SCH (10:02)
--- NOTE | 2018-10-19 13:50 | P.PNID ---
Subjective Remarks: Patient is a 42-year-old male, presented to the hospital with severe low back pain. He was apparently doing yard work the day he started having back pain. The pain came on suddenly that he had to stop working. He laid down and since has not gotten out of bed much because of the severity of the pain. He would have pain radiating to both thighs, and currently he is complaining of some numbness in his left lower extremity. He has been constipated, although he is not really been eating much because of the severe pain. He has been having problem urinating and it takes a while for him to urinate. He is also been having fevers for 2 days prior to coming into the hospital. Patient denies any skin infection or any boils. He has not had any vomiting or diarrhea or any respiratory complaint. He has not had any teeth problem requiring any dentist attention. Patient has prior history of IV drug use, but he was incarcerated for about 18 months in jail, and then was in senior care for at least 2 months, and has been out on the streets for the last 2 months. He denies any smoking or snorting illicit drugs as well. 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 Since admission patient has had fevers. He had an MRI and he has abnormality in the lower thoracic and lumbar region. There is a fluid collection in the anterior epidural space. I spoke with radiologist and there is no window to access that epidural space. He has had 2 blood cultures that are negative so far. Urinalysis unremarkable. His WBC is elevated at 25,000. Infectious disease consultation has been requested to assist with evaluation and treatment. Notes reviewed Still with pain in his back, increased pain when he puts weight and walks Repeat lumbar spine showed progression of epidural abscess Temps ok Last (+) BC 09/28 WBC down to normal Voiding ok Had good BM today Antibiotics: Cubicin Allergies/Adverse Reactions: Allergies penicillin G Allergy (Mild, Verified 09/24/18 11:50) Rash, Localized pt states he doesnt know but has always been told that as a kid Objective Vital Signs 10/18/18 16:00 10/18/18 20:00 10/19/18 00:00 Temperature 97.9 F 98.1 F 98 F Pulse Rate 102 H 108 H 105 H Respiratory Rate 20 17 17 Blood Pressure 121/69 125/72 113/66 Pulse Oximetry 98 95 94 L 10/19/18 04:00 10/19/18 08:00 Temperature 97.8 F 98.9 F Pulse Rate 98 H 103 H Respiratory Rate 17 16 Blood Pressure 118/73 111/60 Pulse Oximetry 98 96 Intake & Output 10/18/18 10/19/18 10/19/18 18:59 06:59 18:59 Intake Total 2059 / 0 906.3 / 906.3 1000 / 1000 Output Total 1900 / 1900 1895 / 1895 Balance 160 / 160 -988.7 / -988.7 1000 / 1000 Intake: IV 1100 / 1100 906.3 / 906.3 1000 / 1000 NS Inj 1,000 ML @ 100 mls/hr IV 1000 / 1000 906.3 / 906.3 1000 / 1000 .CONT .Q10H [facility] Rx#:[id number] Cubicin Inj 650 MG In NS Inj 100 / 100 100 ML @ 200 mls/hr IV.SIG Q24H [facility] Rx#:[id number] Oral 960 / 960 Output: Urine 1900 / 1900 1895 / 1895 Other: Date of Last Bowel Movement 10/11/18 # Bowel Movements 0 0 Imaging: ITS Impressions Abdomen/Pelvis CT 09/28/18 00:00 CONCLUSION: 1. Extensive stranding within the pelvis noted within the peritoneal fat and adjacent structures including musculature could be anasarca or other inflammatory/infectious etiology. No abnormal fluid collection or abscess. 2. There does appear to be wall thickening and inflammation surrounding the urinary bladder. Cystitis should be excluded. 3. Splenomegaly. 4. Trace ascites. Lumbar Spine MRI 10/16/18 00:00 CONCLUSION: 1. Findings are characteristic of discitis with epidural abscess epicentered at L5-S1 which has progressed since the prior examination and size of the epidural abscess is larger causing significant thecal sac stenosis and compromise to the nerve roots which are clumped and compressed dorsally.The paraspinous fluid collection on the left side within the soft tissues however appears smaller. There is also osteomyelitis of the adjacent L5 and S1 vertebrae extending all the way down to mid body of S2. 2. Slight overall thecal sac stenosis L4-5. Physical Exam: GENERAL: awake and alert, NAD SKIN: Warm and dry. No generalized rash.. EYES: Hazel conjunctiva. No petechia or hemorrhage. No scleral icterus. No injection or drainage. EARS, NOSE AND THROAT: Mucous membranes pink and moist. No oral lesions noted. No exudate. No oral thrush. NECK: Trachea midline. Supple and not tender, no meningeal signs CARDIOVASCULAR: Regular rate and rhythm. No murmurs, rubs or gallops heard RESPIRATORY: Clear to auscultation. No rales, wheezing or rhonchi ABDOMEN: Soft, non-tender, mildly distended. Bowel sounds present and normoactive. No guarding. No rebound. No organomegaly. EXTREMITIES: No clubbing, cyanosis, or edema. No joint effusion, has good ROM. No calf tenderness. NEUROLOGICAL: Awake and alert. Cranial nerves grossly intact. Able to move both LE, symmetrical. Tenderness in lower back PSYCHIATRIC: Cooperative LINE: No evidence of infection Assessment and Plan - Plan Impression MRSA sepsis due to back infection. MRSA. High grade MRSA sepsis - Vanco CLAUDINE 2 Lumbar epidural abscess, progressing on MRI Hx IVDU, last use prob 20 months ago Recommendation Continue Cubicin to help sterilize blood - follow CPK Repeat labs today - CBC, CMP Continue Rifampin Neurosurgery to evaluate today Follow temps Monitor progress D/W Dr Coates Explained plan to the patient
--- NOTE | 2018-10-19 14:46 | P.PNIM ---
Subjective Interval history: Patient continues to complain of lower back pain, worse with attempting to ambulate. Physical Exam Vital signs: Vital Signs 10/18/18 16:00 10/18/18 20:00 10/19/18 00:00 Temperature 97.9 F 98.1 F 98 F Pulse Rate 102 H 108 H 105 H Respiratory Rate 20 17 17 Blood Pressure 121/69 125/72 113/66 Pulse Oximetry 98 95 94 L 10/19/18 04:00 10/19/18 08:00 10/19/18 12:00 Temperature 97.8 F 98.9 F 98.7 F Pulse Rate 98 H 103 H 116 H Respiratory Rate 17 16 16 Blood Pressure 118/73 111/60 124/76 Pulse Oximetry 98 96 96 Intake & Output 10/18/18 10/19/18 10/19/18 18:59 06:59 18:59 Intake Total 2059 / 0 906.3 / 906.3 1000 / 1000 Output Total 1900 / 1900 1895 / 1895 Balance 160 / 160 -988.7 / -988.7 1000 / 1000 Intake: IV 1100 / 1100 906.3 / 906.3 1000 / 1000 NS Inj 1,000 ML @ 100 mls/hr IV 1000 / 1000 906.3 / 906.3 1000 / 1000 .CONT .Q10H [facility] Rx#:[id number] Cubicin Inj 650 MG In NS Inj 100 / 100 100 ML @ 200 mls/hr IV.SIG Q24H [facility] Rx#:[id number] Oral 960 / 960 Output: Urine 1900 / 1900 1895 / 1895 Other: Date of Last Bowel Movement 10/11/18 # Bowel Movements 0 0 Narrative: General patient complains of lower back pain on and off throughout the day. He says that he is not having difficulty ambulating due to pain. HEENT extraocular movements are intact, clear oropharyngeal mucosa, no JVD Cardiovascular S1-S2 audible, RRR, no murmurs rubs or gallops Respiratory clear to auscultation bilaterally Abdomen soft, nontender, nondistended, normal bowel sounds Extremities no edema. Neuro moves all 4 exts, sensation intact b/l, no difficulty voiding - Urinary Catheter Management Indwelling Urethral Catheter Cath placed during this visit: yes, but has since been removed by the nurse Reason for continuing: Acute urinary retention Insertion date: 09/25/18 Insertion time: 18:42 Removal date: 09/29/18 Removal time: 22:30 Results - Labs CBC & Chem 7: 10/17/18 09:57 10/17/18 09:57 - Procedures None Assessment and Plan - Assessment (1) Epidural abscess Code(s): G06.2 - Extradural and subdural abscess, unspecified Status: Acute (2) Bacteremia Code(s): R78.81 - Bacteremia Status: Acute (3) History of intravenous drug use in remission Code(s): Z87.898 - Personal history of other specified conditions Status: Acute (4) Constipation Code(s): K59.00 - Constipation, unspecified Status: Acute - Plan This patient is a 42-year-old male with a history of IV drug use who presented to the emergency department on 09/24/2018 due to a 3-day duration of lower back pain with radiation to the right lower extremity and numbness of the left leg. He was found to be febrile during the hospitalization. MRI of the spine showed fluid collection in the lumbar spine. Patient was also found to have MRSA bacteremia. MAT on 09/29/2018 was done which did not show any evidence of vegetations. 10/19/18 1. Sepsis secondary to MRSA bacteremia 09/28/18 with lumbar epidural abscess. Afebrile overnight. Patient was complaining of lower back pain yesterday with some radiation down his right and left lower extremity. He said he was having difficulty ambulating because of the pain. No difficulty voiding. Patient symptoms are worse than they were approximately a week ago as he was previously ambulating with less pain. Repeat lumbar MRI shows that the epidural abscess has increased in size. Neurosurgery was consulted however they not recommended neurosurgical intervention at this point. I discussed the case with IR today over the phone and they are unable to access the abscess safely and are recommending that neurosurgery re evaluate the case. I spoke with Dr. Henderson from neurosurgery today who will review the imaging and see the patient today and will likely proceed with neurosurgical intervention to address the abscess. Follow up with neurosurgery tomorrow. Continue IV antibiotics. Rifampin was added to the patient's medication regimen by infectious disease. Continue pain control. CRP does show improvement over the past few weeks. Coags ordered for am. Blood cultures positive for MRSA, repeat blood cultures are negative. MAT showed no vegetation. Continue pain control with Percocet, IV morphine for breakthrough pain. Flexeril for muscle spasm. Continue physical therapy. 2. History of IV drug use Patient denies any recent history of IV drug use. Patient was counseled on the dangers of IV drug use. 3. Constipation/hemorrhoids/weight loss Patient with family history significant for colon cancer Status post EGD which showed gastritis. Colonoscopy was failed due to poor prep and stool in the left colon. GI recommended repeat colonoscopy. DVT prophylaxis, patient is currently on SCDs. No pharmacotherapy for dvt prophylaxis as pt will possibly undergo neurosurgical intervention tomorrow.
[2018-10-19] MEDS: DAPTOmycin Inj 650 MG in Sodium Chlor 0.9% Inj 100 ML IV.SIG SCH (15:22)
--- NOTE | 2018-10-19 16:22 | P.PNNS ---
Subjective Interval history: The actual epidural abscess has increased in size but grayson not represent substantial mass effect. There is also an abscess pocket in the deep paraspinal and gluteal muscle that has increased in size and severity. IR unable to access the epidural abscess safely and are recommending that neurosurgery re evaluate the case. As such, we will likely have to proceed with neurosurgical intervention to address the abscess and identify a bacteria as current antibiotic therapy has not improved ESR or CRP. I have discussed with Dr. Henderson who was the original aviation consultant and who will be following up tomorrow. Continue IV antibiotics. Agree with Rifampin added to the patient's medication regimen Continue pain control. Physical Exam Vital signs: Vital Signs 10/18/18 20:00 10/19/18 00:00 10/19/18 04:00 Temperature 98.1 F 98 F 97.8 F Pulse Rate 108 H 105 H 98 H Respiratory Rate 17 17 17 Blood Pressure 125/72 113/66 118/73 Pulse Oximetry 95 94 L 98 10/19/18 08:00 10/19/18 12:00 Temperature 98.9 F 98.7 F Pulse Rate 103 H 116 H Respiratory Rate 16 16 Blood Pressure 111/60 124/76 Pulse Oximetry 96 96 Intake & Output 10/18/18 10/19/18 10/19/18 18:59 06:59 18:59 Intake Total 0 / 0 906.3 / 906.3 1000 / 1000 Output Total 1900 / 1900 1895 / 1895 Balance 160 / 160 -988.7 / -988.7 1000 / 1000 Intake: IV 1100 / 1100 906.3 / 906.3 1000 / 1000 NS Inj 1,000 ML @ 100 mls/hr IV 1000 / 1000 906.3 / 906.3 1000 / 1000 .CONT .Q10H [facility] Rx#:[id number] Cubicin Inj 650 MG In NS Inj 100 / 100 100 ML @ 200 mls/hr IV.SIG Q24H [facility] Rx#:[id number] Oral 960 / 960 Output: Urine 1900 / 1900 1895 / 1895 Other: Date of Last Bowel Movement 10/11/18 # Bowel Movements 0 0 - Constitutional mild distress Comments: Low back and left leg pain - Routine HEENT Exam Head: Present: normocephalic, atraumatic Eye: Present: EOMI, PERRL, normal accommodation ENT: Present: mucous membranes moist, oropharynx clear, TM's clear bilaterally - Routine Neck Exam Present: supple, full ROM, trachea midline - Routine Respiratory Exam Present: CTA bilaterally - Routine Cardiovascular Exam Present: RRR - Routine Abdominal Exam Present: soft, normoactive bowel sounds - Routine Extremities Exam Comments: Negative clubbing cyanosis or edema. - Routine Back/Spine/Pelvis Exam Back/Spine: Present: full ROM, abnormal straight leg raise Comments: moderate lumbar spine muscle spasm - Routine Neurological Exam Mental status testing finds him to be awake and alert. He is oriented by 3. Cognitive function is grossly intact. Speech is fluent. Cranial nerve testing 2 through 12 are grossly intact. Motor: 4+/5+ weakness of all muscle groups of his left lower extremity. Sensory:There is diminished light touch in his left lower extremity compared to the right. He denies bowel/bladder dysfunction The patient states that he has not been out of bed nor ambulated due to increasing pain. - Detailed Neurological Exam: Coma Scale Eye Opening: Spontaneous Verbal Response: Oriented Motor Response: Obey commands [place] Coma Scale Total: 15 - Routine Psychiatric Exam Present: normal affect, cooperative - Urinary Catheter Management Indwelling Urethral Catheter Cath placed during this visit: yes, but has since been removed by the nurse Reason for continuing: Acute urinary retention Insertion date: 09/25/18 Insertion time: 18:42 Removal date: 09/29/18 Removal time: 22:30 Assessment and Plan - Plan 42 yo male with new onset of increased LBP with radiation to right buttocks and numbness on the left along L4/5. Last seen by my partner Dr. Henderson on: 10/04 continues to ambulate and void-- gi planning colonoscopy tomorrow-- not surgical candidate at this time and it appears abx are working 10/16 Patient relates that over the past two days he has a worsening back pain associated with radiation to the left buttocks. 10/17 L-spine MRI shows some slight progressionm of the epidural abscess but significant pocket in the paraspinal muscles.. ESR and CRP remain elevated. Consider repeat cultures, off of ABx x 24 hrs as well as a CT-guided needle biopsy of the epidural abscess. No indication for Neurosurgical intervention at this time Will follow 10/18/2018 The patient has remained clinically stable. I believe a CT-guided needle aspiration biopsy has been ordered of the lumbosacral spine which is pending. Depending on the results we will determine the appropriate further diagnostic and therapeutic approach. Currently a conservative neurosurgical approach is warranted. Neurosurgery will follow. 10/19/18 Most of this patient's pain is in his buttocks, hip and left proximal leg. He has a large deep soft tissue abscess as well as a mildly larger epidural abscess. Neuro exam stable, some perceived weakness due to pain and poor effort. IR does not think it is safe to access the epidural abscess, Dr. Henderson who was the original Neurosurgical aviation consultant is back and will now review the imaging studies tomorrow and decide regarding open intervention as present antibiotic therapy has not decreased ESR or CRP.
[2018-10-20] MEDS: Dextrose 5%/NaCl 0.45% Inj 1,000 ML IV.CONT SCH ×3 (00:17→22:04)
[2018-10-20] MEDS: Morphine Inj 4 MG/ML Vial IV.PUSH PRN ×6 (00:18→21:00)
[2018-10-20] MEDS: oxyCODONE/Acetaminophen 10/325 Tablet PO SCH ×6 (01:58→22:00)
[2018-10-20] MEDS: Gabapentin 300 MG Capsule PO SCH ×3 (06:01→22:00)
[2018-10-20 07:09] LABS: Baso # (Auto) 0.1 th/mm3 (0.0-0.2); Baso % (Auto) 0.9 % (0.0-2.0); Eos # (Auto) 0.3 th/mm3 (0.0-0.4); Eos % (Auto) 3.9 % (0.0-4.0); Hematocrit 33.2 % (39.0-51.0); Hemoglobin 11.5 gm/dL (13.0-17.0); Lymph # (Auto) 2.7 th/mm3 (1.0-4.8); Lymph % (Auto) 40.2 % (9.0-44.0); Mean Corpuscular HGB Conc 34.6 % (32.0-36.0); Mean Corpuscular Hemoglobin 29.6 pg (27.0-34.0); Mean Corpuscular Volume 85.6 fL (80.0-100.0); Mean Platelet Volume 6.8 fL (7.0-11.0); Mono # (Auto) 0.8 th/mm3 (0.0-0.9); Mono % (Auto) 11.8 % (0.0-8.0); Neut # (Auto) 2.9 th/mm3 (1.8-7.7); Neut % (Auto) 43.2 % (16.0-70.0); Platelet Count 326 th/mm3 (150-450); Red Blood Count 3.88 mil/mm3 (4.50-5.90); Red Cell Distribution Width 13.6 % (11.6-17.2); White Blood Count 6.8 th/mm3 (4.0-11.0)
[2018-10-20 07:17] LABS: INR 1.1 Ratio; Prothrombin Time 10.8 sec (9.8-11.6)
[2018-10-20] MEDS: Senna/Docusate Sodium 8.6/50 MG Tablet PO SCH ×2 (08:09→20:19)
[2018-10-20] MEDS: Petrolatum 49%/Zinc Oxide 15% Barrier Oint 120 GM Tube TOPICAL SCH (08:10)
[2018-10-20] MEDS: Hydrocortisone Acetate 25 MG Supp RECTAL SCH ×2 (10:36→20:20)
--- NOTE | 2018-10-20 13:50 | P.PNIM ---
Subjective Interval history: Patient reports he is feeling okay today. He states he has been up and ambulated to the bathroom. He reports his back pain seems to get worse at the end of the day. Overall he reports that he is improving. Seen by neurosurgery today who recommended continuing with conservative management. The imaging findings are noted. Physical Exam Vital signs: Last Vital Signs Temp 97.5 F L 10/20/18 08:00 Pulse 93 H 10/20/18 08:00 Resp 20 10/20/18 08:00 BP 120/72 10/20/18 08:00 Pulse Ox 98 10/20/18 08:00 Intake & Output 10/18/18 10/19/18 10/20/18 10/21/18 06:59 06:59 06:59 06:59 Intake Total 3200 / 3200 2966.3 / 2966.3 2139 / 2139 1000 / 1000 Output Total 2600 / 2600 3795 / 3795 2400 / 2400 Balance 600 / 600 -828.7 / -828.7 -261 / -261 1000 / 1000 Weight 85.4 kg 86 kg Narrative: General patient complains of lower back pain on and off throughout the day. He says that he is not having difficulty ambulating due to pain. HEENT extraocular movements are intact, clear oropharyngeal mucosa, no JVD Cardiovascular S1-S2 audible, RRR, no murmurs rubs or gallops Respiratory clear to auscultation bilaterally Abdomen soft, nontender, nondistended, normal bowel sounds Extremities no edema. Neuro moves all 4 exts, sensation intact b/l, no difficulty voiding Urinary Catheter Management Indwelling Urethral Catheter: Cath placed during this visit: yes, but has since been removed by the nurse Insertion date: 09/25/18 Insertion time: 18:42 Removal date: 09/29/18 Removal time: 22:30 Results Labs CBC & Chem 7: 10/20/18 06:36 10/17/18 09:57 Procedures Procedures: None Assessment and Plan Plan 42-year-old male with a history of IV drug use who presented to the emergency department on 09/24/2018 due to a 3-day duration of lower back pain with radiation to the right lower extremity and numbness of the left leg. He was found to be febrile during the hospitalization. MRI of the spine showed fluid collection in the lumbar spine. Patient was also found to have MRSA bacteremia. MAT on 09/29/2018 was done which did not show any evidence of vegetations. 1. Sepsis secondary to MRSA bacteremia 09/28/18 with lumbar epidural abscess. -The patient's back pain level fluctuates throughout the day depending on activities. However he reports overall improvement since his hospitalization. Repeat imaging did show an increase in the size of the epidural abscess but his symptoms not necessarily correlating right now with the imaging findings. He was reevaluated by neurosurgery who advised continuing with IV antibiotics. Infectious disease following and added Rifampin to his antibiotics regimen of IV daptomycin. Continue pain control. CRP does show improvement over the past few weeks. Blood cultures positive for MRSA, repeat blood cultures are negative. MAT showed no vegetation. Continue pain control with Percocet, IV morphine for breakthrough pain. Flexeril for muscle spasm. Continue physical therapy. 2. History of IV drug use Patient denies any recent history of IV drug use. Patient was counseled on the dangers of IV drug use. 3. Constipation/hemorrhoids/weight loss Patient with family history significant for colon cancer Status post EGD which showed gastritis. Colonoscopy was failed due to poor prep and stool in the left colon. GI recommended repeat colonoscopy. DVT prophylaxis, patient is currently on SCDs. He is ambulatory. Progress Note: Quality VTE Deep Vein Thrombosis/Pulmonary Embolism Present on Admission: No
[2018-10-20] MEDS: DAPTOmycin Inj 650 MG in Sodium Chlor 0.9% Inj 100 ML IV.SIG SCH (15:17)
--- NOTE | 2018-10-20 18:13 | P.PNNS ---
Subjective Interval history: F/u -- evaluate MRI Physical Exam Vital signs: Vital Signs 10/19/18 20:00 10/20/18 00:00 10/20/18 04:00 Temperature 98.5 F 98.2 F 97.4 F L Pulse Rate 138 H 105 H 106 H Respiratory Rate 17 15 15 Blood Pressure 142/89 H 136/73 124/80 Pulse Oximetry 98 98 97 10/20/18 08:00 Temperature 97.5 F L Pulse Rate 93 H Respiratory Rate 20 Blood Pressure 120/72 Pulse Oximetry 98 Intake & Output 10/19/18 10/20/18 10/20/18 18:59 06:59 18:59 Intake Total 1320 / 1320 819 / 819 1100 / 1100 Output Total 1200 / 1200 1200 / 1200 Balance 120 / 120 -381 / -381 1100 / 1100 Weight 86 kg Intake: IV 1100 / 1100 819 / 819 1100 / 1100 D5W/1/2 NS Inj 1,000 ML @ 84 1000 / 1000 mls/hr IV.CONT .[id number] [facility] Rx# :[id number] NS Inj 1,000 ML @ 100 mls/hr IV 1000 / 1000 819 / 819 .CONT .Q10H [facility] Rx#:[id number] Cubicin Inj 650 MG In NS Inj 100 / 100 100 / 100 100 ML @ 200 mls/hr IV.SIG Q24H [facility] Rx#:[id number] Oral 220 / 220 Output: Urine 1200 / 1200 1200 / 1200 Other: # Bowel Movements 0 Narrative: A&O x 3 CN II-XII intact Motor 5/5 UE/LE Ambulating around the unit Voiding with +BM multiple times - Urinary Catheter Management Indwelling Urethral Catheter Cath placed during this visit: yes, but has since been removed by the nurse Reason for continuing: Acute urinary retention Insertion date: 09/25/18 Insertion time: 18:42 Removal date: 09/29/18 Removal time: 22:30 Assessment and Plan - Plan 42 yo male with new onset of increased LBP with radiation to right buttocks and numbness on the left along L4/5. Last seen by my partner Dr. Henderson on: 10/04 continues to ambulate and void-- gi planning colonoscopy tomorrow-- not surgical candidate at this time and it appears abx are working 10/16 Patient relates that over the past two days he has a worsening back pain associated with radiation to the left buttocks. 10/17 L-spine MRI shows some slight progressionm of the epidural abscess but significant pocket in the paraspinal muscles.. ESR and CRP remain elevated. Consider repeat cultures, off of ABx x 24 hrs as well as a CT-guided needle biopsy of the epidural abscess. No indication for Neurosurgical intervention at this time Will follow 10/18/2018 The patient has remained clinically stable. I believe a CT-guided needle aspiration biopsy has been ordered of the lumbosacral spine which is pending. Depending on the results we will determine the appropriate further diagnostic and therapeutic approach. Currently a conservative neurosurgical approach is warranted. Neurosurgery will follow. 10/19/18 Most of this patient's pain is in his buttocks, hip and left proximal leg. He has a large deep soft tissue abscess as well as a mildly larger epidural abscess. Neuro exam stable, some perceived weakness due to pain and poor effort. IR does not think it is safe to access the epidural abscess, Dr. Henderson who was the original Neurosurgical consultant rn is back and will now review the imaging studies tomorrow and decide regarding open intervention as present antibiotic therapy has not decreased ESR or CRP. 10/20 Reviewed recent imaging and met with Mr. Cook. He overall feels stable to slightly improved. He walked with me around the unit without any difficulty and has been voiding and having BM's. I reviewed the imaging again which looks worse but the patient does not have neurologic deficit. The paraspinal abscess is also worse and accessible if there is concern that the diagnosis (or bug) is in question. This would be done by IR but not require going to the epidural abscess location, simply paraspinal muscles. I discussed this with the physician who yesterday consulted me (off today but would communicate with Dr. Chan's team). The imaging at times lag behind clinical improvement. The patient himself did not want to proceed with surgery given he felt he is improving. I think this reasonable and little to be gained with surgery given that he is neurologically intact. If diagnosis is in question, consider tapping the paraspinal fluid collection, but I defer this to primary team, ID and IR if this is doable. Please get weekly ESR/CRP and call us back if he develops neurologic symptoms.
[2018-10-21] MEDS: Morphine Inj 4 MG/ML Vial IV.PUSH PRN ×6 (00:56→21:22)
[2018-10-21] MEDS: oxyCODONE/Acetaminophen 10/325 Tablet PO SCH ×6 (02:30→22:05)
[2018-10-21] MEDS: Gabapentin 300 MG Capsule PO SCH ×3 (06:27→22:05)
[2018-10-21] MEDS: Senna/Docusate Sodium 8.6/50 MG Tablet PO SCH ×2 (09:19→21:24)
[2018-10-21] MEDS: Hydrocortisone Acetate 25 MG Supp RECTAL SCH ×2 (09:19→21:25)
[2018-10-21] MEDS: Petrolatum 49%/Zinc Oxide 15% Barrier Oint 120 GM Tube TOPICAL SCH (09:21)
[2018-10-21] MEDS: Dextrose 5%/NaCl 0.45% Inj 1,000 ML IV.CONT SCH ×2 (10:06→22:06)
--- NOTE | 2018-10-21 10:49 | P.PNIM ---
Subjective Interval history: Patient reports his pain level has been fluctuating today. No issues with urination or bowel movements. Physical Exam Vital signs: Last Vital Signs Temp 97.7 F 10/21/18 08:00 Pulse 96 H 10/21/18 08:00 Resp 7 L 10/21/18 09:18 BP 116/79 10/21/18 08:00 Pulse Ox 98 10/21/18 08:00 Intake & Output 10/19/18 10/20/18 10/21/18 10/22/18 06:59 06:59 06:59 06:59 Intake Total 2966.3 / 2966.3 2139 / 2139 3620 / 3620 1000 / 1000 Output Total 3795 / 3795 2400 / 2400 850 / 850 Balance -828.7 / -828.7 -261 / -261 2770 / 2770 1000 / 1000 Weight 86 kg 85.2 kg Narrative: GENERAL: This is a well-nourished, well-developed patient, in no apparent distress. CARDIOVASCULAR: Normal rate and regular rhythm without murmurs, gallops, or rubs. RESPIRATORY: Good respiratory efforts. Breath sounds equal and clear to auscultation bilaterally. GASTROINTESTINAL: Abdomen soft, non-tender, non-distended. Normal active bowel sounds MUSCULOSKELETAL: Complaining of discomfort to palpation of the lumbar paraspinal muscles NEURO: Alert & Oriented x4 to person, place, time, situation. Moves all ext x4 PSYCH: Appropriate mood and affect. Urinary Catheter Management Indwelling Urethral Catheter: Cath placed during this visit: yes, but has since been removed by the nurse Insertion date: 09/25/18 Insertion time: 18:42 Removal date: 09/29/18 Removal time: 22:30 Results Labs CBC & Chem 7: 10/20/18 06:36 10/17/18 09:57 Procedures Procedures: None Assessment and Plan Plan 42-year-old male with a history of IV drug use who presented to the emergency department on 09/24/2018 due to a 3-day duration of lower back pain with radiation to the right lower extremity and numbness of the left leg. He was found to be febrile during the hospitalization. MRI of the spine showed fluid collection in the lumbar spine. Patient was also found to have MRSA bacteremia. MAT on 09/29/2018 was done which did not show any evidence of vegetations. 1. Sepsis secondary to MRSA bacteremia 09/28/18 with lumbar epidural abscess. -The patient's back pain level fluctuates throughout the day depending on activities. However he reports overall improvement since his hospitalization. Repeat imaging did show an increase in the size of the epidural abscess but his symptoms not necessarily correlating right now with the imaging findings. He was reevaluated by neurosurgery who advised continuing with IV antibiotics. Infectious disease following and added Rifampin to his antibiotics regimen of IV daptomycin. Continue pain control. CRP does show improvement over the past few weeks. Discussed with infectious disease. Continue to monitor CRP and ESR. Blood cultures positive for MRSA, repeat blood cultures are negative. MAT showed no vegetation. Continue pain control with Percocet as needed. Flexeril for muscle spasm. Continue physical therapy. 2. History of IV drug use Patient denies any recent history of IV drug use. Patient was counseled on the dangers of IV drug use. 3. Constipation/hemorrhoids/weight loss Patient with family history significant for colon cancer Status post EGD which showed gastritis. Colonoscopy was failed due to poor prep and stool in the left colon. GI recommended repeat colonoscopy. DVT prophylaxis, SCDs. He is ambulatory. Progress Note: Quality VTE Deep Vein Thrombosis/Pulmonary Embolism Present on Admission: No
--- NOTE | 2018-10-21 13:50 | P.PNID ---
Subjective Remarks: Patient is a 42-year-old male, presented to the hospital with severe low back pain. He was apparently doing yard work the day he started having back pain. The pain came on suddenly that he had to stop working. He laid down and since has not gotten out of bed much because of the severity of the pain. He would have pain radiating to both thighs, and currently he is complaining of some numbness in his left lower extremity. He has been constipated, although he is not really been eating much because of the severe pain. He has been having problem urinating and it takes a while for him to urinate. He is also been having fevers for 2 days prior to coming into the hospital. Patient denies any skin infection or any boils. He has not had any vomiting or diarrhea or any respiratory complaint. He has not had any teeth problem requiring any dentist attention. Patient has prior history of IV drug use, but [facility], and then was in long term for at least 2 months, and has been out on the streets for the last 2 months. He denies any smoking or snorting illicit drugs as well. 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 Since admission patient has had fevers. He had an MRI and he has abnormality in the lower thoracic and lumbar region. There is a fluid collection in the anterior epidural space. I spoke with radiologist and there is no window to access that epidural space. He has had 2 blood cultures that are negative so far. Urinalysis unremarkable. His WBC is elevated at 25,000. Infectious disease consultation has been requested to assist with evaluation and treatment. Notes reviewed Neurosurgery notes reviewed [place] no need for surgery at this time - neurologically stable His last MRi showed increase in epidural collection, and decrease in size of paraspinal fluid Last (+) BC 09/28, he had (+) BC 09/24-09/28 Vanco CLAUDINE 2 Temps ok Last (+) BC 09/28 WBC down to normal Voiding ok Had good BM today Antibiotics: Cubicin Rifampin Allergies/Adverse Reactions: Allergies penicillin G Allergy (Mild, Verified 09/24/18 11:50) Rash, Localized pt states he doesnt know but has always been told that as a kid Objective Vital Signs 10/20/18 16:00 10/20/18 20:00 10/21/18 00:00 Temperature 98.2 F 97.7 F 98.3 F Pulse Rate 125 H 104 H 114 H Respiratory Rate 20 15 14 Blood Pressure 119/77 112/55 L 117/72 Pulse Oximetry 95 97 98 10/21/18 04:00 10/21/18 08:00 10/21/18 09:18 Temperature 97.8 F 97.7 F Pulse Rate 96 H 96 H Respiratory Rate 15 18 7 L Blood Pressure 109/73 116/79 Pulse Oximetry 97 98 10/21/18 12:00 Temperature 97.9 F Pulse Rate 117 H Respiratory Rate 18 Blood Pressure 126/90 Pulse Oximetry 100 Intake & Output 10/20/18 10/21/18 10/21/18 18:59 06:59 18:59 Intake Total 2059 / 0 1560 / 1560 1000 / 1000 Output Total 850 / 850 Balance 2059 710 / 710 1000 / 1000 Weight 85.2 kg Intake: IV 1100 / 1100 1000 / 1000 1000 / 1000 D5W/1/2 NS Inj 1,000 ML @ 84 1000 / 1000 1000 / 1000 1000 / 1000 mls/hr IV.CONT .[id number] [facility] Rx# :[id number] Cubicin Inj 650 MG In NS Inj 100 / 100 100 ML @ 200 mls/hr IV.SIG Q24H [facility] Rx#:[id number] Oral 960 / 960 560 / 560 Output: Urine 850 / 850 Other: # Voids 5 Date of Last Bowel Movement 10/11/18 # Bowel Movements 3 1 Lab - Hematology Results 10/20/18 10/20/18 06:36 06:36 WBC 6.8 RBC 3.88 L Hgb 11.5 L Hct 33.2 L MCV 85.6 MCH 29.6 MCHC 34.6 RDW 13.6 Plt Count 326 MPV 6.8 L Neut % (Auto) 43.2 Lymph % (Auto) 40.2 [place] % (Auto) 11.8 H Eos % (Auto) 3.9 Baso % (Auto) 0.9 Neut # (Auto) 2.9 Lymph # (Auto) 2.7 [place] # (Auto) 0.8 Eos # (Auto) 0.3 Baso # (Auto) 0.1 WBC Differential . Differential Comment Auto diff final ESR 101 H Imaging: ITS Impressions Abdomen/Pelvis CT 09/28/18 00:00 CONCLUSION: 1. Extensive stranding within the pelvis noted within the peritoneal fat and adjacent structures including musculature could be anasarca or other inflammatory/infectious etiology. No abnormal fluid collection or abscess. 2. There does appear to be wall thickening and inflammation surrounding the urinary bladder. Cystitis should be excluded. 3. Splenomegaly. 4. Trace ascites. Lumbar Spine MRI 10/16/18 00:00 CONCLUSION: 1. Findings are characteristic of discitis with epidural abscess epicentered at L5-S1 which has progressed since the prior examination and size of the epidural abscess is larger causing significant thecal sac stenosis and compromise to the nerve roots which are clumped and compressed dorsally.The paraspinous fluid collection on the left side within the soft tissues however appears smaller. There is also osteomyelitis of the adjacent L5 and S1 vertebrae extending all the way down to mid body of S2. 2. Slight overall thecal sac stenosis L4-5. Physical Exam: GENERAL: awake and alert, NAD SKIN: Warm and dry. No generalized rash.. EYES: [place] conjunctiva. No petechia or hemorrhage. No scleral icterus. No injection or drainage. EARS, NOSE AND THROAT: Mucous membranes pink and moist. No oral lesions noted. NECK: Trachea midline. Supple and not tender, no meningeal signs CARDIOVASCULAR: Regular rate and rhythm. No murmurs, rubs or gallops heard RESPIRATORY: Clear to auscultation. No rales, wheezing or rhonchi ABDOMEN: Soft, non-tender, mildly distended. Bowel sounds present and normoactive. No guarding. No rebound. No organomegaly. EXTREMITIES: No clubbing, cyanosis, or edema. No joint effusion, has good ROM. No calf tenderness. NEUROLOGICAL: Awake and alert. Cranial nerves grossly intact. Able to move both LE, symmetrical. Tenderness in lower back PSYCHIATRIC: Cooperative LINE: No evidence of infection Assessment and Plan - Plan Impression MRSA sepsis due to back infection. MRSA. High grade MRSA sepsis - Vanco CLAUDINE 2 Lumbar epidural abscess, progressing on MRI Hx IVDU, last use prob 20 months ago Recommendation Continue Cubicin to help sterilize blood - follow CPK Repeat labs today - CBC, CMP Continue Rifampin - follow LFT Neurosurgery to evaluate today His ESR is higher, but his CRP is lower from 24 to 7 - will follow Follow temps Monitor progress
[2018-10-21] MEDS: DAPTOmycin Inj 650 MG in Sodium Chlor 0.9% Inj 100 ML IV.SIG SCH (15:59)
[2018-10-22] MEDS: Morphine Inj 4 MG/ML Vial IV.PUSH PRN ×6 (01:07→23:03)
[2018-10-22] MEDS: oxyCODONE/Acetaminophen 10/325 Tablet PO SCH ×6 (02:10→21:46)
[2018-10-22] MEDS: Gabapentin 300 MG Capsule PO SCH ×3 (06:07→23:03)
[2018-10-22] MEDS: Hydrocortisone Acetate 25 MG Supp RECTAL SCH ×2 (08:43→21:41)
[2018-10-22] MEDS: Senna/Docusate Sodium 8.6/50 MG Tablet PO SCH ×2 (08:46→21:41)
[2018-10-22] MEDS: Petrolatum 49%/Zinc Oxide 15% Barrier Oint 120 GM Tube TOPICAL SCH (08:46)
[2018-10-22] MEDS: Dextrose 5%/NaCl 0.45% Inj 1,000 ML IV.CONT SCH ×3 (09:04→21:51)
--- NOTE | 2018-10-22 12:43 | P.PNIM ---
Subjective Interval history: Patient reports his pain is about the same. Fluctuates throughout the day. However it is not worse. He has been ambulating Physical Exam Vital signs: Last Vital Signs Temp 97.8 F 10/22/18 12:00 Pulse 117 H 10/22/18 12:00 Resp 18 10/22/18 12:00 BP 120/72 10/22/18 12:00 Pulse Ox 99 10/22/18 12:00 Intake & Output 10/20/18 10/21/18 10/22/18 10/23/18 06:59 06:59 06:59 06:59 Intake Total 2139 / 2139 3620 / 3620 3300 / 3300 1000 / 1000 Output Total 2400 / 2400 850 / 850 750 / 750 Balance -261 / -261 2770 / 2770 2550 / 2550 1000 / 1000 Weight 86 kg 85.2 kg 82.4 kg Narrative: GENERAL: This is a well-nourished, well-developed patient, in no apparent distress. CARDIOVASCULAR: Normal rate and regular rhythm without murmurs, gallops, or rubs. RESPIRATORY: Good respiratory efforts. Breath sounds equal and clear to auscultation bilaterally. GASTROINTESTINAL: Abdomen soft, non-tender, non-distended. Normal active bowel sounds MUSCULOSKELETAL: Complaining of discomfort to palpation of the lumbar paraspinal muscles NEURO: Alert & Oriented x4 to person, place, time, situation. Moves all ext x4 PSYCH: Appropriate mood and affect. Urinary Catheter Management Indwelling Urethral Catheter: Cath placed during this visit: yes, but has since been removed by the nurse Insertion date: 09/25/18 Insertion time: 18:42 Removal date: 09/29/18 Removal time: 22:30 Results Labs CBC & Chem 7: 10/20/18 06:36 10/17/18 09:57 Procedures Procedures: None Assessment and Plan Plan 42-year-old male with a history of IV drug use who presented to the emergency department on 09/24/2018 due to a 3-day duration of lower back pain with radiation to the right lower extremity and numbness of the left leg. He was found to be febrile during the hospitalization. MRI of the spine showed fluid collection in the lumbar spine. Patient was also found to have MRSA bacteremia. MAT on 09/29/2018 was done which did not show any evidence of vegetations. 1. Sepsis secondary to MRSA bacteremia 09/28/18 with lumbar epidural abscess. -The patient's back pain level fluctuates throughout the day depending on activities. However he reports overall improvement since his hospitalization. Repeat imaging did show an increase in the size of the epidural abscess but his symptoms not necessarily correlating right now with the imaging findings. He was reevaluated by neurosurgery who advised continuing with IV antibiotics. Infectious disease following and added Rifampin to his antibiotics regimen of IV daptomycin. Continue pain control. CRP does show improvement over the past few weeks. Discussed with infectious disease. Continue to monitor CRP and ESR. Blood cultures positive for MRSA, repeat blood cultures are negative. MAT showed no vegetation. Continue pain control with Percocet as needed. Flexeril for muscle spasm. Continue physical therapy. 2. History of IV drug use Patient denies any recent history of IV drug use. Patient previously counseled on the dangers of IV drug use. 3. Constipation/hemorrhoids/weight loss Patient with family history significant for colon cancer Status post EGD which showed gastritis. Colonoscopy failed due to poor prep and stool in the left colon. GI recommended repeat colonoscopy. Can be done outpatient. DVT prophylaxis, SCDs. He is ambulatory. Progress Note: Quality VTE Deep Vein Thrombosis/Pulmonary Embolism Present on Admission: No
[2018-10-22] MEDS: DAPTOmycin Inj 650 MG in Sodium Chlor 0.9% Inj 100 ML IV.SIG SCH (17:10)
[2018-10-23] MEDS: oxyCODONE/Acetaminophen 10/325 Tablet PO SCH ×6 (01:53→21:31)
[2018-10-23] MEDS: Morphine Inj 4 MG/ML Vial IV.PUSH PRN ×6 (03:14→23:46)
[2018-10-23] MEDS: Gabapentin 300 MG Capsule PO SCH ×3 (06:00→23:47)
[2018-10-23 06:32] LABS: Anion Gap 5 meq/L (5-15); Blood Urea Nitrogen 14 mg/dL (7-18); C-Reactive Protein 2.96 mg/dL (0.00-0.30); Calcium 8.8 mg/dL (8.5-10.1); Carbon Dioxide 31.7 meq/L (21.0-32.0); Chloride 102 meq/L (98-107); Glomerular Filtration Rate Greater Than 89 mL/min (>89); Glucose,Random 123 mg/dL (74-106); Hematocrit 34.8 % (39.0-51.0); Mean Corpuscular HGB Conc 34.4 % (32.0-36.0); Mean Corpuscular Hemoglobin 29.6 pg (27.0-34.0); Mean Corpuscular Volume 86.1 fL (80.0-100.0); Mean Platelet Volume 6.7 fL (7.0-11.0); Platelet Count 363 th/mm3 (150-450); Red Blood Count 4.04 mil/mm3 (4.50-5.90); Red Cell Distribution Width 13.8 % (11.6-17.2); Sodium 139 meq/L (136-145); White Blood Count 6.7 th/mm3 (4.0-11.0)
[2018-10-23 06:33] LABS: Albumin 2.6 g/dL (3.4-5.0)
[2018-10-23 06:38] LABS: Total Protein 9.4 g/dL (6.4-8.2)
[2018-10-23] MEDS: Senna/Docusate Sodium 8.6/50 MG Tablet PO SCH ×2 (09:42→21:30)
[2018-10-23] MEDS: Dextrose 5%/NaCl 0.45% Inj 1,000 ML IV.CONT SCH ×2 (09:44→23:47)
[2018-10-23] MEDS: Hydrocortisone Acetate 25 MG Supp RECTAL SCH ×2 (10:33→21:30)
[2018-10-23] MEDS: Petrolatum 49%/Zinc Oxide 15% Barrier Oint 120 GM Tube TOPICAL SCH (10:33)
--- NOTE | 2018-10-23 14:55 | P.PNID ---
Subjective Remarks: Patient is a 42-year-old male, presented to the hospital with severe low back pain. He was apparently doing yard work the day he started having back pain. The pain came on suddenly that he had to stop working. He laid down and since has not gotten out of bed much because of the severity of the pain. He would have pain radiating to both thighs, and currently he is complaining of some numbness in his left lower extremity. He has been constipated, although he is not really been eating much because of the severe pain. He has been having problem urinating and it takes a while for him to urinate. He is also been having fevers for 2 days prior to coming into the hospital. Patient denies any skin infection or any boils. He has not had any vomiting or diarrhea or any respiratory complaint. He has not had any teeth problem requiring any dentist attention. Patient has prior history of IV drug use, but he was incarcerated for about 18 months in [facility], and then was in [facility] for at least 2 months, and has been out on the streets for the last 2 months. He denies any smoking or snorting illicit drugs as well. 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 Since admission patient has had fevers. He had an MRI and he has abnormality in the lower thoracic and lumbar region. There is a fluid collection in the anterior epidural space. I spoke with radiologist and there is no window to access that epidural space. He has had 2 blood cultures that are negative so far. Urinalysis unremarkable. His WBC is elevated at 25,000. Infectious disease consultation has been requested to assist with evaluation and treatment. Notes reviewed D/W Dr Chan Neurosurgery notes reviewed [place] no need for surgery at this time - neurologically stable His last MRi showed increase in epidural collection, and decrease in size of paraspinal fluid Last (+) BC 09/28, he had (+) BC 09/24-09/28 Vanco CLAUDINE 2 Temps ok Last (+) 09/28 ESR 91, down from 101 ESR 2.96 dwon from 7.7 LFTs improving Antibiotics: Cubicin Rifampin Allergies/Adverse Reactions: Allergies penicillin G Allergy (Mild, Verified 09/24/18 11:50) Rash, Localized pt states he doesnt know but has always been told that as a kid Objective Vital Signs 10/22/18 16:00 10/22/18 20:00 10/23/18 00:00 Temperature 98 F 98.2 F 98.2 F Pulse Rate 115 H 120 H 117 H Respiratory Rate 18 Blood Pressure 128/80 136/74 135/67 Pulse Oximetry 98 97 96 10/23/18 04:00 10/23/18 08:00 10/23/18 12:00 Temperature 98 F 97.8 F 97.8 F Pulse Rate 104 H 89 97 H Respiratory Rate 18 Blood Pressure 116/66 117/67 119/70 Pulse Oximetry 95 99 99 Intake & Output 10/22/18 10/23/18 10/23/18 18:59 06:59 18:59 Intake Total 1100 / 1100 1480 / 1480 1000 / 1000 Output Total 1525 / 1525 Balance 1100 / 1100 -45 / -45 1000 / 1000 Weight 83 kg 81.6 kg Intake: IV 1100 / 1100 1000 / 1000 1000 / 1000 D5W/1/2 NS Inj 1,000 ML @ 84 1000 / 1000 1000 / 1000 1000 / 1000 mls/hr IV.CONT .[id number] [facility] Rx# :[id number] Cubicin Inj 650 MG In NS Inj 100 / 100 100 ML @ 200 mls/hr IV.SIG Q24H [facility] Rx#:[id number] Oral 480 / 480 Output: Urine 1525 / 1525 Stool 0 / 0 Other: Date of Last Bowel Movement 10/21/18 Lab - Hematology Results 10/23/18 10/23/18 05:46 05:46 WBC 6.7 RBC 4.04 L Hgb 12.0 L Hct 34.8 L MCV 86.1 MCH 29.6 MCHC 34.4 RDW 13.8 Plt Count 363 MPV 6.7 L ESR 91 H Lab - Chemistry Results 10/23/18 10/23/18 05:46 05:46 Sodium 139 Potassium 4.0 Chloride 102 Carbon Dioxide 31.7 Anion Gap 5 BUN 14 Creatinine 0.86 Estimated GFR Greater than 89 Random Glucose 123 H Calcium 8.8 Total Bilirubin 0.4 Direct Bilirubin 0.1 Indirect Bilirubin 0.3 AST 63 H ALT 215 H Alkaline Phosphatase 185 H C-Reactive Protein 2.96 H Total Protein 9.4 H Albumin 2.6 L Imaging: ITS Impressions Abdomen/Pelvis CT 09/28/18 00:00 CONCLUSION: 1. Extensive stranding within the pelvis noted within the peritoneal fat and adjacent structures including musculature could be anasarca or other inflammatory/infectious etiology. No abnormal fluid collection or abscess. 2. There does appear to be wall thickening and inflammation surrounding the urinary bladder. Cystitis should be excluded. 3. Splenomegaly. 4. Trace ascites. Lumbar Spine MRI 10/16/18 00:00 CONCLUSION: 1. Findings are characteristic of discitis with epidural abscess epicentered at L5-S1 which has progressed since the prior examination and size of the epidural abscess is larger causing significant thecal sac stenosis and compromise to the nerve roots which are clumped and compressed dorsally.The paraspinous fluid collection on the left side within the soft tissues however appears smaller. There is also osteomyelitis of the adjacent L5 and S1 vertebrae extending all the way down to mid body of S2. 2. Slight overall thecal sac stenosis L4-5. Physical Exam: GENERAL: awake and alert, NAD SKIN: Warm and dry. No generalized rash.. EYES: [place] conjunctiva. No petechia or hemorrhage. No scleral icterus. No injection or drainage. EARS, NOSE AND THROAT: Mucous membranes pink and moist. No oral lesions noted. NECK: Trachea midline. Supple and not tender, no meningeal signs CARDIOVASCULAR: Regular rate and rhythm. No murmurs, rubs or gallops heard RESPIRATORY: Clear to auscultation. No rales, wheezing or rhonchi ABDOMEN: Soft, non-tender, mildly distended. Bowel sounds present and normoactive. No guarding. No rebound. No organomegaly. EXTREMITIES: No clubbing, cyanosis, or edema. No joint effusion, has good ROM. No calf tenderness. NEUROLOGICAL: Awake and alert. Cranial nerves grossly intact. Able to move both LE, symmetrical. Tenderness in lower back PSYCHIATRIC: Cooperative LINE: No evidence of infection Assessment and Plan - Plan Impression MRSA sepsis due to back infection. MRSA. High grade MRSA sepsis - Vanco CLAUDINE 2 Lumbar epidural abscess, progressing on MRI Hx IVDU, last use prob 20 months ago Recommendation Continue Cubicin to help sterilize blood - follow CPK Labs once a week wwhile on IV Abx Continue Rifampin - follow LFT Follow temps Monitor progress Will need 8-12 weeks IV Abx depending on his course I will be off Oct 24- Other ID MD available if needed in my absence
[2018-10-23] MEDS: DAPTOmycin Inj 650 MG in Sodium Chlor 0.9% Inj 100 ML IV.SIG SCH (15:37)
--- NOTE | 2018-10-23 15:37 | P.PNIM ---
Subjective Interval history: Patient reports he is feeling about the same today. No significant change in his clinical status. Physical Exam Vital signs: Last Vital Signs Temp 97.8 F 10/23/18 12:00 Pulse 97 H 10/23/18 12:00 Resp 18 10/23/18 12:00 BP 119/70 10/23/18 12:00 Pulse Ox 99 10/23/18 12:00 Intake & Output 10/21/18 10/22/18 10/23/18 10/24/18 06:59 06:59 06:59 06:59 Intake Total 3620 / 3620 3300 / 3300 2580 / 2580 1000 / 1000 Output Total 850 / 850 750 / 750 1525 / 1525 Balance 2770 / 2770 2550 / 2550 1055 / 1055 1000 / 1000 Weight 85.2 kg 82.4 kg 83 kg 81.6 kg Narrative: GENERAL: This is a well-nourished, well-developed patient, in no apparent distress. CARDIOVASCULAR: Normal rate and regular rhythm without murmurs, gallops, or rubs. RESPIRATORY: Good respiratory efforts. Breath sounds equal and clear to auscultation bilaterally. GASTROINTESTINAL: Abdomen soft, non-tender, non-distended. Normal active bowel sounds MUSCULOSKELETAL: Complaining of discomfort to palpation of the lumbar paraspinal muscles NEURO: Alert & Oriented x4 to person, place, time, situation. Moves all ext x4 PSYCH: Appropriate mood and affect. Urinary Catheter Management Indwelling Urethral Catheter: Cath placed during this visit: yes, but has since been removed by the nurse Insertion date: 09/25/18 Insertion time: 18:42 Removal date: 09/29/18 Removal time: 22:30 Results Labs CBC & Chem 7: 10/23/18 05:46 10/23/18 05:46 Procedures Procedures: None Assessment and Plan Plan 42-year-old male with a history of IV drug use who presented to the emergency department on 09/24/2018 due to a 3-day duration of lower back pain with radiation to the right lower extremity and numbness of the left leg. He was found to be febrile during the hospitalization. MRI of the spine showed fluid collection in the lumbar spine. Patient was also found to have MRSA bacteremia. MAT on 09/29/2018 was done which did not show any evidence of vegetations. 1. Sepsis secondary to MRSA bacteremia 09/28/18 with lumbar epidural abscess. -The patient's back pain level fluctuates throughout the day depending on activities. However he reports overall improvement since his hospitalization. Repeat imaging did show an increase in the size of the epidural abscess but his symptoms not necessarily correlating right now with the imaging findings. He was reevaluated by neurosurgery who advised continuing with IV antibiotics. Infectious disease following and added Rifampin to his antibiotics regimen of IV daptomycin. Continue pain control. ESR and CRP slightly improving. Discussed with infectious disease. Continue to monitor CRP and ESR. Will need 8-12 weeks of antibiotics per ID. Blood cultures positive for MRSA, repeat blood cultures are negative. MAT showed no vegetation. Continue pain control with Percocet as needed. Flexeril for muscle spasm. Continue physical therapy. 2. History of IV drug use Patient denies any recent history of IV drug use. Patient previously counseled on the dangers of IV drug use. 3. Constipation/hemorrhoids/weight loss Patient with family history significant for colon cancer Status post EGD which showed gastritis. Colonoscopy failed due to poor prep and stool in the left colon. GI recommended repeat colonoscopy. Can be done outpatient. DVT prophylaxis, SCDs. He is ambulatory. Progress Note: Quality VTE Deep Vein Thrombosis/Pulmonary Embolism Present on Admission: No
[2018-10-24] MEDS: oxyCODONE/Acetaminophen 10/325 Tablet PO SCH ×6 (02:14→22:30)
[2018-10-24] MEDS: Morphine Inj 4 MG/ML Vial IV.PUSH PRN ×5 (04:52→21:29)
[2018-10-24] MEDS: Gabapentin 300 MG Capsule PO SCH ×3 (06:31→22:30)
[2018-10-24] MEDS: Hydrocortisone Acetate 25 MG Supp RECTAL SCH ×3 (09:01→21:29)
[2018-10-24] MEDS: Senna/Docusate Sodium 8.6/50 MG Tablet PO SCH ×2 (09:01→21:28)
[2018-10-24] MEDS: Petrolatum 49%/Zinc Oxide 15% Barrier Oint 120 GM Tube TOPICAL SCH (09:51)
--- NOTE | 2018-10-24 10:28 | P.PNIM ---
Subjective Interval history: Patient reports he is doing better overall. Although he still reports persistent back pain. He is ambulating without issues. Nurse raised concern about compliance and possible illicit drug use in the hospital. He did have a visit yesterday. Physical Exam Vital signs: Last Vital Signs Temp 97.5 F L 10/24/18 04:00 Pulse 92 H 10/24/18 04:00 Resp 16 10/24/18 04:00 BP 113/68 10/24/18 04:00 Pulse Ox 99 10/24/18 04:00 Intake & Output 10/22/18 10/23/18 10/24/18 10/25/18 06:59 06:59 06:59 06:59 Intake Total 3300 / 3300 2580 / 2580 2820 / 2820 Output Total 750 / 750 1525 / 1525 1300 / 1300 Balance 2550 / 2550 1055 / 1055 1520 / 1520 Weight 82.4 kg 83 kg 82.9 kg Narrative: GENERAL: This is a well-nourished, well-developed patient, in no apparent distress. CARDIOVASCULAR: Normal rate and regular rhythm without murmurs, gallops, or rubs. RESPIRATORY: Good respiratory efforts. Breath sounds equal and clear to auscultation bilaterally. GASTROINTESTINAL: Abdomen soft, non-tender, non-distended. Normal active bowel sounds MUSCULOSKELETAL: Complaining of discomfort to palpation of the lumbar paraspinal muscles NEURO: Alert & Oriented x4 to person, place, time, situation. Moves all ext x4 PSYCH: Appropriate mood and affect. Urinary Catheter Management Indwelling Urethral Catheter: Cath placed during this visit: yes, but has since been removed by the nurse Insertion date: 09/25/18 Insertion time: 18:42 Removal date: 09/29/18 Removal time: 22:30 Results Labs CBC & Chem 7: 10/23/18 05:46 10/23/18 05:46 Procedures Procedures: None Assessment and Plan Plan 42-year-old male with a history of IV drug use who presented to the emergency department on 09/24/2018 due to a 3-day duration of lower back pain with radiation to the right lower extremity and numbness of the left leg. He was found to be febrile during the hospitalization. MRI of the spine showed fluid collection in the lumbar spine. Patient was also found to have MRSA bacteremia. MAT on 09/29/2018 was done which did not show any evidence of vegetations. 1. Sepsis secondary to MRSA bacteremia 09/28/18 with lumbar epidural abscess. -The patient's back pain level fluctuates throughout the day depending on activities. However he reports overall improvement since his hospitalization. Repeat imaging did show an increase in the size of the epidural abscess but his symptoms not necessarily correlating right now with the imaging findings. He was reevaluated by neurosurgery who advised continuing with IV antibiotics. Infectious disease following and added Rifampin to his antibiotics regimen of IV daptomycin. Continue pain control. ESR and CRP slightly improving. Discussed with infectious disease. Continue to monitor CRP and ESR. Will need 8-12 weeks of antibiotics per ID. Blood cultures positive for MRSA, repeat blood cultures are negative. MAT showed no vegetation. Continue pain control with Percocet as needed. Flexeril for muscle spasm. Continue physical therapy. 2. History of IV drug use Patient denies any recent history of IV drug use. Patient previously counseled on the dangers of IV drug use. Repeat a urine drug screen. 3. Constipation/hemorrhoids/weight loss Patient with family history significant for colon cancer Status post EGD which showed gastritis. Colonoscopy failed due to poor prep and stool in the left colon. GI recommended repeat colonoscopy. Can be done outpatient. DVT prophylaxis, SCDs. He is ambulatory. Progress Note: Quality VTE Deep Vein Thrombosis/Pulmonary Embolism Present on Admission: No
[2018-10-24] MEDS: Dextrose 5%/NaCl 0.45% Inj 1,000 ML IV.CONT SCH (16:48)
[2018-10-24] MEDS: DAPTOmycin Inj 650 MG in Sodium Chlor 0.9% Inj 100 ML IV.SIG SCH (17:35)
[2018-10-25] MEDS: Morphine Inj 4 MG/ML Vial IV.PUSH PRN ×6 (01:38→21:12)
[2018-10-25] MEDS: oxyCODONE/Acetaminophen 10/325 Tablet PO SCH ×6 (02:30→22:15)
[2018-10-25] MEDS: Gabapentin 300 MG Capsule PO SCH ×3 (06:55→22:15)
[2018-10-25] MEDS: Senna/Docusate Sodium 8.6/50 MG Tablet PO SCH ×2 (09:05→21:12)
[2018-10-25] MEDS: Hydrocortisone Acetate 25 MG Supp RECTAL SCH ×2 (11:34→21:13)
[2018-10-25] MEDS: Petrolatum 49%/Zinc Oxide 15% Barrier Oint 120 GM Tube TOPICAL SCH (11:34)
--- NOTE | 2018-10-25 15:58 | P.PNIM ---
Subjective Interval history: Patient reports he is doing okay today. States he feels little stiff but has not gotten out of bed yet. Physical Exam Vital signs: Last Vital Signs Temp 97.7 F 10/25/18 12:00 Pulse 106 H 10/25/18 12:00 Resp 20 10/25/18 12:00 BP 108/71 10/25/18 12:00 Pulse Ox 96 10/25/18 12:00 Intake & Output 10/23/18 10/24/18 10/25/18 10/26/18 06:59 06:59 06:59 06:59 Intake Total 2580 / 2580 2820 / 2820 1900 / 1900 Output Total 1525 / 1525 1300 / 1300 1200 / 1200 Balance 1055 / 1055 1520 / 1520 700 / 700 Weight 83 kg 82.9 kg 84.1 kg Narrative: GENERAL: This is a well-nourished, well-developed patient, in no apparent distress. CARDIOVASCULAR: Normal rate and regular rhythm without murmurs, gallops, or rubs. RESPIRATORY: Good respiratory efforts. Breath sounds equal and clear to auscultation bilaterally. GASTROINTESTINAL: Abdomen soft, non-tender, non-distended. Normal active bowel sounds MUSCULOSKELETAL: Complaining of discomfort to palpation of the lumbar paraspinal muscles NEURO: Alert & Oriented x4 to person, place, time, situation. Moves all ext x4 PSYCH: Appropriate mood and affect. Urinary Catheter Management Indwelling Urethral Catheter: Cath placed during this visit: yes, but has since been removed by the nurse Insertion date: 09/25/18 Insertion time: 18:42 Removal date: 09/29/18 Removal time: 22:30 Results Labs CBC & Chem 7: 10/23/18 05:46 10/23/18 05:46 Procedures Procedures: None Assessment and Plan Plan 42-year-old male with a history of IV drug use who presented to the emergency department on 09/24/2018 due to a 3-day duration of lower back pain with radiation to the right lower extremity and numbness of the left leg. He was found to be febrile during the hospitalization. MRI of the spine showed fluid collection in the lumbar spine. Patient was also found to have MRSA bacteremia. MAT on 09/29/2018 was done which did not show any evidence of vegetations. 1. Sepsis secondary to MRSA bacteremia 09/28/18 with lumbar epidural abscess. -The patient's back pain level fluctuates throughout the day depending on activities. However he reports overall improvement since his hospitalization. Repeat imaging did show an increase in the size of the epidural abscess but his symptoms not necessarily correlating right now with the imaging findings. He was reevaluated by neurosurgery who advised continuing with IV antibiotics. Infectious disease following and added Rifampin to his antibiotics regimen of IV daptomycin. Continue pain control. ESR and CRP slightly improving. Discussed with infectious disease. Continue to monitor CRP and ESR. Will need 8-12 weeks of antibiotics per ID. Blood cultures positive for MRSA, repeat blood cultures are negative. MAT showed no vegetation. Continue pain control with Percocet as needed. Flexeril for muscle spasm. Continue physical therapy. Encouraged the patient to increase activity as tolerated. 2. History of IV drug use Patient denies any recent history of IV drug use. Patient previously counseled on the dangers of IV drug use. Repeat a urine drug screen. 3. Constipation/hemorrhoids/weight loss Patient with family history significant for colon cancer Status post EGD which showed gastritis. Colonoscopy failed due to poor prep and stool in the left colon. GI recommended repeat colonoscopy. Can be done outpatient. DVT prophylaxis, SCDs. He is ambulatory. Progress Note: Quality VTE Deep Vein Thrombosis/Pulmonary Embolism Present on Admission: No
[2018-10-25] MEDS: DAPTOmycin Inj 650 MG in Sodium Chlor 0.9% Inj 100 ML IV.SIG SCH (17:01)
[2018-10-26] MEDS: oxyCODONE/Acetaminophen 10/325 Tablet PO SCH ×6 (02:10→23:04)
[2018-10-26] MEDS: Morphine Inj 4 MG/ML Vial IV.PUSH PRN ×5 (03:13→21:03)
[2018-10-26] MEDS: Gabapentin 300 MG Capsule PO SCH ×3 (06:24→23:04)
[2018-10-26] MEDS: Hydrocortisone Acetate 25 MG Supp RECTAL SCH ×2 (08:01→21:04)
[2018-10-26] MEDS: Senna/Docusate Sodium 8.6/50 MG Tablet PO SCH ×2 (08:02→21:03)
[2018-10-26] MEDS: Petrolatum 49%/Zinc Oxide 15% Barrier Oint 120 GM Tube TOPICAL SCH (08:02)
--- NOTE | 2018-10-26 14:14 | P.PNIM ---
Subjective Interval history: Patient reports feeling improved overall. No new issues. Physical Exam Vital signs: Last Vital Signs Temp 97.8 F 10/26/18 08:00 Pulse 96 H 10/26/18 08:00 Resp 16 10/26/18 08:00 BP 94/55 L 10/26/18 08:00 Pulse Ox 96 10/26/18 08:00 Intake & Output 10/24/18 10/25/18 10/26/18 10/27/18 06:59 06:59 06:59 06:59 Intake Total 2820 / 2820 1900 / 1900 1300 / 1300 Output Total 1300 / 1300 1200 / 1200 Balance 1520 / 1520 700 / 700 1300 / 1300 Weight 82.9 kg 84.1 kg 84.6 kg Narrative: GENERAL: This is a well-nourished, well-developed patient, in no apparent distress. CARDIOVASCULAR: Normal rate and regular rhythm without murmurs, gallops, or rubs. RESPIRATORY: Good respiratory efforts. Breath sounds equal and clear to auscultation bilaterally. GASTROINTESTINAL: Abdomen soft, non-tender, non-distended. Normal active bowel sounds MUSCULOSKELETAL: Complaining of discomfort to palpation of the lumbar paraspinal muscles NEURO: Alert & Oriented x4 to person, place, time, situation. Moves all ext x4 PSYCH: Appropriate mood and affect. Urinary Catheter Management Indwelling Urethral Catheter: Cath placed during this visit: yes, but has since been removed by the nurse Insertion date: 09/25/18 Insertion time: 18:42 Removal date: 09/29/18 Removal time: 22:30 Results Labs CBC & Chem 7: 10/23/18 05:46 10/23/18 05:46 Procedures Procedures: None Assessment and Plan Plan 42-year-old male with a history of IV drug use who presented to the emergency department on 09/24/2018 due to a 3-day duration of lower back pain with radiation to the right lower extremity and numbness of the left leg. He was found to be febrile during the hospitalization. MRI of the spine showed fluid collection in the lumbar spine. Patient was also found to have MRSA bacteremia. MAT on 09/29/2018 was done which did not show any evidence of vegetations. 1. Sepsis secondary to MRSA bacteremia 09/28/18 with lumbar epidural abscess. -The patient's back pain level fluctuates throughout the day depending on activities. However he reports overall improvement since his hospitalization. Repeat imaging did show an increase in the size of the epidural abscess but his symptoms not necessarily correlating right now with the imaging findings. He was reevaluated by neurosurgery who advised continuing with IV antibiotics. Infectious disease following and added Rifampin to his antibiotics regimen of IV daptomycin. Continue pain control. ESR and CRP slightly improving. Discussed with infectious disease. Continue to monitor CRP and ESR. Will need 8-12 weeks of antibiotics per ID. Blood cultures positive for MRSA, repeat blood cultures are negative. MAT showed no vegetation. Continue pain control with Percocet as needed. Flexeril for muscle spasm. Continue physical therapy. Encouraged the patient to increase activity as tolerated. No change in management. 2. History of IV drug use Patient denies any recent history of IV drug use. Patient previously counseled on the dangers of IV drug use. Repeat a urine drug screen. 3. Constipation/hemorrhoids/weight loss Patient with family history significant for colon cancer Status post EGD which showed gastritis. Colonoscopy failed due to poor prep and stool in the left colon. GI recommended repeat colonoscopy. Can be done outpatient. DVT prophylaxis, SCDs. He is ambulatory. Progress Note: Quality VTE Deep Vein Thrombosis/Pulmonary Embolism Present on Admission: No
[2018-10-26] MEDS: DAPTOmycin Inj 650 MG in Sodium Chlor 0.9% Inj 100 ML IV.SIG SCH (16:44)
[2018-10-27] MEDS: Morphine Inj 4 MG/ML Vial IV.PUSH PRN ×5 (01:01→20:04)
[2018-10-27] MEDS: oxyCODONE/Acetaminophen 10/325 Tablet PO SCH ×6 (02:25→22:03)
[2018-10-27] MEDS: Gabapentin 300 MG Capsule PO SCH ×3 (06:36→22:03)
[2018-10-27] MEDS: Senna/Docusate Sodium 8.6/50 MG Tablet PO SCH ×2 (09:05→20:03)
[2018-10-27] MEDS: Petrolatum 49%/Zinc Oxide 15% Barrier Oint 120 GM Tube TOPICAL SCH (09:07)
[2018-10-27] MEDS: Hydrocortisone Acetate 25 MG Supp RECTAL SCH ×2 (09:08→20:04)
--- NOTE | 2018-10-27 15:05 | P.PNIM ---
Subjective Interval history: Patient reports he is feeling better overall. He has been ambulating today. We discussed weaning off pain medications and discontinuing IV morphine. He is agreeable. Physical Exam Vital signs: Last Vital Signs Temp 97.8 F 10/27/18 12:00 Pulse 114 H 10/27/18 12:00 Resp 20 10/27/18 12:00 BP 129/74 10/27/18 12:00 Pulse Ox 98 10/27/18 12:00 Intake & Output 10/25/18 10/26/18 10/27/18 10/28/18 06:59 06:59 06:59 06:59 Intake Total 1900 / 1900 1300 / 1300 1300 / 1300 Output Total 1200 / 1200 1000 / 1000 Balance 700 / 700 1300 / 1300 300 / 300 Weight 84.1 kg 84.6 kg 82.7 kg Narrative: GENERAL: This is a well-nourished, well-developed patient, in no apparent distress. CARDIOVASCULAR: Normal rate and regular rhythm without murmurs, gallops, or rubs. RESPIRATORY: Good respiratory efforts. Breath sounds equal and clear to auscultation bilaterally. GASTROINTESTINAL: Abdomen soft, non-tender, non-distended. Normal active bowel sounds MUSCULOSKELETAL: Complaining of discomfort to palpation of the lumbar paraspinal muscles NEURO: Alert & Oriented x4 to person, place, time, situation. Moves all ext x4 PSYCH: Appropriate mood and affect. Urinary Catheter Management Indwelling Urethral Catheter: Cath placed during this visit: yes, but has since been removed by the nurse Insertion date: 09/25/18 Insertion time: 18:42 Removal date: 09/29/18 Removal time: 22:30 Results Labs CBC & Chem 7: 10/23/18 05:46 10/23/18 05:46 Procedures Procedures: None Assessment and Plan Plan 42-year-old male with a history of IV drug use who presented to the emergency department on 09/24/2018 due to a 3-day duration of lower back pain with radiation to the right lower extremity and numbness of the left leg. He was found to be febrile during the hospitalization. MRI of the spine showed fluid collection in the lumbar spine. Patient was also found to have MRSA bacteremia. MAT on 09/29/2018 was done which did not show any evidence of vegetations. 1. Sepsis secondary to MRSA bacteremia 09/28/18 with lumbar epidural abscess. -The patient's back pain level fluctuates throughout the day depending on activities. However he reports overall improvement since his hospitalization. Repeat imaging did show an increase in the size of the epidural abscess but his symptoms not necessarily correlating right now with the imaging findings. He was reevaluated by neurosurgery who advised continuing with IV antibiotics. Infectious disease following and added Rifampin to his antibiotics regimen of IV daptomycin. Continue pain control. ESR and CRP slightly improving. Discussed with infectious disease. Continue to monitor CRP and ESR. Will need 8-12 weeks of antibiotics per ID. Blood cultures positive for MRSA, repeat blood cultures are negative. MAT showed no vegetation. Continue pain control with Percocet as needed. Flexeril for muscle spasm. Continue physical therapy. Encouraged the patient to increase activity as tolerated. No change in management. 2. History of IV drug use Patient denies any recent history of IV drug use. Patient previously counseled on the dangers of IV drug use. DC IV morphine. Continue Percocet, Flexeril, and gabapentin for pain 3. Constipation/hemorrhoids/weight loss Patient with family history significant for colon cancer Status post EGD which showed gastritis. Colonoscopy failed due to poor prep and stool in the left colon. GI recommended repeat colonoscopy. Can be done outpatient. DVT prophylaxis, SCDs. He is ambulatory. Overall impression: History of IV drug use with epidural abscess. Being managed medically with antibiotics. Needs prolonged course. ID following. Progress Note: Quality VTE Deep Vein Thrombosis/Pulmonary Embolism Present on Admission: No
[2018-10-27] MEDS: DAPTOmycin Inj 650 MG in Sodium Chlor 0.9% Inj 100 ML IV.SIG SCH (15:44)
[2018-10-28] MEDS: Morphine Inj 4 MG/ML Vial IV.PUSH PRN ×6 (00:08→20:30)
[2018-10-28] MEDS: oxyCODONE/Acetaminophen 10/325 Tablet PO SCH ×6 (02:07→21:49)
[2018-10-28] MEDS: Gabapentin 300 MG Capsule PO SCH ×3 (06:16→23:04)
[2018-10-28 07:20] LABS: Baso % (Auto) 0.6 % (0.0-2.0); Eos # (Auto) 0.1 th/mm3 (0.0-0.4); Eos % (Auto) 0.9 % (0.0-4.0); Hematocrit 36.8 % (39.0-51.0); Hemoglobin 12.4 gm/dL (13.0-17.0); Lymph # (Auto) 3.7 th/mm3 (1.0-4.8); Lymph % (Auto) 41.5 % (9.0-44.0); Mean Corpuscular HGB Conc 33.6 % (32.0-36.0); Mean Corpuscular Volume 86.4 fL (80.0-100.0); Mean Platelet Volume 6.7 fL (7.0-11.0); Mono # (Auto) 0.6 th/mm3 (0.0-0.9); Mono % (Auto) 6.4 % (0.0-8.0); Neut # (Auto) 4.5 th/mm3 (1.8-7.7); Neut % (Auto) 50.6 % (16.0-70.0); Platelet Count 412 th/mm3 (150-450); Red Blood Count 4.26 mil/mm3 (4.50-5.90); Red Cell Distribution Width 13.9 % (11.6-17.2); White Blood Count 8.8 th/mm3 (4.0-11.0)
[2018-10-28 07:57] LABS: Alanine Aminotransferase 71 U/L (12-78); Albumin 2.8 g/dL (3.4-5.0); Alkaline Phosphatase 139 U/L (45-117); Anion Gap 6 meq/L (5-15); Aspartate Aminotransferase 28 U/L (15-37); Blood Urea Nitrogen 20 mg/dL (7-18); Chloride 99 meq/L (98-107); Creatine Kinase 46 U/L (39-308); Glomerular Filtration Rate Greater Than 89 mL/min (>89); Glucose,Random 90 mg/dL (74-106); Potassium 4.3 meq/L (3.5-5.1); Sodium 136 meq/L (136-145); Total Protein 9.3 g/dL (6.4-8.2)
[2018-10-28] MEDS: Senna/Docusate Sodium 8.6/50 MG Tablet PO SCH ×2 (08:17→20:30)
[2018-10-28] MEDS: Hydrocortisone Acetate 25 MG Supp RECTAL SCH ×2 (08:18→20:30)
[2018-10-28] MEDS: Petrolatum 49%/Zinc Oxide 15% Barrier Oint 120 GM Tube TOPICAL SCH (08:18)
--- NOTE | 2018-10-28 10:04 | P.PN ---
Subjective Interval history: Follow up for epidural abscess: pt. seen and examined, no fever overnight. C/O low back pain, feels it's a pulling type of pain, better than on admission. Able to ambulate slowly, feels that left leg is slightly weaker. C/O numbness to left leg. Had BM yesterday but it was firm. No rash, no n/v. Eating well. Asking about dc plan. Physical Exam Vital signs: Vital Signs 10/27/18 12:00 10/27/18 16:00 10/27/18 20:00 Temperature 97.8 F 97.9 F 98.2 F Pulse Rate 114 H 114 H 114 H Respiratory Rate 20 20 17 Blood Pressure 129/74 130/89 119/56 L Pulse Oximetry 98 97 97 10/28/18 00:00 10/28/18 04:00 10/28/18 08:00 Temperature 98.5 F 98.5 F 98.4 F Pulse Rate 131 H 120 H 116 H Respiratory Rate 17 14 16 Blood Pressure 137/71 129/69 132/78 Pulse Oximetry 96 95 96 Intake & Output 10/27/18 10/28/18 10/28/18 18:59 06:59 18:59 Intake Total 820 / 820 Balance 820 / 820 Weight 83.7 kg Intake: IV 100 / 100 Cubicin Inj 650 MG In NS Inj 100 / 100 100 ML @ 200 mls/hr IV.SIG Q24H [facility] Rx#:[id number] Oral 720 / 720 Other: # Voids 7 2 Date of Last Bowel Movement 10/27/18 # Bowel Movements 1 3 Narrative: GENERAL: This is a well-nourished, well-developed patient, in no apparent distress. CARDIOVASCULAR: Normal rate and regular rhythm without murmurs, gallops, or rubs. RESPIRATORY: Good respiratory efforts. Breath sounds equal and clear to auscultation bilaterally. GASTROINTESTINAL: Abdomen soft, non-tender, non-distended. Normal active bowel sounds MUSCULOSKELETAL: Complaining of discomfort to palpation of the lumbar paraspinal muscles, no joint abnormalities. Gait slow but steady. NEURO: Alert & Oriented x4 to person, place, time, situation. Moves all ext x4 PSYCH: Appropriate mood and affect. - Urinary Catheter Management Indwelling Urethral Catheter Cath placed during this visit: yes, but has since been removed by the nurse Reason for continuing: Acute urinary retention Insertion date: 09/25/18 Insertion time: 18:42 Removal date: 09/29/18 Removal time: 22:30 Results - Labs CBC & Chem 7: 10/28/18 06:56 10/28/18 06:56 Laboratory Results - last 24 hr 10/28/18 10/28/18 06:56 06:56 WBC 8.8 RBC 4.26 L Hgb 12.4 L Hct 36.8 L MCV 86.4 MCH 29.0 MCHC 33.6 RDW 13.9 Plt Count 412 MPV 6.7 L Neut % (Auto) 50.6 Lymph % (Auto) 41.5 Emmons % (Auto) 6.4 Eos % (Auto) 0.9 Baso % (Auto) 0.6 Neut # (Auto) 4.5 Lymph # (Auto) 3.7 Emmons # (Auto) 0.6 Eos # (Auto) 0.1 Baso # (Auto) 0.0 WBC Differential . Differential Comment Auto diff final Sodium 136 Potassium 4.3 Chloride 99 Carbon Dioxide 31.0 Anion Gap 6 BUN 20 H Creatinine 0.91 Estimated GFR Greater than 89 Random Glucose 90 Calcium 9.0 Total Bilirubin 0.3 AST 28 ALT 71 Alkaline Phosphatase 139 H Total Creatine Kinase 46 Total Protein 9.3 H Albumin 2.8 L - Procedures None Assessment and Plan - Assessment (1) Epidural abscess Code(s): G06.2 - Extradural and subdural abscess, unspecified Status: Acute (2) Bacteremia Code(s): R78.81 - Bacteremia Status: Acute (3) History of intravenous drug use in remission Code(s): Z87.898 - Personal history of other specified conditions Status: Acute (4) Constipation Code(s): K59.00 - Constipation, unspecified Status: Acute - Plan 42-year-old male with a history of IV drug use who presented to the emergency department on 09/24/2018 due to a 3-day duration of lower back pain with radiation to the right lower extremity and numbness of the left leg. He was found to be febrile during the hospitalization. MRI of the spine showed fluid collection in the lumbar spine. Patient was also found to have MRSA bacteremia. MAT on 09/29/2018 was done which did not show any evidence of vegetations. Sepsis secondary to MRSA bacteremia 09/28/18 with lumbar epidural abscess. -The patient's back pain level fluctuates throughout the day depending on activities. However he reports overall improvement since his hospitalization. Repeat imaging did show an increase in the size of the epidural abscess but his symptoms not necessarily correlating right now with the imaging findings. He was reevaluated by neurosurgery who advised continuing with IV antibiotics. Infectious disease following and added Rifampin to his antibiotics regimen of IV daptomycin. -Blood cultures positive for MRSA, repeat blood cultures are negative. MAT showed no vegetation. -Continue pain control. -Per ID, continue to monitor CRP and ESR. Will need 8-12 weeks of antibiotics per ID. -Continue pain control with Percocet as needed, Flexeril for muscle spasm. -Continue physical therapy. Encouraged the patient to increase activity as tolerated. History of IV drug use Patient denies any recent history of IV drug use. Patient previously counseled on the dangers of IV drug use. -DCd IV morphine. Continue Percocet, Flexeril, and gabapentin for pain Constipation/hemorrhoids/weight loss -continue with schedule stool softener, add Miralax -Lactulose PRN Patient with family history significant for colon cancer Status post EGD which showed gastritis. Colonoscopy failed due to poor prep and stool in the left colon. -GI recommended repeat colonoscopy. Can be done outpatient. DVT prophylaxis, SCDs. He is ambulatory. History of IV drug use with epidural abscess. Being managed medically with antibiotics. Needs prolonged course. ID following. Code Status: Full code Discussed Condition With: RN, pt Discharge Planning: DC home when abx completed
[2018-10-28] MEDS: DAPTOmycin Inj 650 MG in Sodium Chlor 0.9% Inj 100 ML IV.SIG SCH (16:16)
[2018-10-28] MEDS: Polyethylene Glycol 3350 17 GM Packet PO SCH (16:19)
[2018-10-29] MEDS: Morphine Inj 4 MG/ML Vial IV.PUSH PRN ×4 (01:08→13:21)
[2018-10-29] MEDS: oxyCODONE/Acetaminophen 10/325 Tablet PO SCH ×4 (02:10→15:24)
[2018-10-29] MEDS: Gabapentin 300 MG Capsule PO SCH ×3 (06:10→23:10)
[2018-10-29] MEDS: Senna/Docusate Sodium 8.6/50 MG Tablet PO SCH ×2 (09:10→21:12)
[2018-10-29] MEDS: Polyethylene Glycol 3350 17 GM Packet PO SCH (09:11)
[2018-10-29] MEDS: Hydrocortisone Acetate 25 MG Supp RECTAL SCH ×2 (09:11→21:12)
[2018-10-29] MEDS: Petrolatum 49%/Zinc Oxide 15% Barrier Oint 120 GM Tube TOPICAL SCH (09:11)
[2018-10-29] MEDS: DAPTOmycin Inj 650 MG in Sodium Chlor 0.9% Inj 100 ML IV.SIG SCH (15:24)
--- NOTE | 2018-10-29 15:48 | P.PNIM ---
Subjective Interval history: The patient was complaining of chronic pain, never getting less than 8 out of 10 in severity. He said that he has been trying to ambulate more. He is trying to figure out what he is going to do for work upon discharge. He says he might be homeless. Discussed with nursing. Physical Exam Vital signs: Vital Signs 10/28/18 16:00 10/28/18 20:00 10/29/18 00:00 Temperature 98.5 F 97.3 F L 98.3 F Pulse Rate 107 H 111 H 115 H Respiratory Rate 16 17 17 Blood Pressure 128/69 136/79 Pulse Oximetry 98 99 98 10/29/18 04:00 10/29/18 08:00 10/29/18 09:12 Temperature 97.3 F L 98 F Pulse Rate 108 H 107 H Respiratory Rate 17 16 18 Blood Pressure 126/69 125/74 Pulse Oximetry 97 96 10/29/18 12:00 10/29/18 13:23 Temperature 97.8 F Pulse Rate 119 H Respiratory Rate 18 18 Blood Pressure 129/81 Pulse Oximetry 97 Intake & Output 10/28/18 10/29/18 10/29/18 18:59 06:59 18:59 Intake Total 1540 / 1540 0 / 0 Balance 1540 / 1540 0 / 0 Weight 81.7 kg Intake: IV 100 / 100 Cubicin Inj 650 MG In NS Inj 100 / 100 100 ML @ 200 mls/hr IV.SIG Q24H [facility] Rx#:[id number] Oral 1440 / 1440 0 / 0 Other: # Voids 5 5 # Bowel Movements 0 1 Narrative: GENERAL: This is a well-nourished, well-developed patient, in no apparent distress. CARDIOVASCULAR: Normal rate and regular rhythm without murmurs, gallops, or rubs. RESPIRATORY: Good respiratory efforts. Breath sounds equal and clear to auscultation bilaterally. GASTROINTESTINAL: Abdomen soft, non-tender, non-distended. Normal active bowel sounds MUSCULOSKELETAL: Complaining of discomfort to palpation of the lumbar paraspinal muscles, no joint abnormalities. Gait slow but steady. NEURO: Alert & Oriented x4 to person, place, time, situation. Moves all ext x4. + SLR. - Urinary Catheter Management Indwelling Urethral Catheter Cath placed during this visit: yes, but has since been removed by the nurse Reason for continuing: Acute urinary retention Insertion date: 09/25/18 Insertion time: 18:42 Removal date: 09/29/18 Removal time: 22:30 Results - Labs CBC & Chem 7: 10/28/18 06:56 10/28/18 06:56 - Procedures None Assessment and Plan - Assessment (1) Epidural abscess Code(s): G06.2 - Extradural and subdural abscess, unspecified Status: Acute (2) Bacteremia Code(s): R78.81 - Bacteremia Status: Acute (3) History of intravenous drug use in remission Code(s): Z87.898 - Personal history of other specified conditions Status: Acute (4) Constipation Code(s): K59.00 - Constipation, unspecified Status: Acute - Plan 42-year-old male with a history of IV drug use who presented to the emergency department on 09/24/2018 due to a 3-day duration of lower back pain with radiation to the right lower extremity and numbness of the left leg. He was found to be febrile during the hospitalization. MRI of the spine showed fluid collection in the lumbar spine. Patient was also found to have MRSA bacteremia. MAT on 09/29/2018 was done which did not show any evidence of vegetations. Sepsis secondary to MRSA bacteremia 09/28/18 with lumbar epidural abscess. -The patient's back pain level fluctuates throughout the day depending on activities. However he reports overall improvement since his hospitalization. Repeat imaging did show an increase in the size of the epidural abscess but his symptoms not necessarily correlating right now with the imaging findings. He was reevaluated by neurosurgery who advised continuing with IV antibiotics. Infectious disease following and added Rifampin to his antibiotics regimen of IV daptomycin. -Blood cultures positive for MRSA, repeat blood cultures are negative. MAT showed no vegetation. -Continue pain control. -Per ID, continue to monitor CRP and ESR. Will need 8-12 weeks of antibiotics per ID. -Continue pain control with Percocet as needed, Flexeril for muscle spasm, gabapentin. Add long acting PO morphine and ibuprofen for breakthrough. -Continue physical therapy. Encouraged the patient to increase activity as tolerated. History of IV drug use Patient denies any recent history of IV drug use. Patient previously counseled on the dangers of IV drug use. -DCd IV morphine. Continue Percocet, Flexeril, and gabapentin for pain. Add PO morphine and ibuprofen for breakthrough. Constipation/hemorrhoids/weight loss -continue with schedule stool softener, add Miralax -Lactulose PRN Patient with family history significant for colon cancer Status post EGD which showed gastritis. Colonoscopy failed due to poor prep and stool in the left colon. -GI recommended repeat colonoscopy. Can be done outpatient. DVT prophylaxis, SCDs. He is ambulatory. Discharge Planning: Needs IV antibiotics, GI work-up.
[2018-10-29] MEDS ORDERED: Gabapentin 300 MG Capsule PO SCH (16:00)
--- NOTE | 2018-10-29 17:12 | ECHRPT ---
Indication: CONCLUSIONS The left ventricular systolic function is normal with an estimated ejection fraction in the range of 55-60%. Trace mitral valve regurgitation. There is trace tricuspid valve regurgitation. Trivial pulmonary valve regurgitation. No evidence of endocarditis BP: / HR: Rhythm: Sinus Technical Quality:Good Medications Complications Proc. Components Anesthesia at the bedside for sedation FINDINGS LEFT VENTRICLE Normal left ventricular size. Wall thickness is normal. The left ventricular systolic function is normal with an estimated ejection fraction in the range of 55-60%. No regional wall motion abnormalities are present. RIGHT VENTRICLE Normal right ventricular size and systolic function. LEFT ATRIUM The left atrial size is normal. RIGHT ATRIUM The right atrial size is normal. ATRIAL APPENDAGES Normal left atrial appendage size with no evidence of thrombus formation. ATRIAL SEPTUM Normal atrial septal thickness without atrial level shunting by limited color doppler interrogation. AORTA The aortic root and proximal ascending aorta are normal in size on limited imaging. MITRAL VALVE Structurally normal mitral valve. Trace mitral valve regurgitation. No mitral valve stenosis. AORTIC VALVE Trileaflet aortic valve. No aortic valve stenosis or regurgitation. TRICUSPID VALVE Structurally normal tricuspid valve. There is trace tricuspid valve regurgitation. No tricuspid valv e stenosis. VESSELS The pulmonary valve is not well visualized. Trivial pulmonary valve regurgitation. Samuel Rushing DO (Electronically Signed) Final Date:29 October 2018 17:11
--- NOTE | 2018-10-29 17:53 | P.PNADD ---
Addendum to Inpatient Note Reason for Addendum: Additional Documentation Additional information: Attempted to see patient. Vascular access team in room. Patient reports no new symptoms. Chart reviewed. to resume care on 11/02/2018.
[2018-10-29] MEDS: oxyCODONE/Acetaminophen 10/325 Tablet PO PRN (20:19)
[2018-10-29] MEDS: Morphine Sulfate 15 MG SR Tablet PO SCH (21:12)
[2018-10-30] MEDS: oxyCODONE/Acetaminophen 10/325 Tablet PO PRN ×6 (00:17→23:55)
[2018-10-30] MEDS: Gabapentin 300 MG Capsule PO SCH ×3 (06:01→23:55)
[2018-10-30] MEDS: Morphine Sulfate 15 MG SR Tablet PO SCH ×2 (08:33→21:40)
[2018-10-30] MEDS: Senna/Docusate Sodium 8.6/50 MG Tablet PO SCH ×2 (08:33→21:42)
[2018-10-30] MEDS: Petrolatum 49%/Zinc Oxide 15% Barrier Oint 120 GM Tube TOPICAL SCH (08:34)
[2018-10-30] MEDS: Hydrocortisone Acetate 25 MG Supp RECTAL SCH ×2 (08:34→21:43)
[2018-10-30] MEDS: Polyethylene Glycol 3350 17 GM Packet PO SCH (08:34)
[2018-10-30] MEDS: DAPTOmycin Inj 650 MG in Sodium Chlor 0.9% Inj 100 ML IV.SIG SCH (15:37)
--- NOTE | 2018-10-30 16:21 | P.PNIM ---
Subjective Interval history: The patient was depressed that nobody was visiting him on his birthday. He discussed his relationship with his ex-girlfriend. 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 He says his pain control is better and he has better range of motion. Discussed with nursing. Physical Exam Vital signs: Vital Signs 10/29/18 20:00 10/29/18 20:32 10/30/18 00:00 Temperature 97.5 F L 98.9 F Pulse Rate 103 H 101 H Respiratory Rate 20 20 Blood Pressure 133/77 131/79 Pulse Oximetry 97 96 96 10/30/18 04:00 10/30/18 08:00 10/30/18 12:00 Temperature 97.8 F 98.6 F 98.1 F Pulse Rate 98 H 84 107 H Respiratory Rate 18 18 18 Blood Pressure 103/64 118/65 118/81 Pulse Oximetry 96 100 98 Intake & Output 10/29/18 10/30/18 10/30/18 18:59 06:59 18:59 Intake Total 100 / 100 960 / 960 Balance 100 / 100 960 / 960 Intake: IV 100 / 100 Cubicin Inj 650 MG In NS Inj 100 / 100 100 ML @ 200 mls/hr IV.SIG Q24H [facility] Rx#:[id number] Oral 960 / 960 Other: # Voids 4 Date of Last Bowel Movement 10/28/18 Narrative: GENERAL: This is a well-nourished, well-developed patient, in no apparent distress. CARDIOVASCULAR: Normal rate and regular rhythm without murmurs, gallops, or rubs. RESPIRATORY: Good respiratory efforts. Breath sounds equal and clear to auscultation bilaterally. GASTROINTESTINAL: Abdomen soft, non-tender, non-distended. Normal active bowel sounds. MUSCULOSKELETAL: Complaining of discomfort to palpation of the lumbar paraspinal muscles, no joint abnormalities. Gait slow but steady. NEURO: Alert & Oriented x4 to person, place, time, situation. Moves all ext x4. + SLR. - Urinary Catheter Management Indwelling Urethral Catheter Cath placed during this visit: yes, but has since been removed by the nurse Reason for continuing: Acute urinary retention Insertion date: 09/25/18 Insertion time: 18:42 Removal date: 09/29/18 Removal time: 22:30 Results - Labs CBC & Chem 7: 10/28/18 06:56 10/28/18 06:56 - Procedures None Assessment and Plan - Assessment (1) Epidural abscess Code(s): G06.2 - Extradural and subdural abscess, unspecified Status: Acute (2) Bacteremia Code(s): R78.81 - Bacteremia Status: Acute (3) History of intravenous drug use in remission Code(s): Z87.898 - Personal history of other specified conditions Status: Acute (4) Constipation Code(s): K59.00 - Constipation, unspecified Status: Acute - Plan 42-year-old male with a history of IV drug use who presented to the emergency department on 09/24/2018 due to a 3-day duration of lower back pain with radiation to the right lower extremity and numbness of the left leg. He was found to be febrile during the hospitalization. MRI of the spine showed fluid collection in the lumbar spine. Patient was also found to have MRSA bacteremia. MAT on 09/29/2018 was done which did not show any evidence of vegetations. Sepsis secondary to MRSA bacteremia 09/28/18 with lumbar epidural abscess. -The patient's back pain level fluctuates throughout the day depending on activities. However he reports overall improvement since his hospitalization. Repeat imaging did show an increase in the size of the epidural abscess but his symptoms not necessarily correlating right now with the imaging findings. He was reevaluated by neurosurgery who advised continuing with IV antibiotics. Infectious disease following and added Rifampin to his antibiotics regimen of IV daptomycin. -Blood cultures positive for MRSA, repeat blood cultures are negative. MAT showed no vegetation. -Continue pain control. -Per ID, continue to monitor CRP and ESR. Will need 8-12 weeks of antibiotics per ID. -Continue pain control with Percocet as needed, Flexeril for muscle spasm, gabapentin. Add long acting PO morphine and ibuprofen for breakthrough. Improved. -Continue physical therapy. Encouraged the patient to increase activity as tolerated. History of IV drug use Patient denies any recent history of IV drug use. Patient previously counseled on the dangers of IV drug use. -DCd IV morphine. Continue Percocet, Flexeril, and gabapentin for pain. Add PO morphine and ibuprofen for breakthrough. Pain level is improved. Constipation/hemorrhoids/weight loss Stable. -continue with schedule stool softener, add Miralax -Lactulose PRN Patient with family history significant for colon cancer Status post EGD which showed gastritis. Colonoscopy failed due to poor prep and stool in the left colon. -GI recommended repeat colonoscopy. Can be done outpatient. DVT prophylaxis, SCDs. He is ambulatory. Discharge Planning: Needs IV antibiotics, GI work-up.
[2018-10-31] MEDS: oxyCODONE/Acetaminophen 10/325 Tablet PO PRN ×5 (04:04→22:08)
[2018-10-31] MEDS: Gabapentin 300 MG Capsule PO SCH ×3 (06:06→22:08)
[2018-10-31] MEDS: Senna/Docusate Sodium 8.6/50 MG Tablet PO SCH ×2 (08:08→20:21)
[2018-10-31] MEDS: Morphine Sulfate 15 MG SR Tablet PO SCH ×2 (08:09→20:21)
[2018-10-31] MEDS: Polyethylene Glycol 3350 17 GM Packet PO SCH (08:10)
[2018-10-31] MEDS: Hydrocortisone Acetate 25 MG Supp RECTAL SCH ×2 (08:12→20:22)
[2018-10-31] MEDS: Petrolatum 49%/Zinc Oxide 15% Barrier Oint 120 GM Tube TOPICAL SCH (08:13)
[2018-10-31] MEDS: DAPTOmycin Inj 650 MG in Sodium Chlor 0.9% Inj 100 ML IV.SIG SCH (15:46)
--- NOTE | 2018-10-31 15:57 | P.PNIM ---
Subjective Interval history: The patient was complaining of depression. He was interested in starting a medication for that. He said somebody ended up visiting him briefly during his birthday yesterday. Discussed with nursing at the bedside. Physical Exam Vital signs: Last Vital Signs Temp 97.7 F 10/31/18 12:00 Pulse 108 H 10/31/18 12:00 Resp 18 10/31/18 12:00 BP 124/59 L 10/31/18 12:00 Pulse Ox 99 10/31/18 12:00 Intake & Output 10/29/18 10/30/18 10/31/18 11/01/18 06:59 06:59 06:59 06:59 Intake Total 1540 / 1540 1060 / 1060 3080 / 3080 Output Total 3020 / 3020 Balance 1540 / 1540 1060 / 1060 60 / 60 Weight 81.7 kg 81.9 kg Narrative: GENERAL: This is a well-nourished, well-developed patient, in no apparent distress. CARDIOVASCULAR: Normal rate and regular rhythm without murmurs, gallops, or rubs. RESPIRATORY: Good respiratory efforts. Breath sounds equal and clear to auscultation bilaterally. GASTROINTESTINAL: Abdomen soft, non-tender, non-distended. Normoactive bowel sounds. MUSCULOSKELETAL: Complaining of discomfort to palpation of the lumbar paraspinal muscles, no joint abnormalities. Gait slow but steady. NEURO: Alert & Oriented x4 to person, place, time, situation. Moves all ext x4. + SLR. Urinary Catheter Management Indwelling Urethral Catheter: Cath placed during this visit: yes, but has since been removed by the nurse Insertion date: 09/25/18 Insertion time: 18:42 Removal date: 09/29/18 Removal time: 22:30 Results Labs CBC & Chem 7: 10/28/18 06:56 10/28/18 06:56 Procedures Procedures: None Assessment and Plan (1) Epidural abscess: Code(s): G06.2 - Extradural and subdural abscess, unspecified Status: Acute (2) Bacteremia: Code(s): R78.81 - Bacteremia Status: Acute (3) History of intravenous drug use in remission: Code(s): Z87.898 - Personal history of other specified conditions Status: Acute (4) Constipation: Code(s): K59.00 - Constipation, unspecified Status: Acute Plan 42-year-old male with a history of IV drug use who presented to the emergency department on 09/24/2018 due to a 3-day duration of lower back pain with radiation to the right lower extremity and numbness of the left leg. He was found to be febrile during the hospitalization. MRI of the spine showed fluid collection in the lumbar spine. Patient was also found to have MRSA bacteremia. MAT on 09/29/2018 was done which did not show any evidence of vegetations. Sepsis secondary to MRSA bacteremia 09/28/18 with lumbar epidural abscess. -The patient's back pain level fluctuates throughout the day depending on activities. However he reports overall improvement since his hospitalization. Repeat imaging did show an increase in the size of the epidural abscess but his symptoms not necessarily correlating right now with the imaging findings. He was reevaluated by neurosurgery who advised continuing with IV antibiotics. Infectious disease following and added Rifampin to his antibiotics regimen of IV daptomycin. -Blood cultures positive for MRSA, repeat blood cultures are negative. MAT showed no vegetation. -Continue pain control. -Per ID, continue to monitor CRP and ESR. Will need 8-12 weeks of antibiotics per ID. -Continue pain control with Percocet as needed, Flexeril for muscle spasm, gabapentin. Add long acting PO morphine and ibuprofen for breakthrough. Improved. -Continue physical therapy. Encouraged the patient to increase activity as tolerated. History of IV drug use Patient denies any recent history of IV drug use. Patient previously counseled on the dangers of IV drug use. -DCd IV morphine. Continue Percocet, Flexeril, and gabapentin for pain. Add PO morphine and ibuprofen for breakthrough. Pain level is improved. Constipation/hemorrhoids/weight loss Stable. -continue with schedule stool softener, add Miralax -Lactulose PRN Patient with family history significant for colon cancer Status post EGD which showed gastritis. Colonoscopy failed due to poor prep and stool in the left colon. -GI recommended repeat colonoscopy. Can be done outpatient. Depression Situational. -would like to avoid benzos so will start Prozac 10 mg daily 10/31. DVT prophylaxis, SCDs. He is ambulatory. Discharge Planning: Needs IV antibiotics, GI work-up. Progress Note: Quality VTE Deep Vein Thrombosis/Pulmonary Embolism Present on Admission: No _ (1) Constipation Qualifiers: Constipation type:
[2018-11-01] MEDS: Gabapentin 300 MG Capsule PO SCH ×3 (06:12→22:09)
[2018-11-01] MEDS: oxyCODONE/Acetaminophen 10/325 Tablet PO PRN ×5 (06:12→23:14)
[2018-11-01] MEDS: Senna/Docusate Sodium 8.6/50 MG Tablet PO SCH ×2 (08:43→22:09)
[2018-11-01] MEDS: FLUoxetine 10 MG Capsule PO SCH (08:43)
[2018-11-01] MEDS: Polyethylene Glycol 3350 17 GM Packet PO SCH (08:44)
[2018-11-01] MEDS: Morphine Sulfate 15 MG SR Tablet PO SCH ×2 (08:44→22:08)
[2018-11-01] MEDS: Hydrocortisone Acetate 25 MG Supp RECTAL SCH ×2 (08:46→22:08)
[2018-11-01] MEDS: Petrolatum 49%/Zinc Oxide 15% Barrier Oint 120 GM Tube TOPICAL SCH (08:47)
--- NOTE | 2018-11-01 13:54 | P.PNIM ---
Subjective Interval history: The patient was sitting up and eating lunch. He said the food was not good. He was trying to figure out what he was getting D once he leaves the hospital. He says he will be homeless. He says he has not started to apply for disability. He was listening to music. Tolerating his medications. Physical Exam Vital signs: Last Vital Signs Temp 98.1 F 11/01/18 12:00 Pulse 111 H 11/01/18 12:00 Resp 18 11/01/18 12:00 BP 108/64 11/01/18 12:00 Pulse Ox 97 11/01/18 12:00 Intake & Output 10/30/18 10/31/18 11/01/18 11/02/18 06:59 06:59 06:59 06:59 Intake Total 1060 / 1060 3080 / 3080 1180 / 1180 Output Total 3020 / 3020 Balance 1060 / 1060 60 / 60 1180 / 1180 Weight 82.8 kg 81.9 kg 81.4 kg Narrative: GENERAL: This is a well-nourished, well-developed patient, in no apparent distress. CARDIOVASCULAR: Normal rate and regular rhythm without murmurs, gallops, or rubs. RESPIRATORY: Good respiratory efforts. Breath sounds equal and clear to auscultation bilaterally. GASTROINTESTINAL: Abdomen soft, non-tender, non-distended. Normoactive bowel sounds. MUSCULOSKELETAL: Complaining of discomfort to palpation of the lumbar paraspinal muscles, no joint abnormalities. Gait slow but steady. NEURO: Alert & Oriented x4 to person, place, time, situation. Moves all ext x4. + SLR. Urinary Catheter Management Indwelling Urethral Catheter: Cath placed during this visit: yes, but has since been removed by the nurse Insertion date: 09/25/18 Insertion time: 18:42 Removal date: 09/29/18 Removal time: 22:30 Results Labs CBC & Chem 7: 10/28/18 06:56 10/28/18 06:56 Procedures Procedures: None Assessment and Plan (1) Epidural abscess: Code(s): G06.2 - Extradural and subdural abscess, unspecified Status: Acute (2) Bacteremia: Code(s): R78.81 - Bacteremia Status: Acute (3) History of intravenous drug use in remission: Code(s): Z87.898 - Personal history of other specified conditions Status: Acute (4) Constipation: Code(s): K59.00 - Constipation, unspecified Status: Acute Plan 42-year-old male with a history of IV drug use who presented to the emergency department on 09/24/2018 due to a 3-day duration of lower back pain with radiation to the right lower extremity and numbness of the left leg. He was found to be febrile during the hospitalization. MRI of the spine showed fluid collection in the lumbar spine. Patient was also found to have MRSA bacteremia. MAT on 09/29/2018 was done which did not show any evidence of vegetations. Sepsis secondary to MRSA bacteremia 09/28/18 with lumbar epidural abscess. -The patient's back pain level fluctuates throughout the day depending on activities. However he reports overall improvement since his hospitalization. Repeat imaging did show an increase in the size of the epidural abscess but his symptoms not necessarily correlating right now with the imaging findings. He was reevaluated by neurosurgery who advised continuing with IV antibiotics. Infectious disease following and added Rifampin to his antibiotics regimen of IV daptomycin. -Blood cultures positive for MRSA, repeat blood cultures are negative. MAT showed no vegetation. -Continue pain control. -Per ID, continue to monitor CRP and ESR. Will need 8-12 weeks of antibiotics per ID. -Continue pain control with Percocet as needed, Flexeril for muscle spasm, gabapentin. Add long acting PO morphine and ibuprofen for breakthrough. Improved. -Continue physical therapy. Encouraged the patient to increase activity as tolerated. History of IV drug use Patient denies any recent history of IV drug use. Patient previously counseled on the dangers of IV drug use. -Continue Percocet, Flexeril, and gabapentin for pain. Add PO morphine and ibuprofen for breakthrough. Pain level is improved and he has been more ambulatory. Constipation/hemorrhoids/weight loss Stable. -continue with schedule stool softener, add Miralax -Lactulose PRN Patient with family history significant for colon cancer Status post EGD which showed gastritis. Colonoscopy failed due to poor prep and stool in the left colon. -GI recommended repeat colonoscopy. Can be done outpatient. Depression Situational. -would like to avoid benzos so will start Prozac 10 mg daily 10/31. Tolerating well. DVT prophylaxis, SCDs. He is ambulatory. Discharge Planning: Needs IV antibiotics, GI work-up. Progress Note: Quality VTE Deep Vein Thrombosis/Pulmonary Embolism Present on Admission: No _ (1) Constipation Qualifiers: Constipation type:
[2018-11-01] MEDS: DAPTOmycin Inj 650 MG in Sodium Chlor 0.9% Inj 100 ML IV.SIG SCH (15:29)
[2018-11-02] MEDS: Gabapentin 300 MG Capsule PO SCH ×3 (06:00→23:09)
[2018-11-02] MEDS: oxyCODONE/Acetaminophen 10/325 Tablet PO PRN ×4 (06:01→21:33)
[2018-11-02] MEDS: Polyethylene Glycol 3350 17 GM Packet PO SCH (09:35)
[2018-11-02] MEDS: Morphine Sulfate 15 MG SR Tablet PO SCH ×2 (09:35→21:32)
[2018-11-02] MEDS: Senna/Docusate Sodium 8.6/50 MG Tablet PO SCH ×2 (09:35→21:32)
[2018-11-02] MEDS: Hydrocortisone Acetate 25 MG Supp RECTAL SCH ×2 (09:35→21:31)
[2018-11-02] MEDS: FLUoxetine 10 MG Capsule PO SCH (09:36)
[2018-11-02] MEDS: Petrolatum 49%/Zinc Oxide 15% Barrier Oint 120 GM Tube TOPICAL SCH (09:36)
[2018-11-02] MEDS: DAPTOmycin Inj 650 MG in Sodium Chlor 0.9% Inj 100 ML IV.SIG SCH (16:12)
[2018-11-02] MEDS ORDERED: ALPRAZolam 0.25 MG Tablet PO PRN (16:25)
--- NOTE | 2018-11-02 16:27 | P.PNIM ---
Subjective Interval history: The patient said that he felt the Prozac was working. He is still having a lot of anxiety especially before going to bed at night and was wondering if he could have something to help with that. He has been ambulating better. He went into multiple stories about his past. Discussed with nursing. Physical Exam Vital signs: Last Vital Signs Temp 98.1 F 11/02/18 12:00 Pulse 114 H 11/02/18 12:00 Resp 18 11/02/18 12:00 BP 110/69 11/02/18 12:00 Pulse Ox 97 11/02/18 12:00 Intake & Output 10/31/18 11/01/18 11/02/18 11/03/18 06:59 06:59 06:59 06:59 Intake Total 3080 / 3080 1180 / 1180 700 / 700 Output Total 3020 / 3020 Balance 60 / 60 1180 / 1180 700 / 700 Weight 81.9 kg 81.4 kg 79.2 kg Narrative: GENERAL: This is a well-nourished, well-developed patient, in no apparent distress. HEENT: Poor dentition. CARDIOVASCULAR: Normal rate and regular rhythm without murmurs, gallops, or rubs. RESPIRATORY: Good respiratory efforts. Breath sounds equal and clear to auscultation bilaterally. GASTROINTESTINAL: Abdomen soft, non-tender, non-distended. Normoactive bowel sounds. MUSCULOSKELETAL: Complaining of discomfort to palpation of the lumbar paraspinal muscles, no joint abnormalities. Gait slow but steady. NEURO: Alert & Oriented x4 to person, place, time, situation. Moves all ext x4. + SLR. Urinary Catheter Management Indwelling Urethral Catheter: Cath placed during this visit: yes, but has since been removed by the nurse Insertion date: 09/25/18 Insertion time: 18:42 Removal date: 09/29/18 Removal time: 22:30 Results Labs CBC & Chem 7: 10/28/18 06:56 10/28/18 06:56 Procedures Procedures: None Assessment and Plan (1) Epidural abscess: Code(s): G06.2 - Extradural and subdural abscess, unspecified Status: Acute (2) Bacteremia: Code(s): R78.81 - Bacteremia Status: Acute (3) History of intravenous drug use in remission: Code(s): Z87.898 - Personal history of other specified conditions Status: Acute (4) Constipation: Code(s): K59.00 - Constipation, unspecified Status: Acute Plan 42-year-old male with a history of IV drug use who presented to the emergency department on 09/24/2018 due to a 3-day duration of lower back pain with radiation to the right lower extremity and numbness of the left leg. He was found to be febrile during the hospitalization. MRI of the spine showed fluid collection in the lumbar spine. Patient was also found to have MRSA bacteremia. MAT on 09/29/2018 was done which did not show any evidence of vegetations. Sepsis secondary to MRSA bacteremia 09/28/18 with lumbar epidural abscess. -The patient's back pain level fluctuates throughout the day depending on activities. However he reports overall improvement since his hospitalization. Repeat imaging did show an increase in the size of the epidural abscess but his symptoms not necessarily correlating right now with the imaging findings. He was reevaluated by neurosurgery who advised continuing with IV antibiotics. Infectious disease following and added Rifampin to his antibiotics regimen of IV daptomycin. -Blood cultures positive for MRSA, repeat blood cultures are negative. MAT showed no vegetation. -Continue pain control. -Per ID, continue to monitor CRP and ESR. Will need 8-12 weeks of antibiotics per ID. -Continue pain control with Percocet as needed, Flexeril for muscle spasm, gabapentin. Add long acting PO morphine and ibuprofen for breakthrough. Improved. -Continue physical therapy. Encouraged the patient to increase activity as tolerated. History of IV drug use Patient denies any recent history of IV drug use. Patient previously counseled on the dangers of IV drug use. -Continue Percocet, Flexeril, and gabapentin for pain. Add PO morphine and ibuprofen for breakthrough. Pain level is improved and he has been more ambulatory. Constipation/hemorrhoids/weight loss Stable. -continue with schedule stool softener, add Miralax -Lactulose PRN Patient with family history significant for colon cancer Status post EGD which showed gastritis. Colonoscopy failed due to poor prep and stool in the left colon. -GI recommended repeat colonoscopy. Can be done outpatient. Depression/anxiety Situational. -tolerating Prozac. -low dose Xanax as needed at night. DVT prophylaxis, SCDs. He is ambulatory. Discharge Planning: Needs to complete IV antibiotic course per ID. Continue pain and anxiety control. Progress Note: Quality VTE Deep Vein Thrombosis/Pulmonary Embolism Present on Admission: No _ (1) Constipation Qualifiers: Constipation type:
[2018-11-03] MEDS: oxyCODONE/Acetaminophen 10/325 Tablet PO PRN ×4 (02:28→17:12)
[2018-11-03] MEDS: Gabapentin 300 MG Capsule PO SCH ×2 (06:37→14:04)
[2018-11-03] MEDS: Senna/Docusate Sodium 8.6/50 MG Tablet PO SCH (08:25)
[2018-11-03] MEDS: Morphine Sulfate 15 MG SR Tablet PO SCH (08:25)
[2018-11-03] MEDS: FLUoxetine 10 MG Capsule PO SCH (08:26)
[2018-11-03] MEDS: Petrolatum 49%/Zinc Oxide 15% Barrier Oint 120 GM Tube TOPICAL SCH (08:28)
[2018-11-03] MEDS: Hydrocortisone Acetate 25 MG Supp RECTAL SCH (08:29)
[2018-11-03] MEDS: Polyethylene Glycol 3350 17 GM Packet PO SCH (08:29)
[2018-11-03] MEDS ORDERED: ALPRAZolam 0.5 MG Tablet PO PRN (13:49)
[2018-11-03] MEDS: DAPTOmycin Inj 650 MG in Sodium Chlor 0.9% Inj 100 ML IV.SIG SCH (15:24)
--- NOTE | 2018-11-03 19:25 | P.PNIM ---
Subjective Interval history: Patient's chief complaint today is insomnia, anxiety, depression. He was recently started on Prozac and feels some benefit. His anxiety is under control, the only medicine he has to manage both his anxiety and his insomnia is Xanax 0.25 at bedtime. Physical Exam Vital signs: Last Vital Signs Temp 98.0 F 11/03/18 16:00 Pulse 96 H 11/03/18 16:00 Resp 14 11/03/18 16:00 BP 123/69 11/03/18 16:00 Pulse Ox 99 11/03/18 16:00 Intake & Output 11/01/18 11/02/18 11/03/18 11/04/18 06:59 06:59 06:59 06:59 Intake Total 1180 / 1180 700 / 700 1540 / 1540 680 / 680 Balance 1180 / 1180 700 / 700 1540 / 1540 680 / 680 Weight 81.4 kg 79.2 kg Narrative: GENERAL: This is a well-nourished, well-developed patient, in no apparent distress. HEENT: Poor dentition. CARDIOVASCULAR: Normal rate and regular rhythm without murmurs, gallops, or rubs. RESPIRATORY: Good respiratory efforts. Breath sounds equal and clear to auscultation bilaterally. GASTROINTESTINAL: Abdomen soft, non-tender, non-distended. Normoactive bowel sounds. MUSCULOSKELETAL: Complaining of discomfort to palpation of the lumbar paraspinal muscles, no joint abnormalities. Gait slow but steady. NEURO: Alert & Oriented x4 to person, place, time, situation. Moves all ext x4. + SLR. Urinary Catheter Management Indwelling Urethral Catheter: Cath placed during this visit: yes, but has since been removed by the nurse Insertion date: 09/25/18 Insertion time: 18:42 Removal date: 09/29/18 Removal time: 22:30 Results Labs CBC & Chem 7: 10/28/18 06:56 10/28/18 06:56 Procedures Procedures: None Assessment and Plan (1) Epidural abscess: Code(s): G06.2 - Extradural and subdural abscess, unspecified Status: Acute (2) Bacteremia: Code(s): R78.81 - Bacteremia Status: Acute (3) History of intravenous drug use in remission: Code(s): Z87.898 - Personal history of other specified conditions Status: Acute (4) Constipation: Code(s): K59.00 - Constipation, unspecified Status: Acute Plan 42-year-old male with a history of IV drug use who presented to the emergency department on 09/24/2018 due to a 3-day duration of lower back pain with radiation to the right lower extremity and numbness of the left leg. He was found to be febrile during the hospitalization. MRI of the spine showed fluid collection in the lumbar spine. Patient was also found to have MRSA bacteremia. MAT on 09/29/2018 was done which did not show any evidence of vegetations. Sepsis secondary to MRSA bacteremia 09/28/18 with lumbar epidural abscess. Repeat imaging did not show an increase in the size of his epidural abscess Neurosurgery recommends continuing IV antibiotics Infectious disease following, rifampin added to IV daptomycin Blood cultures are positive for MRSA, repeat cultures remain negative MAT shows no vegetation Infectious disease recommends 8-12 weeks of antibiotics Continue current pain management Continue physical therapy History of IV drug use Patient denies any recent history of IV drug use. Patient previously counseled on the dangers of IV drug use. Insomnia Melatonin added at bedtime Depression/anxiety Continue Prozac. Xanax added every 4 hours Constipation/hemorrhoids/weight loss Stable., continue with schedule stool softener, add Miralax Lactulose PRN Family history of colon cancer Status post EGD which showed gastritis. Colonoscopy failed due to poor prep and stool in the left colon. GI recommended repeat colonoscopy. Can be done outpatient. DVT prophylaxis SCDs Discharge Planning Needs to complete IV antibiotic course per ID. Continue pain and anxiety control. Progress Note: Quality VTE Deep Vein Thrombosis/Pulmonary Embolism Present on Admission: No _ (1) Constipation Qualifiers: Constipation type:
--- NOTE | 2018-11-03 20:18 | P.AMA ---
AMA Note Diagnosis (1) Epidural abscess: (2) Bacteremia: (3) History of intravenous drug use in remission: (4) Constipation: Discharge Summary AMA Statement: Patient Aleks Cook has decided to leave the hospital against medical advice. This patient has the capacity to refuse care and understands the risks of leaving, including permanent disability and/or , and has had an opportunity to ask questions about his/her condition. The patient has been informed that he/she may return for care at any time, and follow up has been arranged/advised.
[2018-11-03 20:20] VITALS: BP 146/89; PULSE 127; RESP 16; TEMP 97.9; O2SAT 98
[2018-11-03] MEDS ORDERED: Melatonin 5 MG Tablet PO ONE (21:00)
== END 2018-11-03 20:15 | disposition left against medical advice (07) | DRG 871 ==
LOC: NEPD 11:40 → NEDA 15:59 → N04 16:43
PROVIDERS: ADMIT Family Medicine; ATTEND Family Medicine
PROC: COLONOS (2018-10-03 12:14)
PROC: PANENDO (2018-10-03 12:14)
DX: K29.70 Gastritis, unspecified, without bleeding; A41.02 Sepsis due to Methicillin resistant Staphylococcus aureus; R00.0 Tachycardia, unspecified; M62.830 Muscle spasm of back; Z82.5 Family history of asthma and other chronic lower respiratory diseases; R26.2 Difficulty in walking, not elsewhere classified; Z80.0 Family history of malignant neoplasm of digestive organs; Z86.14 Personal history of Methicillin resistant Staphylococcus aureus infection; Z86.59 Personal history of other mental and behavioral disorders; K59.09 Other constipation; R16.1 Splenomegaly, not elsewhere classified; M48.061 Spinal stenosis, lumbar region without neurogenic claudication; R74.0 Nonspecific elevation of levels of transaminase and lactic acid dehydrogenase [LDH]; R63.4 Abnormal weight loss; F43.21 Adjustment disorder with depressed mood; Z82.49 Family history of ischemic heart disease and other diseases of the circulatory system; F41.9 Anxiety disorder, unspecified; M46.40 Discitis, unspecified, site unspecified; M79.604 Pain in right leg; F17.210 Nicotine dependence, cigarettes, uncomplicated; R33.9 Retention of urine, unspecified; R20.0 Anesthesia of skin; G47.00 Insomnia, unspecified; F19.11 Other psychoactive substance abuse, in remission; K64.9 Unspecified hemorrhoids; G06.1 Intraspinal abscess and granuloma
CPT/HCPCS: 72158; 74177; 76937; 80048; 80053; 80074; 80076; 80202; 81001; 82550; 82565; 83605; 83735; 85025; 85027; 85610; 85651; 85652; 86140; 86403; 87040; 87149; 87186; 87205; 88305; 88312; 90761; 90765; 90775; 90776; 93306; 93312; 93320; 93325; 96361; 96365; 96375; 96376; 97116; 97162; 99291; A9585; C9124; J0692; J0878; J1100; J1885; J2250; J2270; J2405; J2704; J3010; J3370; J7030; J7040; J7050; J7120; K0636; L0627; Q9963; Q9967